=== PATIENT | female | born 1955 | race African-American/Black ===

== ENCOUNTER 2017-07-31 10:02 | Emergency (ER) | payer MEDICARE ==
[2017-07-31 10:10] VITALS: TEMP 97
[2017-07-31] MEDS ORDERED: SODIUM CHLORIDE 0.9% 500 ML IV STA (10:26)
[2017-07-31] MEDS ORDERED: ONDANSETRON 4 MG/2 ML VIAL IVP STA (10:26)
[2017-07-31] MEDS ORDERED: DICYCLOMINE 10 MG/ML 2 ML AMP IM STA (10:26)
[2017-07-31] MEDS ORDERED: FAMOTIDINE 20 MG/2 ML VIAL IV STA (10:26)
[2017-07-31] MEDS ORDERED: SODIUM CHLORIDE 0.9% 1,000 ML IV STA (10:26)
--- NOTE | 2017-07-31 10:29 | ED ---
General Adult HPI - General Chief complaint: Nausea/Vomiting/Diarrhea Stated complaint: Dehydration Time Seen by Provider: 07/31/17 10:14 Source: patient, RN notes reviewed Mode of arrival: ambulatory Limitations: no limitations - History of Present Illness Initial comments: Patient is a pleasant 62-year-old female presenting to the emergency department with concerns regarding dehydration. Patient has had symptoms for the past 2-3 days. Patient has had loose watery stools. Patient has had abdominal cramping that is intermittent. No significant pain. Patient has had occasional mild nausea. Patient has had decreased appetite. No vomiting. Patient has had similar symptoms a couple times in the past however is unclear why. - Related Data Home Medications Medication Instructions Recorded Confirmed Calcitriol 0.25 mcg PO Q7D 03/05/17 03/05/17 Carvedilol [Coreg] 3.125 mg PO BID 03/05/17 03/05/17 Ergocalciferol [Vitamin D2 50,000 unit PO Q7D 03/05/17 03/05/17 (DRISDOL)] Folic Acid 1 mg PO DAILY 03/05/17 03/05/17 Furosemide [Lasix] 20 mg PO DAILY 03/05/17 03/05/17 Hydroxychloroquine Sulfate 200 mg PO BID 03/05/17 03/05/17 [Plaquenil] Insulin Aspart Protam & Aspart See Protocol SQ AC-TID 03/05/17 03/05/17 [NovoLOG MIX 70-30 Flexpen] Lisinopril [Zestril] 2.5 mg PO DAILY 03/05/17 03/05/17 Methotrexate Sodium [Methotrexate] 20 mg PO Q7D 03/05/17 03/05/17 Montelukast [Singulair] 10 mg PO HS 03/05/17 03/05/17 Pregabalin [Lyrica] 150 mg PO BID 03/05/17 03/05/17 Sertraline [Zoloft] 100 mg PO DAILY 03/05/17 03/05/17 Simvastatin [Zocor] 10 mg PO HS 03/05/17 03/05/17 Spironolactone [Aldactone] 25 mg PO DAILY 03/05/17 03/05/17 tiZANidine [Zanaflex] 4 mg PO DAILY 03/05/17 03/05/17 Allergies Allergy/AdvReac Type Severity Reaction Status Date / Time Penicillins Allergy Rash/Hives Verified 07/31/17 10:10 Review of Systems ROS Statement: Those systems with pertinent positive or pertinent negative responses have been documented in the HPI. ROS Other: All systems not noted in ROS Statement are negative. Constitutional: Denies: fever Eyes: Denies: eye pain ENT: Denies: ear pain Respiratory: Denies: cough Cardiovascular: Denies: chest pain Endocrine: Reports: fatigue Gastrointestinal: Reports: abdominal pain (Occasional cramping, none at this time), nausea, diarrhea. Denies: vomiting Genitourinary: Denies: dysuria Musculoskeletal: Denies: back pain Skin: Denies: rash Neurological: Denies: headache Past Medical History Past Medical History: Atrial Fibrillation, Cancer, Diabetes Mellitus, Dialysis, Hypertension, Rheumatoid Arthritis (RA) Additional Past Medical History / Comment(s): Lupus, kidney dialysis; heart murmur History of Any Multi-Drug Resistant Organisms: None Reported Past Surgical History: AICD, Hysterectomy, Orthopedic Surgery Additional Past Surgical History / Comment(s): defibrillator; toe surgery for RA Type of Cardiac Device: AICD Device Placement Date:: 2014 Past Psychological History: Depression Smoking Status: Former smoker Past Alcohol Use History: None Reported Past Drug Use History: None Reported General Exam Limitations: no limitations General appearance: alert, in no apparent distress Head exam: Present: atraumatic Eye exam: Present: normal appearance, PERRL ENT exam: Present: normal oropharynx. Absent: mucous membranes dry Neck exam: Present: normal inspection Respiratory exam: Present: normal lung sounds bilaterally Cardiovascular Exam: Present: regular rate, normal rhythm GI/Abdominal exam: Present: soft, normal bowel sounds. Absent: distended, tenderness, guarding, rebound, rigid, pulsatile mass Extremities exam: Present: normal inspection Neurological exam: Present: alert Psychiatric exam: Present: normal affect, normal mood Skin exam: Present: normal color Course Vital Signs 07/31/17 10:07 Temperature 97 F L Pulse Rate 95 Respiratory 18 Rate Blood Pressure 126/73 O2 Sat by Pulse 96 Oximetry Medical Decision Making - Medical Decision Making Patient reevaluated and does feel much better. Patient is comfortable with discharge home. Patient does not feel she needs prescription or further medication. Patient updated on results. - Lab Data Result diagrams: 07/31/17 11:26 07/31/17 11:26 Lab Results 07/31/17 07/31/17 Range/Units 11:26 11:26 WBC 4.5 (3.8-10.6) k/uL RBC 5.16 (3.80-5.40) m/uL Hgb 13.8 (11.4-16.0) gm/dL Hct 40.8 (34.0-46.0) % MCV 79.1 L (80.0-100.0) fL MCH 26.7 (25.0-35.0) pg MCHC 33.8 (31.0-37.0) g/dL RDW 15.3 (11.5-15.5) % Sodium 144 (137-145) mmol/L Potassium 4.4 (3.5-5.1) mmol/L Chloride 107 (98-107) mmol/L Carbon Dioxide 19 L (22-30) mmol/L Anion Gap 18 mmol/L BUN 19 H (7-17) mg/dL Creatinine 0.94 (0.52-1.04) mg/dL Est GFR (CKD-EPI)AfAm 75 (>60 ml/min/1.73 sqM) Est GFR (CKD-EPI)NonAf 65 (>60 ml/min/1.73 sqM) Glucose 189 H (74-99) mg/dL Calcium 8.4 (8.4-10.2) mg/dL Total Bilirubin 0.8 (0.2-1.3) mg/dL AST 39 H (14-36) U/L ALT 24 (9-52) U/L Alkaline Phosphatase 83 (38-126) U/L Total Protein 7.5 (6.3-8.2) g/dL Albumin 4.2 (3.5-5.0) g/dL Amylase 100 (30-110) U/L Lipase 269 (23-300) U/L Disposition Clinical Impression: Dehydration Disposition: HOME SELF-CARE Condition: Stable Instructions: Acute Diarrhea (ED), Dehydration (ED) Additional Instructions: Please do follow-up with your primary care physician in the next day or 2 for recheck. Return for uncontrolled diarrhea, abdominal pain, fevers, vomiting, worsening symptoms or other concerns. Is patient prescribed a controlled substance at d/c from ED?: No Referrals: Russell Abbasi MD [Primary Care Provider] - 1-2 days Time of Disposition: 12:53
[2017-07-31 11:38] LABS: Basophils % (A) 1 %; Eosinophils # (A) 0.1 k/uL (0-0.7); Eosinophils % (A) 1 %; HCT 40.8 % (34.0-46.0); HGB 13.8 gm/dL (11.4-16.0); Lymphocytes # (A) 1.8 k/uL (1.0-4.8); Lymphocytes % (A) 40 %; MCH 26.7 pg (25.0-35.0); MCHC 33.8 g/dL (31.0-37.0); MCV 79.1 fL (80.0-100.0); Mean Platelet Volume 10.5; Monocytes # (A) 0.3 k/uL (0-1.0); Monocytes % (A) 6 %; Neutrophils # (A) 2.2 k/uL (1.3-7.7); Neutrophils % (A) 49 %; RBC 5.16 m/uL (3.80-5.40); RDW 15.3 % (11.5-15.5); WBC 4.5 k/uL (3.8-10.6)
[2017-07-31 11:53] LABS: Calcium 8.4 mg/dL (8.4-10.2); Total Bilirubin 0.8 mg/dL (0.2-1.3)
[2017-07-31 11:54] LABS: Albumin 4.2 g/dL (3.5-5.0); Potassium 4.4 mmol/L (3.5-5.1); Total Protein 7.5 g/dL (6.3-8.2)
[2017-07-31 12:56] LABS: Platelet Count 128 k/uL (150-450)
[2017-07-31 12:57] LABS: Large Platelets Present
[2017-07-31 13:06] VITALS: BP 152/83; PULSE 90; RESP 16
[2017-07-31 13:13] LABS: Appearance,Urine Clear (Clear); Bilirubin,Urine Negative (Negative); Blood,Urine Negative (Negative); Color,Urine Yellow; Glucose,Urine (UA) Negative (Negative); Ketones,Urine Negative (Negative); Leukocyte Esterase,Urine Negative (Negative); Nitrite,Urine Negative (Negative); Protein,Urine Trace (Negative); Specific Gravity,Urine 1.016 (1.001-1.035); Urobilinogen,Urine <2.0 mg/dL (<2.0)
== END 2017-07-31 13:07 | disposition home or self-care (01) ==
LOC: EC 10:02
DX: E86.0 Dehydration (principal); I48.91 Unspecified atrial fibrillation; E11.9 Type 2 diabetes mellitus without complications; I10 Essential (primary) hypertension; F32.9 Major depressive disorder, single episode, unspecified; Z95.810 Presence of automatic (implantable) cardiac defibrillator; Z99.2 Dependence on renal dialysis; Z87.891 Personal history of nicotine dependence; Z79.02 Long term (current) use of antithrombotics/antiplatelets; Z79.4 Long term (current) use of insulin; Z79.899 Other long term (current) drug therapy; Z88.0 Allergy status to penicillin; Z85.9 Personal history of malignant neoplasm, unspecified
CPT/HCPCS: 36415; 80053; 82150; 83690; 85025; 81003; 99284; 96374; 96375; 96361 ×2; 96372; J0500; J2405

== ENCOUNTER 2017-10-30 13:58 | Emergency (ER) | payer MEDICARE ==
[2017-10-30] MEDS ORDERED: MORPHINE SULFATE 4 MG/ML SYRINGE IV STA (15:59)
[2017-10-30] MEDS ORDERED: SODIUM CHLORIDE 0.9% 1,000 ML IV STA (15:59)
--- NOTE | 2017-10-30 16:03 | ED ---
Abdominal Pain HPI - General Chief Complaint: Abdominal Pain Stated Complaint: Abd Pain Time Seen by Provider: 10/30/17 15:49 Source: patient Mode of arrival: ambulatory Limitations: no limitations - History of Present Illness Initial Comments: Patient is a 62-year-old female presenting for abdominal pain. The patient states that this is been present since Tuesday night and feels like a "surgical" of constant achy pain which is also present at the top portion of her abdomen. The pain does not radiate and there are no modifying factors. It is associated with chills but no fever or urinary symptoms. She has had 10 episodes of vomiting since that time but no diarrhea. She also denies any significant intra-abdominal pathology and has only had a history of hysterectomy from a surgical standpoint. She also states that she does have A. fib but is not anticoagulated because of falls. She denies any significant chest pain or shortness of breath. - Related Data Home Medications Medication Instructions Recorded Confirmed Calcitriol 0.25 mcg PO Q7D 03/05/17 03/05/17 Carvedilol [Coreg] 3.125 mg PO BID 03/05/17 03/05/17 Ergocalciferol [Vitamin D2 50,000 unit PO Q7D 03/05/17 03/05/17 (DRISDOL)] Folic Acid 1 mg PO DAILY 03/05/17 03/05/17 Furosemide [Lasix] 20 mg PO DAILY 03/05/17 03/05/17 Hydroxychloroquine Sulfate 200 mg PO BID 03/05/17 03/05/17 [Plaquenil] Insulin Aspart Protam & Aspart See Protocol SQ AC-TID 03/05/17 03/05/17 [NovoLOG MIX 70-30 Flexpen] Lisinopril [Zestril] 2.5 mg PO DAILY 03/05/17 03/05/17 Methotrexate Sodium [Methotrexate] 20 mg PO Q7D 03/05/17 03/05/17 Montelukast [Singulair] 10 mg PO HS 03/05/17 03/05/17 Pregabalin [Lyrica] 150 mg PO BID 03/05/17 03/05/17 Sertraline [Zoloft] 100 mg PO DAILY 03/05/17 03/05/17 Simvastatin [Zocor] 10 mg PO HS 03/05/17 03/05/17 Spironolactone [Aldactone] 25 mg PO DAILY 03/05/17 03/05/17 tiZANidine [Zanaflex] 4 mg PO DAILY 03/05/17 03/05/17 Previous Rx's Medication Instructions Recorded Dicyclomine [Bentyl] 20 mg PO QID PRN #20 tablet 10/30/17 Metoclopramide [Reglan] 10 mg PO BID PRN #12 tab 10/30/17 Allergies Allergy/AdvReac Type Severity Reaction Status Date / Time Penicillins Allergy Rash/Hives Verified 10/30/17 14:27 Review of Systems ROS Statement: Those systems with pertinent positive or pertinent negative responses have been documented in the HPI. Constitutional: Positive for chills, fatigue and negative for fever. HENT: Negative for congestion. Respiratory: Negative for chest tightness, shortness of breath and wheezing. Negative for cough Cardiovascular: Negative for chest pain and palpitations. Gastrointestinal: Positive for abdominal pain and vomiting/nausea. Negative for abdominal distention, diarrhea, . Genitourinary: Negative for dysuria. Musculoskeletal: Negative for back pain, neck pain and neck stiffness. Skin: Negative for color change. Neurological: Negative for dizziness, speech difficulty, weakness and light- headedness. Psychiatric/Behavioral: Negative for agitation and confusion. Negative for anxiety ROS Other: All systems not noted in ROS Statement are negative. Past Medical History Past Medical History: Atrial Fibrillation, Cancer, Diabetes Mellitus, Dialysis, Hypertension, Rheumatoid Arthritis (RA) Additional Past Medical History / Comment(s): Lupus, kidney dialysis; heart murmur History of Any Multi-Drug Resistant Organisms: None Reported Past Surgical History: AICD, Hysterectomy, Orthopedic Surgery Additional Past Surgical History / Comment(s): defibrillator; toe surgery for RA Type of Cardiac Device: AICD Device Placement Date:: 2014 Past Psychological History: Depression Smoking Status: Former smoker Past Alcohol Use History: None Reported Past Drug Use History: None Reported General Exam - General Exam Comments Initial Comments: Constitutional: Pt is oriented to person, place, and time. Pt appears well- developed and well-nourished. No distress. HENT: Head: Normocephalic and atraumatic. Eyes: EOM are normal. Neck: Normal range of motion. Neck supple. Cardiovascular: Irregularly irregular, S1 normal, S2 normal and normal heart sounds. Exam reveals no gallop and no friction rub. No murmur heard. Pulmonary/Chest: Effort normal and breath sounds normal. No tachypnea and no bradypnea. No respiratory distress. No wheezes or rales noted. Abdominal: Soft. Bowel sounds are normal. Pt exhibits no shifting dullness, no distension, no pulsatile liver, no fluid wave, no abdominal bruit and no ascites. There is no tenderness. There is no rigidity, no rebound, no guarding, no tenderness at McBurney's point and negative Winter's sign. Musculoskeletal: Normal range of motion. Neurological: Pt is alert and oriented to person, place, and time. No cranial nerve deficit. Skin: Skin is warm and dry. No rash noted. Pt is not diaphoretic. No erythema. No pallor. Psychiatric: Pt has a normal mood and affect. Pt behavior is normal. Thought content normal. Limitations: no limitations Course Vital Signs 10/30/17 10/30/17 10/30/17 14:23 19:01 20:11 Temperature 98 F 98.2 F Pulse Rate 69 51 L 81 Respiratory 18 18 17 Rate Blood Pressure 133/66 150/70 164/98 O2 Sat by Pulse 98 95 97 Oximetry Medical Decision Making - Medical Decision Making Laboratory studies showed that there is no leukocytosis and a letter lites are relatively within normal limits with exception of magnesium which were replaced. Because there was no significant tenderness to palpation of the patient had a history of atrial fibrillation, CTA of the abdomen was performed and showed: Cortical thinning posterior left kidney consistent with infarct and atrophy. This is discussed radiology and it was determined that this is likely old and chronic. Additionally, G4 appears to be preserved. Patient was given fluids and antiemetics and stated that symptoms had completely resolved.It was explained that while there does not appear to be an emergent process, the etiology of the symptoms are still unclear but possibly related to viral illness and may need further workup as an outpatient if symptoms continue. Patient was reexamined prior to d/c and found to be resting comfortably in bed in no acute distress.Explained all labs and diagnostic test results and that we will discharge the patient home and patient is to follow up with PCP in 1-2 days and return to the ED if symptoms worsen. Pt is agreeable to plan. - Lab Data Result diagrams: 10/30/17 16:19 10/30/17 16:19 Lab Results 10/30/17 10/30/1718 Range/Units 16:19 16:19 16:19 WBC 6.8 (3.8-10.6) k/uL RBC 4.46 (3.80-5.40) m/uL Hgb 11.9 (11.4-16.0) gm/dL Hct 34.0 (34.0-46.0) % MCV 76.3 L (80.0-100.0) fL MCH 26.8 (25.0-35.0) pg MCHC 35.1 (31.0-37.0) g/dL RDW 17.0 H (11.5-15.5) % Plt Count 135 L (150-450) k/uL Neutrophils % 71 % Lymphocytes % 20 % Monocytes % 6 % Eosinophils % 1 % Basophils % 1 % Neutrophils # 4.8 (1.3-7.7) k/uL Lymphocytes # 1.3 (1.0-4.8) k/uL Monocytes # 0.4 (0-1.0) k/uL Eosinophils # 0.0 (0-0.7) k/uL Basophils # 0.0 (0-0.2) k/uL Anisocytosis Slight Microcytosis Slight PT (9.0-12.0) sec INR (<1.2) APTT (22.0-30.0) sec Sodium 140 (137-145) mmol/L Potassium 4.1 (3.5-5.1) mmol/L Chloride 107 (98-107) mmol/L Carbon Dioxide 21 L (22-30) mmol/L Anion Gap 12 mmol/L BUN 11 (7-17) mg/dL Creatinine 0.80 (0.52-1.04) mg/dL Est GFR (CKD-EPI)AfAm >90 (>60 ml/min/1.73 sqM) Est GFR (CKD-EPI)NonAf 80 (>60 ml/min/1.73 sqM) Glucose 120 H (74-99) mg/dL Plasma Lactic Acid Sunny 1.6 (0.7-2.0) mmol/L Calcium 9.5 (8.4-10.2) mg/dL Magnesium 1.5 L (1.6-2.3) mg/dL Total Bilirubin 1.2 (0.2-1.3) mg/dL AST 40 H (14-36) U/L ALT 26 (9-52) U/L Alkaline Phosphatase 111 (38-126) U/L Troponin I (0.000-0.034) ng/mL Total Protein 7.9 (6.3-8.2) g/dL Albumin 4.1 (3.5-5.0) g/dL Lipase 111 (23-300) U/L Urine Color Urine Appearance (Clear) Urine pH (5.0-8.0) Ur Specific [place] (1.001-1.035) Urine Protein (Negative) Urine Glucose (UA) (Negative) Urine Ketones (Negative) Urine Blood (Negative) Urine Nitrite (Negative) Urine Bilirubin (Negative) Urine Urobilinogen (<2.0) mg/dL Ur Leukocyte Esterase (Negative) Urine RBC (0-5) /hpf Urine WBC (0-5) /hpf Ur Squamous Epith Cells (0-4) /hpf Urine Mucus (None) /hpf 10/30/17 10/30/17 10/30/17 Range/Units 16:19 16:19 18:51 WBC (3.8-10.6) k/uL RBC (3.80-5.40) m/uL Hgb (11.4-16.0) gm/dL Hct (34.0-46.0) % MCV (80.0-100.0) fL MCH (25.0-35.0) pg MCHC (31.0-37.0) g/dL RDW (11.5-15.5) % Plt Count (150-450) k/uL Neutrophils % % Lymphocytes % % Monocytes % % Eosinophils % % Basophils % % Neutrophils # (1.3-7.7) k/uL Lymphocytes # (1.0-4.8) k/uL Monocytes # (0-1.0) k/uL Eosinophils # (0-0.7) k/uL Basophils # (0-0.2) k/uL Anisocytosis Microcytosis PT 12.6 H (9.0-12.0) sec INR 1.3 H (<1.2) APTT 23.3 (22.0-30.0) sec Sodium (137-145) mmol/L Potassium (3.5-5.1) mmol/L Chloride (98-107) mmol/L Carbon Dioxide (22-30) mmol/L Anion Gap mmol/L BUN (7-17) mg/dL Creatinine (0.52-1.04) mg/dL Est GFR (CKD-EPI)AfAm (>60 ml/min/1.73 sqM) Est GFR (CKD-EPI)NonAf (>60 ml/min/1.73 sqM) Glucose (74-99) mg/dL Plasma Lactic Acid Sunny (0.7-2.0) mmol/L Calcium (8.4-10.2) mg/dL Magnesium (1.6-2.3) mg/dL Total Bilirubin (0.2-1.3) mg/dL AST (14-36) U/L ALT (9-52) U/L Alkaline Phosphatase (38-126) U/L Troponin I 0.023 (0.000-0.034) ng/mL Total Protein (6.3-8.2) g/dL Albumin (3.5-5.0) g/dL Lipase (23-300) U/L Urine Color Yellow Urine Appearance Clear (Clear) Urine pH 6.0 (5.0-8.0) Ur Specific [place] 1.042 H (1.001-1.035) Urine Protein 1+ H (Negative) Urine Glucose (UA) Negative (Negative) Urine Ketones 2+ H (Negative) Urine Blood Negative (Negative) Urine Nitrite Negative (Negative) Urine Bilirubin 1+ H (Negative) Urine Urobilinogen 4.0 (<2.0) mg/dL Ur Leukocyte Esterase Negative (Negative) Urine RBC 2 (0-5) /hpf Urine WBC <1 (0-5) /hpf Ur Squamous Epith Cells <1 (0-4) /hpf Urine Mucus Rare H (None) /hpf - EKG Data EKG Comments: EKG shows sinus rhythm with right bundle branch block and nonspecific T-wave inversions in leads V1 through V3 and aVF. Rate of 91, ND interval 198, QRS 130 , QTC 492. Disposition Clinical Impression: Abdominal pain, Nausea and vomiting, Atrophic kidney Disposition: HOME SELF-CARE Condition: Good Instructions: Abdominal Pain (ED) Prescriptions: Dicyclomine [Bentyl] 20 mg PO QID PRN #20 tablet PRN Reason: Pain Metoclopramide [Reglan] 10 mg PO BID PRN #12 tab PRN Reason: Nausea And Vomiting Is patient prescribed a controlled substance at d/c from ED?: No Referrals: Russell Abbasi MD [Primary Care Provider] - 1-2 days Time of Disposition: 19:27
[2017-10-30 16:34] LABS: Anisocytosis Slight; Basophils % (A) 1 %; Eosinophils % (A) 1 %; HGB 11.9 gm/dL (11.4-16.0); Lymphocytes # (A) 1.3 k/uL (1.0-4.8); Lymphocytes % (A) 20 %; MCH 26.8 pg (25.0-35.0); MCHC 35.1 g/dL (31.0-37.0); MCV 76.3 fL (80.0-100.0); Mean Platelet Volume 10.1; Microcytosis Slight; Monocytes # (A) 0.4 k/uL (0-1.0); Monocytes % (A) 6 %; Neutrophils # (A) 4.8 k/uL (1.3-7.7); Neutrophils % (A) 71 %; Platelet Count 135 k/uL (150-450); RBC 4.46 m/uL (3.80-5.40); WBC 6.8 k/uL (3.8-10.6)
[2017-10-30 16:47] LABS: INR 1.3 (<1.2); Partial Thromboplastin Time 23.3 sec (22.0-30.0); Prothrombin Time 12.6 sec (9.0-12.0)
[2017-10-30] MEDS ORDERED: TRIMETHOBENZAMIDE 100 MG/ML 2 ML VIAL IM STA (16:50)
[2017-10-30 16:54] LABS: ALT 26 U/L (9-52); AST 40 U/L (14-36); Albumin 4.1 g/dL (3.5-5.0); Alkaline Phosphatase 111 U/L (38-126); Anion Gap 12 mmol/L; Blood Urea Nitrogen 11 mg/dL (7-17); Calcium 9.5 mg/dL (8.4-10.2); Carbon Dioxide 21 mmol/L (22-30); Chloride 107 mmol/L (98-107); Glucose 120 mg/dL (74-99); Lipase 111 U/L (23-300); Magnesium 1.5 mg/dL (1.6-2.3); Potassium 4.1 mmol/L (3.5-5.1); Sodium 140 mmol/L (137-145); Total Bilirubin 1.2 mg/dL (0.2-1.3); Total Protein 7.9 g/dL (6.3-8.2)
--- NOTE | 2017-10-30 18:06 | CT ---
EXAMINATION TYPE: CT angio abdomen pelvis DATE OF EXAM: 10/30/2017 HISTORY: Generalized pain with nausea and vomiting CT DLP: 929mGycm Automated Exposure Control for Dose Reduction was Utilized. CONTRAST: CT scan of the abdomen and pelvis is performed with IV Contrast, patient injected with 100 mL of Isov ue 370. COMPARISON: None FINDINGS: There are 3-D post processed images. Lung bases are clear of infiltrate. Heart is enlarged. There is no pleural effusion. Abdominal aorta has normal size without evidence of aneurysm or dissection. There is patency of the celiac artery and superior mesenteric artery. There is 50% stenosis origin of the celiac artery. There is patency of t he renal arteries. There is cortical thinning and decreased density in the posterior left kidney. The re is no hydronephrosis. There is bilateral patency of the common internal and external iliac arterie s. There is no retroperitoneal adenopathy. Liver and spleen appear normal. There is a small calcified gallstone. There is no evidence of pancrea tic mass. 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 No abdominal aortic aneu rysm or dissection. Mild stenosis proximal celiac artery. Calcified gallstone.
[2017-10-30 19:19] LABS: Appearance,Urine Clear (Clear); Bilirubin,Urine 1+ (Negative); Blood,Urine Negative (Negative); Color,Urine Yellow; Glucose,Urine (UA) Negative (Negative); Ketones,Urine 2+ (Negative); Leukocyte Esterase,Urine Negative (Negative); Mucus,Urine Rare /hpf; Nitrite,Urine Negative (Negative); Protein,Urine 1+ (Negative); RBC,Urine 2 /hpf (0-5); Specific Gravity,Urine 1.042 (1.001-1.035); Squamous Epithelial Cell,Urine <1 /hpf (0-4); WBC,Urine <1 /hpf (0-5)
[2017-10-30] MEDS ORDERED: MAGNESIUM OXIDE 400 MG TAB PO STA (19:24)
[2017-10-30 20:12] VITALS: BP 164/98; PULSE 81; RESP 17; TEMP 98.2
== END 2017-10-30 20:12 | disposition home or self-care (01) ==
LOC: EC 13:58
DX: I12.9 Hypertensive chronic kidney disease with stage 1 through stage 4 chronic kidney disease, or unspecified chronic kidney disease (principal); E11.22 Type 2 diabetes mellitus with diabetic chronic kidney disease; N18.9 Chronic kidney disease, unspecified; R10.9 Unspecified abdominal pain; I48.91 Unspecified atrial fibrillation; M06.9 Rheumatoid arthritis, unspecified; F32.9 Major depressive disorder, single episode, unspecified; Z90.710 Acquired absence of both cervix and uterus; Z99.2 Dependence on renal dialysis; Z95.810 Presence of automatic (implantable) cardiac defibrillator; Z87.891 Personal history of nicotine dependence; Z79.4 Long term (current) use of insulin; Z79.899 Other long term (current) drug therapy; Z88.0 Allergy status to penicillin
CPT/HCPCS: 36415; 93005; 80053; 83605; 83690; 83735; 84484; 85025; 85610; 85730; 81001; 74174; 99284; 96374; 96361; 96372; J2270; J3250; Q9967

== ENCOUNTER → 2018-01-11 | Outpatient (CLI) | payer MEDICARE ==
--- NOTE | 2018-01-13 09:53 | MM ---
Reason for exam: screening (asymptomatic). Last mammogram was performed 1 year and 1 month ago. History: Patient is postmenopausal and history of other cancer. Took progesterone for 2 months. Physical Findings: A clinical breast exam by your physician is recommended on an annual basis and results should be correlated with mammographic findings. MG 3D Screening Mammo W/Cad Bilateral CC and MLO view(s) were taken. Prior study comparison: December 03, 2016, bilateral MG 3d screening mammo w/cad. August 06, 2015, bilateral MG 3d screening mammo w/cad. Focal asymmetries left CC, one has distortion on tomosynthesis. This finding is changed when compared with previous exams. ASSESSMENT: Incomplete: need additional imaging evaluation, BI-RAD 0 RECOMMENDATION: Special view mammogram of the left breast. If lesion persists on supplemental views, image directed ultrasound is recommended. [facility] will attempt to contact patient to return for supplemental views and ultrasound if indicated.
== END | disposition home or self-care (01) ==
LOC: RADMAMWWP 14:29
PROVIDERS: ATTEND Family Medicine
DX: Z12.31 Encounter for screening mammogram for malignant neoplasm of breast (principal)
CPT/HCPCS: 77063; 77067

== ENCOUNTER → 2018-01-20 | Outpatient (CLI) | payer MEDICARE ==
--- NOTE | 2018-01-23 13:20 | MM ---
Reason for exam: additional evaluation requested from abnormal screening. Last mammogram was performed less than 1 month ago. History: Patient is postmenopausal and history of other cancer. Took progesterone for 2 months. Physical Findings: Nurse did not find any significant physical abnormalities on exam. MG 3D Work Up W/Cad LT Spot compression CC, spot compression MLO, and LM view(s) were taken of the left breast. Prior study comparison: January 11, 2018, bilateral MG 3d screening mammo w/cad. December 03, 2016, bilateral MG 3d screening mammo w/cad. The breast tissue is heterogeneously dense. This may lower the sensitivity of mammography. There is no discrete abnormality on compressio or tomosynthesis. These results were verbally communicated with the patient and result sheet given to the patient on 01/20/18. ASSESSMENT: Benign, BI-RAD 2 RECOMMENDATION: Return to routine screening mammogram schedule for both breasts.
== END | disposition home or self-care (01) ==
LOC: RADMAMWWP 14:35
PROVIDERS: ATTEND Family Medicine
DX: R92.8 Other abnormal and inconclusive findings on diagnostic imaging of breast (principal)
CPT/HCPCS: 77065; G0279; 77061

== ENCOUNTER → 2018-06-27 | Outpatient (CLI) | payer MEDICARE ==
[2018-06-27 16:11] LABS: Albumin 4.4 g/dL (3.80-4.90); Albumin/Globulin Ratio 1.47 (1.60-3.17); Anion Gap 10.9 mmol/L (4.00-12.00); Calcium 9.3 mg/dL (8.7-10.3); Carbon Dioxide 28.1 mmol/L (21.6-31.8); Potassium 4.4 mmol/L (3.5-5.5); Total Bilirubin 0.4 mg/dL (0.2-1.2); Total Protein 7.4 g/dL (6.2-8.2)
== END ==
LOC: LABWHC1 08:49
PROVIDERS: ATTEND Internal Medicine Endocrinology, Diabetes & Metabolism
DX: E11.65 Type 2 diabetes mellitus with hyperglycemia (principal)
CPT/HCPCS: 36415; 80053; 82043; 82570; 83036; 84443

== ENCOUNTER → 2018-07-07 | Outpatient (CLI) | payer MEDICARE ==
[2018-07-07 18:41] LABS: Albumin 4.5 g/dL (3.80-4.90); Albumin/Globulin Ratio 1.61 (1.60-3.17); Anion Gap 8.3 mmol/L (4.00-12.00); Calcium 9.2 mg/dL (8.7-10.3); Carbon Dioxide 28.7 mmol/L (21.6-31.8); Globulin 2.8 g/dL (1.6-3.3); LDL Cholesterol,Calculated 76.4 mg/dL (0.0-131.0); Potassium 4.2 mmol/L (3.5-5.5); Total Bilirubin 0.5 mg/dL (0.2-1.2); Total Protein 7.3 g/dL (6.2-8.2); VLDL Calculation 17.6 mg/dL (5.00-40.00)
[2018-07-07 21:19] LABS: Hemoglobin A1C 7.7 % (4.0-6.0)
== END | disposition home or self-care (01) ==
LOC: LABWHC1 11:18
PROVIDERS: ATTEND Internal Medicine Endocrinology, Diabetes & Metabolism
DX: E11.65 Type 2 diabetes mellitus with hyperglycemia (principal)
CPT/HCPCS: 36415; 80053; 80061; 82043; 82570; 83036; 84443

== ENCOUNTER 2018-09-20 11:15 | Day surgery (SDC) | payer MEDICARE ==
[2018-09-13 13:40] VITALS: BMI 29.4
[~2018-09-20 11:15] MED LIST: CLINDAMYCIN 600 MG in DEXTROSE 5% IN WATER 50 ML IVPB ONE; DEXAMETHASONE SOD PHOSPHATE 10 MG/ML 1 ML VIAL IV ONE; DEXAMETHASONE SOD PHOSPHATE 4 MG/ML 1 ML VIAL IV ONE; FAMOTIDINE 20 MG/2 ML VIAL IV ONE; LACTATED RINGERS 1,000 ML IV SCH; LIDOCAINE 1% 20 ML VIAL (10MG/ML) FOR IV START INTRADERMA PRN; ONDANSETRON 4 MG/2 ML VIAL IVP ONE; SCOPOLAMINE 1.5MG/72HR PATCH TRANSDERM ONE
[2018-09-20 13:16] LABS: Glucose,Whole Blood 162 mg/dL (75-99)
[2018-09-20] MEDS ORDERED: ONDANSETRON 4 MG/2 ML VIAL ONE (13:40)
[2018-09-20] MEDS ORDERED: fentaNYL (PF) 50 MCG/ML 2 ML AMP ONE ×2 (13:40)
[2018-09-20] MEDS ORDERED: DEXAMETHASONE SOD PHOS (MDV) 100 MG/10 ML VIAL ONE (13:40)
[2018-09-20] MEDS ORDERED: KETAMINE 10 MG/ML 20 ML VIAL ONE (13:40)
[2018-09-20] MEDS ORDERED: PROPOFOL 10 MG/ML 20 ML VIAL IV ONE (13:40)
[2018-09-20] MEDS ORDERED: LIDOCAINE 1%-EPI 1:100,000 20 ML VIAL SQ ONE ×2 (14:10)
[2018-09-20] MEDS ORDERED: SODIUM BICARB 8.4% 50 ML VIAL (1 MEQ/ML) MISCELLANE ONE ×2 (14:10)
[2018-09-20] MEDS ORDERED: LACTATED RINGERS 1,000 ML IV ONE ×2 (14:28)
[2018-09-20] MEDS ORDERED: BACITRACIN OINT 1 EACH PACKET TOPICAL ONE (15:23)
--- NOTE | 2018-09-20 15:31 | P.OP ---
Date of Procedure: 09/20/18 Preoperative Diagnosis: Left vocal cord paralysis Postoperative Diagnosis: Same Procedure(s) Performed: Left medialization thyroplasty Anesthesia: ENYMAR Surgeon: Tomy Singh Estimated Blood Loss (ml): 3 Pathology: none sent Condition: stable Disposition: PACU Indications for Procedure: This is a 63-year-old black female who was intubated in March of this year emergently and has had hoarseness ever since. She has documented on flexible laryngoscopy and video stroboscopy of the left paralysis which has not improved and continues to have weakness of the voice and hoarseness Operative Findings: Left vocal cord paralysis in the paramedian position Description of Procedure: The patient was brought in the operative suite and placed in a supine position. The patient underwent induction of IV sedation after appropriate monitors were placed by the skiver counter. The patient was prepped and draped in usual aseptic fashion after being positioned with a head donut and shoulder roll. 1% lidocaine with 1-100,000 epinephrine was infused over the left anterior neck. This was left to work for 7 minutes vasoconstrictive effect. Incision was then made transversely 1.5 cm over the midline through the right and then coursing overlying the inferior aspect of the thyroid cartilage on the left. This was carried sharply through skin and subcutaneous tissue as well as platysma layer. The strap muscles were identified and split in the midline raphae and reflected laterally. The dissection continued down onto the thyroid cartilage where the musculature was divided in the inferior aspect of the thyroid cartilage and refl ected superiorly and inferiorly. The left thyroid cartilage was well visualized and the inferior tubercle was identified. The Pichardo thyroplasty female markers were used to ascertain the mcclellan point and to measure for the cartilaginous window in standard fashion. This cartilage of window was then cut out with a 15 blade and the window was resized and was the appropriate size and location. The underlying perichondrium was then divided anterior to posterior. The Pichardo thyroplasty set was then utilized to obtain the appropriate size which was a female size 9 testing her voice with counting numbers to a stronger appropriate voice but not strained. This implant was then placed and the patient was allowed to count numbers again. Flexible laryngoscopy was also performed to visualize vocal cords and the left vocal cord was then noted to be in the median position. The wound was then copiously irrigated sterile normal saline. A #10 round suction drain was placed separate stab incision and the strap muscles were reapproximated in the midline with 3-0 Vicryl suture. The platysma and subcutaneous layers were closed with inverted interrupted 4-0 Vicryl suture and the skin closed with running locking 5-0 nylon suture. The drain was sutured to the skin with a 2-0 nylon suture. The wound was dressed with bacitracin ointment and a light gauze dressing. The drain was working well less than 1 mL in the tubing. The patient was awake and alert and tolerated the procedure well with no stridor or respiratory difficulty. The patient's voicing was strong at the conclusion of the case. The patient was transferred to postop recovery area in satisfactory condition.
[2018-09-20 15:41] VITALS: TEMP 97
[2018-09-20] MEDS: HYDROmorphone 0.5 MG/0.5 ML SYRINGE IVP PRN ×2 (15:56→16:19)
[2018-09-20 16:25] LABS: Glucose,Whole Blood 190 mg/dL (75-99)
[2018-09-20 17:02] VITALS: RESP 18
[2018-09-20 17:36] VITALS: BP 123/63; PULSE 80
== END 2018-09-20 18:10 | disposition home or self-care (01) ==
LOC: OR 11:15
PROVIDERS: ATTEND Otolaryngology
DX: J38.01 Paralysis of vocal cords and larynx, unilateral (principal); E78.5 Hyperlipidemia, unspecified; J45.909 Unspecified asthma, uncomplicated; M06.9 Rheumatoid arthritis, unspecified; M35.00 Sjogren syndrome, unspecified; D64.9 Anemia, unspecified; I11.0 Hypertensive heart disease with heart failure; I50.9 Heart failure, unspecified; R53.1 Weakness; I48.91 Unspecified atrial fibrillation; E11.9 Type 2 diabetes mellitus without complications; F32.9 Major depressive disorder, single episode, unspecified; Z95.810 Presence of automatic (implantable) cardiac defibrillator; Z79.82 Long term (current) use of aspirin; Z79.4 Long term (current) use of insulin; Z79.51 Long term (current) use of inhaled steroids; Z88.0 Allergy status to penicillin; Z90.710 Acquired absence of both cervix and uterus

== ENCOUNTER → 2018-12-26 | Outpatient (CLI) | payer MEDICARE ==
[2018-12-26 12:43] LABS: Potassium 3.6 mmol/L (3.5-5.1)
[2018-12-26 13:33] LABS: HCT 35.7 % (34.0-46.0); MCH 27.6 pg (25.0-35.0); MCHC 33.6 g/dL (31.0-37.0); MCV 82.1 fL (80.0-100.0); Mean Platelet Volume 9.6; Platelet Count 158 k/uL (150-450); RBC 4.35 m/uL (3.80-5.40); RDW 15.7 % (11.5-15.5); WBC 4.5 k/uL (3.8-10.6)
== END | disposition home or self-care (01) ==
LOC: LABPAT 12:00
PROVIDERS: ATTEND Internal Medicine Clinical Cardiac Electrophysiology
DX: Z01.812 Encounter for preprocedural laboratory examination (principal); I47.1 Supraventricular tachycardia; I42.8 Other cardiomyopathies
CPT/HCPCS: 36415; 80051; 82565; 82947; 84520; 85027

== ENCOUNTER 2019-01-03 06:19 | Day surgery (SDC) | payer MEDICARE ==
[2019-01-02 08:33] VITALS: BMI 33.0
[~2019-01-03 06:19] MED LIST changes: +ALPRAZolam 0.25 MG TAB PO PRN; +ALPRAZolam 0.5 MG TAB PO PRN; +ASPIRIN 325 MG TAB PO STA; +ATORVASTATIN 80 MG TAB PO STA; -CLINDAMYCIN 600 MG in DEXTROSE 5% IN WATER 50 ML IVPB ONE; -DEXAMETHASONE SOD PHOSPHATE 10 MG/ML 1 ML VIAL IV ONE; -DEXAMETHASONE SOD PHOSPHATE 4 MG/ML 1 ML VIAL IV ONE; -FAMOTIDINE 20 MG/2 ML VIAL IV ONE; -LACTATED RINGERS 1,000 ML IV SCH; -LIDOCAINE 1% 20 ML VIAL (10MG/ML) FOR IV START INTRADERMA PRN; +NITROGLYCERIN SL TABS 0.4 MG TAB SUBLINGUAL PRN; -ONDANSETRON 4 MG/2 ML VIAL IVP ONE; -SCOPOLAMINE 1.5MG/72HR PATCH TRANSDERM ONE; +SODIUM CHLORIDE 0.9% 1,000 ML in EMPTY BAG 1 BAG IV ONE
[2019-01-03] MEDS ORDERED: SODIUM CHLORIDE 0.9% 1,000 ML IV ONE (06:59)
[2019-01-03 07:03] VITALS: RESP 16; TEMP 98.1
[2019-01-03 07:04] LABS: Glucose,Whole Blood 149 mg/dL (75-99)
[2019-01-03] MEDS ORDERED: LIDOCAINE 1% INJ 10MG/ML (20 ML MDV) ONE (07:34)
[2019-01-03] MEDS: MIDAZOLAM 2 MG/2 ML VIAL IVP ONE ×2 (07:40→07:45)
[2019-01-03] MEDS ORDERED: LIDOCAINE 1% INJ 10MG/ML (20 ML MDV) SQ ONE (07:47)
[2019-01-03 08:16] LABS: O2 Sat Blood Gas 61.8 %
[2019-01-03 08:18] LABS: O2 Sat Blood Gas 63.5 %
[2019-01-03 08:21] LABS: O2 Sat Blood Gas 61.6 %
[2019-01-03 08:23] LABS: O2 Sat Blood Gas 93.7 %
[2019-01-03 13:25] VITALS: BP 137/70; PULSE 82
--- NOTE | 2019-01-16 15:31 | P.PCN ---
Preoperative Diagnosis: Diagnosis Elevated right-sided pressures on recent 2-D echo Cardiomyopathy Shortness of breath on exertion and atypical chest discomfort No ischemia on stress testing Right heart cath procedure The right groin was prepped and draped as per protocol 8-Danish sheath was placed in the right femoral vein A [place]-Daniel catheter was placed in the right side of the heart and right-sided pressures are measured RA pressures 8/7/6 mmHg O2 sat 63.5% RV pressures 46/-3/6 mmHg O2 sat 61.6% PA pressures 44/26/30 mmHg O2 sat 61.8% Pulmonary capillary wedge pressures 12/16/9 mm of mercury O2 sat 93.7% Patient underwent EP procedure under conscious sedation/moderate sedation, monitoring of the level of consciousness and physiologic parameters including but not limited to vital signs and oxygenation. Patient tolerated the procedure well without any acute complications. Start time: 744 Stop time: 805
== END 2019-01-03 13:12 | disposition home or self-care (01) ==
LOC: CATHEP 06:19
PROVIDERS: ATTEND Internal Medicine Clinical Cardiac Electrophysiology
DX: I42.8 Other cardiomyopathies (principal); I11.0 Hypertensive heart disease with heart failure; I50.9 Heart failure, unspecified; I27.20 Pulmonary hypertension, unspecified; I47.1 Supraventricular tachycardia; R93.1 Abnormal findings on diagnostic imaging of heart and coronary circulation; E11.9 Type 2 diabetes mellitus without complications; J45.909 Unspecified asthma, uncomplicated; M06.9 Rheumatoid arthritis, unspecified; M35.00 Sjogren syndrome, unspecified; M79.7 Fibromyalgia; I34.0 Nonrheumatic mitral (valve) insufficiency; I25.2 Old myocardial infarction; I48.0 Paroxysmal atrial fibrillation; E78.5 Hyperlipidemia, unspecified; F17.210 Nicotine dependence, cigarettes, uncomplicated; Z95.810 Presence of automatic (implantable) cardiac defibrillator; Z79.899 Other long term (current) drug therapy; Z79.4 Long term (current) use of insulin; Z88.0 Allergy status to penicillin
CPT/HCPCS: 93451; 85018; 82810; C1894; C1769 ×2; J2250; J2001

== ENCOUNTER → 2019-04-10 | Outpatient (CLI) | payer MEDICARE ==
[2019-04-11 00:09] LABS: African American GFR (CKD) 50.6 (60.0-200.0); Anion Gap 12.4 mmol/L (4.00-12.00); BUN/Creat Ratio 6.92 Ratio (12.00-20.00); Carbon Dioxide 27.6 mmol/L (21.6-31.8); Magnesium 1.7 mg/dL (1.5-2.4); Non-African American GFR(CKD) 43.6 (60.0-200.0); Potassium 3.4 mmol/L (3.5-5.5)
== END | disposition home or self-care (01) ==
LOC: LABWHC1 15:13
PROVIDERS: ATTEND Nurse Practitioner Adult Health
DX: I10 Essential (primary) hypertension (principal)
CPT/HCPCS: 36415; 80048; 83735

== ENCOUNTER → 2019-04-19 | Outpatient (CLI) | payer MEDICARE | END | disposition home or self-care (01) | LOC: LABWHC1 14:44 | PROVIDERS: ATTEND Internal Medicine Clinical Cardiac Electrophysiology | DX: I48.91 Unspecified atrial fibrillation (principal); I42.9 Cardiomyopathy, unspecified | CPT/HCPCS: 36415; 84443 ==

== ENCOUNTER 2019-07-27 13:58 | Inpatient (IN) | payer MEDICARE ==
[2019-07-27] MEDS ORDERED: SODIUM CHLORIDE 0.9% 1,000 ML IV STA (14:24)
--- NOTE | 2019-07-27 14:30 | ED ---
Weakness HPI <Poli Zhu - Last Filed: 07/27/19 17:49> - General Source: patient, family Mode of arrival: wheelchair Limitations: physical limitation <Diane Chavez - Last Filed: 07/27/19 18:02> - General Chief complaint: Weakness Stated complaint: uti Time Seen by Provider: 07/27/19 14:09 - History of Present Illness Initial comments: Patient is a 64-year-old female, with history of diabetes, hypertension, A. fib, presenting to the emergency Department with complaints of weakness 2 days. Patient states her appetite has been low as well. Patient states she spoke with her doctor who recommended she go into ER to be evaluated for a possible UTI. Patient states she has been urinating more frequently, denies dysuria. She denies any abdominal pain, nausea, vomiting, diarrhea. She denies any chest pain, shortness of breath. She does admit to history of asthma but states she has not needed to use her inhaler. Recent fever or chills. Patient did admit that yesterday when she went to sit down on her chair she missed it and fell onto her bottom. Patient denies hitting her head or LOC. She states she does not have any pain from this fall. Patient states she was unable to get up by herself and remained on the floor for a couple hours until her grandson came home. She has not been drinking a lot of water. She has no other complaints at this time. Upon arrival to the ER, her vital signs are stable. (Diane Chavez) - Related Data Home Medications Medication Instructions Recorded Confirmed Calcitriol 0.25 mcg PO FR 03/05/17 01/02/19 Ergocalciferol [Vitamin D2 50,000 unit PO FR 03/05/17 01/03/19 (DRISDOL)] Folic Acid 1 mg PO DAILY 03/05/17 01/03/19 Furosemide [Lasix] 40 mg PO DAILY 03/05/17 01/03/19 Hydroxychloroquine Sulfate 200 mg PO BID 03/05/17 01/03/19 [Plaquenil] Insulin Aspart Protam & Aspart 12 unit SQ BID-W/MEALS 03/05/17 01/03/19 [NovoLOG MIX 70-30 Flexpen] Lisinopril [Zestril] 2.5 mg PO DAILY 03/05/17 01/03/19 Methotrexate Sodium [Methotrexate] 20 mg PO FR 03/05/17 01/03/19 Montelukast [Singulair] 10 mg PO DAILY 03/05/17 01/03/19 Sertraline [Zoloft] 100 mg PO BID-W/MEALS 03/05/17 01/03/19 Simvastatin [Zocor] 10 mg PO HS 03/05/17 01/03/19 Spironolactone [Aldactone] 25 mg PO DAILY 03/05/17 01/03/19 tiZANidine [Zanaflex] 4 mg PO DAILY 03/05/17 01/03/19 Aspirin [Adult Low Dose Aspirin EC] 81 mg PO DAILY 09/13/18 01/03/19 Beclomethasone Dip 80 Mcg/Puff 1 puff INHALATION DAILY PRN 09/13/18 01/03/19 [Qvar 80 mcg] Pregabalin [Lyrica] 200 mg PO BID 01/02/19 01/03/19 Metoprolol Succinate [Toprol XL] 25 mg PO DAILY 01/03/19 01/03/19 Allergies Allergy/AdvReac Type Severity Reaction Status Date / Time Penicillins Allergy Rash/Hives Verified 07/27/19 14:06 Review of Systems ROS Other: All systems not noted in ROS Statement are negative. <Poli Zhu - Last Filed: 07/27/19 17:49> ROS Other: All systems not noted in ROS Statement are negative. <Diane Chavez - Last Filed: 07/27/19 18:02> ROS Statement: Those systems with pertinent positive or pertinent negative responses have been documented in the HPI. Past Medical History Past Medical History: Atrial Fibrillation, Diabetes Mellitus Additional Past Medical History / Comment(s): Shogrens, Neuropathy feet, Lupus, heart murmur, states passes out with low blood sugar.,Hx of hemodialysis ., Waldenstrom Macroglobulinemia (type of non-hodgkins lymphoma), hx of chemo (2005) and plasma tx., states vocal cord problem- voice raspy., AICD- MEDTONIC History of Any Multi-Drug Resistant Organisms: None Reported Past Surgical History: AICD, Hysterectomy, Orthopedic Surgery Additional Past Surgical History / Comment(s): toe surgery for RA, GANGLION CYSTS RIGHT HAND AND THIGH. Past Anesthesia/Blood Transfusion Reactions: No Reported Reaction, Motion Sickness Type of Cardiac Device: AICD Device Placement Date:: 2014 Past Psychological History: No Psychological Hx Reported Smoking Status: Former smoker Past Alcohol Use History: None Reported Past Drug Use History: None Reported - Past Family History Mother Family Medical History: No Reported History <KathyDiane Carole - Last Filed: 07/27/19 18:02> General Exam Limitations: physical limitation <Diane Chavez - Last Filed: 07/27/19 18:02> - General Exam Comments Initial Comments: GENERAL: Well-appearing, well-nourished and in no acute distress. HEAD: Atraumatic, normocephalic. EYES: Pupils equal round and reactive to light, extraocular movements intact, sclera anicteric, conjunctiva are normal. ENT: TMs normal, nares patent, oropharynx clear without exudates. Moist mucous membranes. NECK: Normal range of motion, supple without lymphadenopathy or JVD. LUNGS: Breath sounds clear to auscultation bilaterally and equal. No wheezes rales or rhonchi. HEART: Regular rate and rhythm without murmurs, rubs or gallops. ABDOMEN: Soft, nontender, normoactive bowel sounds. No guarding, no rebound. No masses appreciated. : Deferred EXTREMITIES: Normal range of motion, no pitting or edema. No clubbing or cyanosis. NEUROLOGICAL: Cranial nerves II through XII grossly intact. Normal speech, normal gait. PSYCH: Normal mood, normal affect. SKIN: Warm, Dry, normal turgor, no rashes. Patient has a very small, 0.5 cm superficial open sore on the medial aspect of her left great toe. She states she has been cleaning this and monitoring this. This is relatively unchanged. (Diane Chavez) Course <Poli Zhu - Last Filed: 07/27/19 17:49> Vital Signs 07/27/19 07/27/19 14:00 16:50 Temperature 99.2 F 98.4 F Pulse Rate 94 99 Respiratory 18 17 Rate Blood Pressure 118/54 108/70 O2 Sat by Pulse 99 99 Oximetry - Reevaluation(s) Reevaluation #1: 07/27/19 17:49 PA supervision: I pursued deli-eq-cufa evaluation the patient she did present with complaints of weakness she was noted to be an atrial flutter with PVCs. She denies any chest pain at this time. Troponin is within normal limits with the higher end of normal. I did discuss case with Dr. Abbasi the patient will be admitted for further evaluation. Also she does demonstrate evidence of some dehydration. (Poli Zhu) EKG Findings - EKG Comments: EKG Findings:: EKG is showing atrial flutter with variable AV block, right BBB, T-wave abnormalities. This is changed from previous EKG of 10/30/2017. Ventricular rate is 105, QRS duration 1:30, QTC 499. <Diane Chavez - Last Filed: 07/27/19 18:02> Medical Decision Making - Lab Data Result diagrams: 07/27/19 14:40 07/27/19 14:40 <Poli Zhu - Last Filed: 07/27/19 17:49> - Lab Data Result diagrams: 07/27/19 14:40 07/27/19 14:40 <Diane Chavez - Last Filed: 07/27/19 18:02> - Medical Decision Making Patient is a 64-year-old female with history of diabetes, hypertension, presenting for weakness [address] Abbasi sent her in for rule out UTI. Patient's only complaint is generalized weakness/fatigue as well as increase in urinary frequency. Exam is unremarkable. Lab work shows elevated creatinine at 1.43, BUN is 21, this is slightly elevated from her baseline. Troponin is 0.027. Lactic acid is normal. Urine shows very minimal urine bacteria. EKG does show atrial flutter. Heart rate has remained 100 during ER stay. Patient was given 1 L of fluids. Patient continues to remain asymptomatic, other than the weakness. Patient will be admitted for atrial flutter and weakness. Patient was accepted by Dr. Abbasi. Case was discussed in detail with Dr. Zhu. (Diane Chavez) - Lab Data Lab Results 07/27/19 07/27/19 07/27/19 Range/Units 14:40 14:40 14:40 WBC 7.4 (3.8-10.6) k/uL RBC 4.23 (3.80-5.40) m/uL Hgb 12.1 (11.4-16.0) gm/dL Hct 33.6 L (34.0-46.0) % MCV 79.6 L (80.0-100.0) fL MCH 28.7 (25.0-35.0) pg MCHC 36.1 (31.0-37.0) g/dL RDW 18.7 H (11.5-15.5) % Plt Count 102 L (150-450) k/uL Neutrophils % (Manual) 56 % Lymphocytes % (Manual) 36 % Monocytes % (Manual) 7 % Eosinophils % (Manual) 1 % Neutrophils # (Manual) 4.14 (1.3-7.7) k/uL Lymphocytes # (Manual) 2.66 (1.0-4.8) k/uL Monocytes # (Manual) 0.52 (0-1.0) k/uL Eosinophils # (Manual) 0.07 (0-0.7) k/uL Nucleated RBCs 0 (0-0) /100 WBC Manual Slide Review Performed Large Platelets Present Anisocytosis Slight Microcytosis Slight Target Cells Present PT 12.3 H (9.0-12.0) sec INR 1.2 H (<1.2) APTT 25.9 (22.0-30.0) sec Sodium 137 (137-145) mmol/L Potassium 4.1 (3.5-5.1) mmol/L Chloride 101 (98-107) mmol/L Carbon Dioxide 26 (22-30) mmol/L Anion Gap 10 mmol/L BUN 21 H (7-17) mg/dL Creatinine 1.43 H (0.52-1.04) mg/dL Est GFR (CKD-EPI)AfAm 45 (>60 ml/min/1.73 sqM) Est GFR (CKD-EPI)NonAf 39 (>60 ml/min/1.73 sqM) Glucose 134 H (74-99) mg/dL Plasma Lactic Acid Sunny (0.7-2.0) mmol/L Calcium 9.1 (8.4-10.2) mg/dL Magnesium (1.6-2.3) mg/dL Total Bilirubin 0.6 (0.2-1.3) mg/dL AST 30 (14-36) U/L ALT 17 (4-34) U/L Alkaline Phosphatase 103 (38-126) U/L Troponin I (0.000-0.034) ng/mL Total Protein 8.2 (6.3-8.2) g/dL Albumin 4.1 (3.5-5.0) g/dL Urine Color Urine Appearance (Clear) Urine pH (5.0-8.0) Ur Specific Girard (1.001-1.035) Urine Protein (Negative) Urine Glucose (UA) (Negative) Urine Ketones (Negative) Urine Blood (Negative) Urine Nitrite (Negative) Urine Bilirubin (Negative) Urine Urobilinogen (<2.0) mg/dL Ur Leukocyte Esterase (Negative) Urine RBC (0-5) /hpf Urine WBC (0-5) /hpf Ur Squamous Epith Cells (0-4) /hpf Urine Bacteria (None) /hpf Hyaline Casts (0-2) /lpf Urine Mucus (None) /hpf 07/27/19 07/27/19 07/27/19 Range/Units 14:40 14:40 14:40 WBC (3.8-10.6) k/uL RBC (3.80-5.40) m/uL Hgb (11.4-16.0) gm/dL Hct (34.0-46.0) % MCV (80.0-100.0) fL MCH (25.0-35.0) pg MCHC (31.0-37.0) g/dL RDW (11.5-15.5) % Plt Count (150-450) k/uL Neutrophils % (Manual) % Lymphocytes % (Manual) % Monocytes % (Manual) % Eosinophils % (Manual) % Neutrophils # (Manual) (1.3-7.7) k/uL Lymphocytes # (Manual) (1.0-4.8) k/uL Monocytes # (Manual) (0-1.0) k/uL Eosinophils # (Manual) (0-0.7) k/uL Nucleated RBCs (0-0) /100 WBC Manual Slide Review Large Platelets Anisocytosis Microcytosis Target Cells PT (9.0-12.0) sec INR (<1.2) APTT (22.0-30.0) sec Sodium (137-145) mmol/L Potassium (3.5-5.1) mmol/L Chloride (98-107) mmol/L Carbon Dioxide (22-30) mmol/L Anion Gap mmol/L BUN (7-17) mg/dL Creatinine (0.52-1.04) mg/dL Est GFR (CKD-EPI)AfAm (>60 ml/min/1.73 sqM) Est GFR (CKD-EPI)NonAf (>60 ml/min/1.73 sqM) Glucose (74-99) mg/dL Plasma Lactic Acid Sunny 1.1 (0.7-2.0) mmol/L Calcium (8.4-10.2) mg/dL Magnesium 1.8 (1.6-2.3) mg/dL Total Bilirubin (0.2-1.3) mg/dL AST (14-36) U/L ALT (4-34) U/L Alkaline Phosphatase (38-126) U/L Troponin I 0.027 (0.000-0.034) ng/mL Total Protein (6.3-8.2) g/dL Albumin (3.5-5.0) g/dL Urine Color Urine Appearance (Clear) Urine pH (5.0-8.0) Ur Specific Girard (1.001-1.035) Urine Protein (Negative) Urine Glucose (UA) (Negative) Urine Ketones (Negative) Urine Blood (Negative) Urine Nitrite (Negative) Urine Bilirubin (Negative) Urine Urobilinogen (<2.0) mg/dL Ur Leukocyte Esterase (Negative) Urine RBC (0-5) /hpf Urine WBC (0-5) /hpf Ur Squamous Epith Cells (0-4) /hpf Urine Bacteria (None) /hpf Hyaline Casts (0-2) /lpf Urine Mucus (None) /hpf 05/15/20 Range/Units 15:35 WBC (3.8-10.6) k/uL RBC (3.80-5.40) m/uL Hgb (11.4-16.0) gm/dL Hct (34.0-46.0) % MCV (80.0-100.0) fL MCH (25.0-35.0) pg MCHC (31.0-37.0) g/dL RDW (11.5-15.5) % Plt Count (150-450) k/uL Neutrophils % (Manual) % Lymphocytes % (Manual) % Monocytes % (Manual) % Eosinophils % (Manual) % Neutrophils # (Manual) (1.3-7.7) k/uL Lymphocytes # (Manual) (1.0-4.8) k/uL Monocytes # (Manual) (0-1.0) k/uL Eosinophils # (Manual) (0-0.7) k/uL Nucleated RBCs (0-0) /100 WBC Manual Slide Review Large Platelets Anisocytosis Microcytosis Target Cells PT (9.0-12.0) sec INR (<1.2) APTT (22.0-30.0) sec Sodium (137-145) mmol/L Potassium (3.5-5.1) mmol/L Chloride (98-107) mmol/L Carbon Dioxide (22-30) mmol/L Anion Gap mmol/L BUN (7-17) mg/dL Creatinine (0.52-1.04) mg/dL Est GFR (CKD-EPI)AfAm (>60 ml/min/1.73 sqM) Est GFR (CKD-EPI)NonAf (>60 ml/min/1.73 sqM) Glucose (74-99) mg/dL Plasma Lactic Acid Sunny (0.7-2.0) mmol/L Calcium (8.4-10.2) mg/dL Magnesium (1.6-2.3) mg/dL Total Bilirubin (0.2-1.3) mg/dL AST (14-36) U/L ALT (4-34) U/L Alkaline Phosphatase (38-126) U/L Troponin I (0.000-0.034) ng/mL Total Protein (6.3-8.2) g/dL Albumin (3.5-5.0) g/dL Urine Color Yellow Urine Appearance Clear (Clear) Urine pH 6.0 (5.0-8.0) Ur Specific Girard 1.018 (1.001-1.035) Urine Protein 1+ H (Negative) Urine Glucose (UA) Negative (Negative) Urine Ketones Negative (Negative) Urine Blood Negative (Negative) Urine Nitrite Negative (Negative) Urine Bilirubin Negative (Negative) Urine Urobilinogen <2.0 (<2.0) mg/dL Ur Leukocyte Esterase Moderate H (Negative) Urine RBC 2 (0-5) /hpf Urine WBC 4 (0-5) /hpf Ur Squamous Epith Cells 5 H (0-4) /hpf Urine Bacteria Occasional H (None) /hpf Hyaline Casts 7 H (0-2) /lpf Urine Mucus Rare H (None) /hpf Disposition <Poli Zhu - Last Filed: 07/27/19 17:49> Is patient prescribed a controlled substance at d/c from ED?: No Decision Date: 07/27/19 Decision Time: 17:41 <Diane Chavez - Last Filed: 07/27/19 18:02> Clinical Impression: Atrial flutter, Weakness Disposition: ADMITTED IP TO THIS HOSP Condition: Good Referrals: Russell Abbasi MD [Primary Care Provider] - 1-2 days
[2019-07-27 15:01] LABS: Anisocytosis Slight; HCT 33.6 % (34.0-46.0); HGB 12.1 gm/dL (11.4-16.0); MCH 28.7 pg (25.0-35.0); MCHC 36.1 g/dL (31.0-37.0); MCV 79.6 fL (80.0-100.0); Mean Platelet Volume 10.2; Microcytosis Slight; Platelet Count 102 k/uL (150-450); RBC 4.23 m/uL (3.80-5.40); RDW 18.7 % (11.5-15.5); WBC 7.4 k/uL (3.8-10.6)
[2019-07-27 15:03] LABS: Albumin 4.1 g/dL (3.5-5.0); Calcium 9.1 mg/dL (8.4-10.2); Potassium 4.1 mmol/L (3.5-5.1); Total Bilirubin 0.6 mg/dL (0.2-1.3); Total Protein 8.2 g/dL (6.3-8.2)
[2019-07-27 15:04] LABS: INR 1.2 (<1.2); Partial Thromboplastin Time 25.9 sec (22.0-30.0); Prothrombin Time 12.3 sec (9.0-12.0)
--- NOTE | 2019-07-27 15:06 | XR ---
EXAMINATION TYPE: XR chest 2V DATE OF EXAM: 07/27/2019 COMPARISON: 03/05/2017 HISTORY: Shortness of breath TECHNIQUE: Frontal and lateral views of the chest are obtained. FINDINGS: Scattered senescent parenchymal changes noted. Hyperinflation compatible with COPD. Pulmonary venous congestion with scattered interstitial edema and cardiomegaly suggest congestive mercedez lure. Correlate clinically. Mediastinal structures are stable and grossly unremarkable. No evidence for hilar prominence. Degenerative changes dorsal spine. IMPRESSION: 1. Pulmonary venous congestion with scattered interstitial edema and cardiomegaly suggest congestive failure. Correlate clinically.
[2019-07-27 15:21] LABS: Eosinophils # (M) 0.07 k/uL (0-0.7); Large Platelets Present; Lymphocytes # (M) 2.66 k/uL (1.0-4.8); Monocytes # (M) 0.52 k/uL (0-1.0); Neutrophils # (M) 4.14 k/uL (1.3-7.7); Neutrophils % (M) 56 %; Nucleated Red Blood Cells 0 /100 WBC (0-0); Total Cells Counted 100
[2019-07-27 15:22] LABS: Target Cells Present
[2019-07-27 15:57] LABS: Appearance,Urine Clear (Clear); Bacteria,Urine Occasional /hpf; Bilirubin,Urine Negative (Negative); Blood,Urine Negative (Negative); Color,Urine Yellow; Glucose,Urine (UA) Negative (Negative); Hyaline Casts,Urine 7 /lpf (0-2); Ketones,Urine Negative (Negative); Leukocyte Esterase,Urine Moderate (Negative); Mucus,Urine Rare /hpf; Nitrite,Urine Negative (Negative); Protein,Urine 1+ (Negative); RBC,Urine 2 /hpf (0-5); Specific Gravity,Urine 1.018 (1.001-1.035); Squamous Epithelial Cell,Urine 5 /hpf (0-4); Urobilinogen,Urine <2.0 mg/dL (<2.0); WBC,Urine 4 /hpf (0-5)
[2019-07-27] MEDS ORDERED: ALBUTEROL NEBULIZED 2.5 MG/3 ML INHALATION PRN (20:33)
[2019-07-27] MEDS ORDERED: METHOTREXATE SODIUM 2.5 MG TAB PO SCH (21:00)
[2019-07-27] MEDS: METOPROLOL SUCCINATE (ER) 25 MG TAB.ER.24H PO SCH (22:00)
[2019-07-27] MEDS: APIXABAN 5 MG TAB PO SCH (22:00)
[2019-07-27] MEDS: PREGABALIN 100 MG CAP PO SCH (22:00)
[2019-07-27] MEDS: SERTRALINE 100 MG TAB PO SCH (22:00)
[2019-07-27] MEDS: HYDROXYCHLOROQUINE SULFATE 200 MG TAB PO SCH (22:09)
[2019-07-27] MEDS: DEXTROSE 5%-0.45% NACL 1,000 ML IV SCH (22:10)
[2019-07-28] MEDS: ACETAMINOPHEN TAB 325 MG TAB PO PRN ×2 (03:05→21:23)
[2019-07-28] MEDS: DEXTROSE 5%-0.45% NACL 1,000 ML IV SCH ×2 (05:21→14:29)
[2019-07-28 05:30] LABS: Cholesterol 121 mg/dL (<200); HDL Cholesterol 47 mg/dL (40-60); LDL Cholesterol,Calculated 57 mg/dL (0-99); Triglycerides 84 mg/dL (<150)
[2019-07-28 07:15] LABS: Glucose,Whole Blood 198 mg/dL (75-99)
[2019-07-28] MEDS: INSULN ASP PRT/INSULIN ASPART 100 UNIT/ML 10 ML VIAL SQ SCH ×3 (08:05→17:59)
[2019-07-28] MEDS: HYDROXYCHLOROQUINE SULFATE 200 MG TAB PO SCH ×2 (08:06→21:26)
[2019-07-28] MEDS: ALLOPURINOL 100 MG TAB PO SCH (08:06)
[2019-07-28] MEDS: FOLIC ACID 1 MG TAB PO SCH (08:06)
[2019-07-28] MEDS: MONTELUKAST 10 MG TAB PO SCH (08:06)
[2019-07-28] MEDS: APIXABAN 5 MG TAB PO SCH ×2 (08:06→21:23)
[2019-07-28] MEDS: ASPIRIN 81 MG PO SCH (08:06)
[2019-07-28] MEDS: PREGABALIN 100 MG CAP PO SCH ×2 (08:07→21:23)
[2019-07-28] MEDS: SERTRALINE 100 MG TAB PO SCH ×2 (08:07→21:22)
[2019-07-28 08:42] LABS: Glucose,Whole Blood 222 mg/dL (75-99)
[2019-07-28 11:52] LABS: Glucose,Whole Blood 248 mg/dL (75-99)
[2019-07-28 17:22] LABS: Glucose,Whole Blood 286 mg/dL (75-99)
[2019-07-28] MEDS: METOPROLOL SUCCINATE (ER) 25 MG TAB.ER.24H PO SCH (21:23)
--- NOTE | 2019-07-28 22:04 | HP ---
HISTORY AND PHYSICAL CHIEF COMPLAINT: Weakness, dehydration. HISTORY OF PRESENT ILLNESS: This is another admission for this 64-year-old female. She has Waldenstrom macroglobulinemia. We did a tele health with her and when she came on the screen, it was apparent that she was weak and lethargic. She was complaining of inability to move her legs well or ambulate and that she was not "making enough urine." She was sent to the emergency room. There she was found to be dehydrated and had some electrolyte abnormalities. It was felt she should be admitted. She had no fever, vomiting, diarrhea, melena, abdominal, flank pain, etc. She is admitted for correction of electrolytes and rehydration. REVIEW OF SYSTEMS: She denies any focal neurologic deficits other than weakness in the legs. She had no lateralizing signs or symptoms. She had no headache, change in vision hearing, chest pain, cough, hemoptysis, shortness of breath, orthopnea, PND, jaundice, dysuria, frequency came urgency, hematuria, etc. She is diabetic. Past medical history, family history, personal and social histories reveal that she has a past history of hypertension, hyperlipidemia, osteoarthritis, type 2 diabetes, cardiomyopathy, as well as some depression issues. She is currently on allopurinol 100 mg once a day, Zanaflex 4 mg once a day p.r.n., Lasix 40 mg once a day, lisinopril 2.5 mg once a day, montelukast 10 mg once a day, Vicodin 5 q.6 p.r.n., metoprolol succinate 25 mg once a day, Lyrica 200 mg twice a day, simvastatin 10 mg once a day, spironolactone 25 once a day, Ventolin HFA p.r.n., sertraline 100 mg 2 tablets a day, aspirin 81 mg a day, vitamin D, NovoLog 70/30 mix 12 units in the morning twice a day, methotrexate 2.5 8 tablets once a week, folic acid 1 mg once a day, Plaquenil 200 mg twice a day. ALLERGIES: She is allergic to PENICILLIN. Remainder of her history is unremarkable. She does not smoke. She does not drink. PHYSICAL EXAMINATION: Blood pressure is 113/64 with a pulse of 70, respirations of 36, and she is afebrile. In general, she appeared to be dehydrated. She was slightly lethargic. She is oriented. Head, ears, eyes, nose, mouth, and throat were normal except for dry mucous membranes and tongue dehydration. Neck veins are not distended. Chest is clear. There are no rales or rhonchi. Cardiac exam demonstrates sinus rhythm and no murmurs or extra sounds. Abdomen is soft and there are no masses or visceromegaly. Extremities: Normal. Neurologically, other than being slightly lethargic and weak, she is intact. IMPRESSION: She is admitted to the hospital with diagnoses. 1. Dehydration. 2. Electrolyte imbalance. 3. Renal failure. 4. History of hypertension. 5. Insulin-dependent diabetes mellitus. 6. Waldenstrom macroglobulinemia. PLAN: 1. Bed rest. 2. IV fluids. 3. Correct electrolyte imbalance. MMODL / IJN: [id number] /
--- NOTE | 2019-07-28 22:04 | PN ---
PROGRESS NOTE DATE OF SERVICE: 07/28/2019. CHIEF COMPLAINT: Dehydration and electrolyte imbalance. HISTORY OF PRESENT ILLNESS: This lady is doing better. She is more alert and feels stronger. Studies are underway. Her hydration is improved. PHYSICAL EXAMINATION: Chest is clear. The cardiac exam is unremarkable. Abdomen is soft and nontender. IMPRESSION: 1. Dehydration. 2. Electrolyte imbalance. 3. Insulin-dependent diabetes mellitus. 4. Waldenstrom macroglobulinemia. PLAN: Continue with IV fluids and repeat laboratory studies. MMODL / IJN: [id number] /
[2019-07-29] MEDS: DEXTROSE 5%-0.45% NACL 1,000 ML IV SCH ×3 (05:32→16:37)
[2019-07-29 07:10] LABS: Glucose,Whole Blood 179 mg/dL (75-99)
[2019-07-29] MEDS: ASPIRIN 81 MG PO SCH (07:59)
[2019-07-29] MEDS: FOLIC ACID 1 MG TAB PO SCH (07:59)
[2019-07-29] MEDS: HYDROXYCHLOROQUINE SULFATE 200 MG TAB PO SCH ×2 (07:59→20:51)
[2019-07-29] MEDS: SERTRALINE 100 MG TAB PO SCH ×2 (07:59→20:50)
[2019-07-29] MEDS: PREGABALIN 100 MG CAP PO SCH ×2 (07:59→20:51)
[2019-07-29] MEDS: MONTELUKAST 10 MG TAB PO SCH (07:59)
[2019-07-29] MEDS: APIXABAN 5 MG TAB PO SCH ×2 (07:59→20:51)
[2019-07-29] MEDS: ALLOPURINOL 100 MG TAB PO SCH (07:59)
[2019-07-29] MEDS: INSULN ASP PRT/INSULIN ASPART 100 UNIT/ML 10 ML VIAL SQ SCH ×2 (08:13→17:27)
[2019-07-29 11:37] LABS: Glucose,Whole Blood 171 mg/dL (75-99)
[2019-07-29 17:13] LABS: Glucose,Whole Blood 156 mg/dL (75-99)
[2019-07-29 20:08] LABS: Glucose,Whole Blood 149 mg/dL (75-99)
[2019-07-29] MEDS: ACETAMINOPHEN TAB 325 MG TAB PO PRN (20:50)
[2019-07-29] MEDS: METOPROLOL SUCCINATE (ER) 25 MG TAB.ER.24H PO SCH (20:50)
--- NOTE | 2019-07-29 20:56 | XR ---
EXAMINATION TYPE: XR chest 2V DATE OF EXAM: 07/29/2019 COMPARISON: 07/27/2019 HISTORY: Weakness TECHNIQUE: 2 views FINDINGS: Heart is enlarged. There is no obvious heart failure. There is left axillary pacemaker. Yunior ny thorax is intact. There are chest leads. There is some coarse interstitial density at the right stevenson ng base. IMPRESSION: There is probably cardiomegaly. No heart failure seen. No pleural fluid. Increased inter stitial right lower lobe density compared to old exam.
[2019-07-29 21:42] LABS: Glucose,Whole Blood 141 mg/dL (75-99)
--- NOTE | 2019-07-30 01:33 | PN ---
PROGRESS NOTE DATE OF SERVICE: 07/29/2019 CHIEF COMPLAINT: General weakness, dehydration and prerenal azotemia. HISTORY OF PRESENT ILLNESS: This lady is doing well and feeling much better and much stronger. Laboratory sanabria, her blood sugars are good and hemoglobin is 12.1. BUN is 21 with a creatinine 1.3 and GFR 45. Her BNP is significantly elevated, however, at 4530. PHYSICAL EXAMINATION: Chest is clear. Cardiac exam is normal. Abdomen is soft and nontender. IMPRESSION: 1. Dehydration. 2. Renal failure. 3. Prerenal azotemia. 4. Generalized weakness. 5. Congestive heart failure. 6. Insulin-dependent diabetes mellitus. PLAN: 1. Continue with IV fluids and increase activity and diet. 2. Echocardiogram. MMODL / IJN: [id number] /
[2019-07-30] MEDS: DEXTROSE 5%-0.45% NACL 1,000 ML IV SCH ×4 (05:21→21:32)
[2019-07-30 07:34] LABS: Albumin 3.5 g/dL (3.5-5.0); Anisocytosis Slight; Basophils % (A) 1 %; Calcium 8.4 mg/dL (8.4-10.2); Eosinophils # (A) 0.3 k/uL (0-0.7); Eosinophils % (A) 5 %; HCT 31.8 % (34.0-46.0); HGB 10.6 gm/dL (11.4-16.0); Lymphocytes # (A) 1.7 k/uL (1.0-4.8); Lymphocytes % (A) 34 %; MCH 27.1 pg (25.0-35.0); MCHC 33.3 g/dL (31.0-37.0); MCV 81.2 fL (80.0-100.0); Mean Platelet Volume 10.3; Microcytosis Slight; Monocytes # (A) 0.2 k/uL (0-1.0); Monocytes % (A) 3 %; Neutrophils # (A) 2.6 k/uL (1.3-7.7); Neutrophils % (A) 54 %; Platelet Count 105 k/uL (150-450); Potassium 4.3 mmol/L (3.5-5.1); RBC 3.91 m/uL (3.80-5.40); RDW 18.8 % (11.5-15.5); Total Bilirubin 1.3 mg/dL (0.2-1.3); Total Protein 7.3 g/dL (6.3-8.2); WBC 4.9 k/uL (3.8-10.6)
[2019-07-30 08:23] LABS: Glucose,Whole Blood 139 mg/dL (75-99)
[2019-07-30] MEDS: PREGABALIN 100 MG CAP PO SCH ×2 (08:27→21:29)
[2019-07-30] MEDS: INSULN ASP PRT/INSULIN ASPART 100 UNIT/ML 10 ML VIAL SQ SCH ×2 (08:27→18:17)
[2019-07-30] MEDS: HYDROXYCHLOROQUINE SULFATE 200 MG TAB PO SCH ×2 (08:28→21:29)
[2019-07-30] MEDS: ASPIRIN 81 MG PO SCH (08:28)
[2019-07-30] MEDS: SERTRALINE 100 MG TAB PO SCH ×2 (08:28→21:29)
[2019-07-30] MEDS: MONTELUKAST 10 MG TAB PO SCH (08:28)
[2019-07-30] MEDS: APIXABAN 5 MG TAB PO SCH ×2 (08:28→21:29)
[2019-07-30] MEDS: FOLIC ACID 1 MG TAB PO SCH (08:28)
[2019-07-30] MEDS: ALLOPURINOL 100 MG TAB PO SCH (08:28)
[2019-07-30 11:28] LABS: Glucose,Whole Blood 134 mg/dL (75-99)
--- NOTE | 2019-07-30 12:00 | ECHOF ---
Referral Reason:CHF MEASUREMENTS -------- HEIGHT: 185.4 cm WEIGHT: 111.1 kg BP: 112/64 RVIDd: 3.5 cm (< 3.3) IVSd: 1.5 cm (0.6 - 1.1) LVIDd: 4.8 cm (3.9 - 5.3) LVPWd: 1.5 cm (0.6 - 1.1) IVSs: 2.2 cm LVIDs: 4.4 cm LVPWs: 2.2 cm LA Diam: 4.1 cm (2.7 - 3.8) LAESV Index (A-L): 41.24 ml/m Ao Diam: 3.2 cm (2.0 - 3.7) MV EXCURSION: 20.829 mm (> 18.000) MV EF SLOPE: 141 mm/s (70 - 150) EPSS: 1.6 cm RAP: 5.00 mmHg RVSP: 70.47 mmHg FINDINGS -------- Paced rhythm. Pacerwire seen in RV and RA. This was a technically difficult study with suboptimal views. The left ventricular size is normal. There is moderate concentric left ventricular hypertrophy. O verall left ventricular systolic function is severely impaired with, an EF between 25 - 30 %. The right ventricle is mildly enlarged. LA is severely dilated >40 ml/m2 The right atrium is normal in size. 5.0mg of Lumason was utilized for enhancement of images Aneurysmal Interatrial septum. The aortic valve was not well visualized. The mitral valve leaflets are mildly thickened. Mild mitral annular calcification present. Mild-t o-moderate mitral regurgitation is present. Gtkw-at-nfwdsvqa tricuspid regurgitation present. There is severe pulmonary hypertension. The rig ht ventricular systolic pressure, as measured by Doppler, is 70.47mmHg. Trace/mild (physiologic) pulmonic regurgitation. The aortic root size is normal. IVC Not well visulized. There is a trivial pericardial effusion present. CONCLUSIONS -------- 1. Paced rhythm. 2. This was a technically difficult study with suboptimal views. 3. The left ventricular size is normal. 4. There is moderate concentric left ventricular hypertrophy. 5. Overall left ventricular systolic function is severely impaired with, an EF between 25 - 30 %. 6. The right ventricle is mildly enlarged. 7. LA is severely dilated >40 ml/m2 8. The right atrium is normal in size. 9. 5.0mg of Lumason was utilized for enhancement of images 10. Aneurysmal Interatrial septum. 11. The aortic valve was not well visualized. 12. The mitral valve leaflets are mildly thickened. 13. Mild mitral annular calcification present. 14. Xbhx-yy-smxnsfwt mitral regurgitation is present. 15. Crrs-gd-mgrjunny tricuspid regurgitation present. 16. There is severe pulmonary hypertension. 17. The right ventricular systolic pressure, as measured by Doppler, is 70.47mmHg. 18. Trace/mild (physiologic) pulmonic regurgitation. 19. The aortic root size is normal. 20. IVC Not well visulized. 21. There is a trivial pericardial effusion present. ENTRY SPECIALIST: JANETT Guevara
[2019-07-30 13:38] LABS: Hemoglobin A1C 8.1 % (4.0-6.0)
--- NOTE | 2019-07-30 15:37 | CDI ---
Documentation Clarification Form Date: 07/30/2019 02:59:44 PM From: Angélica Beaz RN, CCDS Admit Date: 07/29/2019 08:38:00 AM Patient Name: Lillie Ro Visit Number: [id number] Discharge Date: ATTENTION: The Clinical Documentation Specialists (CDI) and [facility] Coding Staff appreciate your assistance in clarifying documentation. Please respond to the clarification below the line at the bottom and electronically sign. The CDI & [facility] Coding staff will review the response and follow-up if needed. Please note: Queries are made part of the Legal Health Record. If you have any questions, please contact the author of this message via ITS. Dr. Russell Abbasi Renal failure was documented in the H&P and subsequent progress notes and further clarification is requested for acuity and type of renal failure History/Risk Factors: Diabetes Mellitus, Hypertension, Atrial Fibrillation, Waldenstrom macroglobulinemia, Former smoker Patients baseline 05/03/19 BUN 15.0 CR 1.5 GFR: 42,5 Clinical Indicators: 64 year old black female present on 07/28 with weakness x2 days. Patient states her appetite has been low as well. She has been urinating more frequently, denies dysuria. She has not been drinking a lot of water. 07/27/19 Current BUN 21, Cr 1.43 GFR: 45 Treatment: .9 Saline IV 1/L bolus D%/sodium IV @ 125 mls hr Monitor BUN, CR, Electrolyte In order to capture the severity of condition, please clarify if the condition signifies: Acute renal failure, (Please specify etiology if known) Cortical Necrosis Medullary Necrosis Tubular Necrosis Acute on chronic renal failure (specify stage) CKD Stage 1 GFR >90 CKD Stage 2 GFR 60-89 CKD Stage 3 GFR 30-59 Chronic renal failure/Chronic Kidney disease (CKD) please stage (if known): CKD Stage 1 GFR >90 CKD Stage 2 GFR 60-89 CKD Stage 3 GFR 30-59 CKD Stage 4 GFR 15-29 Other, please specify Unable to determine (Last Revision: June 2017) MTDD
--- NOTE | 2019-07-30 17:17 | PN ---
PROGRESS NOTE DATE OF SERVICE: 07/30/2019 CHIEF COMPLAINT: Dehydration, electrolyte imbalance and arrhythmia. HISTORY OF PRESENT ILLNESS: This lady is currently having an echocardiogram done. She is not complaining of any significant chest pain, shortness of breath, crampiness, abdominal pain, etc. PHYSICAL EXAMINATION: Deferred at this time. IMPRESSION: 1. Dehydration. 2. Electrolyte imbalance. 3. Renal failure. 4. Diabetes. 5. Congestive heart failure. 6. Atrial flutter. PLAN: Await the results of her echocardiogram. She is doing better and she might be able to be discharged tomorrow. MMODL / IJN: [id number] /
[2019-07-30 17:26] LABS: Glucose,Whole Blood 167 mg/dL (75-99)
[2019-07-30] MEDS ORDERED: WARFARIN 5 MG TAB PO SCH (18:00)
[2019-07-30 19:58] LABS: Glucose,Whole Blood 135 mg/dL (75-99)
[2019-07-30] MEDS: METOPROLOL SUCCINATE (ER) 25 MG TAB.ER.24H PO SCH (21:29)
[2019-07-31] MEDS: DEXTROSE 5%-0.45% NACL 1,000 ML IV SCH ×2 (04:03→13:34)
[2019-07-31 06:58] LABS: Glucose,Whole Blood 120 mg/dL (75-99)
[2019-07-31] MEDS: ALLOPURINOL 100 MG TAB PO SCH (07:56)
[2019-07-31] MEDS: HYDROXYCHLOROQUINE SULFATE 200 MG TAB PO SCH (07:56)
[2019-07-31] MEDS: ASPIRIN 81 MG PO SCH (07:57)
[2019-07-31] MEDS: PREGABALIN 100 MG CAP PO SCH (07:57)
[2019-07-31] MEDS: INSULN ASP PRT/INSULIN ASPART 100 UNIT/ML 10 ML VIAL SQ SCH (07:57)
[2019-07-31] MEDS: FOLIC ACID 1 MG TAB PO SCH (07:57)
[2019-07-31] MEDS: APIXABAN 5 MG TAB PO SCH (07:57)
[2019-07-31] MEDS: MONTELUKAST 10 MG TAB PO SCH (07:57)
[2019-07-31] MEDS: SERTRALINE 100 MG TAB PO SCH (07:59)
--- NOTE | 2019-07-31 08:24 | CDI ---
Documentation Clarification Form Date: 07/31/2019 07:50:48 AM From: Angélica Baez RN, CCDS Admit Date: 07/29/2019 08:38:00 AM Patient Name: Lillie Ro Visit Number: [id number] Discharge Date: ATTENTION: The Clinical Documentation Specialists (CDI) and [facility] Coding Staff appreciate your assistance in clarifying documentation. Please respond to the clarification below the line at the bottom and electronically sign. The CDI & [facility] Coding staff will review the response and follow-up if needed. Please note: Queries are made part of the Legal Health Record. If you have any questions, please contact the author of this message via ITS. Dr. Russell Abbasi Atrial Flutter is documented in the ED assessment on 07/26 and in your progress notes on 07/29 and further clarification is requested. History/Risk factors: Waldenstrom macroglobulinemia, Diabetic Mellitus type 2, Hypertension, Lupus, Clinical Indicators: 64-year-old female with complaints of weakness x2 days. She had decrease appetite, decrease oral intake. She denies any chest pain in ED 07/26 vital signs: 118/54 94 18 99.2 99 % RA 07/26 EKG/telemetry: Atrial flutter with variable AV block, ventricular rate is 105 07/29 ECHO: Paced rhythm. Left ventricular systolic function is severely impaired with, an EF between 25-30% There is severe pulmonary hypertension. Treatment: Asa 81 mg po daily (home dose) 07/26 Eliquis 3 mg po bid In your professional opinion, in order to capture the severity of condition; can you please clarify the type of Atrial Flutter if known? Typical/Type I Atypical/Type II Other, please specify Unable to determine (Last Revision: June 2017) MTDD
--- NOTE | 2019-07-31 09:10 | CDI ---
Documentation Clarification Form Date: 07/31/2019 08:28:44 AM From: Angélica Baez RN, CCDS Admit Date: 07/29/2019 08:38:00 AM Patient Name: Lillie Ro Visit Number: [id number] Discharge Date: ATTENTION: The Clinical Documentation Specialists (CDI) and [facility] Coding Staff appreciate your assistance in clarifying documentation. Please respond to the clarification below the line at the bottom and electronically sign. The CDI & [facility] Coding staff will review the response and follow-up if needed. Please note: Queries are made part of the Legal Health Record. If you have any questions, please contact the author of this message via ITS. Dr. Russell Abbasi CHF is documented in the your progress note on 07/28 and 07/29 and further clarification is requested for specificity History/Risk Factors: Diabetes mellitus, Atrial fibrillation, Waldenstrom macroglobulinemia, Lupus, Hypertension Clinical Indicators: 64-year-old female who presents on 07/26 with complaints of weakness x2 days. She had decrease appetite, decrease oral intake. She denies any chest pain, shortness of breath. Patient home medication list included Lasix 40 mg po daily, Aldactone 25 mg po daily, not continued on admission. 07/28 at 07:00 VS/Pulse OX: 108/71 72 15 98.2 92 % RA 07/26 BNP: 4530 07/29 Echocardiogram Results: Paced rhythm. Left ventricular systolic function is severely impaired with, an EF between 20-30 % 07/26 Chest X Ray: Pulmonary venous congestion with scattered interstitial edema and cardiomegaly suggest congestive failure 07/28 Chest x-ray: There is probably cardiomegaly. No heart failure seen. No pleural fluid. Increased interstitial right lower lobe density compared to old exam. Treatment: ECHO Toprol XL In your professional opinion, can you please clarify the acuity and type of CHF if known? Congestive Heart Failure ruled out Acute Systolic Heart Failure: Acute on Chronic Systolic Heart Failure Unable to Determine Other, please specify (Last Revision: June 2017) MTDD
[2019-07-31 11:31] LABS: Glucose,Whole Blood 105 mg/dL (75-99)
[2019-07-31 12:05] VITALS: BP 119/80; PULSE 102; RESP 17; TEMP 98.1
--- NOTE | 2019-07-31 19:00 | DS ---
DISCHARGE SUMMARY CHIEF COMPLAINT: Weakness, dehydration. HISTORY OF PRESENT ILLNESS AND PHYSICAL EXAMINATION: Details of this lady's history and physical can be found in the initial workup. LABORATORY STUDIES: While she was in the hospital she had laboratory studies, details of which can be found in the laboratory section of her chart. COURSE IN THE HOSPITAL: After admission she was placed on bedrest and started on intravenous fluids, and she was rehydrated. She became much more awake and alert. Blood sugars were stabilized. Activity was increased as well as her diet. She was doing well, and it was felt that she could go home on July 30. She will go home on her usual activity, diet and her usual medications, and she will be seen in the office in several days. FINAL DIAGNOSES: 1. Dehydration. 2. Waldenstrom macroglobulinemia. 3. Insulin-dependent diabetes mellitus. 4. Renal failure. OPERATIONS: None. CONSULTATIONS: None. She is improved. MMJULIEN / EVIE: [id number] /
--- NOTE | 2019-08-10 01:12 | MISC ---
MISCELLANOUS REPORT QUERIES: It is chronic renal failure, stage 3b. Type of A flutter, unable to determine. Acute on chronic heart failure. MMODL / IJN: [id number] /
--- NOTE | 2019-08-13 08:39 | CDI ---
Documentation Clarification Form Date: 07/31/2019 08:28:00 AM From: Angélica Baez RN, CCDS Admit Date: 07/29/2019 08:38:00 AM Patient Name: Lillie Ro Visit Number: [id number] Discharge Date: 07/31/2019 03:09:00 PM ATTENTION: The Clinical Documentation Specialists (CDI) and [facility] Coding Staff appreciate your assistance in clarifying documentation. Please respond to the clarification below the line at the bottom and electronically sign. The CDI & [facility] Coding staff will review the response and follow-up if needed. Please note: Queries are made part of the Legal Health Record. If you have any questions, please contact the author of this message via ITS. Dr. Russell Abbasi CHF is documented in the your progress note on 07/28 and 07/29 and further clarification is requested for specificity History/Risk Factors: Diabetes mellitus, Atrial fibrillation, Waldenstrom macroglobulinemia, Lupus, Clinical Indicators: 64-year-old female who presents on 07/26 with complaints of weakness x2 days. She had decrease appetite, decrease oral intake. She denies any chest pain, shortness of breath. Patient home medication list included Lasix 40 mg po daily, Aldactone 25 mg po daily, not continued on admission. 07/28 at 07:00 VS/Pulse OX: 108/71 72 15 98.2 92 % RA 07/26 BNP: 4530 07/29 Echocardiogram Results: Paced rhythm. Left ventricular systolic function is severely impaired with, an EF between 20-30 % 07/26 Chest X Ray: Pulmonary venous congestion with scattered interstitial edema and cardiomegaly suggest congestive failure 07/28 Chest x-ray: There is probably cardiomegaly. No heart failure seen. No pleural fluid. Increased interstitial right lower lobe density compared to old exam. Treatment: ECHO Toprol XL In your professional opinion, can you please clarify the acuity and type of CHF if known? Congestive Heart Failure ruled out Chronic Systolic Heart Failure Unable to Determine Other, please specify (Last Revision: June 2017) MTDD
--- NOTE | 2019-08-14 11:50 | MISC ---
MISCELLANOUS REPORT QUERY: Chronic congestive heart failure. MMODL / IJN: [id number] /
--- NOTE | 2019-08-15 09:52 | CDI ---
Documentation Clarification Form Date: 07/31/2019 08:28:00 AM From: Angélica Baez Phone: Admit Date: 07/29/2019 08:38:00 AM Patient Name: Lillie Ro Visit Number: [id number] Discharge Date: 07/31/2019 03:09:00 PM ATTENTION: The Clinical Documentation Specialists (CDI) and [facility] Coding Staff appreciate your assistance in clarifying documentation. Please respond to the clarification below the line at the bottom and electronically sign. The CDI & [facility] Coding staff will review the response and follow-up if needed. Please note: Queries are made part of the Legal Health Record. If you have any questions, please contact the author of this message via ITS. Dr. Russell Abbasi CHF is documented in the your progress note on 07/28 and 07/29 and further clarification is requested for specificity History/Risk Factors: Diabetes mellitus, Atrial fibrillation, Waldenstrom macroglobulinemia, Lupus, Clinical Indicators: 64-year-old female who presents on 07/26 with complaints of weakness x2 days. She had decrease appetite, decrease oral intake. She denies any chest pain, shortness of breath. Patient home medication list included Lasix 40 mg po daily, Aldactone 25 mg po daily, not continued on admission. 07/28 at 07:00 VS/Pulse OX: 108/71 72 15 98.2 92 % RA 07/26 BNP: 4530 07/29 Echocardiogram Results: Paced rhythm. Left ventricular systolic function is severely impaired with, an EF between 20-30 % 07/26 Chest X Ray: Pulmonary venous congestion with scattered interstitial edema and cardiomegaly suggest congestive failure 07/28 Chest x-ray: There is probably cardiomegaly. No heart failure seen. No pleural fluid. Increased interstitial right lower lobe density compared to old exam. Treatment: ECHO Toprol XL In your professional opinion, can you please clarify the acuity and type of CHF if known? Chronic Congestive Heart Failure, Systolic Unable to Determine Other, please specify (Last Revision: June 2017) KAMEROND
--- NOTE | 2019-08-16 11:52 | MISC ---
MISCELLANOUS REPORT QUERY: Chronic congestive heart failure, systolic. MMODL / IJN: [id number] /
== END 2019-07-31 15:09 | disposition home or self-care (01) | DRG 309 ==
LOC: EC 13:58 → 4SSUR 17:48 → OBSVTOIN 07-29 08:38 → 5NMEDONC 07-29 16:13
PROVIDERS: ADMIT Family Medicine; ATTEND Family Medicine
DX: I48.92 Unspecified atrial flutter (principal); I50.22 Chronic systolic (congestive) heart failure; I48.91 Unspecified atrial fibrillation; C88.0 Waldenstrom macroglobulinemia; E87.8 Other disorders of electrolyte and fluid balance, not elsewhere classified; I11.0 Hypertensive heart disease with heart failure; E11.42 Type 2 diabetes mellitus with diabetic polyneuropathy; N18.3 Chronic kidney disease, stage 3 (moderate); E86.0 Dehydration; J45.909 Unspecified asthma, uncomplicated; M35.00 Sjogren syndrome, unspecified; R01.1 Cardiac murmur, unspecified; I45.10 Unspecified right bundle-branch block; I44.30 Unspecified atrioventricular block; Z11.59 Encounter for screening for other viral diseases; R79.89 Other specified abnormal findings of blood chemistry; Z79.899 Other long term (current) drug therapy; Z79.4 Long term (current) use of insulin; Z79.82 Long term (current) use of aspirin; Z85.72 Personal history of non-Hodgkin lymphomas; Z87.891 Personal history of nicotine dependence; Z90.710 Acquired absence of both cervix and uterus; Z92.21 Personal history of antineoplastic chemotherapy; Z88.0 Allergy status to penicillin; Z95.810 Presence of automatic (implantable) cardiac defibrillator
CPT/HCPCS: 36415; 71046; 80053; 80061; 81001; 83036; 83605; 83735; 83880; 84484; 85025; 85610; 85730; 87635; 93005; 93306; 94640; 96360; 96361; 99285

== ENCOUNTER → 2019-12-05 | Outpatient (CLI) | payer MEDICARE ==
--- NOTE | 2019-12-06 11:56 | MM ---
Reason for exam: screening (asymptomatic). Last mammogram was performed 1 year and 10 months ago. History: Patient is postmenopausal and history of other cancer. Took progesterone for 2 months. Physical Findings: A clinical breast exam by your physician is recommended on an annual basis and results should be correlated with mammographic findings. MG 3D Screening Mammo W/Cad Bilateral CC and MLO view(s) were taken. Prior study comparison: January 20, 2018, left breast MG 3d work up w/cad LT. January 11, 2018, bilateral MG 3d screening mammo w/cad. The breast tissue is heterogeneously dense. This may lower the sensitivity of mammography. Asymmetric breast tissue left anterior breast, stable. There is no discrete abnormality. Left axillary pacemaker redemonstrated. ASSESSMENT: Benign, BI-RAD 2 RECOMMENDATION: Routine screening mammogram of both breasts in 1 year.
== END | disposition home or self-care (01) ==
LOC: RADMAMWWP 11:00
PROVIDERS: ATTEND Family Medicine
DX: Z12.31 Encounter for screening mammogram for malignant neoplasm of breast (principal)
CPT/HCPCS: 77063; 77067

== ENCOUNTER → 2020-01-07 | Outpatient (CLI) | payer MEDICARE ==
[2020-01-08 01:31] LABS: Hemoglobin A1C 7.3 % (4.0-6.0)
[2020-01-08 02:54] LABS: African American GFR (CKD) 55.3 (60.0-200.0); Albumin 4.2 g/dL (3.80-4.90); Albumin/Globulin Ratio 1.2 (1.60-3.17); Anion Gap 10.2 mmol/L (4.00-12.00); BUN/Creat Ratio 6.67 Ratio (12.00-20.00); Calcium 8.7 mg/dL (8.7-10.3); Carbon Dioxide 27.8 mmol/L (21.6-31.8); Chol/HDL Ratio 2.1; Globulin 3.5 g/dL (1.6-3.3); Non-African American GFR(CKD) 47.7 (60.0-200.0); Potassium 3.2 mmol/L (3.5-5.5); Total Bilirubin 0.9 mg/dL (0.3-1.2); Total Protein 7.7 g/dL (6.2-8.2)
== END | disposition home or self-care (01) ==
LOC: LABWHC1 13:15
PROVIDERS: ATTEND Internal Medicine Endocrinology, Diabetes & Metabolism
DX: E11.65 Type 2 diabetes mellitus with hyperglycemia (principal)
CPT/HCPCS: 36415; 80053; 80061; 83036; 84443

== ENCOUNTER → 2020-01-17 | Outpatient (CLI) | payer MEDICARE ==
[2020-01-17 14:34] LABS: Anisocytosis Slight; HCT 36.9 % (34.0-46.0); HGB 12.3 gm/dL (11.4-16.0); MCH 27.1 pg (25.0-35.0); MCHC 33.3 g/dL (31.0-37.0); MCV 81.4 fL (80.0-100.0); Mean Platelet Volume 12.5; RBC 4.53 m/uL (3.80-5.40); RDW 16.6 % (11.5-15.5); WBC 3.9 k/uL (3.8-10.6)
[2020-01-17 15:08] LABS: Platelet Count 103 k/uL (150-450)
[2020-01-17 21:07] LABS: African American GFR (CKD) 61.4 (60.0-200.0); Albumin 4.1 g/dL (3.80-4.90); Albumin/Globulin Ratio 1.21 (1.60-3.17); Anion Gap 10.5 mmol/L (4.00-12.00); BUN/Creat Ratio 7.27 Ratio (12.00-20.00); Carbon Dioxide 26.5 mmol/L (21.6-31.8); Chol/HDL Ratio 2.26; Globulin 3.4 g/dL (1.6-3.3); LDL Cholesterol,Calculated 37.6 mg/dL (0.0-131.0); Potassium 3.2 mmol/L (3.5-5.5); Total Protein 7.5 g/dL (6.2-8.2); VLDL Calculation 15.4 mg/dL (5.00-40.00)
== END | disposition home or self-care (01) ==
LOC: LABWHC1 11:37
PROVIDERS: ATTEND Physician Assistant
DX: I48.91 Unspecified atrial fibrillation (principal); I42.9 Cardiomyopathy, unspecified
CPT/HCPCS: 36415; 80053; 80061; 84443; 85027

== ENCOUNTER 2020-01-22 11:54 | Day surgery (SDC) | payer MEDICARE ==
[~2020-01-22 11:54] MED LIST changes: -ALPRAZolam 0.25 MG TAB PO PRN; -ALPRAZolam 0.5 MG TAB PO PRN; -ASPIRIN 325 MG TAB PO STA; -ATORVASTATIN 80 MG TAB PO STA; +CLINDAMYCIN 900 MG in DEXTROSE 5% IN WATER 50 ML IVPB ONE; +DEXAMETHASONE SOD PHOSPHATE 4 MG/ML 1 ML VIAL IV ONE; +HYDROmorphone 0.5 MG/0.5 ML SYRINGE IVP PRN; +LIDOCAINE 1% (10MG/ML) FOR IV START INTRADERMA PRN; +MIDAZOLAM 2 MG/2 ML VIAL IV PRN; -NITROGLYCERIN SL TABS 0.4 MG TAB SUBLINGUAL PRN; -SODIUM CHLORIDE 0.9% 1,000 ML in EMPTY BAG 1 BAG IV ONE
[2020-01-22 12:21] LABS: Glucose,Whole Blood 126 mg/dL (75-99)
[2020-01-22] MEDS: SODIUM CHLORIDE 0.9% 1,000 ML IV SCH (12:31)
[2020-01-22] MEDS ORDERED: PROTAMINE SULFATE 10 MG/ML 5 ML VIAL IV ONE (13:46)
[2020-01-22] MEDS ORDERED: ROCURONIUM 10 MG/ML (10 ML VIAL) IV ONE ×2 (13:46)
[2020-01-22] MEDS ORDERED: HYDROmorphone (PF) 1 MG/ML ONE (13:46)
[2020-01-22] MEDS ORDERED: PROPOFOL 10 MG/ML 20 ML VIAL IV ONE (13:46)
[2020-01-22] MEDS ORDERED: LIDOCAINE 1% INJ 10MG/ML (20 ML MDV) ONE ×2 (13:46→13:59)
[2020-01-22] MEDS ORDERED: ETOMIDATE 2 MG/ML 10 ML VIAL ONE (13:46)
[2020-01-22] MEDS ORDERED: SUCCINYLCHOLINE CHLORIDE 100 MG/5 ML SYR IV ONE (13:46)
[2020-01-22] MEDS ORDERED: HEPARIN SODIUM,PORCINE 10,000 UNIT/ML 1 ML VIAL ONE (13:46)
[2020-01-22] MEDS ORDERED: CLINDAMYCIN 150 MG/ML 6 ML VIAL ONE (13:46)
[2020-01-22] MEDS ORDERED: FUROSEMIDE 10 MG/ML 2 ML VIAL ONE (13:46)
[2020-01-22] MEDS ORDERED: fentaNYL (PF) 50 MCG/ML 2 ML AMP ONE ×2 (13:46)
[2020-01-22] MEDS ORDERED: MIDAZOLAM 2 MG/2 ML VIAL ONE ×2 (13:46)
[2020-01-22] MEDS ORDERED: SUCCINYLCHOLINE CHLORIDE VIAL 200 MG/10 ML VIAL IV ONE (13:46)
[2020-01-22] MEDS ORDERED: GLYCOPYRROLATE 0.2 MG/ML 2 ML VIAL ONE (13:46)
[2020-01-22] MEDS ORDERED: NEOSTIGMINE 1 MG/ML 10 ML VIAL ONE (13:46)
[2020-01-22] MEDS ORDERED: HEPARIN SOD,PORK IN 0.45% NACL 25,000 UNIT in 0.45% NACL 1 250ML.BAG IV ONE (14:30)
[2020-01-22] MEDS ORDERED: LIDOCAINE 1% INJ 10MG/ML (20 ML MDV) SQ ONE (14:41)
[2020-01-22] MEDS ORDERED: IOPAMIDOL-370 100ML BTL INJ ONE (16:54)
[2020-01-22] MEDS ORDERED: HEPARIN SODIUM (1,000 UNIT/ML) 1,000 UNIT in SODIUM CHLORIDE 0.9% 1,000 ML IRRIGATION ONE (16:54)
[2020-01-22] MEDS ORDERED: LACTATED RINGERS 1,000 ML IV ONE (17:25)
[2020-01-22] MEDS ORDERED: HYDROcodone/APAP 5-325MG 1 EACH TAB PO PRN (17:42)
[2020-01-22] MEDS ORDERED: ACETAMINOPHEN TAB 325 MG TAB PO PRN (17:42)
[2020-01-22] MEDS ORDERED: ACETAMINOPHEN IV (For NPO) 1,000 MG in EMPTY BAG 1 BAG IVPB ONE (18:00)
[2020-01-22] MEDS: LACTATED RINGERS 1,000 ML IV SCH (18:01)
[2020-01-22] MEDS: ONDANSETRON 4 MG/2 ML VIAL IVP ONE ×2 (18:01→18:59)
[2020-01-22 18:39] LABS: Glucose,Whole Blood 134 mg/dL (75-99)
--- NOTE | 2020-01-22 18:43 | P.PCN ---
Preoperative Diagnosis: Diagnosis Atrial fibrillation, symptomatic, refractory to therapy, persistent Result No left atrial appendage mass seen on intracardiac echo Successful A. fib ablation/pulmonary vein isolation of all veins using cryo- ablation Complete entrance block in all 4 veins confirmed No evidence for phrenic nerve injury Esophageal deflection YES Electrical cardioversion with a synchronized shock across the chest YES Procedure details Patient was brought to the EP lab in a fasting state. Written informed consent was obtained prior to the procedure. Procedure performed under general anesthesia After initial muscle relaxant use, muscle relaxants were not given thereafter in order to assess phrenic nerve during procedure. Patient prepped and draped as per protocol Full cryo-set up with standard preparation of the cryoablation tools done. Femoral Venous access obtained on the right and left groins Venous and arterial Sheaths placed. Diagnostic catheters for the high right atrium, phrenic nerve stimulation and pacing, His bundle, RV and coronary sinus placed Intracardiac echo catheter placed. Long sheath placed in the right atrium Left and right transseptal catheterization performed under intracardiac echo guidance. Intravenous heparin with aCT above 300 Later, catheter positioning and balloon positioning in the left atrium, under intracardiac echo guidance Diagnostic EP study with Coronary sinus pacing and recording Baseline measurements right bundle branch block pattern controlled ventricular rate Transseptal catheterization performed RA pressure 26/12/19 LA pressure 35/10/20 Transseptal catheterization performed with standard sheath. The cryoablation sheath was then placed with an over the wire exchange without any acute complications. All 4 pulmonary veins were isolated in the following sequence: Left superior followed by left inferior followed by right superior followed by right inferior The cryo-ablation balloon was placed at the os of each vein 1.5 mL of IV dye was injected to confirm an occluded vein Goal during cryoablation was to achieve complete occlusion of the pulmonary vein, achieve -30 degrees C at 30 seconds and achieve -40 degrees C at 60 seconds and a time to effect of less than 60-90 seconds, . If not the balloon was repositioned to obtain this result After completion of Cryoblation with durations from 180-240 seconds, entrance block was confirmed with the Attain circular catheter in a roving fashion around the antrum of the pulmonary veins Phrenic nerve pacing was performed from the SVC, right innominate vein area and diaphragm voltage was monitored. Diaphragmatic contractions were also monitored manually for strength of contraction. Parameter goals for each cryo freeze Complete occlusion of the appropriate vein -30 degrees C by 30 seconds -40 degrees C by 60 seconds Minimum between minus 40-55 degrees C Thaw time greater than 10 seconds Balloon visualized by intracardiac echo The esophagus was intubated. Esophageal Temperature monitoring with a CIRCA catheter formed. Esophageal deflection for hypothermia of the esophagus below 30 degrees C Left superior pulmonary vein Complete isolation, entrance block Left inferior pulmonary vein Complete isolation, entrance block Right superior pulmonary vein, during phrenic nerve pacing Complete isolation, entrance block Right inferior pulmonary vein, during phrenic nerve pacing Complete isolation, entrance block At the end of the procedure the Achieve catheter was once again used to check for entrance block Phrenic nerve stimulation was performed to confirm diaphragmatic stimulation the end of the procedure Cine fluoroscopy was performed at the very end of the procedure to confirm movement of both diaphragms with inspiration and expiration At the end of the procedure the patient was extubated Heparin was reversed Venous sheaths were removed and hemostasis assured Procedures performed (PVI - CRYO Ablation + linear ablation) Diagnostic EP study CS pacing and recording Left and right transseptal catheterization 3D mapping Intracardiac echocardiography Pulmonary vein isolation with transseptal and comprehensive EPS, [id number] Left atrial roof line, +[id number] Linear ablation posterior septum, left atrium, +[id number] Electrical cardioversion with a synchronized shock across the chest [id number]
[2020-01-22] MEDS ORDERED: ATORVASTATIN 10 MG TAB PO SCH (21:00)
[2020-01-22] MEDS: SERTRALINE 100 MG TAB PO SCH (21:45)
[2020-01-22] MEDS: APIXABAN 5 MG TAB PO SCH (21:45)
[2020-01-22] MEDS: HYDROXYCHLOROQUINE SULFATE 200 MG TAB PO SCH (21:45)
[2020-01-22] MEDS: PREGABALIN 100 MG CAP PO SCH (21:45)
[2020-01-22 21:47] LABS: Glucose,Whole Blood 149 mg/dL (75-99)
[2020-01-23] MEDS: LACTATED RINGERS 1,000 ML IV SCH (05:55)
[2020-01-23] MEDS: SODIUM CHLORIDE 0.9% 1,000 ML IV SCH (05:55)
[2020-01-23 06:37] LABS: Glucose,Whole Blood 190 mg/dL (75-99)
[2020-01-23 07:53] VITALS: BP 101/69; PULSE 80; RESP 16; TEMP 97.5
[2020-01-23 08:11] LABS: Calcium 8.2 mg/dL (8.4-10.2); Potassium 3.5 mmol/L (3.5-5.1)
[2020-01-23] MEDS ORDERED: SPIRONOLACTONE 25 MG TAB PO SCH (09:00)
[2020-01-23] MEDS ORDERED: METOPROLOL SUCCINATE (ER) 25 MG TAB.ER.24H PO SCH (09:00)
[2020-01-23] MEDS ORDERED: FUROSEMIDE 40 MG TAB PO SCH (09:00)
[2020-01-23] MEDS ORDERED: ASPIRIN 81 MG PO SCH (09:00)
[2020-01-23] MEDS ORDERED: MONTELUKAST 10 MG TAB PO SCH (09:00)
[2020-01-23] MEDS: APIXABAN 5 MG TAB PO SCH (09:11)
[2020-01-23] MEDS: HYDROXYCHLOROQUINE SULFATE 200 MG TAB PO SCH (09:11)
[2020-01-23] MEDS: SERTRALINE 100 MG TAB PO SCH (09:17)
[2020-01-23] MEDS: PREGABALIN 100 MG CAP PO SCH (09:17)
[2020-01-23 11:13] LABS: Glucose,Whole Blood 226 mg/dL (75-99)
[2020-01-23] MEDS: INSULN ASP PRT/INSULIN ASPART 100 UNIT/ML 10 ML VIAL SQ SCH ×2 (11:13→11:19)
--- NOTE | 2020-01-23 12:41 | P.EPPROC ---
- EP Procedure Note Electrophysiology Procedure Note: Addendum to procedure This was a long procedure because of cardiac rotation and technically challenging transseptal puncture Although the patient had large fossa ovalis is clearly more caudal in location and it took over an hour to get a transseptal sheath across successfully This was successfully performed without any acute complications Thereafter cryoablation the pulmonary veins was performed Following that 3-D electro-anatomic mapping of the left atrium was performed Linear ablation along the posterior septum was performed along areas of fractionation Linear ablation in the roof was performed and a complete line of block was made Following that electrical cardioversion was performed
[2020-01-23] MEDS ORDERED: INSULN ASP PRT/INSULIN ASPART 100 UNIT/ML 10 ML VIAL SQ SCH (17:30)
[2020-01-25] MEDS ORDERED: metHOTREXate sodium 2.5 MG TAB PO SCH (09:00)
--- NOTE | 2020-01-25 18:43 | PN ---
PROGRESS NOTE DATE OF SERVICE: 01/23/2020 CHIEF COMPLAINT: Status post ablation for atrial fibrillation. HISTORY OF PRESENT ILLNESS: This lady is doing well. She has had no shortness of breath, palpitations, chest pain, difficulty with circulation of extremities, etc. She will probably go home today. PHYSICAL EXAMINATION: Chest is clear. Cardiac exam sounds like sinus rhythm with no murmurs or extra sounds. Abdomen is soft and no masses. Extremities: Normal. IMPRESSION: 1. Status post ablation for atrial fibrillation. 2. Insulin-dependent diabetes mellitus. 3. Waldenstrom is macroglobulinemia. PLAN: Probably home today and follow up in the office. MMODL / IJN: [id number] /
--- NOTE | 2020-01-25 19:13 | CONS ---
CONSULTATION DATE OF SERVICE: 01/22/2020 CHIEF COMPLAINT: Atrial fibrillation. HISTORY OF PRESENT ILLNESS: This lady has long and long-standing history of atrial fibrillation. She is brought in for an elective ablation. REVIEW OF SYSTEMS: She has had no syncope, TIAs, CVAs, change in vision hearing, amaurosis fugax, shortness of breath, cough, hemoptysis, angina, infarctions, orthopnea, PND, abdominal pain, nausea, vomiting, melena, hematochezia, jaundice, hepatitis, cirrhosis, hematuria, frequency, urgency, arthralgias, etc. She does have diabetes. Past medical history, family history, and personal and social histories are all otherwise unremarkable or noncontributory except as found in her initial workup. She does have Waldenstrom macroglobulinemia, which is being followed by Dr. Fontenot and Dr. Cordon. PHYSICAL EXAMINATION: Blood pressure is 143/90 with a pulse of 84, respirations of 33, and she is afebrile. In general, she appeared to be in no acute distress. Skin color is normal. Skin is warm, dry. Lymph nodes not enlarged. Head, ears, eyes, nose, mouth, and throat were normal. Neck veins are not distended. Thyroid was not enlarged. Chest was clear to auscultation and percussion. Cardiac exam demonstrates atrial fibrillation. Abdomen is soft and nontender without masses or visceromegaly. Extremities: Unremarkable. Neurological she is intact. IMPRESSION: She is admitted to the hospital with diagnoses: 1. Atrial fibrillation. 2. Insulin-dependent diabetes mellitus. 3. Waldenstrom macroglobulinemia. RECOMMENDATIONS: None. She is stable at the present time. Thank you for this consultation. MMODL / IJN: [id number] /
--- NOTE | 2020-01-29 13:01 | P.DS ---
Providers Attending physician: Juan Samayoa Primary care physician: Russell Armstrong [facility] Course: This is a pleasant 64 year old female who came in for elective transseptal cryoablation. The procedure was successful and uneventful. She is maintaining sinus mechanism on telemetry. Blood pressure 101/69 heart rate 80 afebrile and maintaining oxygen saturation on room air. Laboratory data reviewed, sodium 136, potassium 3.5, creatinine 1.34. She has no chest pain, shortness of breath, dizziness or palpitations. GENERAL: Well-appearing, well-nourished and in no acute distress. NECK: Supple without JVD or thyromegaly. LUNGS: Breath sounds clear to auscultation bilaterally. Respiration equal and unlabored. No wheezes, rales or rhonchi. HEART: Regular rate and rhythm with systolic ejection murmur at the left sternal border, no rubs or gallops. S1 and S2 heard. EXTREMITIES: Normal range of motion, no edema. No clubbing or cyanosis. Peripheral pulses intact. ASSESSMENT Persistent atrial fibrillation, symptomatic. Refractory to medical therapy. PLAN Successful a.fib ablation/pulmonary vein isolation and electrical cardioversion Continue eliquis. Follow up with Dr. Samayoa in the office in 1-week. Nurse Practitioner note has been reviewed, I agree with a documented findings and plan of care. Patient was seen and examined. Plan - Discharge Summary Discharge Rx Participant: No New Discharge Prescriptions: Continue Spironolactone [Aldactone] 25 mg PO QAM Insulin Aspart Protam & Aspart [NovoLOG MIX 70-30 Flexpen] 10 unit SQ AC- BRKFST Furosemide [Lasix] 40 mg PO QAM Simvastatin [Zocor] 10 mg PO HS Sertraline [Zoloft] 100 mg PO BID lisinopriL [Zestril] 2.5 mg PO HS Folic Acid 1 mg PO QAM Montelukast [Singulair] 10 mg PO QAM Hydroxychloroquine Sulfate [Plaquenil] 200 mg PO BID metHOTREXate sodium [Methotrexate] 20 mg PO FR Ergocalciferol [Vitamin D2 (DRISDOL)] 50,000 unit PO FR Aspirin [Adult Low Dose Aspirin EC] 81 mg PO DAILY Pregabalin [Lyrica] 200 mg PO BID Albuterol Sulfate [Ventolin HFA] 2 puff INHALATION RT-QID PRN PRN Reason: Shortness Of Breath allopurinoL [Zyloprim] 100 mg PO QAM Apixaban [Eliquis] 5 mg PO BID Metoprolol Succinate [Toprol XL] 25 mg PO QAM Insulin Aspart Protam & Aspart [NovoLOG MIX 70-30 Flexpen] 10 unit SQ AC- SUPPER Calcitriol [Rocaltrol] 0.5 mcg PO DAILY Discharge Medication List Ergocalciferol [Vitamin D2 (DRISDOL)] 50,000 unit PO FR 03/05/17 [History] Folic Acid 1 mg PO QAM 03/05/17 [History] Furosemide [Lasix] 40 mg PO QAM 03/05/17 [History] Hydroxychloroquine Sulfate [Plaquenil] 200 mg PO BID 03/05/17 [History] Insulin Aspart Protam & Aspart [NovoLOG MIX 70-30 Flexpen] 10 unit SQ AC-BRKFST 03/05/17 [History] Montelukast [Singulair] 10 mg PO QAM 03/05/17 [History] Sertraline [Zoloft] 100 mg PO BID 03/05/17 [History] Simvastatin [Zocor] 10 mg PO HS 03/05/17 [History] Spironolactone [Aldactone] 25 mg PO QAM 03/05/17 [History] lisinopriL [Zestril] 2.5 mg PO HS 03/05/17 [History] metHOTREXate sodium [Methotrexate] 20 mg PO FR 03/05/17 [History] Aspirin [Adult Low Dose Aspirin EC] 81 mg PO DAILY 09/13/18 [History] Pregabalin [Lyrica] 200 mg PO BID 01/02/19 [History] Albuterol Sulfate [Ventolin HFA] 2 puff INHALATION RT-QID PRN 07/27/19 [History] Apixaban [Eliquis] 5 mg PO BID 07/27/19 [History] allopurinoL [Zyloprim] 100 mg PO QAM 07/27/19 [History] Calcitriol [Rocaltrol] 0.5 mcg PO DAILY 01/21/20 [History] Insulin Aspart Protam & Aspart [NovoLOG MIX 70-30 Flexpen] 10 unit SQ AC-SUPPER 01/21/20 [History] Metoprolol Succinate [Toprol XL] 25 mg PO QAM 01/21/20 [History] Follow up Appointment(s)/Referral(s): Juan Samayoa MD [STAFF PHYSICIAN] - 1 Week (office will call to set up per anders) Discharge Disposition: HOME SELF-CARE
== END 2020-01-23 14:40 | disposition home or self-care (01) ==
LOC: CATHEP 11:54 → 3NCARDOBS 17:11 → CATHEP 01-23 14:40
PROVIDERS: ATTEND Internal Medicine Clinical Cardiac Electrophysiology
DX: I48.19 Other persistent atrial fibrillation (principal); I45.10 Unspecified right bundle-branch block; I42.8 Other cardiomyopathies; I47.1 Supraventricular tachycardia; Z86.79 Personal history of other diseases of the circulatory system; C88.0 Waldenstrom macroglobulinemia; Z95.810 Presence of automatic (implantable) cardiac defibrillator; E78.5 Hyperlipidemia, unspecified; E11.40 Type 2 diabetes mellitus with diabetic neuropathy, unspecified; M10.9 Gout, unspecified; M35.00 Sjogren syndrome, unspecified; Z97.2 Presence of dental prosthetic device (complete) (partial); Z72.0 Tobacco use; Z79.01 Long term (current) use of anticoagulants; Z79.82 Long term (current) use of aspirin; Z79.4 Long term (current) use of insulin; Z79.899 Other long term (current) drug therapy; Z88.0 Allergy status to penicillin
CPT/HCPCS: 85347; 92960; 93662; 93613; 93656; 93657; 80048; 84132; C1769 ×4; C1894 ×2; C1730 ×2; C1893; C1759; C1733; C1766; C1732; J2250; J0330 ×2; J2720; J1644 ×3; J1940; J2710; J2405; J2001; J3010; J1170; J0131; J2704; Q9967

== ENCOUNTER → 2020-04-17 | Outpatient (CLI) | payer MEDICARE ==
[2020-04-18 01:18] LABS: Hemoglobin A1C 7.6 % (4.0-6.0)
[2020-04-18 07:37] LABS: African American GFR (CKD) 45.9 (60.0-200.0); Albumin 4.4 g/dL (3.80-4.90); Albumin/Globulin Ratio 1.38 (1.60-3.17); Anion Gap 16.3 mmol/L (4.00-12.00); BUN/Creat Ratio 8.57 Ratio (12.00-20.00); Calcium 8.9 mg/dL (8.7-10.3); Carbon Dioxide 20.7 mmol/L (21.6-31.8); Chol/HDL Ratio 2.25; Globulin 3.2 g/dL (1.6-3.3); LDL Cholesterol,Calculated 30.8 mg/dL (0.0-131.0); Non-African American GFR(CKD) 39.6 (60.0-200.0); Potassium 3.4 mmol/L (3.5-5.5); Total Bilirubin 0.9 mg/dL (0.3-1.2); Total Protein 7.6 g/dL (6.2-8.2); VLDL Calculation 24.2 mg/dL (5.00-40.00)
== END | disposition home or self-care (01) ==
LOC: LABWHC1 14:44
PROVIDERS: ATTEND Internal Medicine Endocrinology, Diabetes & Metabolism
DX: E11.65 Type 2 diabetes mellitus with hyperglycemia (principal)
CPT/HCPCS: 36415; 80053; 80061; 83036; 84443

== ENCOUNTER 2020-04-29 22:48 | Emergency (ER) | payer MEDICARE ==
[2020-04-29 22:56] VITALS: TEMP 98
[2020-04-29] MEDS ORDERED: SODIUM CHLORIDE 0.9% 1,000 ML IV SCH (23:15)
[2020-04-29 23:57] LABS: Anisocytosis Slight; Basophils # (A) 0.1 k/uL (0-0.2); Basophils % (A) 2 %; Eosinophils # (A) 0.1 k/uL (0-0.7); Eosinophils % (A) 2 %; HCT 35.2 % (34.0-46.0); HGB 11.8 gm/dL (11.4-16.0); Lymphocytes % (A) 41 %; MCH 26.4 pg (25.0-35.0); MCHC 33.4 g/dL (31.0-37.0); MCV 79.1 fL (80.0-100.0); Mean Platelet Volume 11.6; Microcytosis Slight; Monocytes # (A) 0.3 k/uL (0-1.0); Monocytes % (A) 6 %; Neutrophils # (A) 2.3 k/uL (1.3-7.7); Neutrophils % (A) 47 %; Platelet Count 112 k/uL (150-450); Poikilocytosis Slight; RBC 4.45 m/uL (3.80-5.40); RDW 19.2 % (11.5-15.5)
[2020-04-29 23:58] LABS: Albumin 3.9 g/dL (3.5-5.0); Calcium 8.1 mg/dL (8.4-10.2); Potassium 3.2 mmol/L (3.5-5.1); Total Bilirubin 2.1 mg/dL (0.2-1.3); Total Protein 7.4 g/dL (6.3-8.2)
--- NOTE | 2020-04-30 00:08 | XR ---
EXAMINATION TYPE: XR KUB DATE OF EXAM: 04/29/2020 COMPARISON: NONE HISTORY: Diarrhea TECHNIQUE: 3 views supine FINDINGS: The bowel gas pattern is normal. There is no sign of intestinal obstruction or pneumoperito neum. Fecal pattern is normal. Lung bases appear clear. There is no evidence of a mass. There are no pathologic calcifications over the kidneys. IMPRESSION: Nonacute abdomen.
[2020-04-30] MEDS ORDERED: cefTRIAXone IN SWFI 1,000 MG/10 ML SYRINGE IVP STA (00:25)
[2020-04-30] MEDS ORDERED: POTASSIUM CHLORIDE ER 20 MEQ TAB.ER PO ONE (00:25)
[2020-04-30 00:26] VITALS: BP 117/72; PULSE 85; RESP 16
--- NOTE | 2020-04-30 00:27 | ED ---
Weakness HPI - General Chief complaint: Weakness Stated complaint: Leg Pain Time Seen by Provider: 04/29/20 22:57 Source: patient Mode of arrival: wheelchair - History of Present Illness Initial comments: 64yo female presenting today for cc of fatigue, leg pain/redness, diarrhea. Patient states that she sees wound clinic for chronic small wounds on her legs and thighs. patient states she picks at her legs. patient states that she had a cellultis infection approximately 3 weeks ago, and has been off of the antibiotics for over 10 days. patient states she believes it is back she has left lower leg pain, redness and itching, she states she cant stop scrtachig the area. patient states she is also out of her pain medications for chronic pain. patient mentioned that she has had "mushy" stools x 3 days, she stats she normally has formed stools. Patient denies loose watery stool, but states her lips have been dry and she has been fatigued and is concerned she is dehyhydrated. pt denies chest pain, leg swelling, dyspnea, nausea, vomiting. Patient denies abdominal pain or fevers. Patient appears nontoxic on arrival. Patient is accompanied by her who is bedside. - Related Data Home Medications Medication Instructions Recorded Confirmed Ergocalciferol [Vitamin D2 50,000 unit PO FR 03/05/17 01/22/20 (DRISDOL)] Folic Acid 1 mg PO QAM 03/05/17 01/22/20 Furosemide [Lasix] 40 mg PO QAM 03/05/17 01/22/20 Hydroxychloroquine Sulfate 200 mg PO BID 03/05/17 01/22/20 [Plaquenil] Insulin Aspart Protam & Aspart 10 unit SQ AC-BRKFST 03/05/17 01/22/20 [NovoLOG MIX 70-30 Flexpen] Montelukast [Singulair] 10 mg PO QAM 03/05/17 01/22/20 Sertraline [Zoloft] 100 mg PO BID 03/05/17 01/22/20 Simvastatin [Zocor] 10 mg PO HS 03/05/17 01/22/20 Spironolactone [Aldactone] 25 mg PO QAM 03/05/17 01/22/20 lisinopriL [Zestril] 2.5 mg PO HS 03/05/17 01/22/20 metHOTREXate sodium [Methotrexate] 20 mg PO FR 03/05/17 01/22/20 Aspirin [Adult Low Dose Aspirin EC] 81 mg PO DAILY 09/13/18 01/22/20 Pregabalin [Lyrica] 200 mg PO BID 01/02/19 01/22/20 Albuterol Sulfate [Ventolin HFA] 2 puff INHALATION RT-QID PRN 07/27/19 01/22/20 Apixaban [Eliquis] 5 mg PO BID 07/27/19 01/22/20 allopurinoL [Zyloprim] 100 mg PO QAM 07/27/19 01/22/20 Calcitriol [Rocaltrol] 0.5 mcg PO DAILY 01/21/20 01/22/20 Insulin Aspart Protam & Aspart 10 unit SQ AC-SUPPER 01/21/20 01/22/20 [NovoLOG MIX 70-30 Flexpen] Metoprolol Succinate [Toprol XL] 25 mg PO QAM 01/21/20 01/22/20 Previous Rx's Medication Instructions Recorded Cephalexin [Keflex] 500 mg PO Q6HR 7 Days #28 cap 04/30/20 Allergies Allergy/AdvReac Type Severity Reaction Status Date / Time Penicillins Allergy Rash/Hives Verified 04/29/20 22:56 Review of Systems ROS Statement: Those systems with pertinent positive or pertinent negative responses have been documented in the HPI. ROS Other: All systems not noted in ROS Statement are negative. Past Medical History Past Medical History: Atrial Fibrillation, Diabetes Mellitus Additional Past Medical History / Comment(s): Shogrens, Neuropathy feet, Lupus, heart murmur, states passes out with low blood sugar.,Hx of hemodialysis ., Waldenstrom Macroglobulinemia (type of non-hodgkins lymphoma), hx of chemo (2005) and plasma tx., states vocal cord problem- voice raspy., AICD- MEDTONIC History of Any Multi-Drug Resistant Organisms: None Reported Past Surgical History: AICD, Hysterectomy, Orthopedic Surgery Additional Past Surgical History / Comment(s): toe surgery for RA, GANGLION CYSTS RIGHT HAND AND THIGH. Past Anesthesia/Blood Transfusion Reactions: No Reported Reaction, Motion Sickness Type of Cardiac Device: AICD Device Placement Date:: 2014 Past Psychological History: No Psychological Hx Reported Smoking Status: Former smoker Past Alcohol Use History: None Reported Past Drug Use History: None Reported - Past Family History Mother Family Medical History: No Reported History General Exam - General Exam Comments Initial Comments: General: The patient is awake and alert, in no distress Eye: +3 mm pupils are equal, round and reactive to light, extra-ocular movements are intact. No nystagmus. There is normal conjunctiva bilaterally. No signs of icterus. Ears, nose, mouth and throat: There are moist mucous membranes and no oral lesions. Neck: The neck is supple, there is no tenderness or JVD. Cardiovascular: There is a regular rate and rhythm. No murmur, rub or gallop is appreciated. Respiratory: Lungs are clear to auscultation, respirations are non-labored, breath sounds are equal. No wheezes, stridor, rales, or rhonchi. Gastrointestinal: Soft, non-distended, non-tender abdomen without masses or organomegaly noted. There is no rebound or guarding present. No CVA tenderness. Musculoskeletal: Normal ROM, no tenderness. Strength 5/5. Sensation intact. Radial and DP pulses equal bilaterally 2+. Neurological: A&O x 3. CN II-XII intact grossly, There are no obvious motor or sensory deficits. Coordination appears grossly intact. Speech is normal. Skin: Skin is warm and dry. There is some redness and warmth with areas of excoriation of the left anterior lower extremity, no involvement of foot, no circumferential involvement. Psychiatric: Cooperative, appropriate mood & affect, normal judgment. Course Vital Signs 04/29/20 04/30/20 22:54 00:10 Temperature 98 F Pulse Rate 110 H 85 Respiratory 19 16 Rate Blood Pressure 125/80 117/72 O2 Sat by Pulse 100 100 Oximetry Medical Decision Making - Medical Decision Making Mild hypokalemia/lactic acidosis-felt to be due to diarrhea, benign abdominal exam. pt hydrated. patient KUB no acute findings. Patient leg exam, she is neurovascularly intact. There is evidence of a developing cellulitis the left lower leg. Patient does have an issue with scratching of the skin there is an area of excoriation but no deep ulceration. Leukocytosis. Patient is afebrile and nontoxic in appearance. She states she has chronic bilateral leg pain is out of her pain medications on top of the new warmth and redness of the left lower leg. At this time patient be initiated oral antibiotics for cellulitis, and discharged with primary care follow-up in 1-2 days. Patient is agreeable to this care plan as well as discharge at this time. Dr. Leavitt agreeable to care plan. - Lab Data Result diagrams: 04/29/20 23:38 04/29/20 23:38 Lab Results 04/29/20 04/29/20 04/29/20 Range/Units 23:38 23:38 23:38 WBC 5.0 (3.8-10.6) k/uL RBC 4.45 (3.80-5.40) m/uL Hgb 11.8 (11.4-16.0) gm/dL Hct 35.2 (34.0-46.0) % MCV 79.1 L (80.0-100.0) fL MCH 26.4 (25.0-35.0) pg MCHC 33.4 (31.0-37.0) g/dL RDW 19.2 H (11.5-15.5) % Plt Count 112 L (150-450) k/uL MPV 11.6 Neutrophils % 47 % Lymphocytes % 41 % Monocytes % 6 % Eosinophils % 2 % Basophils % 2 % Neutrophils # 2.3 (1.3-7.7) k/uL Lymphocytes # 2.0 (1.0-4.8) k/uL Monocytes # 0.3 (0-1.0) k/uL Eosinophils # 0.1 (0-0.7) k/uL Basophils # 0.1 (0-0.2) k/uL Poikilocytosis Slight Anisocytosis Slight Microcytosis Slight Sodium 136 L (137-145) mmol/L Potassium 3.2 L (3.5-5.1) mmol/L Chloride 100 (98-107) mmol/L Carbon Dioxide 26 (22-30) mmol/L Anion Gap 10 mmol/L BUN 11 (7-17) mg/dL Creatinine 1.23 H (0.52-1.04) mg/dL Est GFR (CKD-EPI)AfAm 54 (>60 ml/min/1.73 sqM) Est GFR (CKD-EPI)NonAf 47 (>60 ml/min/1.73 sqM) Glucose 170 H (74-99) mg/dL Plasma Lactic Acid Sunny 2.2 H* (0.7-2.0) mmol/L Calcium 8.1 L (8.4-10.2) mg/dL Total Bilirubin 2.1 H (0.2-1.3) mg/dL AST 41 H (14-36) U/L ALT 23 (4-34) U/L Alkaline Phosphatase 98 (38-126) U/L Total Protein 7.4 (6.3-8.2) g/dL Albumin 3.9 (3.5-5.0) g/dL Disposition Clinical Impression: Left leg cellulitis, Diarrhea, Dehydration Disposition: HOME SELF-CARE Condition: Good Instructions (If sedation given, give patient instructions): Cellulitis (ED) Additional Instructions: Please use medication as discussed. Please follow-up with family doctor in the next 2 days. Please return to emergency room if the symptoms increase or worsen or for any other concerns. Prescriptions: Cephalexin [Keflex] 500 mg PO Q6HR 7 Days #28 cap Is patient prescribed a controlled substance at d/c from ED?: No Referrals: Russell Abbasi MD [Primary Care Provider] - 1-2 days Time of Disposition: 00:27
[2020-04-30] MEDS ORDERED: MORPHINE SULFATE 2 MG/ML SYRINGE IVP STA (00:33)
[2020-04-30] MEDS ORDERED: ACET/COD 300 MG/30 MG STARTER PACK 6 TAB BTL PO STA (00:33)
== END 2020-04-30 01:10 | disposition home or self-care (01) ==
LOC: EC 22:48
DX: L03.116 Cellulitis of left lower limb (principal); R19.7 Diarrhea, unspecified; E86.0 Dehydration; D72.829 Elevated white blood cell count, unspecified; C88.0 Waldenstrom macroglobulinemia; G89.29 Other chronic pain; M79.605 Pain in left leg; M79.604 Pain in right leg; E11.40 Type 2 diabetes mellitus with diabetic neuropathy, unspecified; I48.91 Unspecified atrial fibrillation; Z79.82 Long term (current) use of aspirin; Z79.01 Long term (current) use of anticoagulants; Z79.899 Other long term (current) drug therapy; Z79.4 Long term (current) use of insulin; Z88.0 Allergy status to penicillin; Z87.891 Personal history of nicotine dependence
CPT/HCPCS: 36415 ×2; 80053; 83605; 85025; 87040; 74018; 99285; 96374; 96375; 96361 ×2; J0696; J2270

== ENCOUNTER 2020-05-05 17:40 | Inpatient (IN) | payer MEDICARE ==
[2020-05-05] MEDS ORDERED: SODIUM CHLORIDE 0.9% 1,000 ML IV STA (18:00)
[2020-05-05] MEDS ORDERED: FAMOTIDINE 20 MG/2 ML VIAL IV STA (18:00)
[2020-05-05] MEDS ORDERED: ONDANSETRON 4 MG/2 ML VIAL IVP STA (18:00)
[2020-05-05] MEDS ORDERED: HYDROmorphone 0.5 MG/0.5 ML SYRINGE IVP STA (18:00)
--- NOTE | 2020-05-05 18:02 | ED ---
General Adult HPI - General Chief complaint: Abdominal Pain Stated complaint: Abd Pain Time Seen by Provider: 05/05/20 17:49 Source: patient, EMS, RN notes reviewed Mode of arrival: EMS Limitations: no limitations - History of Present Illness Initial comments: Patient is a pleasant 64-year-old female presenting to the emergency Department with complaints of abdominal discomfort. Onset of symptoms was less than a week ago. Symptoms have somewhat progressed. Patient is having bowel movements however less than normal. Patient does have nausea, no vomiting. No fever. Discomfort is more the upper abdomen. No chest pain. No history of chronic si milar symptoms. - Related Data Home Medications Medication Instructions Recorded Confirmed Ergocalciferol [Vitamin D2 50,000 unit PO FR 03/05/17 01/22/20 (DRISDOL)] Folic Acid 1 mg PO QAM 03/05/17 01/22/20 Furosemide [Lasix] 40 mg PO QAM 03/05/17 01/22/20 Hydroxychloroquine Sulfate 200 mg PO BID 03/05/17 01/22/20 [Plaquenil] Insulin Aspart Protam & Aspart 10 unit SQ AC-BRKFST 03/05/17 01/22/20 [NovoLOG MIX 70-30 Flexpen] Montelukast [Singulair] 10 mg PO QAM 03/05/17 01/22/20 Sertraline [Zoloft] 100 mg PO BID 03/05/17 01/22/20 Simvastatin [Zocor] 10 mg PO HS 03/05/17 01/22/20 Spironolactone [Aldactone] 25 mg PO QAM 03/05/17 01/22/20 lisinopriL [Zestril] 2.5 mg PO HS 03/05/17 01/22/20 metHOTREXate sodium [Methotrexate] 20 mg PO FR 03/05/17 01/22/20 Aspirin [Adult Low Dose Aspirin EC] 81 mg PO DAILY 09/13/18 01/22/20 Pregabalin [Lyrica] 200 mg PO BID 01/02/19 01/22/20 Albuterol Sulfate [Ventolin HFA] 2 puff INHALATION RT-QID PRN 07/27/19 01/22/20 Apixaban [Eliquis] 5 mg PO BID 07/27/19 01/22/20 allopurinoL [Zyloprim] 100 mg PO QAM 07/27/19 01/22/20 Calcitriol [Rocaltrol] 0.5 mcg PO DAILY 01/21/20 01/22/20 Insulin Aspart Protam & Aspart 10 unit SQ AC-SUPPER 01/21/20 01/22/20 [NovoLOG MIX 70-30 Flexpen] Metoprolol Succinate [Toprol XL] 25 mg PO QAM 01/21/20 01/22/20 Previous Rx's Medication Instructions Recorded Cephalexin [Keflex] 500 mg PO Q6HR 7 Days #28 cap 04/30/20 Allergies Allergy/AdvReac Type Severity Reaction Status Date / Time Penicillins Allergy Rash/Hives Verified 04/29/20 22:56 Review of Systems ROS Statement: Those systems with pertinent positive or pertinent negative responses have been documented in the HPI. ROS Other: All systems not noted in ROS Statement are negative. Constitutional: Denies: fever Eyes: Denies: eye pain ENT: Denies: ear pain Respiratory: Denies: cough Cardiovascular: Denies: chest pain Endocrine: Denies: fatigue Gastrointestinal: Reports: as per HPI, abdominal pain, nausea. Denies: vomiting Genitourinary: Denies: dysuria Musculoskeletal: Denies: back pain Skin: Denies: rash Neurological: Denies: weakness Past Medical History Past Medical History: Atrial Fibrillation, Diabetes Mellitus Additional Past Medical History / Comment(s): Shogrens, Neuropathy feet, Lupus, heart murmur, states passes out with low blood sugar.,Hx of hemodialysis ., Waldenstrom Macroglobulinemia (type of non-hodgkins lymphoma), hx of chemo (2005) and plasma tx., states vocal cord problem- voice raspy., AICD- MEDTONIC History of Any Multi-Drug Resistant Organisms: None Reported Past Surgical History: AICD, Hysterectomy, Orthopedic Surgery Additional Past Surgical History / Comment(s): toe surgery for RA, GANGLION CYSTS RIGHT HAND AND THIGH. Past Anesthesia/Blood Transfusion Reactions: No Reported Reaction, Motion Sickness Type of Cardiac Device: AICD Device Placement Date:: 2014 Past Psychological History: No Psychological Hx Reported Smoking Status: Former smoker Past Alcohol Use History: None Reported Past Drug Use History: None Reported - Past Family History Mother Family Medical History: No Reported History General Exam Limitations: no limitations General appearance: alert, in no apparent distress Head exam: Present: atraumatic Eye exam: Present: normal appearance Neck exam: Present: normal inspection Respiratory exam: Present: normal lung sounds bilaterally Cardiovascular Exam: Present: irregular rhythm Expanded Peripheral pulses: 2+: Dorsalis Pedis (R), Dorsalis Pedis (L) GI/Abdominal exam: Present: soft, tenderness (Mild to moderate epigastric tenderness), diminished bowel sounds. Absent: distended, guarding, rebound, rigid, pulsatile mass Extremities exam: Present: normal inspection Neurological exam: Present: alert Psychiatric exam: Present: normal affect, normal mood Skin exam: Present: normal color Course Vital Signs 05/05/20 05/05/20 05/05/20 17:42 17:49 18:34 Temperature 97.8 F Pulse Rate 118 H 120 H 113 H Respiratory 18 18 18 Rate Blood Pressure 113/81 121/72 119/87 O2 Sat by Pulse 99 99 100 Oximetry EKG Findings - EKG Comments: EKG Findings:: A. fib with RVR, rate 112. Stress 150. QT 416. QTC 567. Right axis. Right bundle branch block. Lateral T wave inversion. Medical Decision Making - Medical Decision Making Patient reevaluated and updated. Case discussed with Dr. Abbasi, who will admit his patient. Surgery will be placed on consult. Ultrasound be obtained. - Lab Data Result diagrams: 05/05/20 18:12 05/05/20 18:12 Lab Results 05/05/20 05/05/20 05/05/20 Range/Units 18:12 18:12 18:12 WBC 4.1 (3.8-10.6) k/uL RBC 4.55 (3.80-5.40) m/uL Hgb 11.9 (11.4-16.0) gm/dL Hct 35.6 (34.0-46.0) % MCV 78.2 L (80.0-100.0) fL MCH 26.1 (25.0-35.0) pg MCHC 33.4 (31.0-37.0) g/dL RDW 19.1 H (11.5-15.5) % Plt Count 88 L (150-450) k/uL MPV 12.2 Neutrophils % 46 % Lymphocytes % 41 % Monocytes % 8 % Eosinophils % 2 % Basophils % 1 % Neutrophils # 1.9 (1.3-7.7) k/uL Lymphocytes # 1.7 (1.0-4.8) k/uL Monocytes # 0.3 (0-1.0) k/uL Eosinophils # 0.1 (0-0.7) k/uL Basophils # 0.1 (0-0.2) k/uL Manual Slide Review Performed Large Platelets Present Poikilocytosis Slight Anisocytosis Slight Microcytosis Slight Target Cells Present PT 15.1 H (9.0-12.0) sec INR 1.5 H (<1.2) APTT 26.2 (22.0-30.0) sec Sodium 136 L (137-145) mmol/L Potassium 3.9 (3.5-5.1) mmol/L Chloride 102 (98-107) mmol/L Carbon Dioxide 25 (22-30) mmol/L Anion Gap 9 mmol/L BUN 9 (7-17) mg/dL Creatinine 1.11 H (0.52-1.04) mg/dL Est GFR (CKD-EPI)AfAm 61 (>60 ml/min/1.73 sqM) Est GFR (CKD-EPI)NonAf 53 (>60 ml/min/1.73 sqM) Glucose 152 H (74-99) mg/dL Calcium 9.0 (8.4-10.2) mg/dL Total Bilirubin 2.4 H (0.2-1.3) mg/dL AST 45 H (14-36) U/L ALT 20 (4-34) U/L Alkaline Phosphatase 138 H (38-126) U/L Troponin I (0.000-0.034) ng/mL Total Protein 8.1 (6.3-8.2) g/dL Albumin 3.9 (3.5-5.0) g/dL Amylase 54 (30-110) U/L Lipase 71 (23-300) U/L 05/05/20 Range/Units 18:12 WBC (3.8-10.6) k/uL RBC (3.80-5.40) m/uL Hgb (11.4-16.0) gm/dL Hct (34.0-46.0) % MCV (80.0-100.0) fL MCH (25.0-35.0) pg MCHC (31.0-37.0) g/dL RDW (11.5-15.5) % Plt Count (150-450) k/uL MPV Neutrophils % % Lymphocytes % % Monocytes % % Eosinophils % % Basophils % % Neutrophils # (1.3-7.7) k/uL Lymphocytes # (1.0-4.8) k/uL Monocytes # (0-1.0) k/uL Eosinophils # (0-0.7) k/uL Basophils # (0-0.2) k/uL Manual Slide Review Large Platelets Poikilocytosis Anisocytosis Microcytosis Target Cells PT (9.0-12.0) sec INR (<1.2) APTT (22.0-30.0) sec Sodium (137-145) mmol/L Potassium (3.5-5.1) mmol/L Chloride (98-107) mmol/L Carbon Dioxide (22-30) mmol/L Anion Gap mmol/L BUN (7-17) mg/dL Creatinine (0.52-1.04) mg/dL Est GFR (CKD-EPI)AfAm (>60 ml/min/1.73 sqM) Est GFR (CKD-EPI)NonAf (>60 ml/min/1.73 sqM) Glucose (74-99) mg/dL Calcium (8.4-10.2) mg/dL Total Bilirubin (0.2-1.3) mg/dL AST (14-36) U/L ALT (4-34) U/L Alkaline Phosphatase (38-126) U/L Troponin I <0.012 (0.000-0.034) ng/mL Total Protein (6.3-8.2) g/dL Albumin (3.5-5.0) g/dL Amylase (30-110) U/L Lipase (23-300) U/L - Radiology Data Radiology results: report reviewed (Computed tomography scan of the abdomen pelvis does show nonspecific mesenteric araceli appearance that may represent edema and may be chronic. Bladder thickening. Cholelithiasis with mild wall thickening without currently closely specific fluid, findings may be reactive to mesenteric deep edema.) Disposition Clinical Impression: Abdominal pain Disposition: ADMITTED IP TO THIS [facility] Is patient prescribed a controlled substance at d/c from ED?: No Referrals: Russell Abbasi MD [Primary Care Provider] - 1-2 days Decision Time: 20:34
[2020-05-05 18:28] LABS: Albumin 3.9 g/dL (3.5-5.0); Potassium 3.9 mmol/L (3.5-5.1); Total Bilirubin 2.4 mg/dL (0.2-1.3); Total Protein 8.1 g/dL (6.3-8.2)
[2020-05-05 18:37] LABS: Anisocytosis Slight; Basophils # (A) 0.1 k/uL (0-0.2); Basophils % (A) 1 %; Eosinophils # (A) 0.1 k/uL (0-0.7); Eosinophils % (A) 2 %; HCT 35.6 % (34.0-46.0); HGB 11.9 gm/dL (11.4-16.0); Lymphocytes # (A) 1.7 k/uL (1.0-4.8); Lymphocytes % (A) 41 %; MCH 26.1 pg (25.0-35.0); MCHC 33.4 g/dL (31.0-37.0); MCV 78.2 fL (80.0-100.0); Mean Platelet Volume 12.2; Microcytosis Slight; Monocytes # (A) 0.3 k/uL (0-1.0); Monocytes % (A) 8 %; Neutrophils # (A) 1.9 k/uL (1.3-7.7); Neutrophils % (A) 46 %; Platelet Count 88 k/uL (150-450); Poikilocytosis Slight; RBC 4.55 m/uL (3.80-5.40); RDW 19.1 % (11.5-15.5); WBC 4.1 k/uL (3.8-10.6)
[2020-05-05 18:47] LABS: Large Platelets Present; Target Cells Present
[2020-05-05 19:13] LABS: INR 1.5 (<1.2); Partial Thromboplastin Time 26.2 sec (22.0-30.0); Prothrombin Time 15.1 sec (9.0-12.0)
--- NOTE | 2020-05-05 19:55 | CT ---
EXAMINATION TYPE: CT abdomen pelvis w con DATE OF EXAM: 05/05/2020 COMPARISON: 10/30/2017. HISTORY: Abdominal pain CT DLP: 1406.7 mGycm Automated exposure control for dose reduction was used. TECHNIQUE: Helical acquisition of images was performed from the lung bases through the pelvis. CONTRAST: Performed without Oral Contrast and with IV Contrast, patient injected with 100 mL of Isovue 300. FINDINGS: LUNG BASES: Small left basilar streaky opacity, probably atelectasis. Cardiomegaly. LIVER/GB: Cholelithiasis with decompressed gallbladder. No significant pericholecystic fluid. Diffuse hepatic steatosis. PANCREAS: No significant abnormality is seen. SPLEEN: No significant abnormality is seen. ADRENALS: No significant abnormality is seen. KIDNEYS: No significant abnormality is seen. FREE AIR: No free air is visualized. RETROPERITONEAL ADENOPATHY: None visualized REPRODUCTIVE ORGANS: No significant abnormality is seen URINARY BLADDER: Decompressed urinary bladder with moderate wall thickening and indistinctness. PELVIC ADENOPATHY: None visualized. OSSEOUS STRUCTURES: No significant abnormality is seen. BOWEL: No bowel obstruction or free air. No significant free fluid. No acute appendicitis. OTHER: Diffuse mesenteric araceli appearance. Mild presacral soft tissue edema seen. IMPRESSION: NONSPECIFIC MESENTERIC ARACELI APPEARANCE, MAY REPRESENT EDEMA AND CAN BE SEEN ON A CHRONIC BASIS. URINARY BLADDER WALL THICKENING AND INDISTINCTNESS, CORRELATE FOR POSSIBLE CYSTITIS. CHOLELITHIASIS WITH MILD GALLBLADDER WALL THICKENING AND WITHOUT PERICHOLECYSTIC FLUID, FINDINGS MAY BE REACTIVE SETTING OF MESENTERIC EDEMA. Ultrasound correlation may be obtained as clinically indicat ed.
[2020-05-05] MEDS ORDERED: LEVOFLOXACIN 500MG-D5W PMX 500 MG in DEXTROSE/WATER 1 100ML.BAG IVPB STA (20:36)
[2020-05-05] MEDS ORDERED: NALOXONE 0.4 MG/ML 1 ML VIAL IV PRN (20:36)
[2020-05-05] MEDS ORDERED: ONDANSETRON 4 MG/2 ML VIAL IVP PRN (20:36)
[2020-05-05] MEDS ORDERED: HYDROmorphone 0.5 MG/0.5 ML SYRINGE IVP PRN (20:36)
[2020-05-05] MEDS: SODIUM CHLORIDE 0.9% 1,000 ML IV SCH (21:48)
--- NOTE | 2020-05-05 21:57 | US ---
EXAMINATION TYPE: US gallbladder DATE OF EXAM: 05/05/2020 COMPARISON: Same-day CT. CLINICAL HISTORY: pain. Pain x 1 week. EXAM MEASUREMENTS: Liver Length: 17.4 cm Gallbladder Wall: 0.35 cm CBD: 0.33 cm Right Kidney: 10.1 x 6.0 x 4.5 cm Limited due to gas. Pancreas: Limited visibility of tail. Duct measures 0.24 cm. Liver: Increased echogenicity. Appears coarse. Measures upper limits of normal. Gallbladder: Internal echoes seen within. Hyperechoic area seen within measuring 0.8 x 0.8 x 0.4 cm. Wall measures 0.35 cm. Evidence for sonographic Winter's sign: No CBD: Portion seen appears wnl Right Kidney: No hydronephrosis or masses seen IMPRESSION: Cholelithiasis without sonographic evidence of suggest acute cholecystitis. Hepatic steatosis.
[2020-05-05] MEDS ORDERED: hydrOXYzine HCL 25 MG TAB PO PRN (22:58)
[2020-05-06 01:07] LABS: Appearance,Urine Clear (Clear); Bacteria,Urine Rare /hpf; Bilirubin,Urine Negative (Negative); Blood,Urine Negative (Negative); Color,Urine Yellow; Glucose,Urine (UA) Negative (Negative); Ketones,Urine Negative (Negative); Leukocyte Esterase,Urine Trace (Negative); Nitrite,Urine Negative (Negative); PH, Urine 6.5 (5.0-8.0); Protein,Urine 2+ (Negative); RBC,Urine 1 /hpf (0-5); Squamous Epithelial Cell,Urine 6 /hpf (0-4); WBC,Urine 3 /hpf (0-5)
[2020-05-06 01:33] LABS: Specific Gravity,Urine >1.050 (1.001-1.035)
[2020-05-06 07:20] LABS: Glucose,Whole Blood 132 mg/dL (75-99)
[2020-05-06] MEDS: SODIUM CHLORIDE 0.9% 1,000 ML IV SCH ×2 (08:50→17:22)
[2020-05-06] MEDS: PANTOPRAZOLE 40 MG/10 ML VIAL IV SCH (08:53)
[2020-05-06] MEDS: MONTELUKAST 10 MG TAB PO SCH (08:53)
[2020-05-06] MEDS: PREGABALIN 100 MG CAP PO SCH ×2 (08:53→20:54)
[2020-05-06] MEDS: allopurinoL 100 MG TAB PO SCH (08:53)
[2020-05-06] MEDS: ASPIRIN 81 MG PO SCH (08:54)
[2020-05-06] MEDS: HYDROXYCHLOROQUINE SULFATE 200 MG TAB PO SCH ×2 (08:54→20:54)
[2020-05-06] MEDS: SERTRALINE 100 MG TAB PO SCH ×2 (08:54→20:55)
[2020-05-06] MEDS: FUROSEMIDE 40 MG TAB PO SCH (08:54)
[2020-05-06] MEDS: INSULN ASP PRT/INSULIN ASPART 100 UNIT/ML 10 ML VIAL SQ SCH ×2 (08:54→17:21)
[2020-05-06] MEDS: SPIRONOLACTONE 25 MG TAB PO SCH (08:54)
[2020-05-06] MEDS: METOPROLOL SUCCINATE (ER) 25 MG TAB.ER.24H PO SCH (08:54)
[2020-05-06] MEDS ORDERED: APIXABAN 5 MG TAB PO SCH (09:00)
[2020-05-06 09:34] LABS: African American GFR (CKD) 55.3 (60.0-200.0); Albumin 3.3 g/dL (3.80-4.90); Albumin/Globulin Ratio 0.94 (1.60-3.17); Anion Gap 11.2 mmol/L (4.00-12.00); BUN/Creat Ratio 8.33 Ratio (12.00-20.00); Calcium 8.4 mg/dL (8.7-10.3); Carbon Dioxide 21.8 mmol/L (21.6-31.8); Globulin 3.5 g/dL (1.6-3.3); Non-African American GFR(CKD) 47.7 (60.0-200.0); Potassium 3.8 mmol/L (3.5-5.5); Total Protein 6.8 g/dL (6.2-8.2)
[2020-05-06] MEDS: ONDANSETRON 4 MG/2 ML VIAL IVP PRN (10:38)
[2020-05-06 10:56] LABS: Glucose,Whole Blood 112 mg/dL (75-99)
[2020-05-06 12:07] LABS: Basophils # (A) 0.06 X 10*3/uL (0.00-0.10); Basophils % (A) 1.4 %; Eosinophils # (A) 0.07 X 10*3/uL (0.04-0.35); Eosinophils % (A) 1.6 %; HGB 11.7 g/dL (12.0-15.0); Lymphocytes # (A) 1.82 X 10*3/uL (0.90-5.00); Lymphocytes % (A) 41.5 %; MCH 25.8 pg (27.0-32.0); MCHC 34.4 g/dL (32.0-37.0); MCV 74.9 fL (80.0-97.0); Monocytes # (A) 0.63 X 10*3/uL (0.20-1.00); Monocytes % (A) 14.4 %; Neutrophils % (A) 40.9 %; Platelet Count 86 X 10*3/uL (140-440); RBC 4.54 X 10*6/uL (4.10-5.20); RDW 18.9 % (11.5-14.5); WBC 4.39 X 10*3/uL (4.50-10.00)
[2020-05-06 12:08] LABS: Anisocytosis (M) 2+; Microcytosis (M) 2+; Target Cells 2+
[2020-05-06] MEDS ORDERED: DEXAMETHASONE SOD PHOSPHATE 4 MG/ML 1 ML VIAL IV ONE (14:29)
[2020-05-06] MEDS ORDERED: TRIAMCINOLONE ACET 0.5% CREAM 15 GM TUBE TOPICAL PRN (14:37)
--- NOTE | 2020-05-06 15:06 | P.GSCN ---
History of Present Illness Consult date: 05/06/20 History of present illness: CHIEF COMPLAINT: Abdominal pain HISTORY OF PRESENT ILLNESS: This is a 64-year-old female with a known history of atrial fibrillation anticoagulant with the Eliquis, diabetes mellitus, AICD, Waldenstrom macroglobulinemia a type of non-Hodgkin's lymphoma. Patient presents to the emergency room with complaints of abdominal pain for the last week. She's been nauseated. She's also been having issues with constipation. She reports that her pain is in the right upper quadrant and right above the umbilicus. Patient has been requiring Zofran here in the hospital. She had an ultrasound completed that did show cholelithiasis without sonographic evidence of acute cholecystitis. Hepatic steatosis. Patient denies any fever chills or sweats. Patient seen and examined with Dr. Tran. PAST MEDICAL HISTORY: See list. PAST SURGICAL HISTORY: See list. MEDICATIONS: See list. ALLERGIES: See list. SOCIAL HISTORY: No illicit drug use. REVIEW OF SYSTEMS: CONSTITUTIONAL: Denies fever or chills. HEENT: Denies blurred vision, vision changes, or eye pain. Denies hemoptysis CARDIOVASCULAR: Denies chest pain or pressure. RESPIRATORY: No shortness of breath. GASTROINTESTINAL: See HPI for pertinent findings HEMATOLOGIC: Denies bleeding disorders. GENITOURINARY: Denies any blood in urine or increased urinary frequency. SKIN: Denies pruitis. Denies rash. PHYSICAL EXAM: VITAL SIGNS: Reviewed GENERAL: Well-developed in no acute distress. HEENT: No sclera icterus. Extraocular movements grossly intact. Moist buccal mucosa. Head is atraumatic, normocephalic. No nasal drainage. ABDOMEN: Soft. Nondistended. Right upper quadrant tenderness and umbilicus tenderness NEUROLOGIC: Alert and oriented. Cranial nerves II through XII grossly intact. LABORATORY DATA: WBC 4.39 Hgb 11.7 platelets 86 INR 1.5 creatinine 1.2 Lipase normal total bili 2.4 AST 45 alk phos 138 LFTs have trended down total bili is 2.0 IMAGING: ultrasound completed that did show cholelithiasis without sonographic evidence of acute cholecystitis. Hepatic steatosis. Computed tomography scan of the abdomen and pelvis nonspecific mesenteric araceli appearance, may represent edema and can be seen on chronic basis. Urinary bladder wall thickening correlate for possible cystitis cholelithiasis with mild gallbladder wall thickening and without pericholecystic fluid, findings may be reactive setting of mesenteric edema. ASSESSMENT: 1. Right upper quadrant Abdominal pain with nausea 2. Acute cholecystitis 3. Constipation PLAN: -Patient scheduled for laparoscopic cholecystectomy tomorrow with Dr. Tran, 05/07/20 -Patient can have low-fat diet today and then nothing by mouth after midnight -Continue antibiotics -Continue IV fluids -Hold [place] Thank you for this consultation Physician [employer] Intern note has been reviewed by physician. Signing provider agrees with the documented findings, assessment, and plan of care. Past Medical History Past Medical History: Atrial Fibrillation, Diabetes Mellitus Additional Past Medical History / Comment(s): Shogrens, Neuropathy feet, Lupus, heart murmur, states passes out with low blood sugar.,Hx of hemodialysis ., Waldenstrom Macroglobulinemia (type of non-hodgkins lymphoma), hx of chemo (2005) and plasma tx., states vocal cord problem- voice raspy., AICD- MEDTONIC History of Any Multi-Drug Resistant Organisms: None Reported Past Surgical History: AICD, Hysterectomy, Orthopedic Surgery Additional Past Surgical History / Comment(s): toe surgery for RA, GANGLION CYSTS RIGHT HAND AND THIGH. Past Anesthesia/Blood Transfusion Reactions: No Reported Reaction, Motion Sickness Type of Cardiac Device: AICD Device Placement Date:: 2014 Past Psychological History: No Psychological Hx Reported Smoking Status: Former smoker Past Alcohol Use History: None Reported Additional Past Alcohol Use History / Comment(s): QUIT SMOKING IN HER 30'S, SMOKED 2 CIGARETTES/DAY, SMOKED 3 YEARS. Past Drug Use History: None Reported - Past Family History Mother Family Medical History: No Reported History Medications and Allergies Home Medications Medication Instructions Recorded Confirmed Type Ergocalciferol [Vitamin D2 50,000 unit PO TH 03/05/17 05/05/20 History (ORCIO)] Folic Acid 1 mg PO QAM 03/05/17 05/05/20 History Furosemide [Lasix] 40 mg PO QAM 03/05/17 05/05/20 History Hydroxychloroquine Sulfate 200 mg PO BID 03/05/17 05/05/20 History [Plaquenil] Insulin Aspart Protam & Aspart 10 unit SQ AC-BRKFST 03/05/17 05/05/20 History [NovoLOG MIX 70-30 Flexpen] Montelukast [Singulair] 10 mg PO DAILY 03/05/17 05/05/20 History Sertraline [Zoloft] 100 mg PO BID 03/05/17 05/05/20 History Simvastatin [Zocor] 10 mg PO HS 03/05/17 05/05/20 History Spironolactone [Aldactone] 25 mg PO QAM 03/05/17 05/05/20 History lisinopriL [Zestril] 2.5 mg PO HS 03/05/17 05/05/20 History metHOTREXate sodium [Methotrexate] 20 mg PO FR 03/05/17 05/05/20 History Aspirin [Adult Low Dose Aspirin EC] 81 mg PO DAILY 09/13/18 05/05/20 History Albuterol Sulfate [Ventolin HFA] 2 puff INHALATION RT-QID PRN 07/27/19 05/05/20 History Apixaban [Eliquis] 5 mg PO BID 07/27/19 05/05/20 History allopurinoL [Zyloprim] 100 mg PO QAM 07/27/19 05/05/20 History Calcitriol [Rocaltrol] 0.25 mcg PO TU 01/21/20 05/05/20 History Insulin Aspart Protam & Aspart 12 unit SQ AC-SUPPER 01/21/20 05/05/20 History [NovoLOG MIX 70-30 Flexpen] Metoprolol Succinate [Toprol XL] 25 mg PO QAM 01/21/20 05/05/20 History Cephalexin [Keflex] 500 mg PO Q6HR 7 Days #28 cap 04/30/20 05/05/20 Rx Hydrocortisone Cream 1 applic TOPICAL BID PRN 05/05/20 05/05/20 History [Hydrocortisone 2.5% Cream] Pregabalin [Lyrica] 300 mg PO BID 05/05/20 05/05/20 History Triamcinolone 0.5% Cream [Kenalog 1 applic TOPICAL BID PRN 05/05/20 05/05/20 History 0.5% Cream] hydrOXYzine HCL 25 mg PO TID PRN 05/05/20 05/05/20 History Allergies Allergy/AdvReac Type Severity Reaction Status Date / Time Penicillins Allergy Rash/Hives Verified 05/05/20 21:48 Surgical - Exam Vital Signs Temp Pulse Resp BP Pulse Ox 97.8 F 118 H 18 113/81 99 05/05/20 17:42 05/05/20 17:42 05/05/20 17:42 05/05/20 17:42 05/05/20 17:42 Results - Labs 05/06/20 05:38 05/06/20 05:38 Abnormal Lab Results - Last 24 Hours (Table) 05/05/20 05/05/20 05/05/20 Range/Units 18:12 18:12 18:12 WBC (4.50-10.00) X 10*3/uL Hgb (12.0-15.0) g/dL Hct (37.2-46.3) % MCV 78.2 L (80.0-100.0) fL MCH (27.0-32.0) pg RDW 19.1 H (11.5-15.5) % Plt Count 88 L (150-450) k/uL Plt Count Comment Immature Plt Fraction (1.1-6.1) % PT 15.1 H (9.0-12.0) sec INR 1.5 H (<1.2) Sodium 136 L (137-145) mmol/L Creatinine 1.11 H (0.52-1.04) mg/dL Est GFR (CKD-EPI)AfAm (60.0-200.0) Est GFR (CKD-EPI)NonAf (60.0-200.0) BUN/Creatinine Ratio (12.00-20.00) Ratio Glucose 152 H (74-99) mg/dL POC Glucose (mg/dL) (75-99) mg/dL Calcium (8.7-10.3) mg/dL Total Bilirubin 2.4 H (0.2-1.3) mg/dL AST 45 H (14-36) U/L Alkaline Phosphatase 138 H (38-126) U/L Albumin (3.80-4.90) g/dL Globulin (1.6-3.3) g/dL Albumin/Globulin Ratio (1.60-3.17) g/dL Ur Specific [place] (1.001-1.035) Urine Protein (Negative) Ur Leukocyte Esterase (Negative) Ur Squamous Epith Cells (0-4) /hpf Urine Bacteria (None) /hpf 05/06/20 05/06/20 05/06/20 Range/Units 00:39 05:38 05:38 WBC 4.39 L (4.50-10.00) X 10*3/uL Hgb 11.7 L (12.0-15.0) g/dL Hct 34.0 L (37.2-46.3) % MCV 74.9 L (80.0-100.0) fL MCH 25.8 L (27.0-32.0) pg RDW 18.9 H (11.5-15.5) % Plt Count 86 L (150-450) k/uL Plt Count Comment DECREASED A Immature Plt Fraction 16.5 H (1.1-6.1) % PT (9.0-12.0) sec INR (<1.2) Sodium (137-145) mmol/L Creatinine (0.52-1.04) mg/dL Est GFR (CKD-EPI)AfAm 55.3 L (60.0-200.0) Est GFR (CKD-EPI)NonAf 47.7 L (60.0-200.0) BUN/Creatinine Ratio 8.33 L (12.00-20.00) Ratio Glucose 113 H (74-99) mg/dL POC Glucose (mg/dL) (75-99) mg/dL Calcium 8.4 L (8.7-10.3) mg/dL Total Bilirubin 2.0 H (0.2-1.3) mg/dL AST (14-36) U/L Alkaline Phosphatase (38-126) U/L Albumin 3.30 L (3.80-4.90) g/dL Globulin 3.5 H (1.6-3.3) g/dL Albumin/Globulin Ratio 0.94 L (1.60-3.17) g/dL Ur Specific [place] >1.050 H (1.001-1.035) Urine Protein 2+ H (Negative) Ur Leukocyte Esterase Trace H (Negative) Ur Squamous Epith Cells 6 H (0-4) /hpf Urine Bacteria Rare H (None) /hpf 05/06/20 05/06/20 Range/Units 07:19 10:54 WBC (4.50-10.00) X 10*3/uL Hgb (12.0-15.0) g/dL Hct (37.2-46.3) % MCV (80.0-100.0) fL MCH (27.0-32.0) pg RDW (11.5-15.5) % Plt Count (150-450) k/uL Plt Count Comment Immature Plt Fraction (1.1-6.1) % PT (9.0-12.0) sec INR (<1.2) Sodium (137-145) mmol/L Creatinine (0.52-1.04) mg/dL Est GFR (CKD-EPI)AfAm (60.0-200.0) Est GFR (CKD-EPI)NonAf (60.0-200.0) BUN/Creatinine Ratio (12.00-20.00) Ratio Glucose (74-99) mg/dL POC Glucose (mg/dL) 132 H 112 H (75-99) mg/dL Calcium (8.7-10.3) mg/dL Total Bilirubin (0.2-1.3) mg/dL AST (14-36) U/L Alkaline Phosphatase (38-126) U/L Albumin (3.80-4.90) g/dL Globulin (1.6-3.3) g/dL Albumin/Globulin Ratio (1.60-3.17) g/dL Ur Specific [place] (1.001-1.035) Urine Protein (Negative) Ur Leukocyte Esterase (Negative) Ur Squamous Epith Cells (0-4) /hpf Urine Bacteria (None) /hpf Diabetes panel 05/05/20 05/06/20 Range/Units 18:12 05:38 Sodium 136 L 138 (137-145) mmol/L Potassium 3.9 3.8 (3.5-5.1) mmol/L Chloride 102 105 (98-107) mmol/L Carbon Dioxide 25 21.8 (22-30) mmol/L BUN 9 10.0 (7-17) mg/dL Creatinine 1.11 H 1.2 (0.52-1.04) mg/dL Glucose 152 H 113 H (74-99) mg/dL Calcium 9.0 8.4 L (8.4-10.2) mg/dL AST 45 H 28 (14-36) U/L ALT 20 17 (4-34) U/L Alkaline Phosphatase 138 H 118 (38-126) U/L Total Protein 8.1 6.8 (6.3-8.2) g/dL Albumin 3.9 3.30 L (3.5-5.0) g/dL Calcium panel 05/05/20 05/06/20 Range/Units 18:12 05:38 Calcium 9.0 8.4 L (8.4-10.2) mg/dL Albumin 3.9 3.30 L (3.5-5.0) g/dL Pituitary panel 05/05/20 05/06/20 Range/Units 18:12 05:38 Sodium 136 L 138 (137-145) mmol/L Potassium 3.9 3.8 (3.5-5.1) mmol/L Chloride 102 105 (98-107) mmol/L Carbon Dioxide 25 21.8 (22-30) mmol/L BUN 9 10.0 (7-17) mg/dL Creatinine 1.11 H 1.2 (0.52-1.04) mg/dL Glucose 152 H 113 H (74-99) mg/dL Calcium 9.0 8.4 L (8.4-10.2) mg/dL Adrenal panel 05/05/20 05/06/20 Range/Units 18:12 05:38 Sodium 136 L 138 (137-145) mmol/L Potassium 3.9 3.8 (3.5-5.1) mmol/L Chloride 102 105 (98-107) mmol/L Carbon Dioxide 25 21.8 (22-30) mmol/L BUN 9 10.0 (7-17) mg/dL Creatinine 1.11 H 1.2 (0.52-1.04) mg/dL Glucose 152 H 113 H (74-99) mg/dL Calcium 9.0 8.4 L (8.4-10.2) mg/dL Total Bilirubin 2.4 H 2.0 H (0.2-1.3) mg/dL AST 45 H 28 (14-36) U/L ALT 20 17 (4-34) U/L Alkaline Phosphatase 138 H 118 (38-126) U/L Total Protein 8.1 6.8 (6.3-8.2) g/dL Albumin 3.9 3.30 L (3.5-5.0) g/dL
[2020-05-06 16:52] LABS: Glucose,Whole Blood 138 mg/dL (75-99)
[2020-05-06] MEDS ORDERED: ACETAMINOPHEN TAB 325 MG TAB PO PRN (17:12)
--- NOTE | 2020-05-06 18:38 | HP ---
HISTORY AND PHYSICAL CHIEF COMPLAINT: Epigastric pain. HISTORY OF PRESENT ILLNESS: This is another admission for this 64-year-old -[place] female who has Waldenstrom's macroglobulinemia. She also has insulin-dependent diabetes mellitus. She has a history of hypertension as well and she has significant problems with dermatitis and cellulitis in the lower extremities related to her Waldenstrom's. She came to the hospital with epigastric pain without fever, chills, hematemesis, melena, hematochezia, etc. This had been present for 2-3 days. REVIEW OF SYSTEMS: She has had no other complaints. She has had no headaches, neurologic problems, chest pain, shortness of breath, cough, etc. She has had no jaundice, dysuria, frequency, urgency, incontinence, etc. Past medical history, family history, and personal and social histories reveal that she is ALLERGIC to PENICILLIN. She has had numerous other issues, including atrial fibrillation, bipolar disorder, hyperlipidemia and depression. CURRENT MEDICATIONS: Current medications include: 1. Hydroxyzine 25 t.i.d. p.r.n. 2. Vicodin 5 q.i.d. p.r.n. 3. Lyrica 300 mg once a day. 4. Allopurinol 100 mg once a day. 5. Ventolin HFA. 6. Montelukast 10 mg once a day. 7. NovoLog Mix 70/30 ten units twice a day. 8. Metoprolol 25 once a day. 9. Sertraline 100 mg twice a day. 10.Lisinopril 2.5 once a day. 11.Lasix 40 mg once a day. 12.Eliquis 5 mg twice a day. 13.Simvastatin 10 at bedtime. 14.Aldactone 25 once a day. 15.Methotrexate 2.5 mg 8 tablets once a week. 16.Vitamin D. 17.Plaquenil 200 mg twice a day. She has smoked in the past but does not any longer, and she does not abuse alcohol. PHYSICAL EXAMINATION: Blood pressure 132/86 with a pulse of 83, respirations of 29, and she is afebrile. In general she appeared to be weak and dehydrated. She is slightly pale. Head, ears, eyes, nose, mouth and throat were normal. Neck veins were not distended. Chest was clear. Cardiac exam demonstrated sinus rhythm and no murmurs or extra sounds. The abdomen was slightly protuberant, soft, and she was slightly tender over the epigastrium, but not a great deal. There were no masses or visceromegaly. Bowel sounds were present. Extremities were normal except for her dermatitis changes on the shins bilaterally. Neurologically she was intact. She is admitted to the hospital with the diagnoses: 1. Epigastric pain, etiology unknown. 2. Waldenstrom's macroglobulinemia. 3. Atrial fibrillation. 4. Hyperbilirubinemia. 5. Insulin-dependent diabetes mellitus. PLAN: 1. Bedrest. 2. IV fluids. 3. GI consult as well as surgical evaluation. MMODL / IJN: [id number] /
--- NOTE | 2020-05-06 18:51 | PN ---
PROGRESS NOTE CHIEF COMPLAINT: Epigastric pain. HISTORY OF PRESENT ILLNESS: This lady's pain is doing a little bit better. She has had no fever, chills, hematemesis, melena, hematochezia, etc. PHYSICAL EXAMINATION: Her vital signs are normal. She is afebrile. Chest is clear. Cardiac exam is normal. She is a little bit tender over the epigastrium, but not significantly so. There are no masses or visceromegaly. IMPRESSION: Epigastric pain, etiology unknown. PLAN: Continue workup. She will be seen by Gastroenterology and she will be kept n.p.o. MMODL / IJN: [id number] /
[2020-05-06] MEDS: LEVOFLOXACIN 500MG-D5W PMX 500 MG in DEXTROSE/WATER 1 100ML.BAG IVPB SCH (20:54)
[2020-05-07 02:58] LABS: Glucose,Whole Blood 96 mg/dL (75-99)
[2020-05-07] MEDS: SODIUM CHLORIDE 0.9% 1,000 ML IV SCH ×2 (03:03→11:14)
[2020-05-07 06:04] LABS: ALT 23 U/L (4-34); AST 52 U/L (14-36); African American GFR (CKD) 55 (>60 ml/min/1.73 sqM); Albumin/Globulin Ratio 0.9; Alkaline Phosphatase 102 U/L (38-126); Anion Gap 10 mmol/L; Blood Urea Nitrogen 11 mg/dL (7-17); Calcium 8.3 mg/dL (8.4-10.2); Carbon Dioxide 22 mmol/L (22-30); Chloride 106 mmol/L (98-107); Globulin 3.5 g/dL; Glucose 83 mg/dL (74-99); Non-African American GFR(CKD) 48 (>60 ml/min/1.73 sqM); Potassium 3.4 mmol/L (3.5-5.1); Sodium 138 mmol/L (137-145); Total Bilirubin 1.8 mg/dL (0.2-1.3); Total Protein 6.5 g/dL (6.3-8.2)
[2020-05-07 06:05] LABS: INR 1.9 (<1.2); Prothrombin Time 18.6 sec (9.0-12.0)
[2020-05-07 06:19] LABS: Anisocytosis Slight; HCT 33.5 % (34.0-46.0); MCH 26.4 pg (25.0-35.0); MCV 80.2 fL (80.0-100.0); Mean Platelet Volume 11.6; Microcytosis Slight; Poikilocytosis Slight; RBC 4.17 m/uL (3.80-5.40); RDW 18.8 % (11.5-15.5)
[2020-05-07 06:20] LABS: Platelet Count 72 k/uL (150-450)
[2020-05-07 06:33] LABS: Band Neutrophils % 2 %; Eosinophils # (M) 0.08 k/uL (0-0.7); Lymphocytes # (M) 1.28 k/uL (1.0-4.8); Monocytes # (M) 0.76 k/uL (0-1.0); Neutrophils % (M) 45 %; Nucleated Red Blood Cells 0 /100 WBC (0-0); Total Cells Counted 100
[2020-05-07 06:34] LABS: Anisocytosis (M) Present; Target Cells Present
[2020-05-07 06:55] LABS: Glucose,Whole Blood 81 mg/dL (75-99)
[2020-05-07] MEDS ORDERED: HYDROmorphone 0.5 MG/0.5 ML SYRINGE IVP PRN (07:00)
[2020-05-07] MEDS: POTASSIUM CHLORIDE 10 MEQ in WATER FOR INJECTION 1 100ML.BAG IVPB SCH ×2 (08:36→09:43)
[2020-05-07] MEDS: METOPROLOL SUCCINATE (ER) 25 MG TAB.ER.24H PO SCH (08:38)
[2020-05-07] MEDS: allopurinoL 100 MG TAB PO SCH (08:39)
[2020-05-07] MEDS: HYDROXYCHLOROQUINE SULFATE 200 MG TAB PO SCH ×2 (08:39→20:25)
[2020-05-07] MEDS: MONTELUKAST 10 MG TAB PO SCH (08:39)
[2020-05-07] MEDS: PREGABALIN 100 MG CAP PO SCH ×2 (08:39→20:25)
[2020-05-07] MEDS: SPIRONOLACTONE 25 MG TAB PO SCH (08:39)
[2020-05-07] MEDS: PANTOPRAZOLE 40 MG/10 ML VIAL IV SCH (08:39)
[2020-05-07] MEDS: FUROSEMIDE 40 MG TAB PO SCH (08:39)
[2020-05-07] MEDS: SERTRALINE 100 MG TAB PO SCH ×2 (08:39→20:25)
[2020-05-07] MEDS: ASPIRIN 81 MG PO SCH (09:42)
[2020-05-07] MEDS: INSULN ASP PRT/INSULIN ASPART 100 UNIT/ML 10 ML VIAL SQ SCH (09:44)
[2020-05-07 11:33] LABS: Glucose,Whole Blood 99 mg/dL (75-99)
--- NOTE | 2020-05-07 12:08 | PN ---
PROGRESS NOTE CHIEF COMPLAINT: Epigastric pain. HISTORY OF PRESENT ILLNESS: This lady is still having some discomfort, but is stable and doing well. She is going operating room for a cholecystectomy. PHYSICAL EXAMINATION: She is slightly tender over the epigastrium. Chest is clear. Cardiac exam is normal. IMPRESSION: 1. Cholecystitis and cholelithiasis. 2. Waldenstrom's macroglobulinemia. 3. Insulin-dependent diabetes mellitus. 4. Hypertension. PLAN: Surgery today. MMODL / IJN: [id number] /
[2020-05-07] MEDS ORDERED: SODIUM CHLORIDE 0.9% 1,000 ML IV ONE (14:29)
[2020-05-07] MEDS ORDERED: DEXAMETHASONE SOD PHOSPHATE 4 MG/ML 1 ML VIAL IVP ONE (14:52)
[2020-05-07 14:53] LABS: Glucose,Whole Blood 81 mg/dL (75-99)
[2020-05-07] MEDS ORDERED: ONDANSETRON 4 MG/2 ML VIAL IVP ONE (14:53)
[2020-05-07] MEDS: LACTATED RINGERS 1,000 ML IV SCH ×2 (15:59→17:32)
[2020-05-07] MEDS ORDERED: ceFAZolin 1,000 MG VIAL ONE (16:07)
[2020-05-07] MEDS ORDERED: NEOSTIGMINE 1 MG/ML 10 ML VIAL ONE (16:08)
[2020-05-07] MEDS ORDERED: LIDOCAINE 1% INJ 10MG/ML (20 ML MDV) ONE (16:08)
[2020-05-07] MEDS ORDERED: PROPOFOL 10 MG/ML 20 ML VIAL IV ONE (16:08)
[2020-05-07] MEDS ORDERED: ROCURONIUM 10 MG/ML (5 ML VIAL) IV ONE (16:08)
[2020-05-07] MEDS ORDERED: GLYCOPYRROLATE 0.2 MG/ML 2 ML VIAL ONE (16:08)
[2020-05-07] MEDS ORDERED: SUCCINYLCHOLINE CHLORIDE 100 MG/5 ML SYR IV ONE (16:08)
[2020-05-07] MEDS ORDERED: fentaNYL (PF) 50 MCG/ML 2 ML AMP ONE (16:08)
[2020-05-07] MEDS ORDERED: SODIUM CHLORIDE 0.9% 50 ML with ceFAZolin 2,000 MG IV ONE ×2 (16:21)
[2020-05-07] MEDS ORDERED: BUPIVACAINE-EPI 0.5%-1:200,000 10 ML VIAL SQ ONE (16:27)
--- NOTE | 2020-05-07 17:00 | P.OP ---
Date of Procedure: 05/07/20 Preoperative Diagnosis: Cholecystitis Postoperative Diagnosis: Cholecystitis Procedure(s) Performed: Laparoscopic cholecystectomy Anesthesia: NEYMAR Surgeon: Mejia Tran Estimated Blood Loss (ml): 5 Pathology: other (Gallbladder) Condition: stable Disposition: PACU Description of Procedure: The patient was placed on the operating table. The patient received a general endotracheal tube anesthesia. The patients abdomen was prepped and draped in the usual sterile fashion. Through an infraumbilical stab incision, the fascia of the anterior abdominal wall was grasped with a pair of Kochers and then the Veress needle was placed in the peritoneal cavity. Position of the Veress needle was confirmed with positive drop test. The abdomen was then insufflated. After adequate insufflation, the 10 mm trocar was placed in the peritoneal cavity. Following this the laparoscope was placed in the peritoneal cavity. The patient was placed in the head-up, right side up position and then a 5 mm trocar was placed in the right lateral and right subcostal position under direct visualization. A 8 mm trocar was placed in the epigastric position. The gallbladder was grasped in the fundus and infundibulum. Traction on the gallbladder was placed in the lateral and the cephalad positions. The triangle of Calot was visualized.. The cystic duct was bluntly dissected until the union of the cystic duct and common bile duct was seen. A critical view of safety was achieved. The cystic duct was then divided and sealed with the Harmonic scissors. A PDS Endoloop was then placed throughout the cystic duct stump. The cystic artery divided and sealed with the Harmonic scissors. The gallbladder was then removed from the liver bed using Harmonic scissors. The gallbladder was then extracted through the epigastric port site. Operative field was checked for any bleeding spots and Harmonic scissors was used to coagulate the liver bed. The abdomen was irrigated. The trocars were removed. The skin was closed using interrupted 3-0 Vicryl suture. Dermabond dressing were applied. The patient tolerated the procedure well.
[2020-05-07 17:22] LABS: Glucose,Whole Blood 80 mg/dL (75-99)
[2020-05-07 19:23] LABS: Glucose,Whole Blood 134 mg/dL (75-99)
[2020-05-07] MEDS: ONDANSETRON 4 MG/2 ML VIAL IVP PRN (20:24)
[2020-05-07] MEDS: LEVOFLOXACIN 500MG-D5W PMX 500 MG in DEXTROSE/WATER 1 100ML.BAG IVPB SCH (20:39)
[2020-05-08] MEDS: INSULN ASP PRT/INSULIN ASPART 100 UNIT/ML 10 ML VIAL SQ SCH ×3 (00:12→17:28)
[2020-05-08] MEDS: SODIUM CHLORIDE 0.9% 1,000 ML IV SCH ×3 (00:12→20:55)
[2020-05-08 07:10] LABS: Glucose,Whole Blood 162 mg/dL (75-99)
[2020-05-08] MEDS: HYDROXYCHLOROQUINE SULFATE 200 MG TAB PO SCH ×2 (08:16→20:54)
[2020-05-08] MEDS: ASPIRIN 81 MG PO SCH (08:16)
[2020-05-08] MEDS: METOPROLOL SUCCINATE (ER) 25 MG TAB.ER.24H PO SCH (08:16)
[2020-05-08] MEDS: FUROSEMIDE 40 MG TAB PO SCH (08:16)
[2020-05-08] MEDS: MONTELUKAST 10 MG TAB PO SCH (08:16)
[2020-05-08] MEDS: PREGABALIN 100 MG CAP PO SCH ×2 (08:16→20:54)
[2020-05-08] MEDS: SERTRALINE 100 MG TAB PO SCH ×2 (08:16→20:54)
[2020-05-08] MEDS: allopurinoL 100 MG TAB PO SCH (08:16)
[2020-05-08] MEDS: SPIRONOLACTONE 25 MG TAB PO SCH (08:16)
[2020-05-08] MEDS: PANTOPRAZOLE 40 MG/10 ML VIAL IV SCH (08:17)
[2020-05-08 09:57] LABS: African American GFR (CKD) 55.3 (60.0-200.0); Albumin 3.2 g/dL (3.80-4.90); Albumin/Globulin Ratio 1.19 (1.60-3.17); Anion Gap 9.5 mmol/L (4.00-12.00); Carbon Dioxide 22.5 mmol/L (21.6-31.8); Globulin 2.7 g/dL (1.6-3.3); Non-African American GFR(CKD) 47.7 (60.0-200.0); Potassium 3.7 mmol/L (3.5-5.5); Total Bilirubin 1.2 mg/dL (0.2-1.2); Total Protein 5.9 g/dL (6.2-8.2)
--- NOTE | 2020-05-08 11:12 | P.PN ---
Subjective Progress Note Date: 05/08/20 Principal diagnosis: Abdominal pain, cholelithiasis Patient is seen and examined lying in bed. She is status postop day #1 for cholecystectomy. She states she is doing well. Has minor surgical pain, but overall pain has improved. Denies any nausea or vomiting. Liver enzymes improving total bilirubin 1.2, alkaline phosphatase 111, AST 48, ALT 25. Objective - Vital Signs Vital signs: Vital Signs Temp 96.4 F L 05/08/20 06:58 Pulse 96 05/08/20 06:58 Resp 18 05/08/20 06:58 BP 92/59 05/08/20 06:58 Pulse Ox 100 05/08/20 06:58 Intake & Output 05/07/20 05/08/20 05/08/20 18:59 06:59 18:59 Intake Total 900 241 Output Total 5 Balance 895 241 Intake: IV 900 Oral 241 Output: Estimated Blood Loss 5 Other: Voiding Method Bedside Commode # Voids 2 3 # Bowel Movements 1 - Exam General appearance: The patient is alert, oriented, appears in no acute distress. Obese. HET: Head is normocephalic and atraumatic. Conjunctiva pink. Sclera anicteric. Neck: Supple without lymphadenopathy. Abdomen: Soft, nontender, surgical incision sites clean dry and intact, nondistended with bowel sounds. No guarding or rigidity. Extremities: Normal skin color and turgor. No pedal edema Skin: No rashes, no jaundice Neurological: No focal deficits. Alert and oriented 3. - Labs CBC & Chem 7: 05/07/20 05:12 05/08/20 05:13 Labs: Abnormal Lab Results - Last 24 Hours (Table) 05/07/20 05/08/20 05/08/20 Range/Units 19:21 05:13 07:03 Est GFR (CKD-EPI)AfAm 55.3 L (60.0-200.0) Est GFR (CKD-EPI)NonAf 47.7 L (60.0-200.0) BUN/Creatinine Ratio 10.00 L (12.00-20.00) Ratio Glucose 199 H (70-110) mg/dL POC Glucose (mg/dL) 134 H 162 H (75-99) mg/dL Calcium 8.0 L (8.7-10.3) mg/dL AST 48 H (13-35) U/L Total Protein 5.9 L (6.2-8.2) g/dL Albumin 3.20 L (3.80-4.90) g/dL Albumin/Globulin Ratio 1.19 L (1.60-3.17) g/dL Microbiology - Last 24 Hours (Table) 05/05/20 21:42 Blood Culture - Preliminary Blood No Growth after 48 hours Assessment and Plan (1) Abdominal pain Narrative/Plan: This is a 64-year-old -[place] female who came in with complaints of abdominal pain. Workup included a CT of the abdomen that showed nonspecific araceli appearance, may represent edema, seen on chronic basis. Urinary bladder wall thickness, cholelithiasis, mild gallbladder wall thickening without. Cholecystectomy fluid. A gallbladder ultrasound was also obtained which showed cholelithiasis without evidence of acute cholecystitis. Hepatic steatosis. CBD 0.33 cm. Initial bilirubin was 2.4, alkaline phosphatase 138, AST 45, ALT 20. Liver enzymes continued to trend down. Repeat labs today total bilirubin 1.2, alkaline phosphatase 111, AST 48, ALT 25. She is status post cholecystectomy. Current Visit: Yes Status: Acute Code(s): R10.9 - UNSPECIFIED ABDOMINAL PAIN SNOMED Code(s): 75225676 (2) Cholecystitis Current Visit: Yes Status: Acute Code(s): K81.9 - CHOLECYSTITIS, UNSPECIFIED SNOMED Code(s): 07774371 Plan: Supportive care Diet per recommendations from surgical services Repeat CMP reviewed, liver enzymes continue to improve No evidence of choledocholithiasis, no plans for ERCP Thank you for this consultation, gastroenterology will sign off at this time Dr. Johnson I agree with the dictator's note, documented as a scribe by Elinor Azar.
[2020-05-08 11:54] LABS: Glucose,Whole Blood 151 mg/dL (75-99)
--- NOTE | 2020-05-08 13:19 | P.CONS ---
History of Present Illness - Reason for Consult Consult date: 05/07/20 Elevated liver enzymes Requesting physician: Russell Abbasi - Chief Complaint Abdominal pain - History of Present Illness 64-year-old female with a medical history significant for atrial fibrillation on anticoagulation therapy with Eliquis, diabetes mellitus, and non-Hodgkin's lymphoma presented to the hospital with complaints of abdominal pain. The patient had been reporting pain in the epigastric and right upper quadrant of her abdomen. Pain is present for one week. She reported associated nausea and vomiting. Patient also has a history of constipation. She reports issues with her gallbladder over 30 years ago. Currently the patient is seen lying in bed reporting abdominal pain is improved with no nausea or vomiting. She had computed tomography scan of the abdomen in evaluation showing nonspecific ST appearance which may represent edema as well as chronic urinary bladder wall thickening, cholelithiasis and gallbladder wall thickening. A letter ultrasound showed cholelithiasis with evidence of acute cholecystitis and hepatic steatosis. Last colonoscopy 2 years ago and normal. Liver enzymes mildly elevated on presentation currently improved with total bilirubin 1.8, alkaline phosphatase 102, AST 52 and ALT 23 with amylase 54 and lipase 71. Review of Systems REVIEW OF SYSTEMS: CONSTITUTIONAL: Denies any fevers, chills, weight change or fatigue. CARDIOVASCULAR: Denies any chest pain, palpitations high or low blood pressures RESPIRATORY: Denies any shortness of breath, hemoptysis or cough. GENITOURINARY: No dysuria or hematuria. MUSCULOSKELETAL: No weakness reported. SKIN: Denies any new rashes or lesions, jaundice or pallor. PSYCHIATRIC: Denies any depression or anxiety. NEUROLOGY: Denies headache, denies any new focal deficits. EARS/NOSE/THROAT: No recent hearing change, congestion, nasal discharge or sore throat. EYES: No pain in eyes, discharge or change in vision. GASTROINTESTINAL: As per HPI. Past Medical History Past Medical History: Atrial Fibrillation, Diabetes Mellitus Additional Past Medical History / Comment(s): Shogrens, Neuropathy feet, Lupus, heart murmur, states passes out with low blood sugar.,Hx of hemodialysis ., Waldenstrom Macroglobulinemia (type of non-hodgkins lymphoma), hx of chemo (2005) and plasma tx., states vocal cord problem- voice raspy., AICD- MEDTONIC History of Any Multi-Drug Resistant Organisms: None Reported Past Surgical History: AICD, Hysterectomy, Orthopedic Surgery Additional Past Surgical History / Comment(s): toe surgery for RA, GANGLION CYSTS RIGHT HAND AND THIGH. Past Anesthesia/Blood Transfusion Reactions: No Reported Reaction, Motion Sickness Type of Cardiac Device: AICD Device Placement Date:: 2014 Past Psychological History: No Psychological Hx Reported Smoking Status: Former smoker Past Alcohol Use History: None Reported Additional Past Alcohol Use History / Comment(s): QUIT SMOKING IN HER 30'S, SMOKED 2 CIGARETTES/DAY, SMOKED 3 YEARS. Past Drug Use History: None Reported - Past Family History Mother Family Medical History: No Reported History Medications and Allergies Home Medications Medication Instructions Recorded Confirmed Type Ergocalciferol [Vitamin D2 50,000 unit PO TH 03/05/17 05/05/20 History (DRISDOL)] Folic Acid 1 mg PO QAM 03/05/17 05/05/20 History Furosemide [Lasix] 40 mg PO QAM 03/05/17 05/05/20 History Hydroxychloroquine Sulfate 200 mg PO BID 03/05/17 05/05/20 History [Plaquenil] Insulin Aspart Protam & Aspart 10 unit SQ AC-BRKFST 03/05/17 05/05/20 History [NovoLOG MIX 70-30 Flexpen] Montelukast [Singulair] 10 mg PO DAILY 03/05/17 05/05/20 History Sertraline [Zoloft] 100 mg PO BID 03/05/17 05/05/20 History Simvastatin [Zocor] 10 mg PO HS 03/05/17 05/05/20 History Spironolactone [Aldactone] 25 mg PO QAM 03/05/17 05/05/20 History lisinopriL [Zestril] 2.5 mg PO HS 03/05/17 05/05/20 History metHOTREXate sodium [Methotrexate] 20 mg PO FR 03/05/17 05/05/20 History Aspirin [Adult Low Dose Aspirin EC] 81 mg PO DAILY 09/13/18 05/05/20 History Albuterol Sulfate [Ventolin HFA] 2 puff INHALATION RT-QID PRN 07/27/19 05/05/20 History Apixaban [Eliquis] 5 mg PO BID 07/27/19 05/05/20 History allopurinoL [Zyloprim] 100 mg PO QAM 07/27/19 05/05/20 History Calcitriol [Rocaltrol] 0.25 mcg PO TU 01/21/20 05/05/20 History Insulin Aspart Protam & Aspart 12 unit SQ AC-SUPPER 01/21/20 05/05/20 History [NovoLOG MIX 70-30 Flexpen] Metoprolol Succinate [Toprol XL] 25 mg PO QAM 01/21/20 05/05/20 History Cephalexin [Keflex] 500 mg PO Q6HR 7 Days #28 cap 04/30/20 05/05/20 Rx Hydrocortisone Cream 1 applic TOPICAL BID PRN 05/05/20 05/05/20 History [Hydrocortisone 2.5% Cream] Pregabalin [Lyrica] 300 mg PO BID 05/05/20 05/05/20 History Triamcinolone 0.5% Cream [Kenalog 1 applic TOPICAL BID PRN 05/05/20 05/05/20 History 0.5% Cream] hydrOXYzine HCL 25 mg PO TID PRN 05/05/20 05/05/20 History Allergies Allergy/AdvReac Type Severity Reaction Status Date / Time Penicillins Allergy Rash/Hives Verified 05/07/20 14:57 Physical Exam Vitals: Vital Signs Temp Pulse Resp BP BP Pulse Ox 05/07/20 07:00 97.6 F 93 14 103/72 99 05/07/20 02:58 111/69 05/07/20 02:50 97.4 F L 113 H 18 87/58 93 L 05/06/20 19:10 95.0 F L 99 16 142/73 99 05/06/20 14:39 97.1 F L 104 H 14 112/72 97 Intake and Output 05/06/20 05/07/20 05/07/20 22:59 06:59 14:59 Intake Total 500 Balance 500 Intake: Oral 500 Other: # Voids 3 On physical examination, patient appears comfortable in no apparent distress. HEAD: Normocephalic, atraumatic. EYES: No scleral icterus. No conjunctival injection. MOUTH: No lesions, tongue midline. NECK: Trachea midline, no gross abnormalities. CHEST: Clear to auscultation with no wheezing or rhonchi appreciated. HEART: Regular rate and rhythm. ABDOMEN: Soft, nontender to palpation. Bowel sounds are positive. No organomegaly. No guarding or rigidity. EXTREMITIES: No pedal edema. SKIN: No rashes, no jaundice. NEUROLOGIC: Alert and oriented x3. No focal deficits. Results CBC & Chem 7: 05/07/20 05:12 05/08/20 05:13 Labs: Abnormal Lab Results - Last 24 Hours (Table) 05/06/20 05/06/20 05/07/20 Range/Units 05:38 16:50 05:12 WBC 4.39 L (4.50-10.00) X 10*3/uL Hgb 11.7 L 11.0 L (12.0-15.0) g/dL Hct 34.0 L 33.5 L (37.2-46.3) % MCV 74.9 L (80.0-97.0) fL MCH 25.8 L (27.0-32.0) pg RDW 18.9 H 18.8 H (11.5-14.5) % Plt Count 86 L 72 L (140-440) X 10*3/uL Plt Count Comment DECREASED A Immature Plt Fraction 16.5 H (1.1-6.1) % PT (9.0-12.0) sec INR (<1.2) Potassium (3.5-5.1) mmol/L Creatinine (0.52-1.04) mg/dL POC Glucose (mg/dL) 138 H (75-99) mg/dL Calcium (8.4-10.2) mg/dL Total Bilirubin (0.2-1.3) mg/dL AST (14-36) U/L Albumin (3.5-5.0) g/dL 05/07/20 05/07/20 Range/Units 05:12 05:12 WBC (4.50-10.00) X 10*3/uL Hgb (12.0-15.0) g/dL Hct (37.2-46.3) % MCV (80.0-97.0) fL MCH (27.0-32.0) pg RDW (11.5-14.5) % Plt Count (140-440) X 10*3/uL Plt Count Comment Immature Plt Fraction (1.1-6.1) % PT 18.6 H (9.0-12.0) sec INR 1.9 H (<1.2) Potassium 3.4 L (3.5-5.1) mmol/L Creatinine 1.20 H (0.52-1.04) mg/dL POC Glucose (mg/dL) (75-99) mg/dL Calcium 8.3 L (8.4-10.2) mg/dL Total Bilirubin 1.8 H (0.2-1.3) mg/dL AST 52 H (14-36) U/L Albumin 3.0 L (3.5-5.0) g/dL Microbiology - Last 24 Hours (Table) 05/05/20 21:42 Blood Culture - Preliminary Blood No Growth after 24 hours US - abdomen: report reviewed (Ultrasound of the abdomen with findings of cholelithiasis and gallbladder wall thickening suggestive of acute cholecystitis) Assessment and Plan (1) Cholecystitis Narrative/Plan: 64-year-old female with multiple medical comorbidities presenting with complaints of abdominal pain, nausea and vomiting. Liver enzymes are mildly elevated on presentation and trending down. Ultrasound of the abdomen showed cholelithiasis and evidence of cholecystitis. Currently on broad-spectrum antibiotic therapy patient is scheduled for laparoscopic cholecystectomy. Current Visit: Yes Status: Acute Code(s): K81.9 - CHOLECYSTITIS, UNSPECIFIED SNOMED Code(s): 49841728 (2) Elevated liver enzymes Current Visit: Yes Status: Acute Code(s): R74.8 - ABNORMAL LEVELS OF OTHER SERUM ENZYMES SNOMED Code(s): 588247929 (3) Abdominal pain Current Visit: Yes Status: Acute Code(s): R10.9 - UNSPECIFIED ABDOMINAL PAIN SNOMED Code(s): 22068110 Plan: Supportive care Nothing by mouth Plan is for laparoscopic cholecystectomy today Continue monitor CBC, BMP, LFTs Continue broad-spectrum antibiotic therapy No plans for endoscopic evaluation at this time For allowing us to participate in the care of this patient we will continue to follow
--- NOTE | 2020-05-08 13:46 | P.PN ---
Subjective Progress Note Date: 05/08/20 CHIEF COMPLAINT: Abdominal pain HISTORY OF PRESENT ILLNESS: Patient is postop day #1 status post laparoscopic cholecystectomy. She did have some nausea earlier this morning. It has resolved. She was able to eat breakfast. She is passing gas. She is urinating without difficulty. She reports that her pain is controlled. She did have some bleeding from the incision site at the umbilicus. She did have some tachycardia yesterday evening and that has resolved. Blood pressure on the lower side 92/59 this morning. She is afebrile. Total bili normal at 1.2 AST 48 trending down. ALT 25 PHYSICAL EXAM: VITAL SIGNS: Reviewed. GENERAL: Well-developed in no acute distress. HEENT: No sclera icterus. Extraocular movements grossly intact. Moist buccal mucosa. Head is atraumatic, normocephalic. ABDOMEN: Soft. Nondistended. Incision site at umbilicus small amount of blood draining. No discharge. Other incision sites clean dry and intact. NEUROLOGIC: Alert and oriented. Cranial nerves II through XII grossly intact. ASSESSMENT: 1. Acute cholecystitis status post laparoscopic cholecystectomy PLAN: -Continue regular diet -Okay to restart Eliquis from surgical standpoint -Continue Tylenol as needed for pain -Encouraged patient to ambulate -Ordered incentive spirometer -Dressing at umbilicus changed today Physician Scrap Charger note has been reviewed by physician. Signing provider agrees with the documented findings, assessment, and plan of care. Objective - Vital Signs Vital signs: Vital Signs Temp 96.4 F L 05/08/20 06:58 Pulse 96 05/08/20 06:58 Resp 18 05/08/20 06:58 BP 92/59 05/08/20 06:58 Pulse Ox 100 05/08/20 06:58 Intake & Output 05/07/20 05/08/20 05/08/20 18:59 06:59 18:59 Intake Total 900 241 120 Output Total 5 Balance 895 241 120 Intake: IV 900 Oral 241 120 Output: Estimated Blood Loss 5 Other: Voiding Method Bedside Commode # Voids 2 3 1 # Bowel Movements 1 0 - Labs CBC & Chem 7: 05/07/20 05:12 05/08/20 05:13 Labs: Abnormal Lab Results - Last 24 Hours (Table) 05/07/20 05/08/20 05/08/20 Range/Units 19:21 05:13 07:03 Est GFR (CKD-EPI)AfAm 55.3 L (60.0-200.0) Est GFR (CKD-EPI)NonAf 47.7 L (60.0-200.0) BUN/Creatinine Ratio 10.00 L (12.00-20.00) Ratio Glucose 199 H (70-110) mg/dL POC Glucose (mg/dL) 134 H 162 H (75-99) mg/dL Calcium 8.0 L (8.7-10.3) mg/dL AST 48 H (13-35) U/L Total Protein 5.9 L (6.2-8.2) g/dL Albumin 3.20 L (3.80-4.90) g/dL Albumin/Globulin Ratio 1.19 L (1.60-3.17) g/dL 05/08/20 Range/Units 11:47 Est GFR (CKD-EPI)AfAm (60.0-200.0) Est GFR (CKD-EPI)NonAf (60.0-200.0) BUN/Creatinine Ratio (12.00-20.00) Ratio Glucose (70-110) mg/dL POC Glucose (mg/dL) 151 H (75-99) mg/dL Calcium (8.7-10.3) mg/dL AST (13-35) U/L Total Protein (6.2-8.2) g/dL Albumin (3.80-4.90) g/dL Albumin/Globulin Ratio (1.60-3.17) g/dL Microbiology - Last 24 Hours (Table) 05/05/20 21:42 Blood Culture - Preliminary Blood No Growth after 48 hours
[2020-05-08 17:08] LABS: Glucose,Whole Blood 210 mg/dL (75-99)
--- NOTE | 2020-05-08 18:10 | PN ---
PROGRESS NOTE DATE OF SERVICE: 05/08/2020 CHIEF COMPLAINT: Abdominal pain, status post cholecystectomy. HISTORY OF PRESENT ILLNESS: This lady is doing well. She has had no fever, chills, nausea, vomiting, etc. PHYSICAL EXAMINATION: Her chest is clear. Cardiac exam is normal. The dressing is dry. IMPRESSION: 1. Status post cholecystectomy. 2. Waldenstrom's macroglobulinemia. PLAN: Increase activity and continue to monitor her blood sugars. She will probably be able to go home tomorrow. MMODL / IJN: [id number] /
[2020-05-08] MEDS: LEVOFLOXACIN 500MG-D5W PMX 500 MG in DEXTROSE/WATER 1 100ML.BAG IVPB SCH (20:53)
[2020-05-08] MEDS: APIXABAN 5 MG TAB PO SCH (20:54)
[2020-05-08 21:24] LABS: Glucose,Whole Blood 88 mg/dL (75-99)
[2020-05-09] MEDS: LACTATED RINGERS 1,000 ML IV SCH ×2 (00:13→12:21)
[2020-05-09] MEDS: SODIUM CHLORIDE 0.9% 1,000 ML IV SCH (06:06)
[2020-05-09 06:57] VITALS: RESP 18
[2020-05-09 07:08] LABS: Glucose,Whole Blood 79 mg/dL (75-99)
[2020-05-09] MEDS ORDERED: PANTOPRAZOLE 40 MG TABLET PO SCH (07:30)
[2020-05-09] MEDS: INSULN ASP PRT/INSULIN ASPART 100 UNIT/ML 10 ML VIAL SQ SCH (08:37)
[2020-05-09] MEDS ORDERED: metHOTREXate sodium 2.5 MG TAB PO SCH (09:00)
[2020-05-09] MEDS: allopurinoL 100 MG TAB PO SCH (09:07)
[2020-05-09] MEDS: HYDROXYCHLOROQUINE SULFATE 200 MG TAB PO SCH (09:07)
[2020-05-09] MEDS: APIXABAN 5 MG TAB PO SCH (09:07)
[2020-05-09] MEDS: ASPIRIN 81 MG PO SCH (09:07)
[2020-05-09] MEDS: METOPROLOL SUCCINATE (ER) 25 MG TAB.ER.24H PO SCH (09:44)
[2020-05-09] MEDS: SPIRONOLACTONE 25 MG TAB PO SCH (09:44)
[2020-05-09] MEDS: PREGABALIN 100 MG CAP PO SCH (09:44)
[2020-05-09] MEDS: MONTELUKAST 10 MG TAB PO SCH (09:45)
[2020-05-09] MEDS: SERTRALINE 100 MG TAB PO SCH (09:45)
[2020-05-09] MEDS: FUROSEMIDE 40 MG TAB PO SCH (11:09)
[2020-05-09 11:55] LABS: Glucose,Whole Blood 110 mg/dL (75-99)
--- NOTE | 2020-05-09 12:51 | P.PN ---
Subjective Progress Note Date: 05/09/20 CHIEF COMPLAINT: Abdominal pain HISTORY OF PRESENT ILLNESS: Patient seen and examined with Dr. Tran. Patient is postop day #2 status post laparoscopic cholecystectomy. Patient denies any pain. Denies any nausea vomiting. She is tolerating regular diet. She has been up and ambulating to the bathroom. She has a difficulty urinating. She has minimal bleeding noted at the umbilicus incision site. Patient feels ready to go home. Afebrile PHYSICAL EXAM: VITAL SIGNS: Reviewed. GENERAL: Well-developed in no acute distress. HEENT: No sclera icterus. Extraocular movements grossly intact. Moist buccal mucosa. Head is atraumatic, normocephalic. ABDOMEN: Soft. Nondistended. Incision site at umbilicus small amount of blood draining. No discharge. Other incision sites clean dry and intact. NEUROLOGIC: Alert and oriented. Cranial nerves II through XII grossly intact. ASSESSMENT: 1. Acute cholecystitis status post laparoscopic cholecystectomy PLAN: -Patient stable from surgical standpoint for discharge -Patient can continue to apply gauze to the mild bleeding noted at the umbilicus incision site. -Continue regular diet -Continue Tylenol as needed for pain -Encouraged patient to ambulate -Ordered incentive spirometer Physician Financial Intern note has been reviewed by physician. Signing provider agrees with the documented findings, assessment, and plan of care. Objective - Vital Signs Vital signs: Vital Signs Temp 95.7 F L 05/09/20 06:55 Pulse 99 05/09/20 07:50 Resp 18 05/09/20 07:50 BP 99/66 05/09/20 06:55 Pulse Ox 100 05/09/20 06:55 Intake & Output 05/08/20 05/09/20 05/09/20 18:59 06:59 18:59 Intake Total 120 120 Balance 120 120 Intake: Oral 120 120 Other: Voiding Method Toilet Toilet # Voids 1 1 # Bowel Movements 0 - Labs CBC & Chem 7: 05/07/20 05:12 05/08/20 05:13 Labs: Abnormal Lab Results - Last 24 Hours (Table) 05/08/20 05/09/20 Range/Units 17:06 11:53 POC Glucose (mg/dL) 210 H 110 H (75-99) mg/dL Microbiology - Last 24 Hours (Table) 05/05/20 21:42 Blood Culture - Preliminary Blood No Growth after 72 hours
[2020-05-09 14:16] VITALS: BP 98/58; TEMP 97.8
[2020-05-09 15:19] VITALS: PULSE 95
--- NOTE | 2020-05-09 22:36 | DS ---
DISCHARGE SUMMARY CHIEF COMPLAINT: Epigastric pain. HISTORY OF PRESENT ILLNESS AND PHYSICAL EXAMINATION: Details of this lady's history and physical can be found in the initial workup. LABORATORY STUDIES: While she was in the hospital she had laboratory studies, details of which can be found in the laboratory section of her chart. COURSE IN THE HOSPITAL: After admission she was placed on bedrest, started on intravenous fluids and seen by Surgery. Studies suggested that she had gallbladder disease and she was subsequently taken for an uneventful cholecystectomy. She was doing well and it was felt that she could go home on 05/09. She will go home on her usual activity, diet and medications and she will be followed up through our office as well as by Surgery. FINAL DIAGNOSES: 1. Acute cholecystitis and cholelithiasis. 2. Insulin-dependent diabetes mellitus. 3. Waldenstrom's macroglobulinemia. OPERATION: Cholecystectomy. CONSULTATION: General Surgery. She is improved. MMODL / IJN: [id number] /
--- NOTE | 2020-05-12 15:21 | CDI ---
Documentation Clarification Form Date: 05/12/2020 03:18:00 PM From: Emily Benites CCS Admit Date: 05/08/2020 08:06:00 AM Patient Name: Lillie Ro Visit Number: [id number] Discharge Date: 05/09/2020 04:30:00 PM ATTENTION: The Clinical Documentation Specialists (CDI) and [facility] Coding Staff appreciate your assistance in clarifying documentation. Please respond to the clarification below the line at the bottom and electronically sign. The CDI & [facility] Coding staff will review the response and follow-up if needed. Please note: Queries are made part of the Legal Health Record. If you have any questions, please contact the author of this message via ITS. Dr. Russell Abbasi Atrial Fibrillation is documented in the ED, H&P, Consults. History/Risk Factors: Waldenstrom macroglobulinemia, DM, HTN Clinical Indicators: History AFIB, on Eliquis 5 mg PO BID EKG/telemetry: Atrial Fibrillation with rapid ventricular response with premature ventricular or aberrantly conducted complexes Treatment: Eliquis 5 mg PO BID In your professional opinion, can you please clarify the type of Atrial Fibrillation, if known? Chronic/Permanent Paroxysmal Persistent Other, please specify Unable to determine MTDD
--- NOTE | 2020-05-17 12:37 | MISC ---
MISCELLANOUS REPORT QUERY: Atrial fibrillation, chronic and permanent. MMODL / IJN: [id number] /
== END 2020-05-09 16:30 | disposition home or self-care (01) | DRG 418 ==
LOC: EC 17:40 → 6NMEDSUR 20:36 → OBSVTOIN 05-08 08:06
PROVIDERS: ADMIT Family Medicine; ATTEND Family Medicine
PROC: 0FT44ZZ Resection of Gallbladder, Percutaneous Endoscopic Approach (ICD-10-PCS; principal; 2020-05-07 14:30)
DX: K80.00 Calculus of gallbladder with acute cholecystitis without obstruction (principal); I48.21 Permanent atrial fibrillation; C88.0 Waldenstrom macroglobulinemia; E11.42 Type 2 diabetes mellitus with diabetic polyneuropathy; M32.9 Systemic lupus erythematosus, unspecified; K76.0 Fatty (change of) liver, not elsewhere classified; Z79.4 Long term (current) use of insulin; Z20.822 Contact with and (suspected) exposure to COVID-19; I10 Essential (primary) hypertension; K59.00 Constipation, unspecified; R00.0 Tachycardia, unspecified; F31.9 Bipolar disorder, unspecified; E78.5 Hyperlipidemia, unspecified; Z79.899 Other long term (current) drug therapy; Z79.82 Long term (current) use of aspirin; Z79.01 Long term (current) use of anticoagulants; Z85.72 Personal history of non-Hodgkin lymphomas; Z92.21 Personal history of antineoplastic chemotherapy; Z95.810 Presence of automatic (implantable) cardiac defibrillator; Z90.710 Acquired absence of both cervix and uterus; Z98.890 Other specified postprocedural states; Z87.891 Personal history of nicotine dependence; Z88.0 Allergy status to penicillin
CPT/HCPCS: 36415; 74177; 76705; 80053; 81001; 82150; 83605; 83690; 84484; 85025; 85610; 85730; 87040; 87635; 88304; 93005; 96361; 96374; 96375; 99285

== ENCOUNTER 2020-05-14 11:29 | Inpatient (IN) | payer MEDICARE ==
--- NOTE | 2020-05-14 11:45 | ED ---
Abdominal Pain HPI - General Chief Complaint: Abdominal Pain Stated Complaint: abd pain Time Seen by Provider: 05/14/20 11:31 Source: patient, EMS, RN notes reviewed, old records reviewed Mode of arrival: EMS Limitations: no limitations - History of Present Illness Initial Comments: This is a 65-year-old female who is status post laparoscopic cholecystectomy 2 days ago who presented today with complaints of abdominal pain at the incisional sites. There was a small amount of drainage from the supraumbilical site. She is also found to be in A. fib with RVR per paramedics. No reports of fevers chills sweats she did have slight nausea no chest pain no other complaints or modifying factors at this time MD Complaint: abdominal pain, other - Related Data Home Medications Medication Instructions Recorded Confirmed Ergocalciferol [Vitamin D2 50,000 unit PO TH 03/05/17 05/05/20 (DRISDOL)] Folic Acid 1 mg PO QAM 03/05/17 05/05/20 Furosemide [Lasix] 40 mg PO QAM 03/05/17 05/05/20 Hydroxychloroquine Sulfate 200 mg PO BID 03/05/17 05/05/20 [Plaquenil] Insulin Aspart Protam & Aspart 10 unit SQ AC-BRKFST 03/05/17 05/05/20 [NovoLOG MIX 70-30 Flexpen] Montelukast [Singulair] 10 mg PO DAILY 03/05/17 05/05/20 Sertraline [Zoloft] 100 mg PO BID 03/05/17 05/05/20 Simvastatin [Zocor] 10 mg PO HS 03/05/17 05/05/20 Spironolactone [Aldactone] 25 mg PO QAM 03/05/17 05/05/20 lisinopriL [Zestril] 2.5 mg PO HS 03/05/17 05/05/20 metHOTREXate sodium [Methotrexate] 20 mg PO FR 03/05/17 05/05/20 Aspirin [Adult Low Dose Aspirin EC] 81 mg PO DAILY 09/13/18 05/05/20 Albuterol Sulfate [Ventolin HFA] 2 puff INHALATION RT-QID PRN 07/27/19 05/05/20 Apixaban [Eliquis] 5 mg PO BID 07/27/19 05/05/20 allopurinoL [Zyloprim] 100 mg PO QAM 07/27/19 05/05/20 Calcitriol [Rocaltrol] 0.25 mcg PO TU 01/21/20 05/05/20 Insulin Aspart Protam & Aspart 12 unit SQ AC-SUPPER 01/21/20 05/05/20 [NovoLOG MIX 70-30 Flexpen] Metoprolol Succinate [Toprol XL] 25 mg PO QAM 01/21/20 05/05/20 Hydrocortisone Cream 1 applic TOPICAL BID PRN 05/05/20 05/05/20 [Hydrocortisone 2.5% Cream] Pregabalin [Lyrica] 300 mg PO BID 05/05/20 05/05/20 Triamcinolone 0.5% Cream [Kenalog 1 applic TOPICAL BID PRN 05/05/20 05/05/20 0.5% Cream] hydrOXYzine HCL 25 mg PO TID PRN 05/05/20 05/05/20 Previous Rx's Medication Instructions Recorded Cephalexin [Keflex] 500 mg PO Q6HR 7 Days #28 cap 04/30/20 Acetaminophen Tab [Tylenol Tab] 650 mg PO Q6H PRN #30 tablet 05/09/20 Allergies Allergy/AdvReac Type Severity Reaction Status Date / Time Penicillins Allergy Rash/Hives Verified 05/14/20 11:37 Review of Systems ROS Statement: Those systems with pertinent positive or pertinent negative responses have been documented in the HPI. ROS Other: All systems not noted in ROS Statement are negative. Past Medical History Past Medical History: Atrial Fibrillation, Diabetes Mellitus Additional Past Medical History / Comment(s): Shogrens, Neuropathy feet, Lupus, heart murmur, states passes out with low blood sugar.,Hx of hemodialysis ., Waldenstrom Macroglobulinemia (type of non-hodgkins lymphoma), hx of chemo (2005) and plasma tx., states vocal cord problem- voice raspy., AICD- MEDTONIC History of Any Multi-Drug Resistant Organisms: None Reported Past Surgical History: AICD, Cholecystectomy, Hysterectomy, Orthopedic Surgery Additional Past Surgical History / Comment(s): toe surgery for RA, GANGLION CYSTS RIGHT HAND AND THIGH. Past Anesthesia/Blood Transfusion Reactions: No Reported Reaction, Motion Sickness Type of Cardiac Device: AICD Device Placement Date:: 2014 Past Psychological History: No Psychological Hx Reported Smoking Status: Former smoker Past Alcohol Use History: None Reported Past Drug Use History: None Reported - Past Family History Mother Family Medical History: No Reported History General Exam - General Exam Comments Initial Comments: This is a well-developed well-nourished awake alert oriented 3 female Limitations: no limitations General appearance: alert, anxious Head exam: Present: atraumatic, normocephalic, normal inspection Eye exam: Present: normal appearance, PERRL, EOMI. Absent: scleral icterus, conjunctival injection, periorbital swelling ENT exam: Present: mucous membranes dry Neck exam: Present: normal inspection, full ROM, other. Absent: tenderness, meningismus, lymphadenopathy Respiratory exam: Present: normal lung sounds bilaterally. Absent: respiratory distress, wheezes, rales, rhonchi, stridor Cardiovascular Exam: Present: tachycardia, irregular rhythm. Absent: systolic murmur, diastolic murmur, rubs, gallop, clicks GI/Abdominal exam: Present: soft, tenderness, normal bowel sounds, other (Mild discomfort around the surgical site is minimal evidence of erythema to the superior midline incision but no increased localized temperature. The umbilical site demonstrates a slight amount of clear drainage and dehiscence ). Absent: distended, guarding, rebound, rigid Extremities exam: Present: normal inspection, full ROM, normal capillary refill. Absent: tenderness, pedal edema, joint swelling, calf tenderness Back exam: Present: normal inspection Neurological exam: Present: alert, oriented X3, CN II-XII intact Psychiatric exam: Present: normal affect, normal mood Skin exam: Present: warm, dry, intact, normal color. Absent: rash Course Vital Signs 05/14/20 11:30 Temperature 97.7 F Pulse Rate 134 H Respiratory 18 Rate Blood Pressure 128/85 O2 Sat by Pulse 98 Oximetry Medical Decision Making - Medical Decision Making I did discuss findings with Dr. Tran as well as with Dr. Abbasi the patient be admitted CAT scan is pending patient rate is improving. - Lab Data Result diagrams: 05/14/20 11:49 05/14/20 11:49 Lab Results 05/14/20 05/14/20 05/14/20 Range/Units 11:49 11:49 11:49 WBC 4.3 (3.8-10.6) k/uL RBC 4.46 (3.80-5.40) m/uL Hgb 11.7 (11.4-16.0) gm/dL Hct 34.3 (34.0-46.0) % MCV 76.8 L (80.0-100.0) fL MCH 26.3 (25.0-35.0) pg MCHC 34.2 (31.0-37.0) g/dL RDW 18.7 H (11.5-15.5) % Plt Count 56 L (150-450) k/uL MPV 12.5 Neutrophils % 54 % Lymphocytes % 38 % Monocytes % 2 % Eosinophils % 3 % Basophils % 1 % Neutrophils # 2.3 (1.3-7.7) k/uL Lymphocytes # 1.6 (1.0-4.8) k/uL Monocytes # 0.1 (0-1.0) k/uL Eosinophils # 0.1 (0-0.7) k/uL Basophils # 0.1 (0-0.2) k/uL Manual Slide Review Performed Large Platelets Present Poikilocytosis Moderate Anisocytosis Slight Microcytosis Slight Target Cells Present PT (9.0-12.0) sec INR (<1.2) APTT (22.0-30.0) sec Sodium 138 (137-145) mmol/L Potassium 3.8 (3.5-5.1) mmol/L Chloride 104 (98-107) mmol/L Carbon Dioxide 20 L (22-30) mmol/L Anion Gap 14 mmol/L BUN 12 (7-17) mg/dL Creatinine 0.94 (0.52-1.04) mg/dL Est GFR (CKD-EPI)AfAm 74 (>60 ml/min/1.73 sqM) Est GFR (CKD-EPI)NonAf 64 (>60 ml/min/1.73 sqM) Glucose 145 H (74-99) mg/dL Plasma Lactic Acid Sunny 2.4 H* (0.7-2.0) mmol/L Calcium 8.6 (8.4-10.2) mg/dL Magnesium 1.3 L (1.6-2.3) mg/dL Total Bilirubin 3.3 H (0.2-1.3) mg/dL AST 30 (14-36) U/L ALT 16 (4-34) U/L Alkaline Phosphatase 125 (38-126) U/L Creatine Kinase 150 H (30-135) U/L Troponin I (0.000-0.034) ng/mL Total Protein 7.2 (6.3-8.2) g/dL Albumin 3.3 L (3.5-5.0) g/dL Amylase 47 (30-110) U/L Lipase 79 (23-300) U/L Urine Color Urine Appearance (Clear) Urine pH (5.0-8.0) Ur Specific [place] (1.001-1.035) Urine Protein (Negative) Urine Glucose (UA) (Negative) Urine Ketones (Negative) Urine Blood (Negative) Urine Nitrite (Negative) Urine Bilirubin (Negative) Urine Urobilinogen (<2.0) mg/dL Ur Leukocyte Esterase (Negative) Urine RBC (0-5) /hpf Urine WBC (0-5) /hpf Ur Squamous Epith Cells (0-4) /hpf Urine Bacteria (None) /hpf Hyaline Casts (0-2) /lpf Urine Mucus (None) /hpf 05/14/20 05/14/20 05/14/20 Range/Units 11:49 11:55 13:18 WBC (3.8-10.6) k/uL RBC (3.80-5.40) m/uL Hgb (11.4-16.0) gm/dL Hct (34.0-46.0) % MCV (80.0-100.0) fL MCH (25.0-35.0) pg MCHC (31.0-37.0) g/dL RDW (11.5-15.5) % Plt Count (150-450) k/uL MPV Neutrophils % % Lymphocytes % % Monocytes % % Eosinophils % % Basophils % % Neutrophils # (1.3-7.7) k/uL Lymphocytes # (1.0-4.8) k/uL Monocytes # (0-1.0) k/uL Eosinophils # (0-0.7) k/uL Basophils # (0-0.2) k/uL Manual Slide Review Large Platelets Poikilocytosis Anisocytosis Microcytosis Target Cells PT 16.1 H (9.0-12.0) sec INR 1.6 H (<1.2) APTT 26.6 (22.0-30.0) sec Sodium (137-145) mmol/L Potassium (3.5-5.1) mmol/L Chloride (98-107) mmol/L Carbon Dioxide (22-30) mmol/L Anion Gap mmol/L BUN (7-17) mg/dL Creatinine (0.52-1.04) mg/dL Est GFR (CKD-EPI)AfAm (>60 ml/min/1.73 sqM) Est GFR (CKD-EPI)NonAf (>60 ml/min/1.73 sqM) Glucose (74-99) mg/dL Plasma Lactic Acid Sunny (0.7-2.0) mmol/L Calcium (8.4-10.2) mg/dL Magnesium (1.6-2.3) mg/dL Total Bilirubin (0.2-1.3) mg/dL AST (14-36) U/L ALT (4-34) U/L Alkaline Phosphatase (38-126) U/L Creatine Kinase (30-135) U/L Troponin I <0.012 (0.000-0.034) ng/mL Total Protein (6.3-8.2) g/dL Albumin (3.5-5.0) g/dL Amylase (30-110) U/L Lipase (23-300) U/L Urine Color Dark Yellow Urine Appearance Clear (Clear) Urine pH 6.5 (5.0-8.0) Ur Specific [place] 1.021 (1.001-1.035) Urine Protein 1+ H (Negative) Urine Glucose (UA) Negative (Negative) Urine Ketones Negative (Negative) Urine Blood Trace H (Negative) Urine Nitrite Negative (Negative) Urine Bilirubin 1+ H (Negative) Urine Urobilinogen 8.0 (<2.0) mg/dL Ur Leukocyte Esterase Moderate H (Negative) Urine RBC 2 (0-5) /hpf Urine WBC 2 (0-5) /hpf Ur Squamous Epith Cells 2 (0-4) /hpf Urine Bacteria Rare H (None) /hpf Hyaline Casts 10 H (0-2) /lpf Urine Mucus Rare H (None) /hpf - EKG Data -: EKG Interpreted by Me EKG Comments: Atrial fibrillation with tachycardia rate 151 ND interval 154 QRS 836 since QTC to 78/437 low-voltage this is compared with EKG dated 05/03/20 20 right bundle- branch block at that time old anterolateral changes Disposition Clinical Impression: Atrial fibrillation with RVR, History of laparoscopic cholecystectomy, Dehydration Disposition: ADMITTED IP TO THIS HOSP Condition: Fair Referrals: Russell Abbasi MD [Primary Care Provider] - 1-2 days
[2020-05-14] MEDS ORDERED: SODIUM CHLORIDE 0.9% 1,000 ML IV STA ×2 (11:46→12:35)
[2020-05-14] MEDS ORDERED: DILTIAZEM DRIP BOLUS FROM BAG 1 MG SOLN IV ONE (11:51)
[2020-05-14] MEDS ORDERED: DILTIAZEM 125 MG in SODIUM CHLORIDE 0.9% 100 ML IV SCH (12:00)
[2020-05-14 12:03] LABS: Anisocytosis Slight; Basophils # (A) 0.1 k/uL (0-0.2); Basophils % (A) 1 %; Eosinophils # (A) 0.1 k/uL (0-0.7); Eosinophils % (A) 3 %; HCT 34.3 % (34.0-46.0); HGB 11.7 gm/dL (11.4-16.0); Lymphocytes # (A) 1.6 k/uL (1.0-4.8); Lymphocytes % (A) 38 %; MCH 26.3 pg (25.0-35.0); MCHC 34.2 g/dL (31.0-37.0); MCV 76.8 fL (80.0-100.0); Mean Platelet Volume 12.5; Microcytosis Slight; Monocytes # (A) 0.1 k/uL (0-1.0); Monocytes % (A) 2 %; Neutrophils # (A) 2.3 k/uL (1.3-7.7); Neutrophils % (A) 54 %; Poikilocytosis Moderate; RBC 4.46 m/uL (3.80-5.40); RDW 18.7 % (11.5-15.5); WBC 4.3 k/uL (3.8-10.6)
[2020-05-14 12:23] LABS: Platelet Count 56 k/uL (150-450)
[2020-05-14 12:25] LABS: Albumin 3.3 g/dL (3.5-5.0); Calcium 8.6 mg/dL (8.4-10.2); Magnesium 1.3 mg/dL (1.6-2.3); Potassium 3.8 mmol/L (3.5-5.1); Total Bilirubin 3.3 mg/dL (0.2-1.3); Total Protein 7.2 g/dL (6.3-8.2)
[2020-05-14 12:26] LABS: Large Platelets Present; Target Cells Present
[2020-05-14 12:29] LABS: INR 1.6 (<1.2); Partial Thromboplastin Time 26.6 sec (22.0-30.0); Prothrombin Time 16.1 sec (9.0-12.0)
--- NOTE | 2020-05-14 12:40 | XR ---
EXAMINATION TYPE: CT abdomen pelvis wo con DATE OF EXAM: 05/14/2020 COMPARISON: 04/29/2020 HISTORY: Abdominal pain TECHNIQUE: Abdomen examination the upright view FINDINGS: Note is made of cardiomegaly. No free air is under the diaphragm. Nonspecific bowel gas is present. Psoas margins are normal. Organomegaly is not evident. No abnormal calcification is identifi ed. Stable Phleboliths appear to be within the pelvis. IMPRESSION: 1. Nonspecific abdomen
[2020-05-14] MEDS ORDERED: ONDANSETRON 4 MG/2 ML VIAL IVP STA (13:31)
[2020-05-14] MEDS: MAGNESIUM SULFATE-D5W PMX 1 GM in DEXTROSE/WATER 1 100ML.BAG IVPB SCH ×2 (13:32→15:51)
[2020-05-14 13:47] LABS: Appearance,Urine Clear (Clear); Bacteria,Urine Rare /hpf; Bilirubin,Urine 1+ (Negative); Blood,Urine Trace (Negative); Color,Urine Dark Yellow; Glucose,Urine (UA) Negative (Negative); Hyaline Casts,Urine 10 /lpf (0-2); Ketones,Urine Negative (Negative); Leukocyte Esterase,Urine Moderate (Negative); Mucus,Urine Rare /hpf; Nitrite,Urine Negative (Negative); PH, Urine 6.5 (5.0-8.0); Protein,Urine 1+ (Negative); RBC,Urine 2 /hpf (0-5); Specific Gravity,Urine 1.021 (1.001-1.035); Squamous Epithelial Cell,Urine 2 /hpf (0-4); WBC,Urine 2 /hpf (0-5)
[2020-05-14] MEDS ORDERED: NALOXONE 0.4 MG/ML 1 ML VIAL IV PRN (13:57)
[2020-05-14] MEDS ORDERED: HYDROCORTISONE 1% CREAM 30 GM TUBE TOPICAL PRN (14:00)
[2020-05-14] MEDS ORDERED: hydrOXYzine HCL 25 MG TAB PO PRN (14:00)
[2020-05-14] MEDS ORDERED: TRIAMCINOLONE ACET 0.5% CREAM 15 GM TUBE TOPICAL PRN (14:00)
[2020-05-14] MEDS ORDERED: ALBUTEROL NEBULIZED 2.5 MG/3 ML INHALATION PRN (14:00)
[2020-05-14] MEDS ORDERED: ACETAMINOPHEN TAB 325 MG TAB PO PRN (14:00)
--- NOTE | 2020-05-14 14:48 | CT ---
EXAMINATION TYPE: CT abdomen pelvis w con DATE OF EXAM: 05/14/2020 COMPARISON: 05/05/2020 INDICATION: Generalized abdominal pain with nausea and vomiting. Aminah 2 days ago. DLP: 1776.1 mGycm, Automated exposure control for dose reduction was used. CONTRAST: 100 mL of Isovue 300. Study performed without Oral Contrast TECHNIQUE: Axial images were obtained from above the diaphragm to the pubic rami in the axial plane a t 5 mm thick sections. Reconstructed images are reviewed on the computer in the coronal plane. FINDINGS: Limited CT sections are obtained the lung bases. The lung bases are clear. There is cardiomegaly. S mall pericardial effusion is present. CT ABDOMEN: Liver: Moderate fatty infiltration liver. Spleen: Normal Pancreas: Normal Adrenal glands: The adrenal glands are normal. Gallbladder: Surgically absent Kidneys: No masses are evident. No hydronephrosis is present. No cysts are present. Delayed images were obtained through the kidneys, which remain unremarkable. Aorta: Vascular calcification is within the aorta. Inferior vena cava: Normal. CT PELVIS: Some mild wall thickening of the proximal ascending colon is not excluded. Mild colitis could be cons idered extending towards the transverse colon. Remaining colon and small bowel loops have a more norm al appearance. Some mild inflammatory change and minimal fluid within the right paracolic gutter is p resent adjacent to descending colon. The study is without oral contrast limiting bowel evaluation. Appendix: Not identified. No suspicious dilated tubular structure or inflammatory change in the right lower quadrant is evident. Urinary bladder: Decompressed with limited evaluation Genitourinary structures: Uterus and ovaries are not identified. Osseous structures: No suspicious lytic or sclerotic lesions. IMPRESSIONS: 1. Mild colitis of the ascending colon should be considered. 2. Moderate fatty infiltration of the liver. 3. No suspicious fluid collections in the gallbladder fossa.
[2020-05-14 18:05] LABS: Glucose,Whole Blood 171 mg/dL (75-99)
[2020-05-14] MEDS ORDERED: HYDROCORTISONE 1% CREAM 454 GM JAR TOPICAL PRN (18:10)
[2020-05-14] MEDS: CEPHALEXIN 500 MG CAP PO SCH ×2 (18:11→23:16)
[2020-05-14] MEDS: INSULIN ASPART (NovoLOG) 100 UNIT/ML VIAL SQ SCH (18:11)
[2020-05-14 19:43] LABS: Glucose,Whole Blood 119 mg/dL (75-99)
[2020-05-14] MEDS: SERTRALINE 100 MG TAB PO SCH (19:49)
[2020-05-14] MEDS: APIXABAN 5 MG TAB PO SCH (19:49)
[2020-05-14] MEDS: ATORVASTATIN 10 MG TAB PO SCH (19:49)
[2020-05-14] MEDS: PREGABALIN 100 MG CAP PO SCH (19:49)
[2020-05-14] MEDS: HYDROXYCHLOROQUINE SULFATE 200 MG TAB PO SCH (19:50)
[2020-05-15 06:05] LABS: Glucose,Whole Blood 88 mg/dL (75-99)
[2020-05-15] MEDS: INSULIN ASPART (NovoLOG) 100 UNIT/ML VIAL SQ SCH ×2 (06:13→17:16)
[2020-05-15] MEDS: CEPHALEXIN 500 MG CAP PO SCH ×4 (06:15→22:59)
[2020-05-15] MEDS: allopurinoL 100 MG TAB PO SCH (08:09)
[2020-05-15] MEDS: SERTRALINE 100 MG TAB PO SCH ×2 (08:09→20:32)
[2020-05-15] MEDS: SPIRONOLACTONE 25 MG TAB PO SCH (08:09)
[2020-05-15] MEDS: APIXABAN 5 MG TAB PO SCH ×2 (08:09→20:32)
[2020-05-15] MEDS: METOPROLOL SUCCINATE (ER) 25 MG TAB.ER.24H PO SCH (08:09)
[2020-05-15] MEDS: PREGABALIN 100 MG CAP PO SCH ×2 (08:09→20:32)
[2020-05-15] MEDS: FOLIC ACID 1 MG TAB PO SCH (08:09)
[2020-05-15] MEDS: MONTELUKAST 10 MG TAB PO SCH (08:09)
[2020-05-15] MEDS: ASPIRIN 81 MG PO SCH (08:09)
[2020-05-15] MEDS: HYDROXYCHLOROQUINE SULFATE 200 MG TAB PO SCH ×2 (08:10→20:32)
[2020-05-15] MEDS ORDERED: FUROSEMIDE 40 MG TAB PO SCH (09:00)
[2020-05-15] MEDS ORDERED: ERGOCALCIFEROL 1,250 MCG (50,000 IU) CAPSULE PO SCH (09:00)
--- NOTE | 2020-05-15 11:24 | P.CRDCN ---
History of Present Illness History of present illness: HISTORY OF PRESENTING ILLNESS This is a pleasant 65-year-old -[place] female past medical history significant for nonischemic cardiomyopathy status post AICD ([employer]), history of ventricular tachycardia, chronic systolic heart failure, persistent atrial fibrillation status post pulmonary vein isolation but no further ablation secondary to low EF, diabetes mellitus, hypertension, dyslipidemia, pulmonary hypertension and rheumatoid arthritis. She follows in the office with Dr. Samayoa. We have been asked to see in consultation for atrial fibrillation with RVR. She is s/p cholecystectomy 05/[address] Gaitan. She presented to the hospital with symptoms of lower abdominal pain and cramping. EKG on arrival was afib with RVR. She was started on IV cardizem infusion. Currently her rates are 80-90s. Blood pressure 92/68. She denies chest pain, shortness of breath, dizzin ess or palpitations. She states she has been taking her eliquis since the day after surgery. Current daily home medications include Eliquis 5 mg twice a day, aspirin 81 mg daily, Lasix 40 mg in the morning, Toprol 25 mg daily, simvastatin 10 mg daily, Aldactone 25 mg daily and lisinopril 2.5 mg at bedtime. Most recent echocardiogram obtained July 2019 revealed severely impaired LV systolic function with ejection fraction 25-30%, severely dilated left atrium, mild to moderate MR, mild to moderate TR and severe pulmonary hypertension with an RVSP of 70 mmHg. Laboratory data reviewed, WBC 4.3, hemoglobin 11.7, platelets 56, sodium 138, potassium 3.8, creatinine 0.94, magnesium 1.3, cardiac enzymes negative 1 and lactic acid on admission 2.4. REVIEW OF SYSTEMS At the time of my exam: CONSTITUTIONAL: Denies fever or chills. CARDIOVASCULAR: Denies chest pain, shortness of breath, orthopnea, PND or palpitations. RESPIRATORY: Denies cough. GASTROINTESTINAL: Complains of abdominal cramping. Denies diarrhea, constipation, nausea or vomiting. MUSCULOSKELETAL: Denies myalgias. NEUROLOGIC: Denies numbness, tingling, headacbe or weakness. ENDOCRINE: Denies fatigue, weight change, polydipsia or polyurina. GENITOURINARY: Denies burning, hematuria or urgency with micturation. HEMATOLOGIC: Denies history of anemia or bleeding. PHYSICAL EXAMINATION Blood pressure 92/68 heart rate 90 afebrile and maintaining oxygen saturation on room air. CONSTITUTIONAL: No apparent distress. HEENT: Head is normocephalic. Pupils are equal, round. Sclerae anicteric. Mucous membranes of the mouth are moist. No JVD. No carotid bruit. CHEST EXAMINATION: Lungs are clear to auscultation. No chest wall tenderness is noted on palpation or with deep breathing. HEART EXAMINATION: Irregular rate and rhythm. S1, S2 heard. Systolic ejection murmur at the left sternal border, no gallops or rub. ABDOMEN: Soft, nontender. Positive bowel sounds. EXTREMITIES: 2+ peripheral pulses, no lower extremity edema and no calf tenderness. NEUROLOGIC EXAMINATION: Patient is awake, alert and oriented x3. ASSESSMENT Chronic persistent atrial fibrillation with rapid ventricular rate on Eliquis status post pulmonary vein isolation Abdominal pain as colitis noted on CT Hypomagnesemia Thrombocytopenia Lactic acidosis Nonischemic cardiomyopathy status post AICD Chronic systolic heart failure, clinically euvolemic History of nonsustained ventricular tachycardia Hypertension Diabetes mellitus Dyslipidemia Rheumatoid arthritis PLAN Discontinue cardizem infusion. Continue toprol as previously ordered. Heart rates could be elevated related to pain Continue eliquis for thromboembolic protection. Magnesium has been replaced, check repeat level. Thank you kindly for this consultation. Nurse Practitioner note has been reviewed, I agree with a documented findings and plan of care. Patient was seen and examined. Past Medical History Past Medical History: Atrial Fibrillation, Heart Failure, Diabetes Mellitus, Eye Disorder, Fibromyalgia, Hyperlipidemia, Hypertension, Rheumatoid Arthritis (RA), Syncope Additional Past Medical History / Comment(s): Pt recently admitted to [facility] on 05/08/20 with abdominal pain/cholecystectomy. Other hx: Nonischemic cardiomyopathy/Vtach/AICD, murmur, IDDM type II, neuropathy bilateral feet, hypoglycemic episodes with syncope in past, 2006 waldenstrom macroglobulinemia (type of nonhodgkins lymphoma) with chemo and plasma treatment and had to be on hemodialysis for a brief time, sjogrens, lupus, gout, anemia, bilateral cataracts. History of Any Multi-Drug Resistant Organisms: None Reported Past Surgical History: AICD, Cardiac Ablation, Cholecystectomy, Hysterectomy, Orthopedic Surgery Additional Past Surgical History / Comment(s): Recent cholecystectomy, 2007 AICD with gen change in 2013, cardiac ablations, L toe surgery d/t RA, R wrist and R thigh cystectomy, spacer placed on vocal cord. Past Anesthesia/Blood Transfusion Reactions: No Reported Reaction, Motion Sickness Additional Past Anesthesia/Blood Transfusion Reaction / Comment(s): Pt has recieved blood in past without reaction. Type of Cardiac Device: AICD Device Placement Date:: 2007 device with gen change 2013. Smoking Status: Former smoker - Past Family History Mother Family Medical History: Cancer Additional Family Medical History / Comment(s): Mother from multiple myeloma Father Family Medical History: Renal Disease Additional Family Medical History / Comment(s): Father of renal failure. Medications and Allergies Home Medications Medication Instructions Recorded Confirmed Type Ergocalciferol [Vitamin D2 50,000 unit PO TH 03/05/17 05/14/20 History (DRISDOL)] Folic Acid 1 mg PO QAM 03/05/17 05/14/20 History Furosemide [Lasix] 40 mg PO QAM 03/05/17 05/14/20 History Hydroxychloroquine Sulfate 200 mg PO BID 03/05/17 05/14/20 History [Plaquenil] Insulin Aspart Protam & Aspart 10 unit SQ AC-BRKFST 03/05/17 05/14/20 History [NovoLOG MIX 70-30 Flexpen] Montelukast [Singulair] 10 mg PO DAILY 03/05/17 05/14/20 History Sertraline [Zoloft] 100 mg PO BID 03/05/17 05/14/20 History Simvastatin [Zocor] 10 mg PO HS 03/05/17 05/14/20 History Spironolactone [Aldactone] 25 mg PO QAM 03/05/17 05/14/20 History lisinopriL [Zestril] 2.5 mg PO HS 03/05/17 05/14/20 History metHOTREXate sodium [Methotrexate] 20 mg PO FR 03/05/17 05/14/20 History Aspirin [Adult Low Dose Aspirin EC] 81 mg PO DAILY 09/13/18 05/14/20 History Albuterol Sulfate [Ventolin HFA] 2 puff INHALATION RT-QID PRN 07/27/19 05/14/20 History Apixaban [Eliquis] 5 mg PO BID 07/27/19 05/14/20 History allopurinoL [Zyloprim] 100 mg PO QAM 07/27/19 05/14/20 History Calcitriol [Rocaltrol] 0.25 mcg PO TU 01/21/20 05/14/20 History Insulin Aspart Protam & Aspart 12 unit SQ AC-SUPPER 01/21/20 05/14/20 History [NovoLOG MIX 70-30 Flexpen] Metoprolol Succinate [Toprol XL] 25 mg PO QAM 01/21/20 05/14/20 History Hydrocortisone Cream 1 applic TOPICAL BID PRN 05/05/20 05/14/20 History [Hydrocortisone 2.5% Cream] Pregabalin [Lyrica] 300 mg PO BID 05/05/20 05/14/20 History Triamcinolone 0.5% Cream [Kenalog 1 applic TOPICAL BID PRN 05/05/20 05/14/20 History 0.5% Cream] hydrOXYzine HCL 25 mg PO TID PRN 05/05/20 05/14/20 History Acetaminophen Tab [Tylenol Tab] 650 mg PO Q6H PRN #30 tablet 05/09/20 05/14/20 Rx Allergies Allergy/AdvReac Type Severity Reaction Status Date / Time Penicillins Allergy Rash/Hives Verified 05/14/20 14:41 Physical Exam Vitals: Vital Signs Temp Pulse Pulse Resp BP BP Pulse Ox 05/15/20 11:00 98.2 F 90 18 92/68 100 05/15/20 08:00 98 F 87 20 110/70 99 05/15/20 04:00 98.5 F 95 20 112/78 95 05/15/20 01:17 100 18 05/15/20 00:00 100 18 105/70 96 05/14/20 20:00 98.2 F 110 H 20 132/75 98 05/14/20 18:02 97.6 F 105 H 16 103/70 100 05/14/20 15:54 106 H 18 116/90 100 05/14/20 13:37 114 H 18 113/89 100 05/14/20 11:30 97.7 F 134 H 18 128/85 98 Intake and Output 05/14/20 05/15/20 05/15/20 22:59 06:59 14:59 Intake Total 200 760 360 Output Total 0 Balance 200 760 360 Intake: IV 120 Diltiazem 125 mg In 40 Sodium Chloride 0.9% 100 ml @ 5 MG/HR 5 mls/hr IV .Q24H MIRZA Rx#:[id number] Sodium Chloride 0.9% 1, 80 000 ml @ 130 mls/hr IV . Q7H42M STA Rx#:[id number] Intake, IV Titration 520 Amount Diltiazem 125 mg In 30 Sodium Chloride 0.9% 100 ml @ 5 MG/HR 5 mls/hr IV .Q24H MIR[facility] Rx#:[id number] Sodium Chloride 0.9% 1, 490 000 ml @ 130 mls/hr IV . Q7H42M STA Rx#:[id number] Oral 200 240 240 Output: Stool 0 Other: Voiding Method Toilet Toilet Toilet # Voids 1 3 1 Weight 102.058 kg 107.6 kg 107.6 kg Results 05/14/20 11:49 05/14/20 11:49 Cardiac Enzymes 05/14/20 05/14/20 Range/Units 11:49 11:49 AST 30 (14-36) U/L Troponin I <0.012 (0.000-0.034) ng/mL Coagulation 05/14/20 Range/Units 11:55 PT 16.1 H (9.0-12.0) sec APTT 26.6 (22.0-30.0) sec CBC 05/14/20 Range/Units 11:49 WBC 4.3 (3.8-10.6) k/uL RBC 4.46 (3.80-5.40) m/uL Hgb 11.7 (11.4-16.0) gm/dL Hct 34.3 (34.0-46.0) % Plt Count 56 L (150-450) k/uL Comprehensive Metabolic Panel 05/14/20 Range/Units 11:49 Sodium 138 (137-145) mmol/L Potassium 3.8 (3.5-5.1) mmol/L Chloride 104 (98-107) mmol/L Carbon Dioxide 20 L (22-30) mmol/L BUN 12 (7-17) mg/dL Creatinine 0.94 (0.52-1.04) mg/dL Glucose 145 H (74-99) mg/dL Calcium 8.6 (8.4-10.2) mg/dL AST 30 (14-36) U/L ALT 16 (4-34) U/L Alkaline Phosphatase 125 (38-126) U/L Total Protein 7.2 (6.3-8.2) g/dL Albumin 3.3 L (3.5-5.0) g/dL Current Medications Generic Name Dose Route Start Last Admin Trade Name Freq PRN Reason Stop Dose Admin Acetaminophen 650 mg 05/14/20 14:00 05/14/20 18:10 Acetaminophen Tab 325 Mg Tab PO 650 mg Q6H PRN Administration Pain Albuterol Sulfate 2.5 mg 05/14/20 14:00 Albuterol Nebulized 2.5 Mg/3 Ml INHALATION RT-QID PRN Shortness Of Breath Allopurinol 100 mg 05/15/20 09:00 05/15/20 08:09 Allopurinol 100 Mg Tab PO 100 mg QAM MIRZA Administration Apixaban 5 mg 05/14/20 21:00 05/15/20 08:09 Apixaban 5 Mg Tab PO 5 mg BID MIRZA Administration Aspirin 81 mg 05/15/20 09:00 05/15/20 08:09 Aspirin 81 Mg PO 81 mg DAILY MIRZA Administration Atorvastatin Calcium 10 mg 05/14/20 21:00 05/14/20 19:49 Atorvastatin 10 Mg Tab PO 10 mg HS MIRZA Administration Calcitriol 0.25 mcg 05/20/20 09:00 Calcitriol 0.25 Mcg Cap PO TU MIRZA Cephalexin 500 mg 05/14/20 18:00 05/15/20 10:55 Cephalexin 500 Mg Cap PO 500 mg Q6HR MIRZA Administration Ergocalciferol 1,250 mcg 05/15/20 09:00 05/15/20 08:09 Ergocalciferol 1,250 Mcg (50,000 Iu) Capsule PO 1,250 mcg TH MIRZA Administration Folic Acid 1 mg 05/15/20 09:00 05/15/20 08:09 Folic Acid 1 Mg Tab PO 1 mg QAM MIRZA Administration Furosemide 40 mg 05/15/20 09:00 05/15/20 08:09 Furosemide 40 Mg Tab PO 40 mg QAM MIRZA Administration Hydrocortisone 1 applic 05/14/20 18:10 Hydrocortisone 1% Cream 454 Gm Jar TOPICAL BID PRN Skin Irritation Hydroxychloroquine Sulfate 200 mg 05/14/20 21:00 05/15/20 08:10 Hydroxychloroquine Sulfate 200 Mg Tab PO 200 mg BID MIRZA Administration Hydroxyzine HCl 25 mg 05/14/20 14:00 Hydroxyzine Hcl 25 Mg Tab PO TID PRN Itching Insulin Aspart 12 unit 05/14/20 17:30 05/14/20 18:11 Insulin Aspart (Novolog) 100 Unit/Ml Vial SQ 12 unit AC-SUPPER MIRZA Administration Insulin Aspart 10 unit 05/15/20 07:30 05/15/20 06:13 Insulin Aspart (Novolog) 100 Unit/Ml Vial SQ Not Given AC-BRKFST MIRZA Lisinopril 2.5 mg 05/14/20 21:00 05/14/20 19:49 Lisinopril 2.5 Mg Tab PO 2.5 mg HS MIR[facility] Administration Methotrexate 20 mg 05/16/20 09:00 Methotrexate Sodium 2.5 Mg Tab PO FR MIRZA Metoprolol Succinate 25 mg 05/15/20 09:00 05/15/20 08:09 Metoprolol Succinate (Er) 25 Mg Tab.Er.24h PO 25 mg QAM MIRZA Administration Montelukast Sodium 10 mg 05/15/20 09:00 05/15/20 08:09 Montelukast 10 Mg Tab PO 10 mg DAILY [facility] Administration Naloxone HCl 0.2 mg 05/14/20 13:57 Naloxone 0.4 Mg/Ml 1 Ml Vial IV Q2M PRN Opioid Reversal Pregabalin 300 mg 05/14/20 21:00 05/15/20 08:09 Pregabalin 100 Mg Cap PO 300 mg BID MIRZA Administration Sertraline HCl 100 mg 05/14/20 21:00 05/15/20 08:09 Sertraline 100 Mg Tab PO 100 mg BID MIR[facility] Administration Spironolactone 25 mg 05/15/20 09:00 05/15/20 08:09 Spironolactone 25 Mg Tab PO 25 mg QAM [facility] Administration Triamcinolone Acetonide 1 applic 05/14/20 14:00 Triamcinolone Acet 0.5% Cream 15 Gm Tube TOPICAL BID PRN Skin Irritation Intake and Output 05/14/20 05/15/20 05/15/20 22:59 06:59 14:59 Intake Total 200 760 360 Output Total 0 Balance 200 760 360 Intake: IV 120 Diltiazem 125 mg In 40 Sodium Chloride 0.9% 100 ml @ 5 MG/HR 5 mls/hr IV .Q24H [facility] Rx#:[id number] Sodium Chloride 0.9% 1, 80 000 ml @ 130 mls/hr IV . Q7H42M STA Rx#:[id number] Intake, IV Titration 520 Amount Diltiazem 125 mg In 30 Sodium Chloride 0.9% 100 ml @ 5 MG/HR 5 mls/hr IV .Q24H [facility] Rx#:[id number] Sodium Chloride 0.9% 1, 490 000 ml @ 130 mls/hr IV . Q7H42M STA Rx#:[id number] Oral 200 240 240 Output: Stool 0 Other: Voiding Method Toilet Toilet Toilet # Voids 1 3 1 Weight 102.058 kg 107.6 kg 107.6 kg Patient Weight 05/16/20 06:59 Weight 107.6 kg 05/14/20 11:49 05/14/20 11:49
[2020-05-15 12:03] LABS: Glucose,Whole Blood 101 mg/dL (75-99)
[2020-05-15 12:14] LABS: Anisocytosis Slight; HCT 31.8 % (34.0-46.0); HGB 10.9 gm/dL (11.4-16.0); MCH 26.6 pg (25.0-35.0); MCHC 34.2 g/dL (31.0-37.0); MCV 77.8 fL (80.0-100.0); Mean Platelet Volume 13.8; Microcytosis Slight; Poikilocytosis Moderate; RBC 4.08 m/uL (3.80-5.40); RDW 18.3 % (11.5-15.5)
[2020-05-15 12:21] LABS: Platelet Count 34 k/uL (150-450)
[2020-05-15 12:24] LABS: African American GFR (CKD) >90 (>60 ml/min/1.73 sqM); Anion Gap 6 mmol/L; Blood Urea Nitrogen 8 mg/dL (7-17); Calcium 8.1 mg/dL (8.4-10.2); Carbon Dioxide 22 mmol/L (22-30); Chloride 109 mmol/L (98-107); Glucose 100 mg/dL (74-99); Magnesium 1.5 mg/dL (1.6-2.3); Non-African American GFR(CKD) 84 (>60 ml/min/1.73 sqM); Potassium 3.4 mmol/L (3.5-5.1); Sodium 137 mmol/L (137-145)
[2020-05-15] MEDS ORDERED: MAGNESIUM SULFATE-D5W PMX 1 GM in DEXTROSE/WATER 1 100ML.BAG IVPB ONE (14:20)
[2020-05-15] MEDS ORDERED: POTASSIUM CHLORIDE ER 20 MEQ TAB.ER PO STA (14:20)
--- NOTE | 2020-05-15 14:27 | P.GSCN ---
History of Present Illness Consult date: 05/15/20 History of present illness: CHIEF COMPLAINT: Abdominal pain HISTORY OF PRESENT ILLNESS: This is a 65-year-old female with a known history of atrial fibrillation anticoagulated with Eliquis, diabetes mellitus, AICD, Waldenstrom macrogloulinemia. Patient had laparoscopic cholecystectomy on 05/07/[address] Tran. At time of discharge patient had no abdominal pa in and had been doing well. Over the last day patient has had abdominal pain. She's had complaints of diarrhea 4 episodes with nausea and vomiting. Patient has had no further vomiting or diarrhea. She also complained of a pinkish drainage firm her incision site at the umbilicus. And she was also found have evidence of A. fib with RVR. Patient is being evaluated by cardiology. She did have a computed tomography scan of the abdomen and pelvis mild colitis of the ascending colon should be considered. Moderate fatty infiltration of the liver. No suspicious fluid collection in the gallbladder fossa. Patient denies any fever chills or sweats. Patient seen and examined with Dr. Tran PAST MEDICAL HISTORY: See list. PAST SURGICAL HISTORY: See list. MEDICATIONS: See list. ALLERGIES: See list. SOCIAL HISTORY: No illicit drug use. REVIEW OF SYSTEMS: CONSTITUTIONAL: Denies fever or chills. HEENT: Denies blurred vision, vision changes, or eye pain. Denies hemoptysis CARDIOVASCULAR: Denies chest pain or pressure. RESPIRATORY: No shortness of breath. GASTROINTESTINAL: See HPI for pertinent findings HEMATOLOGIC: Denies bleeding disorders. GENITOURINARY: Denies any blood in urine or increased urinary frequency. SKIN: Denies pruitis. Denies rash. PHYSICAL EXAM: VITAL SIGNS: Reviewed GENERAL: Well-developed in no acute distress. HEENT: No sclera icterus. Extraocular movements grossly intact. Moist buccal mucosa. Head is atraumatic, normocephalic. No nasal drainage. ABDOMEN: Soft. Nondistended. Mild diffuse tenderness. Incision at umbilicus is draining clearish drainage. No evidence of erythema. The tape and glue from surgery are no longer present. Other incision sites clean dry and intact NEUROLOGIC: Alert and oriented. Cranial nerves II through XII grossly intact. LABORATORY DATA: WBC 3.0 Hgb 10.9 platelets 34 Potassium 3.4 magnesium 1.5 IMAGING: computed tomography scan of the abdomen and pelvis mild colitis of the ascending colon should be considered. Moderate fatty infiltration of the liver. No suspicious fluid collection in the gallbladder fossa. ASSESSMENT: 1. Abdominal pain 2. Clear drainage from umbilicus incision site. No evidence of infection 3. Recent laparoscopic cholecystectomy on 05/07/2020 4. A. fib with RVR patient being evaluated by cardiology 6. Hypokalemia and hypomagnesemia PLAN: -Apply gauze dressing to umbilical incision -Replace potassium and magnesium -Continue supportive care -No surgical intervention planned Acute for this consultation Physician Plant Science Professor note has been reviewed by physician. Signing provider agrees with the documented findings, assessment, and plan of care. Past Medical History Past Medical History: Atrial Fibrillation, Heart Failure, Diabetes Mellitus, Eye Disorder, Fibromyalgia, Hyperlipidemia, Hypertension, Rheumatoid Arthritis (RA), Syncope Additional Past Medical History / Comment(s): Pt recently admitted to [facility] on 05/08/20 with abdominal pain/cholecystectomy. Other hx: Nonischemic card iomyopathy/Vtach/AICD, murmur, IDDM type II, neuropathy bilateral feet, hypoglycemic episodes with syncope in past, 2006 waldenstrom macroglobulinemia (type of nonhodgkins lymphoma) with chemo and plasma treatment and had to be on hemodialysis for a brief time, sjogrens, lupus, gout, anemia, bilateral cataracts. History of Any Multi-Drug Resistant Organisms: None Reported Past Surgical History: AICD, Cardiac Ablation, Cholecystectomy, Hysterectomy, Orthopedic Surgery Additional Past Surgical History / Comment(s): Recent cholecystectomy, 2007 AICD with gen change in 2013, cardiac ablations, L toe surgery d/t RA, R wrist and R thigh cystectomy, spacer placed on vocal cord. Past Anesthesia/Blood Transfusion Reactions: No Reported Reaction, Motion Sickness Additional Past Anesthesia/Blood Transfusion Reaction / Comm: Pt has recieved blood in past without reaction. Type of Cardiac Device: AICD Device Placement Date:: 2007 device with gen change 2013. Smoking Status: Former smoker - Past Family History Mother Family Medical History: Cancer Additional Family Medical History / Comment(s): Mother from multiple myeloma Father Family Medical History: Renal Disease Additional Family Medical History / Comment(s): Father of renal failure. Medications and Allergies Home Medications Medication Instructions Recorded Confirmed Type Ergocalciferol [Vitamin D2 50,000 unit PO TH 03/05/17 05/14/20 History (DRISDOL)] Folic Acid 1 mg PO QAM 03/05/17 05/14/20 History Furosemide [Lasix] 40 mg PO QAM 03/05/17 05/14/20 History Hydroxychloroquine Sulfate 200 mg PO BID 03/05/17 05/14/20 History [Plaquenil] Insulin Aspart Protam & Aspart 10 unit SQ AC-BRKFST 03/05/17 05/14/20 History [NovoLOG MIX 70-30 Flexpen] Montelukast [Singulair] 10 mg PO DAILY 03/05/17 05/14/20 History Sertraline [Zoloft] 100 mg PO BID 03/05/17 05/14/20 History Simvastatin [Zocor] 10 mg PO HS 03/05/17 05/14/20 History Spironolactone [Aldactone] 25 mg PO QAM 03/05/17 05/14/20 History lisinopriL [Zestril] 2.5 mg PO HS 03/05/17 05/14/20 History metHOTREXate sodium [Methotrexate] 20 mg PO FR 03/05/17 05/14/20 History Aspirin [Adult Low Dose Aspirin EC] 81 mg PO DAILY 09/13/18 05/14/20 History Albuterol Sulfate [Ventolin HFA] 2 puff INHALATION RT-QID PRN 07/27/19 05/14/20 History Apixaban [Eliquis] 5 mg PO BID 07/27/19 05/14/20 History allopurinoL [Zyloprim] 100 mg PO QAM 07/27/19 05/14/20 History Calcitriol [Rocaltrol] 0.25 mcg PO TU 01/21/20 05/14/20 History Insulin Aspart Protam & Aspart 12 unit SQ AC-SUPPER 01/21/20 05/14/20 History [NovoLOG MIX 70-30 Flexpen] Metoprolol Succinate [Toprol XL] 25 mg PO QAM 01/21/20 05/14/20 History Hydrocortisone Cream 1 applic TOPICAL BID PRN 05/05/20 05/14/20 History [Hydrocortisone 2.5% Cream] Pregabalin [Lyrica] 300 mg PO BID 05/05/20 05/14/20 History Triamcinolone 0.5% Cream [Kenalog 1 applic TOPICAL BID PRN 05/05/20 05/14/20 History 0.5% Cream] hydrOXYzine HCL 25 mg PO TID PRN 05/05/20 05/14/20 History Acetaminophen Tab [Tylenol Tab] 650 mg PO Q6H PRN #30 tablet 05/09/20 05/14/20 Rx Allergies Allergy/AdvReac Type Severity Reaction Status Date / Time Penicillins Allergy Rash/Hives Verified 05/14/20 14:41 Surgical - Exam Vital Signs Temp Pulse Resp BP Pulse Ox 97.7 F 134 H 18 128/85 98 05/14/20 11:30 05/14/20 11:30 05/14/20 11:30 05/14/20 11:30 05/14/20 11:30 Results - Labs 05/15/20 11:37 05/15/20 11:37 Abnormal Lab Results - Last 24 Hours (Table) 05/14/20 05/14/20 05/14/20 Range/Units 15:14 18:04 18:30 WBC (3.8-10.6) k/uL Hgb (11.4-16.0) gm/dL Hct (34.0-46.0) % MCV (80.0-100.0) fL RDW (11.5-15.5) % Plt Count (150-450) k/uL Potassium (3.5-5.1) mmol/L Chloride (98-107) mmol/L Glucose (74-99) mg/dL POC Glucose (mg/dL) 171 H (75-99) mg/dL Plasma Lactic Acid Sunny 2.1 H* 2.3 H* (0.7-2.0) mmol/L Calcium (8.4-10.2) mg/dL Magnesium (1.6-2.3) mg/dL 05/14/20 05/15/20 05/15/20 Range/Units 19:41 11:37 11:37 WBC 3.0 L (3.8-10.6) k/uL Hgb 10.9 L (11.4-16.0) gm/dL Hct 31.8 L (34.0-46.0) % MCV 77.8 L (80.0-100.0) fL RDW 18.3 H (11.5-15.5) % Plt Count 34 L (150-450) k/uL Potassium 3.4 L (3.5-5.1) mmol/L Chloride 109 H (98-107) mmol/L Glucose 100 H (74-99) mg/dL POC Glucose (mg/dL) 119 H (75-99) mg/dL Plasma Lactic Acid Sunny (0.7-2.0) mmol/L Calcium 8.1 L (8.4-10.2) mg/dL Magnesium 1.5 L (1.6-2.3) mg/dL 05/15/20 Range/Units 12:01 WBC (3.8-10.6) k/uL Hgb (11.4-16.0) gm/dL Hct (34.0-46.0) % MCV (80.0-100.0) fL RDW (11.5-15.5) % Plt Count (150-450) k/uL Potassium (3.5-5.1) mmol/L Chloride (98-107) mmol/L Glucose (74-99) mg/dL POC Glucose (mg/dL) 101 H (75-99) mg/dL Plasma Lactic Acid Sunny (0.7-2.0) mmol/L Calcium (8.4-10.2) mg/dL Magnesium (1.6-2.3) mg/dL Diabetes panel 05/15/20 Range/Units 11:37 Sodium 137 (137-145) mmol/L Potassium 3.4 L (3.5-5.1) mmol/L Chloride 109 H (98-107) mmol/L Carbon Dioxide 22 (22-30) mmol/L BUN 8 (7-17) mg/dL Creatinine 0.75 (0.52-1.04) mg/dL Glucose 100 H (74-99) mg/dL Calcium 8.1 L (8.4-10.2) mg/dL Calcium panel 05/15/20 Range/Units 11:37 Calcium 8.1 L (8.4-10.2) mg/dL Pituitary panel 05/15/20 Range/Units 11:37 Sodium 137 (137-145) mmol/L Potassium 3.4 L (3.5-5.1) mmol/L Chloride 109 H (98-107) mmol/L Carbon Dioxide 22 (22-30) mmol/L BUN 8 (7-17) mg/dL Creatinine 0.75 (0.52-1.04) mg/dL Glucose 100 H (74-99) mg/dL Calcium 8.1 L (8.4-10.2) mg/dL Adrenal panel 05/15/20 Range/Units 11:37 Sodium 137 (137-145) mmol/L Potassium 3.4 L (3.5-5.1) mmol/L Chloride 109 H (98-107) mmol/L Carbon Dioxide 22 (22-30) mmol/L BUN 8 (7-17) mg/dL Creatinine 0.75 (0.52-1.04) mg/dL Glucose 100 H (74-99) mg/dL Calcium 8.1 L (8.4-10.2) mg/dL
[2020-05-15] MEDS: FUROSEMIDE 40 MG TAB PO SCH (15:09)
[2020-05-15 16:53] LABS: Glucose,Whole Blood 147 mg/dL (75-99)
--- NOTE | 2020-05-15 19:27 | PN ---
PROGRESS NOTE DATE OF SERVICE: 05/15/2020 CHIEF COMPLAINT: Abdominal pain, chest pain, shortness of breath, and atrial fibrillation. HISTORY OF PRESENT ILLNESS: This lady is feeling better. Heart rate has slowed. She is not having any chest discomfort or shortness of breath now. She has been afebrile. PHYSICAL EXAMINATION: Chest is clear. Cardiac exam demonstrates heart rate to be around 90. The abdomen is soft and nontender. Extremities are normal. IMPRESSION: 1. Atrial fibrillation with rapid ventricular response. 2. Lethargy and delirium. 3. Epigastric pain. 4. Waldenstrom's macroglobulinemia. 5. Diabetes. PLAN: Continue evaluation for her atrial fibrillation and rapid ventricular response while increasing her activity and resuming her usual medications, including her insulin. MMODL / IJN: [id number] /
--- NOTE | 2020-05-15 19:31 | HP ---
HISTORY AND PHYSICAL CHIEF COMPLAINT: Abdominal pain, shortness of breath and malaise. HISTORY OF PRESENT ILLNESS: This is another recent admission for this 65-year-old female. She was contacted by [facility] and was stating that she was feeling weak and had epigastric pain. She seemed quite lethargic and was slurring speech. She was told to come to the emergency room. When she was evaluated there, she was found to be in atrial fibrillation with rapid ventricular response. She had no fever, chills, and there was no significant complaint of abdominal pain at that time. She has had a past history of hypertension, Waldenstrom's macroglobulinemia and diabetes. REVIEW OF SYSTEMS: She has had no neurologic problems, headache, diplopia, chest pain, cough, hemoptysis, hematemesis, melena, hematochezia, jaundice, dysuria, frequency, urgency, incontinence, fever, chills, etc. Past medical history, family history, personal and social histories reveal that she is: ALLERGIC: TO PENICILLIN. MEDICATIONS INCLUDE: Atarax 25 mg t.i.d., Vicodin 5 Q 6 p.r.n., Lyrica 300 mg twice a day, allopurinol 100 mg once a day, Ventolin HFA, montelukast 10 mg a day, metoprolol 25 once a day, Sertraline 100 mg once a day, lisinopril 2.5 once a day, Lasix 40 mg once a day, Eliquis 5 mg twice a day, Simvastatin 10 mg once a day, spironolactone 25 once a day, aspirin 81 once a day, methotrexate 2.5 mg 8 tablets every week, folic acid 1 mg a day and vitamin D. The remainder of her history is unremarkable. She used to smoke but does not any longer. PHYSICAL EXAMINATION: Pulse is 130 and irregularly irregular. Blood pressure was 115/62. She is afebrile. In GENERAL, she appeared to be slightly pale and she was somewhat lethargic. HEAD, ears, eyes, nose, mouth and throat seem to be normal. NECK veins not distended. CHEST demonstrated scattered rales. CARDIAC exam demonstrated tachycardia. ABDOMEN is flat, soft and nontender. EXTREMITIES are normal except for scarring in the lower extremities from her previous dermatologic and vascular problems related to autoimmune disease. NEUROLOGICALLY, she is intact. IMPRESSION: She was admitted to the hospital with diagnoses of: 1. Atrial fibrillation with rapid ventricular response. 2. Abdominal pain. 3. Type 2 diabetes mellitus. PLAN: 1. Bedrest. 2. IV fluids. 3. Cardiology consult. 4. Continue with anticoagulation. 5. Follow for development of any abdominal pain or any other signs or symptoms. JAY / EVIE: [id number] /
[2020-05-15 20:29] LABS: Glucose,Whole Blood 74 mg/dL (75-99)
[2020-05-15] MEDS: ATORVASTATIN 10 MG TAB PO SCH (20:33)
[2020-05-16 06:11] LABS: Glucose,Whole Blood 62 mg/dL (75-99)
[2020-05-16 06:27] LABS: Glucose,Whole Blood 68 mg/dL (75-99)
[2020-05-16 06:44] LABS: Glucose,Whole Blood 87 mg/dL (75-99)
[2020-05-16] MEDS: INSULIN ASPART (NovoLOG) 100 UNIT/ML VIAL SQ SCH ×2 (07:51→17:58)
[2020-05-16] MEDS: SERTRALINE 100 MG TAB PO SCH ×2 (08:20→21:56)
[2020-05-16] MEDS: ASPIRIN 81 MG PO SCH (08:20)
[2020-05-16] MEDS: SPIRONOLACTONE 25 MG TAB PO SCH (08:20)
[2020-05-16] MEDS: allopurinoL 100 MG TAB PO SCH (08:20)
[2020-05-16] MEDS: CEPHALEXIN 500 MG CAP PO SCH ×3 (08:20→17:23)
[2020-05-16] MEDS: METOPROLOL SUCCINATE (ER) 25 MG TAB.ER.24H PO SCH (08:20)
[2020-05-16] MEDS: FUROSEMIDE 40 MG TAB PO SCH ×2 (08:20→15:53)
[2020-05-16] MEDS: MONTELUKAST 10 MG TAB PO SCH (08:20)
[2020-05-16] MEDS: APIXABAN 5 MG TAB PO SCH ×2 (08:20→21:56)
[2020-05-16] MEDS: FOLIC ACID 1 MG TAB PO SCH (08:21)
[2020-05-16] MEDS: HYDROXYCHLOROQUINE SULFATE 200 MG TAB PO SCH ×2 (08:21→21:56)
[2020-05-16] MEDS: PREGABALIN 100 MG CAP PO SCH ×2 (08:21→21:56)
[2020-05-16 08:45] LABS: Calcium 8.2 mg/dL (8.4-10.2); Magnesium 1.4 mg/dL (1.6-2.3); Potassium 3.2 mmol/L (3.5-5.1)
[2020-05-16] MEDS ORDERED: metHOTREXate sodium 2.5 MG TAB PO SCH (09:00)
[2020-05-16] MEDS ORDERED: SPIRONOLACTONE 25 MG TAB PO STA (10:24)
--- NOTE | 2020-05-16 10:58 | P.PN ---
Subjective HISTORY OF PRESENTING ILLNESS This is a pleasant 65-year-old -[place] female past medical history significant for nonischemic cardiomyopathy status post AICD (Medtronic), history of ventricular tachycardia, chronic systolic heart failure, persistent atrial fibrillation status post pulmonary vein isolation but no further ablation secondary to low EF, diabetes mellitus, hypertension, dyslipidemia, pulmonary hypertension and rheumatoid arthritis. She follows in the office with Dr. Samayoa. We have been asked to see in consultation for atrial fibrillation with RVR. She is s/p cholecystectomy 05/[address] Gaitan. She presented to the hospital with symptoms of lower abdominal pain and cramping. EKG on arrival was afib with RVR. She was started on IV cardizem infusion. Currently her rates are 80-90s. Blood pressure 92/68. She denies chest pain, shortness of breath, dizziness or palpitations. She states she has been taking her eliquis since the day after surgery. Current daily home medications include Eliquis 5 mg twice a day, aspirin 81 mg daily, Lasix 40 mg in the morning, Toprol 25 mg daily, simvastatin 10 mg daily, Aldactone 25 mg daily and lisinopril 2.5 mg at bedtime. Most recent echocardiogram obtained July 2019 revealed severely impaired LV systolic function with ejection fraction 25-30%, severely dilated left atrium, mild to moderate MR, mild to moderate TR and severe pulmonary hypertension with an RVSP of 70 mmHg. Laboratory data reviewed, WBC 4.3, hemoglobin 11.7, platelets 56, sodium 138, potassium 3.8, creatinine 0.94, magnesium 1.3, cardiac enzymes negative 1 and lactic acid on admission 2.4. 05/16/2020 Pt is seen and examined sitting up in bed eating breakfast. She states her abdominal pain is improving. Surgery is providing supportive care with no plans for any further intervention. She denies chest pain, shortness of breath, dizziness or palpitations. Blood pressure 91/55 heart rate 97 afebrile and maintaining oxygen saturation on room air. Laboratory data reviewed, sodium 136, potassium 3.2 and magnesium 1.4. PHYSICAL EXAMINATION CONSTITUTIONAL: No apparent distress. HEENT: Head is normocephalic. Pupils are equal, round. Sclerae anicteric. Mucous membranes of the mouth are moist. No JVD. No carotid bruit. CHEST EXAMINATION: Lungs are clear to auscultation. No chest wall tenderness is noted on palpation or with deep breathing. HEART EXAMINATION: Irregular rate and rhythm. S1, S2 heard. Systolic ejection murmur at the left sternal border, no gallops or rub. EXTREMITIES: 2+ peripheral pulses, 1+ bilateral lower extremity pitting edema and no calf tenderness. ASSESSMENT Chronic persistent atrial fibrillation with rapid ventricular rate on Eliquis status post pulmonary vein isolation Abdominal pain as colitis noted on CT Acute on chronic systolic heart failure Hypomagnesemia Thrombocytopenia Lactic acidosis Nonischemic cardiomyopathy status post AICD History of nonsustained ventricular tachycardia Hypertension Diabetes mellitus Dyslipidemia Rheumatoid arthritis PLAN Continue to replace magnesium and potassium per protocol. Increase aldactone to 50 mg daily and continue BID lasix for today. Possibly home tomorrow if she continues to improve. Further recommendations to follow based on clinical course. Nurse Practitioner note has been reviewed, I agree with a documented findings and plan of care. Patient was seen and examined. Objective - Vital Signs Vital signs: Vital Signs Temp 97.4 F L 05/16/20 08:14 Pulse 97 05/16/20 08:14 Resp 18 05/16/20 08:14 BP 91/55 05/16/20 08:14 Pulse Ox 100 05/16/20 08:14 Intake & Output 05/15/20 05/16/20 05/16/20 18:59 06:59 18:59 Intake Total 840 222 236 Output Total 0 0 Balance 840 222 236 Weight 107.6 kg 110 kg Intake: IV 120 Diltiazem 125 mg In 40 Sodium Chloride 0.9% 100 ml @ 5 MG/HR 5 mls/hr IV .Q24H [facility] Rx#:[id number] Sodium Chloride 0.9% 1, 80 000 ml @ 130 mls/hr IV . Q7H42M [facility] Rx#:[id number] Oral 720 222 236 Output: Stool 0 0 Other: Voiding Method Toilet Toilet Toilet # Voids 1 1 # Bowel Movements 1 - Labs CBC & Chem 7: 05/15/20 11:37 05/16/20 07:32 Labs: Abnormal Lab Results - Last 24 Hours (Table) 05/15/20 05/15/20 05/15/20 Range/Units 11:37 11:37 12:01 WBC 3.0 L (3.8-10.6) k/uL Hgb 10.9 L (11.4-16.0) gm/dL Hct 31.8 L (34.0-46.0) % MCV 77.8 L (80.0-100.0) fL RDW 18.3 H (11.5-15.5) % Plt Count 34 L (150-450) k/uL Sodium (137-145) mmol/L Potassium 3.4 L (3.5-5.1) mmol/L Chloride 109 H (98-107) mmol/L BUN (7-17) mg/dL Glucose 100 H (74-99) mg/dL POC Glucose (mg/dL) 101 H (75-99) mg/dL Calcium 8.1 L (8.4-10.2) mg/dL Magnesium 1.5 L (1.6-2.3) mg/dL 05/15/20 05/15/20 05/16/20 Range/Units 16:51 20:28 06:10 WBC (3.8-10.6) k/uL Hgb (11.4-16.0) gm/dL Hct (34.0-46.0) % MCV (80.0-100.0) fL RDW (11.5-15.5) % Plt Count (150-450) k/uL Sodium (137-145) mmol/L Potassium (3.5-5.1) mmol/L Chloride (98-107) mmol/L BUN (7-17) mg/dL Glucose (74-99) mg/dL POC Glucose (mg/dL) 147 H 74 L 62 L (75-99) mg/dL Calcium (8.4-10.2) mg/dL Magnesium (1.6-2.3) mg/dL 05/16/20 05/16/20 Range/Units 06:25 07:32 WBC (3.8-10.6) k/uL Hgb (11.4-16.0) gm/dL Hct (34.0-46.0) % MCV (80.0-100.0) fL RDW (11.5-15.5) % Plt Count (150-450) k/uL Sodium 136 L (137-145) mmol/L Potassium 3.2 L (3.5-5.1) mmol/L Chloride (98-107) mmol/L BUN 6 L (7-17) mg/dL Glucose (74-99) mg/dL POC Glucose (mg/dL) 68 L (75-99) mg/dL Calcium 8.2 L (8.4-10.2) mg/dL Magnesium 1.4 L (1.6-2.3) mg/dL Microbiology - Last 24 Hours (Table) 05/14/20 13:14 Blood Culture - Preliminary Blood No Growth after 24 hours 05/14/20 13:14 Blood Culture - Preliminary Blood No Growth after 24 hours
[2020-05-16] MEDS ORDERED: Potassium Replacement Protocol 1 EACH MISC MISCELLANE PRN (11:18)
[2020-05-16 11:30] LABS: Glucose,Whole Blood 110 mg/dL (75-99)
--- NOTE | 2020-05-16 11:44 | P.PN ---
Subjective Progress Note Date: 05/16/20 CHIEF COMPLAINT: Abdominal pain HISTORY OF PRESENT ILLNESS: Patient is being followed by surgical service due to drainage from her umbilicus incision. She continues to have some clearish drainage. It does appear that she is fluid overload and has generalized swelling. Cardiology has adjusted diuretics. Patient denies any abdominal pain. Denies any nausea or vomiting. She is tolerating regular diet. She's afebrile. Potassium low at 3.2 and magnesium low at 1.4 PHYSICAL EXAM: VITAL SIGNS: Reviewed. GENERAL: Well-developed in no acute distress. HEENT: No sclera icterus. Extraocular movements grossly intact. Moist buccal mucosa. Head is atraumatic, normocephalic. ABDOMEN: Soft. Nondistended. Nontender. Clear drainage noted from incision site of the umbilicus NEUROLOGIC: Alert and oriented. Cranial nerves II through XII grossly intact. ASSESSMENT: 1. Abdominal pain 2. Clear drainage from umbilicus incision site. No evidence of infection 3. Recent laparoscopic cholecystectomy on 05/07/2020 4. Hypokalemia and hypomagnesemia PLAN: -Cardiology replacing potassium -Magnesium 1.4 we'll give 2 g of magnesium sulfate -Agree with diuretics -Continue to apply gauze to the umbilicus incision -Continue supportive care -No surgical intervention planned -patient can be discharge from surgical standpoint Physician [place] note has been reviewed by physician. Signing provider agrees with the documented findings, assessment, and plan of care. Objective - Vital Signs Vital signs: Vital Signs Temp 97.5 F L 05/16/20 11:33 Pulse 90 05/16/20 11:33 Resp 18 05/16/20 11:33 BP 92/56 05/16/20 11:33 Pulse Ox 97 05/16/20 11:33 Intake & Output 05/15/20 05/16/20 05/16/20 18:59 06:59 18:59 Intake Total 840 222 236 Output Total 0 0 Balance 840 222 236 Weight 107.6 kg 110 kg Intake: IV 120 Diltiazem 125 mg In 40 Sodium Chloride 0.9% 100 ml @ 5 MG/HR 5 mls/hr IV .Q24H [facility] Rx#:[id number] Sodium Chloride 0.9% 1, 80 000 ml @ 130 mls/hr IV . Q7H42M [facility] Rx#:[id number] Oral 720 222 236 Output: Stool 0 0 Other: Voiding Method Toilet Toilet Toilet # Voids 1 1 # Bowel Movements 1 - Labs CBC & Chem 7: 05/15/20 11:37 05/16/20 07:32 Labs: Abnormal Lab Results - Last 24 Hours (Table) 05/15/20 05/15/20 05/15/20 Range/Units 11:37 11:37 12:01 WBC 3.0 L (3.8-10.6) k/uL Hgb 10.9 L (11.4-16.0) gm/dL Hct 31.8 L (34.0-46.0) % MCV 77.8 L (80.0-100.0) fL RDW 18.3 H (11.5-15.5) % Plt Count 34 L (150-450) k/uL Sodium (137-145) mmol/L Potassium 3.4 L (3.5-5.1) mmol/L Chloride 109 H (98-107) mmol/L BUN (7-17) mg/dL Glucose 100 H (74-99) mg/dL POC Glucose (mg/dL) 101 H (75-99) mg/dL Calcium 8.1 L (8.4-10.2) mg/dL Magnesium 1.5 L (1.6-2.3) mg/dL 05/15/20 05/15/20 05/16/20 Range/Units 16:51 20:28 06:10 WBC (3.8-10.6) k/uL Hgb (11.4-16.0) gm/dL Hct (34.0-46.0) % MCV (80.0-100.0) fL RDW (11.5-15.5) % Plt Count (150-450) k/uL Sodium (137-145) mmol/L Potassium (3.5-5.1) mmol/L Chloride (98-107) mmol/L BUN (7-17) mg/dL Glucose (74-99) mg/dL POC Glucose (mg/dL) 147 H 74 L 62 L (75-99) mg/dL Calcium (8.4-10.2) mg/dL Magnesium (1.6-2.3) mg/dL 05/16/20 05/16/20 05/16/20 Range/Units 06:25 07:32 11:29 WBC (3.8-10.6) k/uL Hgb (11.4-16.0) gm/dL Hct (34.0-46.0) % MCV (80.0-100.0) fL RDW (11.5-15.5) % Plt Count (150-450) k/uL Sodium 136 L (137-145) mmol/L Potassium 3.2 L (3.5-5.1) mmol/L Chloride (98-107) mmol/L BUN 6 L (7-17) mg/dL Glucose (74-99) mg/dL POC Glucose (mg/dL) 68 L 110 H (75-99) mg/dL Calcium 8.2 L (8.4-10.2) mg/dL Magnesium 1.4 L (1.6-2.3) mg/dL Microbiology - Last 24 Hours (Table) 05/14/20 13:14 Blood Culture - Preliminary Blood No Growth after 24 hours 05/14/20 13:14 Blood Culture - Preliminary Blood No Growth after 24 hours
[2020-05-16] MEDS ORDERED: POTASSIUM CHLORIDE ER 20 MEQ TAB.ER PO SCH (12:00)
[2020-05-16] MEDS: MAGNESIUM SULFATE-D5W PMX 1 GM in DEXTROSE/WATER 1 100ML.BAG IVPB SCH ×2 (12:14→13:03)
[2020-05-16 16:45] LABS: Glucose,Whole Blood 96 mg/dL (75-99)
[2020-05-16 19:13] LABS: Magnesium 1.8 mg/dL (1.6-2.3); Potassium 4.1 mmol/L (3.5-5.1)
--- NOTE | 2020-05-16 19:34 | PN ---
PROGRESS NOTE DATE OF SERVICE: 05/16/2020 CHIEF COMPLAINT: Atrial fibrillation, abdominal pain, and general debility. HISTORY OF PRESENT ILLNESS: This lady is still feeling very weak. She is not having any epigastric pain now. Heart rate is controlled. She is still in atrial fibrillation. She is talking about wanting to go to rehab. PHYSICAL EXAMINATION: Chest is clear. Cardiac exam is unchanged with her atrial fibrillation. Abdomen is soft and nontender. Incisions from the recent cholecystectomy look good. IMPRESSION: 1. Abdominal pain. 2. Atrial fibrillation with rapid ventricular response. 3. Diabetes. 4. General debility. PLAN: Continue to increase activity and probably look into rehab rather than going home to live alone. MMODL / IJN: [id number] /
[2020-05-16 21:04] LABS: Glucose,Whole Blood 72 mg/dL (75-99)
[2020-05-16] MEDS: ATORVASTATIN 10 MG TAB PO SCH (21:56)
[2020-05-17] MEDS: CEPHALEXIN 500 MG CAP PO SCH ×5 (00:10→23:43)
[2020-05-17 02:18] LABS: Glucose,Whole Blood 68 mg/dL (75-99)
[2020-05-17 02:34] LABS: Glucose,Whole Blood 85 mg/dL (75-99)
[2020-05-17 07:45] LABS: Glucose,Whole Blood 163 mg/dL (75-99)
[2020-05-17] MEDS: FUROSEMIDE 40 MG TAB PO SCH ×2 (08:44→16:28)
[2020-05-17] MEDS: ASPIRIN 81 MG PO SCH (08:44)
[2020-05-17] MEDS: SPIRONOLACTONE 25 MG TAB PO SCH (08:44)
[2020-05-17] MEDS: PREGABALIN 100 MG CAP PO SCH ×2 (08:44→20:40)
[2020-05-17] MEDS: METOPROLOL SUCCINATE (ER) 25 MG TAB.ER.24H PO SCH (08:44)
[2020-05-17] MEDS: FOLIC ACID 1 MG TAB PO SCH (08:44)
[2020-05-17] MEDS: allopurinoL 100 MG TAB PO SCH (08:44)
[2020-05-17] MEDS: HYDROXYCHLOROQUINE SULFATE 200 MG TAB PO SCH ×2 (08:44→20:40)
[2020-05-17] MEDS: MONTELUKAST 10 MG TAB PO SCH (08:44)
[2020-05-17] MEDS: SERTRALINE 100 MG TAB PO SCH ×2 (08:45→20:40)
[2020-05-17] MEDS: APIXABAN 5 MG TAB PO SCH ×2 (08:45→20:40)
[2020-05-17] MEDS: INSULIN ASPART (NovoLOG) 100 UNIT/ML VIAL SQ SCH ×2 (08:45→17:44)
--- NOTE | 2020-05-17 11:19 | P.PN ---
Progress Note - Text Progress Note Date: 05/17/20 Patient is resting comfortably in her bed. She denies a significant abdominal pain. On exam vital signs are stable. Abdomen soft. There is no significant drainage at her umbilicus. S post laparoscopic colostomy. Patient's ascites drainage has appeared to stop. She'll continue receive supportive care.
[2020-05-17 12:32] LABS: Glucose,Whole Blood 69 mg/dL (75-99)
[2020-05-17 12:50] LABS: Glucose,Whole Blood 61 mg/dL (75-99)
[2020-05-17 13:09] LABS: Glucose,Whole Blood 85 mg/dL (75-99)
--- NOTE | 2020-05-17 15:24 | PN ---
PROGRESS NOTE DATE OF SERVICE: 05/17/2020. CHIEF COMPLAINT: Atrial fibrillation, general malaise and weakness. HISTORY OF PRESENT ILLNESS: This lady is fairly stable, but her blood pressure remains low. She is not having any shortness of breath. She denies chest pain. PHYSICAL EXAMINATION: She is slightly lethargic. Chest demonstrates occasional rales at the bases. Cardiac exam reveals she has a relatively slow rate of around 80. Abdomen is soft, nontender. Extremities are unchanged. IMPRESSION: 1. Atrial fibrillation with rapid ventricular response. 2. Generalized weakness and debility. 3. Congestive heart failure. 4. Hypotension. 5. Waldenstrom's macroglobulinemia. PLAN: 1. Increase activity. 2. Physical therapy. 3. Discharge planning. MMODL / IJN: [id number] /
[2020-05-17 17:23] LABS: Glucose,Whole Blood 104 mg/dL (75-99)
--- NOTE | 2020-05-17 19:47 | P.PN ---
Subjective HISTORY OF PRESENTING ILLNESS This is a pleasant 65-year-old -[place] female past medical history significant for nonischemic cardiomyopathy status post AICD ([employer]tr[employer]), history of ventricular tachycardia, chronic systolic heart failure, persistent atrial fibrillation status post pulmonary vein isolation but no further ablation secondary to low EF, diabetes mellitus, hypertension, dyslipidemia, pulmonary hypertension and rheumatoid arthritis. She follows in the office with Dr. Samayoa. We have been asked to see in consultation for atrial fibrillation with RVR. She is s/p cholecystectomy 05/[address] Gaitan. She presented to the hospital with symptoms of lower abdominal pain and cramping. EKG on arrival was afib with RVR. She was started on IV cardizem infusion. Currently her rates are 80-90s. Blood pressure 92/68. She denies chest pain, shortness of breath, dizziness or palpitations. She states she has been taking her eliquis since the day after surgery. Current daily home medications include Eliquis 5 mg twice a day, aspirin 81 mg daily, Lasix 40 mg in the morning, Toprol 25 mg daily, simvastatin 10 mg daily, Aldactone 25 mg daily and lisinopril 2.5 mg at bedtime. Most recent echocardiogram obtained July 2019 revealed severely impaired LV systolic function with ejection fraction 25-30%, severely dilated left atrium, mild to moderate MR, mild to moderate TR and severe pulmonary hypertension with an RVSP of 70 mmHg. Laboratory data reviewed, WBC 4.3, hemoglobin 11.7, platelets 56, sodium 138, potassium 3.8, creatinine 0.94, magnesium 1.3, cardiac enzymes negative 1 and lactic acid on admission 2.4. 05/16/2020 Pt is seen and examined sitting up in bed eating breakfast. She states her abdominal pain is improving. Surgery is providing supportive care with no plans for any further intervention. She denies chest pain, shortness of breath, dizziness or palpitations. Blood pressure 91/55 heart rate 97 afebrile and maintaining oxygen saturation on room air. Laboratory data reviewed, sodium 136, potassium 3.2 and magnesium 1.4. 05/17/20 Patient seen and examined. No chest pain or pressure. Believes LE edema is somewhat improved. PHYSICAL EXAMINATION CONSTITUTIONAL: No apparent distress. HEENT: Head is normocephalic. Pupils are equal, round. Sclerae anicteric. Mucous membranes of the mouth are moist. No JVD. No carotid bruit. CHEST EXAMINATION: Lungs are clear to auscultation. No chest wall tenderness is noted on palpation or with deep breathing. HEART EXAMINATION: Irregular rate and rhythm. S1, S2 heard. Systolic ejection murmur at the left sternal border, no gallops or rub. EXTREMITIES: 2+ peripheral pulses, 1+ bilateral lower extremity pitting edema and no calf tenderness. ASSESSMENT Chronic persistent atrial fibrillation with rapid ventricular rate on Eliquis status post pulmonary vein isolation Abdominal pain as colitis noted on CT Acute on chronic systolic heart failure Hypomagnesemia Thrombocytopenia Lactic acidosis Nonischemic cardiomyopathy status post AICD History of nonsustained ventricular tachycardia Hypertension Diabetes mellitus Dyslipidemia Rheumatoid arthritis PLAN Continue to replace magnesium and potassium per protocol. Aldactone increased to 50 mg daily and continue BID lasix for today. Likely transition to once a day Lasix tomorrow and hopeful DC home in next 24-48 hrs. Check electrolytes. Objective - Vital Signs Vital signs: Vital Signs Temp 98.1 F 05/17/20 16:25 Pulse 93 05/17/20 16:25 Resp 18 05/17/20 16:25 BP 94/56 05/17/20 16:25 Pulse Ox 100 05/17/20 16:25 Intake & Output 05/17/20 05/17/20 05/18/20 06:59 18:59 06:59 Intake Total 1680 Output Total 0 Balance 0 1680 Weight 110.5 kg Intake: Oral 1680 Output: Stool 0 Other: Voiding Method Bedside Commode Bedside Commode # Voids 1 2 - Labs CBC & Chem 7: 05/15/20 11:37 05/16/20 18:44 Labs: Abnormal Lab Results - Last 24 Hours (Table) 05/16/20 05/17/20 05/17/20 Range/Units 20:42 02:09 07:40 POC Glucose (mg/dL) 72 L 68 L 163 H (75-99) mg/dL 05/17/20 05/17/20 05/17/20 Range/Units 12:30 12:49 17:21 POC Glucose (mg/dL) 69 L 61 L 104 H (75-99) mg/dL Microbiology - Last 24 Hours (Table) 05/14/20 13:14 Blood Culture - Preliminary Blood No Growth after 72 hours 05/14/20 13:14 Blood Culture - Preliminary Blood No Growth after 72 hours
[2020-05-17] MEDS: ATORVASTATIN 10 MG TAB PO SCH (20:40)
[2020-05-17 20:48] LABS: Glucose,Whole Blood 135 mg/dL (75-99)
[2020-05-18] MEDS: CEPHALEXIN 500 MG CAP PO SCH ×4 (04:55→22:49)
[2020-05-18 07:23] LABS: Glucose,Whole Blood 124 mg/dL (75-99)
[2020-05-18 08:51] LABS: Calcium 8.1 mg/dL (8.4-10.2); Magnesium 1.4 mg/dL (1.6-2.3); Phosphorus 3.3 mg/dL (2.5-4.5); Potassium 4.1 mmol/L (3.5-5.1)
[2020-05-18 08:55] LABS: Anisocytosis Slight; HCT 34.9 % (34.0-46.0); HGB 11.8 gm/dL (11.4-16.0); MCH 26.3 pg (25.0-35.0); MCHC 33.8 g/dL (31.0-37.0); MCV 77.9 fL (80.0-100.0); Mean Platelet Volume 15.5; Microcytosis Slight; Poikilocytosis Moderate; RBC 4.47 m/uL (3.80-5.40); RDW 19.8 % (11.5-15.5)
[2020-05-18 09:15] LABS: Platelet Count 36 k/uL (150-450)
[2020-05-18] MEDS: ASPIRIN 81 MG PO SCH (10:05)
[2020-05-18] MEDS: PREGABALIN 100 MG CAP PO SCH ×2 (10:05→20:36)
[2020-05-18] MEDS: MONTELUKAST 10 MG TAB PO SCH (10:06)
[2020-05-18] MEDS: METOPROLOL SUCCINATE (ER) 25 MG TAB.ER.24H PO SCH (10:06)
[2020-05-18] MEDS: FUROSEMIDE 40 MG TAB PO SCH ×2 (10:06→17:07)
[2020-05-18] MEDS: HYDROXYCHLOROQUINE SULFATE 200 MG TAB PO SCH ×2 (10:06→20:36)
[2020-05-18] MEDS: FOLIC ACID 1 MG TAB PO SCH (10:06)
[2020-05-18] MEDS: SPIRONOLACTONE 25 MG TAB PO SCH (10:06)
[2020-05-18] MEDS: allopurinoL 100 MG TAB PO SCH (10:06)
[2020-05-18] MEDS: APIXABAN 5 MG TAB PO SCH (10:07)
[2020-05-18] MEDS: SERTRALINE 100 MG TAB PO SCH ×2 (10:07→20:36)
[2020-05-18 10:43] LABS: Basophils # (M) 0.04 k/uL (0-0.2); Monocytes # (M) 0.11 k/uL (0-1.0); Neutrophils % (M) 60 %; Nucleated Red Blood Cells 6 /100 WBC (0-0); Total Cells Counted 200
[2020-05-18 10:44] LABS: Eosinophils # (M) 0.14 k/uL (0-0.7); Large Platelets Present; Lymphocytes # (M) 1.19 k/uL (1.0-4.8); Target Cells Present; WBC 3.5 k/uL (3.8-10.6)
[2020-05-18] MEDS: INSULIN ASPART (NovoLOG) 100 UNIT/ML VIAL SQ SCH ×2 (11:16→18:48)
[2020-05-18 12:22] LABS: Glucose,Whole Blood 150 mg/dL (75-99)
[2020-05-18] MEDS: MAGNESIUM SULFATE-D5W PMX 1 GM in DEXTROSE/WATER 1 100ML.BAG IVPB SCH ×3 (13:28→19:00)
--- NOTE | 2020-05-18 16:05 | P.PN ---
Subjective Progress Note Date: 05/18/20 HISTORY OF PRESENT ILLNESS: This is a pleasant 65-year-old -[place] female past medical history significant for nonischemic cardiomyopathy status post AICD ([employer]tronic), history of ventricular tachycardia, chronic systolic heart failure, persistent atrial fibrillation status post pulmonary vein isolation but no further ablation secondary to low EF, diabetes mellitus, hypertension, dyslipidemia, pulmonary hypertension and rheumatoid arthritis. She follows in the office with Dr. Samayoa. We have been asked to see in consultation for atrial fibrillation with RVR. She is s/p cholecystectomy 05/[address] Gaitan. She presented to the hospital with symptoms of lower abdominal pain and cramping. EKG on arrival was afib with RVR. She was started on IV cardizem infusion. Currently her rates are 80-90s. Blood pressure 92/68. She denies chest pain, shortness of breath, d izziness or palpitations. She states she has been taking her eliquis since the day after surgery. Current daily home medications include Eliquis 5 mg twice a day, aspirin 81 mg daily, Lasix 40 mg in the morning, Toprol 25 mg daily, simvastatin 10 mg daily, Aldactone 25 mg daily and lisinopril 2.5 mg at bedtime. Most recent echocardiogram obtained July 2019 revealed severely impaired LV systolic function with ejection fraction 25-30%, severely dilated left atrium, mild to moderate MR, mild to moderate TR and severe pulmonary hypertension with an RVSP of 70 mmHg. Laboratory data reviewed, WBC 4.3, hemoglobin 11.7, platelets 56, sodium 138, potassium 3.8, creatinine 0.94, magnesium 1.3, cardiac enzymes negative 1 and lactic acid on admission 2.4. 05/16/2020 Pt is seen and examined sitting up in bed eating breakfast. She states her abdominal pain is improving. Surgery is providing supportive care with no plans for any further intervention. She denies chest pain, shortness of breath, dizz iness or palpitations. Blood pressure 91/55 heart rate 97 afebrile and maintaining oxygen saturation on room air. Laboratory data reviewed, sodium 136, potassium 3.2 and magnesium 1.4. 05/17/20 Patient seen and examined. No chest pain or pressure. Believes LE edema is somewhat improved. 05/18/2020 Patient examined this morning at the bedside. She denies chest pain or pressure. She states her shortness of breath is improving. She also reports improvement in lower extremity edema. Platelet count 36. Magnesium 1.4. Blood pressure 111/70. Heart rate in the 80s. PHYSICAL EXAM: VITAL SIGNS: Reviewed. GENERAL: Well-developed in no acute distress. NECK: Supple. No JVD or thyromegaly LUNGS: Respirations even and unlabored. Lungs diminished bilaterally. HEART: Irregular rate and rhythm. S1 and S2 heard. Systolic murmur noted EXTREMITIES: Normal range of motion. No clubbing or cyanosis. Peripheral pulses intact. 1+ bilateral lower extremity edema ASSESSMENT: Chronic persistent atrial fibrillation with rapid ventricular rate on Eliquis status post pulmonary vein isolation Abdominal pain as colitis noted on CT Acute on chronic systolic heart failure Hypomagnesemia Thrombocytopenia Lactic acidosis Nonischemic cardiomyopathy status post AICD History of nonsustained ventricular tachycardia Hypertension Diabetes mellitus Dyslipidemia Rheumatoid arthritis PLAN: Magnesium 1.4 today. Replace with 3 g IV piggyback Patient with worsening thrombocytopenia. We will discontinue Eliquis. Continue to monitor platelet count. Patient may benefit from hematology consultation and evaluation Continue current dose of hydralazine and Aldactone Further recommendations pending patient's course Nurse practitioner note has been reviewed by physician. Signing provider agrees with the documented findings, assessment, and plan of care. Objective - Vital Signs Vital signs: Vital Signs Temp 97.9 F 05/18/20 12:00 Pulse 94 05/18/20 12:00 Resp 18 05/18/20 14:00 BP 89/59 05/18/20 12:00 Pulse Ox 99 05/18/20 12:00 Intake & Output 05/17/20 05/18/20 05/18/20 18:59 06:59 18:59 Intake Total 1680 10 1200 Output Total 350 0 Balance 1680 -340 1200 Weight 111 kg Intake: IV 10 Invasive Line 2 10 Oral 1680 1200 Output: Urine 350 Stool 0 0 Other: Voiding Method Bedside Commode Bedside Commode Bedside Commode # Voids 2 1 2 - Labs CBC & Chem 7: 05/18/20 08:05 05/18/20 08:05 Labs: Abnormal Lab Results - Last 24 Hours (Table) 05/17/20 05/17/20 05/18/20 Range/Units 17:21 20:33 07:22 WBC (3.8-10.6) k/uL MCV (80.0-100.0) fL RDW (11.5-15.5) % Plt Count (150-450) k/uL Nucleated RBCs (0-0) /100 WBC Sodium (137-145) mmol/L Creatinine (0.52-1.04) mg/dL Glucose (74-99) mg/dL POC Glucose (mg/dL) 104 H 135 H 124 H (75-99) mg/dL Calcium (8.4-10.2) mg/dL Magnesium (1.6-2.3) mg/dL Albumin (3.5-5.0) g/dL 05/18/20 05/18/20 05/18/20 Range/Units 08:05 08:05 12:21 WBC 3.5 L (3.8-10.6) k/uL MCV 77.9 L (80.0-100.0) fL RDW 19.8 H (11.5-15.5) % Plt Count 36 L (150-450) k/uL Nucleated RBCs 6 H (0-0) /100 WBC Sodium 132 L (137-145) mmol/L Creatinine 1.06 H (0.52-1.04) mg/dL Glucose 114 H (74-99) mg/dL POC Glucose (mg/dL) 150 H (75-99) mg/dL Calcium 8.1 L (8.4-10.2) mg/dL Magnesium 1.4 L (1.6-2.3) mg/dL Albumin 3.0 L (3.5-5.0) g/dL Microbiology - Last 24 Hours (Table) 05/14/20 13:14 Blood Culture - Preliminary Blood No Growth after 72 hours 05/14/20 13:14 Blood Culture - Preliminary Blood No Growth after 72 hours
--- NOTE | 2020-05-18 17:06 | P.PN ---
Progress Note - Text Progress Note Date: 05/18/20 Patient feels well. She denies any abdominal pain. She's had no significant drainage from her umbilicus. On exam vitals are stable. Abdomen soft. Patient's ascites drainage has currently stopped. Her congestive heart failure is being managed by the medical service. No surgical intervention is planned.
[2020-05-18 17:10] LABS: Glucose,Whole Blood 160 mg/dL (75-99)
[2020-05-18 19:49] LABS: Glucose,Whole Blood 232 mg/dL (75-99)
[2020-05-18] MEDS: ATORVASTATIN 10 MG TAB PO SCH (20:36)
[2020-05-19] MEDS: CEPHALEXIN 500 MG CAP PO SCH ×3 (05:12→17:49)
[2020-05-19 07:22] LABS: Glucose,Whole Blood 142 mg/dL (75-99)
[2020-05-19] MEDS: INSULIN ASPART (NovoLOG) 100 UNIT/ML VIAL SQ SCH ×2 (08:21→17:49)
[2020-05-19] MEDS: HYDROXYCHLOROQUINE SULFATE 200 MG TAB PO SCH ×2 (08:22→21:36)
[2020-05-19] MEDS: PREGABALIN 100 MG CAP PO SCH ×2 (08:22→20:43)
[2020-05-19] MEDS: MONTELUKAST 10 MG TAB PO SCH (08:22)
[2020-05-19] MEDS: SPIRONOLACTONE 25 MG TAB PO SCH (08:22)
[2020-05-19] MEDS: METOPROLOL SUCCINATE (ER) 25 MG TAB.ER.24H PO SCH (08:22)
[2020-05-19] MEDS: FOLIC ACID 1 MG TAB PO SCH (08:22)
[2020-05-19] MEDS: allopurinoL 100 MG TAB PO SCH (08:22)
[2020-05-19] MEDS: SERTRALINE 100 MG TAB PO SCH ×2 (08:24→20:43)
[2020-05-19] MEDS: FUROSEMIDE 40 MG TAB PO SCH ×2 (08:24→15:55)
[2020-05-19 08:37] LABS: Anisocytosis Moderate; HCT 33.4 % (34.0-46.0); HGB 11.4 gm/dL (11.4-16.0); MCH 26.4 pg (25.0-35.0); MCHC 34.2 g/dL (31.0-37.0); MCV 77.3 fL (80.0-100.0); Mean Platelet Volume 13.9; Microcytosis Slight; Poikilocytosis Slight; RBC 4.32 m/uL (3.80-5.40)
[2020-05-19 08:38] LABS: Platelet Count 42 k/uL (150-450)
[2020-05-19 09:05] LABS: Calcium 8.1 mg/dL (8.4-10.2); Magnesium 1.6 mg/dL (1.6-2.3); Potassium 3.9 mmol/L (3.5-5.1)
[2020-05-19 09:34] LABS: Eosinophils # (M) 0.08 k/uL (0-0.7); Neutrophils % (M) 64 %; Nucleated Red Blood Cells 3 /100 WBC (0-0); Total Cells Counted 100
[2020-05-19 09:35] LABS: Monocytes # (M) 0.19 k/uL (0-1.0); Neutrophils # (M) 2.43 k/uL (1.3-7.7); WBC 3.8 k/uL (3.8-10.6)
[2020-05-19 09:36] LABS: Target Cells Present
[2020-05-19] MEDS ORDERED: DIGOXIN 250 MCG/ML 2 ML AMP IVP ONE ×2 (11:45→18:00)
[2020-05-19 12:10] LABS: Glucose,Whole Blood 135 mg/dL (75-99)
--- NOTE | 2020-05-19 12:45 | P.PN ---
Subjective Progress Note Date: 05/19/20 CHIEF COMPLAINT: Abdominal pain HISTORY OF PRESENT ILLNESS: Patient seen and examined with Dr. martinez. Patient is being followed by surgical service due to drainage from her umbilicus incision. Patient is no longer having drainage from her incision site. She is followed by cardiology is currently on diuretics for fluid overload. Patient reports that she is feeling better. She denies any abdominal pain. Afebrile. WBC 3.8 hemoglobin 11.4 PHYSICAL EXAM: VITAL SIGNS: Reviewed. GENERAL: Well-developed in no acute distress. HEENT: No sclera icterus. Extraocular movements grossly intact. Moist buccal mucosa. Head is atraumatic, normocephalic. ABDOMEN: Soft. Nondistended. Nontender. NEUROLOGIC: Alert and oriented. Cranial nerves II through XII grossly intact. ASSESSMENT: 1. Abdominal pain improved 2. Clear drainage from umbilicus incision site. No evidence of infection 3. Recent laparoscopic cholecystectomy on 05/07/2020 PLAN: -Continue supportive care -No surgical intervention planned -patient can be discharge from surgical standpoint when cleared by medicine service Physician Fill Technician note has been reviewed by physician. Signing provider agrees with the documented findings, assessment, and plan of care. Objective - Vital Signs Vital signs: Vital Signs Temp 97.6 F 05/19/20 11:24 Pulse 94 05/19/20 11:24 Resp 16 05/19/20 11:24 BP 97/64 05/19/20 11:24 Pulse Ox 98 05/19/20 11:24 Intake & Output 05/18/20 05/19/20 05/19/20 18:59 06:59 18:59 Intake Total 1200 480 125 Output Total 0 600 500 Balance 1200 -120 -375 Weight 110.5 kg Intake: Oral 1200 480 125 Output: Urine 600 500 Stool 0 Other: Voiding Method Bedside Commode Bedside Commode External Catheter # Voids 2 1 # Bowel Movements 1 - Labs CBC & Chem 7: 05/19/20 07:55 05/19/20 07:55 Labs: Abnormal Lab Results - Last 24 Hours (Table) 05/18/20 05/18/20 05/19/20 Range/Units 17:09 19:47 07:17 Hct (34.0-46.0) % MCV (80.0-100.0) fL RDW (11.5-15.5) % Plt Count (150-450) k/uL Nucleated RBCs (0-0) /100 WBC Sodium (137-145) mmol/L Glucose (74-99) mg/dL POC Glucose (mg/dL) 160 H 232 H 142 H (75-99) mg/dL Calcium (8.4-10.2) mg/dL 05/19/20 05/19/20 05/19/20 Range/Units 07:55 07:55 11:56 Hct 33.4 L (34.0-46.0) % MCV 77.3 L (80.0-100.0) fL RDW 20.0 H (11.5-15.5) % Plt Count 42 L (150-450) k/uL Nucleated RBCs 3 H (0-0) /100 WBC Sodium 132 L (137-145) mmol/L Glucose 124 H (74-99) mg/dL POC Glucose (mg/dL) 135 H (75-99) mg/dL Calcium 8.1 L (8.4-10.2) mg/dL Microbiology - Last 24 Hours (Table) 05/14/20 13:14 Blood Culture - Preliminary Blood No Growth after 96 hours 05/14/20 13:14 Blood Culture - Preliminary Blood No Growth after 96 hours
--- NOTE | 2020-05-19 15:56 | P.PN ---
Subjective Progress Note Date: 05/19/20 HISTORY OF PRESENT ILLNESS: This is a pleasant 65-year-old -Chinese female past medical history significant for nonischemic cardiomyopathy status post AICD ([employer]tr[employer]), history of ventricular tachycardia, chronic systolic heart failure, persistent atrial fibrillation status post pulmonary vein isolation but no further ablation secondary to low EF, diabetes mellitus, hypertension, dyslipidemia, pulmonary hypertension and rheumatoid arthritis. She follows in the office with Dr. Samayoa. We have been asked to see in consultation for atrial fibrillation with RVR. She is s/p cholecystectomy 05/[address] Gaitan. She presented to the hospital with symptoms of lower abdominal pain and cramping. EKG on arrival was afib with RVR. She was started on IV cardizem infusion. Currently her rates are 80-90s. Blood pressure 92/68. She denies chest pain, shortness of breath, d izziness or palpitations. She states she has been taking her eliquis since the day after surgery. Current daily home medications include Eliquis 5 mg twice a day, aspirin 81 mg daily, Lasix 40 mg in the morning, Toprol 25 mg daily, simvastatin 10 mg daily, Aldactone 25 mg daily and lisinopril 2.5 mg at bedtime. Most recent echocardiogram obtained July 2019 revealed severely impaired LV systolic function with ejection fraction 25-30%, severely dilated left atrium, mild to moderate MR, mild to moderate TR and severe pulmonary hypertension with an RVSP of 70 mmHg. Laboratory data reviewed, WBC 4.3, hemoglobin 11.7, platelets 56, sodium 138, potassium 3.8, creatinine 0.94, magnesium 1.3, cardiac enzymes negative 1 and lactic acid on admission 2.4. 05/16/2020 Pt is seen and examined sitting up in bed eating breakfast. She states her abdominal pain is improving. Surgery is providing supportive care with no plans for any further intervention. She denies chest pain, shortness of breath, dizz iness or palpitations. Blood pressure 91/55 heart rate 97 afebrile and maintaining oxygen saturation on room air. Laboratory data reviewed, sodium 136, potassium 3.2 and magnesium 1.4. 05/17/20 Patient seen and examined. No chest pain or pressure. Believes LE edema is somewhat improved. 05/18/2020 Patient examined this morning at the bedside. She denies chest pain or pressure. She states her shortness of breath is improving. She also reports improvement in lower extremity edema. Platelet count 36. Magnesium 1.4. Blood pressure 111/70. Heart rate in the 80s. 05/19/2020 Patient examined this morning. She is sitting up in the chair. She reports her shortness of breath is improving. She denies chest pain or pressure. PHYSICAL EXAM: VITAL SIGNS: Reviewed. GENERAL: Well-developed in no acute distress. NECK: Supple. No JVD or thyromegaly LUNGS: Respirations even and unlabored. Lungs diminished bilaterally. HEART: Irregular rate and rhythm. S1 and S2 heard. Systolic murmur noted EXTREMITIES: Normal range of motion. No clubbing or cyanosis. Peripheral pulses intact. 1+ bilateral lower extremity edema ASSESSMENT: Chronic persistent atrial fibrillation with rapid ventricular rate on Eliquis status post pulmonary vein isolation Abdominal pain as colitis noted on CT Acute on chronic systolic heart failure Hypomagnesemia Thrombocytopenia Lactic acidosis Nonischemic cardiomyopathy status post AICD History of nonsustained ventricular tachycardia Hypertension Diabetes mellitus Dyslipidemia Rheumatoid arthritis PLAN: Patient with worsening thrombocytopenia. Eliquis and aspirin discontinued Continue to monitor platelet count. Patient may benefit from hematology consultation and evaluation Continue current dose of hydralazine and Aldactone Digoxin 250mcg IV 1 dose then 125mcg and 6 hours Begin digoxin 125mcg PO tomorrow Further recommendations pending patient's course Nurse practitioner note has been reviewed by physician. Signing provider agrees with the documented findings, assessment, and plan of care. Objective - Vital Signs Vital signs: Vital Signs Temp 97.6 F 05/19/20 11:24 Pulse 109 H 05/19/20 13:11 Resp 16 05/19/20 13:11 BP 95/58 05/19/20 13:06 Pulse Ox 98 05/19/20 11:24 Intake & Output 05/18/20 05/19/20 05/19/20 18:59 06:59 18:59 Intake Total 1200 480 347 Output Total 0 600 500 Balance 1200 -120 -153 Weight 110.5 kg Intake: Oral 1200 480 347 Output: Urine 600 500 Stool 0 Other: Voiding Method Bedside Commode Bedside Commode External Catheter # Voids 2 1 # Bowel Movements 1 - Labs CBC & Chem 7: 05/19/20 07:55 05/19/20 07:55 Labs: Abnormal Lab Results - Last 24 Hours (Table) 05/18/20 05/18/20 05/19/20 Range/Units 17:09 19:47 07:17 Hct (34.0-46.0) % MCV (80.0-100.0) fL RDW (11.5-15.5) % Plt Count (150-450) k/uL Nucleated RBCs (0-0) /100 WBC Sodium (137-145) mmol/L Glucose (74-99) mg/dL POC Glucose (mg/dL) 160 H 232 H 142 H (75-99) mg/dL Calcium (8.4-10.2) mg/dL 05/19/20 05/19/20 05/19/20 Range/Units 07:55 07:55 11:56 Hct 33.4 L (34.0-46.0) % MCV 77.3 L (80.0-100.0) fL RDW 20.0 H (11.5-15.5) % Plt Count 42 L (150-450) k/uL Nucleated RBCs 3 H (0-0) /100 WBC Sodium 132 L (137-145) mmol/L Glucose 124 H (74-99) mg/dL POC Glucose (mg/dL) 135 H (75-99) mg/dL Calcium 8.1 L (8.4-10.2) mg/dL Microbiology - Last 24 Hours (Table) 05/14/20 13:14 Blood Culture - Preliminary Blood No Growth after 96 hours 05/14/20 13:14 Blood Culture - Preliminary Blood No Growth after 96 hours
[2020-05-19 17:00] LABS: Glucose,Whole Blood 151 mg/dL (75-99)
--- NOTE | 2020-05-19 18:56 | PN ---
PROGRESS NOTE DATE OF SERVICE: 05/19/2020. CHIEF COMPLAINT: Atrial fibrillation and general debility. HISTORY OF PRESENT ILLNESS: This lady is still planning to go to go to rehab. Arrangements are being sought. PHYSICAL EXAMINATION: Chest is clear. Cardiac exam is normal. Abdomen is soft and nontender. Heart rate is in the 80s. IMPRESSION: 1. Atrial fibrillation with rapid ventricular response. 2. Poorly controlled diabetes mellitus. 3. Waldenstrom's macroglobulinemia. PLAN: Await discharge to an extended-care facility for rehab. MMODL / IJN: [id number] /
[2020-05-19 20:19] LABS: Glucose,Whole Blood 182 mg/dL (75-99)
[2020-05-19] MEDS: ATORVASTATIN 10 MG TAB PO SCH (20:43)
[2020-05-20] MEDS: CEPHALEXIN 500 MG CAP PO SCH ×4 (06:24→17:41)
[2020-05-20 07:21] LABS: Glucose,Whole Blood 110 mg/dL (75-99)
[2020-05-20] MEDS: INSULIN ASPART (NovoLOG) 100 UNIT/ML VIAL SQ SCH ×2 (07:41→17:41)
[2020-05-20 08:00] LABS: Calcium 8.2 mg/dL (8.4-10.2); Magnesium 1.2 mg/dL (1.6-2.3); Potassium 3.8 mmol/L (3.5-5.1)
[2020-05-20] MEDS: SPIRONOLACTONE 25 MG TAB PO SCH (08:06)
[2020-05-20] MEDS: HYDROXYCHLOROQUINE SULFATE 200 MG TAB PO SCH ×2 (08:07→20:37)
[2020-05-20] MEDS: DIGOXIN 125 MCG TAB PO SCH (08:07)
[2020-05-20] MEDS: METOPROLOL SUCCINATE (ER) 25 MG TAB.ER.24H PO SCH (08:07)
[2020-05-20] MEDS: PREGABALIN 100 MG CAP PO SCH ×2 (08:07→20:06)
[2020-05-20] MEDS: FUROSEMIDE 40 MG TAB PO SCH ×2 (08:07→15:09)
[2020-05-20] MEDS: allopurinoL 100 MG TAB PO SCH (08:07)
[2020-05-20] MEDS: FOLIC ACID 1 MG TAB PO SCH (08:07)
[2020-05-20] MEDS: SERTRALINE 100 MG TAB PO SCH ×2 (08:07→20:06)
[2020-05-20] MEDS: MONTELUKAST 10 MG TAB PO SCH (08:07)
[2020-05-20 08:51] LABS: Anisocytosis Slight; Basophils % (A) 1 %; Eosinophils # (A) 0.2 k/uL (0-0.7); Eosinophils % (A) 4 %; HCT 32.5 % (34.0-46.0); Lymphocytes # (A) 1.3 k/uL (1.0-4.8); Lymphocytes % (A) 29 %; MCH 26.5 pg (25.0-35.0); MCHC 33.9 g/dL (31.0-37.0); MCV 78.3 fL (80.0-100.0); Mean Platelet Volume 13.4; Microcytosis Slight; Monocytes # (A) 0.1 k/uL (0-1.0); Monocytes % (A) 1 %; Neutrophils # (A) 2.9 k/uL (1.3-7.7); Neutrophils % (A) 64 %; Platelet Count 78 k/uL (150-450); Poikilocytosis Slight; RBC 4.16 m/uL (3.80-5.40); RDW 19.8 % (11.5-15.5); WBC 4.5 k/uL (3.8-10.6)
[2020-05-20] MEDS ORDERED: Magnesium Replacement Protocol 1 EACH MISC MISCELLANE PRN (09:28)
[2020-05-20] MEDS: MAGNESIUM SULFATE-D5W PMX 1 GM in DEXTROSE/WATER 1 100ML.BAG IVPB SCH ×3 (09:57→12:03)
[2020-05-20 10:20] LABS: Target Cells Present
--- NOTE | 2020-05-20 12:45 | P.PN ---
<Keturah Fontenot - Last Filed: 05/20/20 12:40> Progress Note - Text Progress Note Date: 05/20/20 Formal consult in AM. Pt on observation for multiple myeloma, last seen 04/03, due to be seen in 08/01. Anticoagulation ok if plt > 50,000. <Felix Cordon - Last Filed: 05/21/20 09:21> Progress Note - Text Clarification: Pt has waldenstrom's, not MM. In remission for several years currently
--- NOTE | 2020-05-20 13:28 | P.PN ---
Subjective Progress Note Date: 05/20/20 CHIEF COMPLAINT: Abdominal pain HISTORY OF PRESENT ILLNESS: Patient seen and examined with Dr. Tran. Patient is being followed by surgical service due to drainage from her umbilicus incision. Patient is no longer having drainage from her incision site. She is followed by cardiology is currently on diuretics for fluid overload. Patient reports that she is feeling better. She denies any abdominal pain. Afebrile. WBC 4.5 hemoglobin 11 platelets 78. Patient is being evaluated by hematology re garding her thrombocytopenia PHYSICAL EXAM: VITAL SIGNS: Reviewed. GENERAL: Well-developed in no acute distress. HEENT: No sclera icterus. Extraocular movements grossly intact. Moist buccal mucosa. Head is atraumatic, normocephalic. ABDOMEN: Soft. Nondistended. Nontender. NEUROLOGIC: Alert and oriented. Cranial nerves II through XII grossly intact. ASSESSMENT: 1. Abdominal pain improved 2. Clear drainage from umbilicus incision site likely due to fluid overload. Now resolved. No evidence of infection 3. Recent laparoscopic cholecystectomy on 05/07/2020 PLAN: -Continue supportive care -No surgical intervention planned -patient can be discharge from surgical standpoint when cleared by medicine service Physician Brake Drum Molder note has been reviewed by physician. Signing provider agrees with the documented findings, assessment, and plan of care. Objective - Vital Signs Vital signs: Vital Signs Temp 97.6 F 05/20/20 12:01 Pulse 86 05/20/20 12:01 Resp 16 05/20/20 12:01 BP 104/55 05/20/20 12:01 Pulse Ox 96 05/20/20 12:01 Intake & Output 05/19/20 05/20/20 05/20/20 18:59 06:59 18:59 Intake Total 472 240 Output Total 1600 380 Balance -1128 -380 240 Weight 113.5 kg Intake: Oral 472 240 Output: Urine 1600 380 Other: Voiding Method Bedside Commode Bedside Commode Bedside Commode External Catheter Diaper Diaper External Catheter External Catheter - Labs CBC & Chem 7: 05/20/20 06:52 05/20/20 06:52 Labs: Abnormal Lab Results - Last 24 Hours (Table) 05/19/20 05/19/20 05/20/20 Range/Units 16:52 20:18 06:52 Hgb 11.0 L (11.4-16.0) gm/dL Hct 32.5 L (34.0-46.0) % MCV 78.3 L (80.0-100.0) fL RDW 19.8 H (11.5-15.5) % Plt Count 78 L D (150-450) k/uL Sodium (137-145) mmol/L POC Glucose (mg/dL) 151 H 182 H (75-99) mg/dL Calcium (8.4-10.2) mg/dL Magnesium (1.6-2.3) mg/dL 05/20/20 05/20/20 Range/Units 06:52 07:17 Hgb (11.4-16.0) gm/dL Hct (34.0-46.0) % MCV (80.0-100.0) fL RDW (11.5-15.5) % Plt Count (150-450) k/uL Sodium 133 L (137-145) mmol/L POC Glucose (mg/dL) 110 H (75-99) mg/dL Calcium 8.2 L (8.4-10.2) mg/dL Magnesium 1.2 L (1.6-2.3) mg/dL Microbiology - Last 24 Hours (Table) 05/14/20 13:14 Blood Culture - Preliminary Blood No Growth after 120 hours 05/14/20 13:14 Blood Culture - Preliminary Blood No Growth after 120 hours
--- NOTE | 2020-05-20 14:01 | P.PN ---
Subjective Progress Note Date: 05/20/20 HISTORY OF PRESENT ILLNESS: This is a pleasant 65-year-old -[place] female past medical history significant for nonischemic cardiomyopathy status post AICD ([employer]), history of ventricular tachycardia, chronic systolic heart failure, persistent atrial fibrillation status post pulmonary vein isolation but no further ablation secondary to low EF, diabetes mellitus, hypertension, dyslipidemia, pulmonary hypertension and rheumatoid arthritis. She follows in the office with Dr. Samayoa. We have been asked to see in consultation for atrial fibrillation with RVR. She is s/p cholecystectomy 05/[address] Gaitan. She presented to the hospital with symptoms of lower abdominal pain and cramping. EKG on arrival was afib with RVR. She was started on IV cardizem infusion. Currently her rates are 80-90s. Blood pressure 92/68. She denies chest pain, shortness of breath, d izziness or palpitations. She states she has been taking her eliquis since the day after surgery. Current daily home medications include Eliquis 5 mg twice a day, aspirin 81 mg daily, Lasix 40 mg in the morning, Toprol 25 mg daily, simvastatin 10 mg daily, Aldactone 25 mg daily and lisinopril 2.5 mg at bedtime. Most recent echocardiogram obtained July 2019 revealed severely impaired LV systolic function with ejection fraction 25-30%, severely dilated left atrium, mild to moderate MR, mild to moderate TR and severe pulmonary hypertension with an RVSP of 70 mmHg. Laboratory data reviewed, WBC 4.3, hemoglobin 11.7, platelets 56, sodium 138, potassium 3.8, creatinine 0.94, magnesium 1.3, cardiac enzymes negative 1 and lactic acid on admission 2.4. 05/16/2020 Pt is seen and examined sitting up in bed eating breakfast. She states her abdominal pain is improving. Surgery is providing supportive care with no plans for any further intervention. She denies chest pain, shortness of breath, dizz iness or palpitations. Blood pressure 91/55 heart rate 97 afebrile and maintaining oxygen saturation on room air. Laboratory data reviewed, sodium 136, potassium 3.2 and magnesium 1.4. 05/17/20 Patient seen and examined. No chest pain or pressure. Believes LE edema is somewhat improved. 05/18/2020 Patient examined this morning at the bedside. She denies chest pain or pressure. She states her shortness of breath is improving. She also reports improvement in lower extremity edema. Platelet count 36. Magnesium 1.4. Blood pressure 111/70. Heart rate in the 80s. 05/19/2020 Patient examined this morning. She is sitting up in the chair. She reports her shortness of breath is improving. She denies chest pain or pressure. 05/20/2020 Patient examined this morning at the bedside. She denies chest pain or pressure. Reports minimal shortness of breath. She remains on oral Lasix and Aldactone. Patient's aspirin and Eliquis was discontinued secondary to patient's platelets been in the 30s. Her platelets are currently 78 this morning. Magnesium 1.2. PHYSICAL EXAM: VITAL SIGNS: Reviewed. GENERAL: Well-developed in no acute distress. NECK: Supple. No JVD or thyromegaly LUNGS: Respirations even and unlabored. Lungs diminished bilaterally. HEART: Irregular rate and rhythm. S1 and S2 heard. Systolic murmur noted EXTREMITIES: Normal range of motion. No clubbing or cyanosis. Peripheral pulses intact. 1+ bilateral lower extremity edema ASSESSMENT: Chronic persistent atrial fibrillation with rapid ventricular rate on Eliquis status post pulmonary vein isolation Abdominal pain as colitis noted on CT Acute on chronic systolic heart failure Hypomagnesemia Thrombocytopenia Lactic acidosis Nonischemic cardiomyopathy status post AICD History of nonsustained ventricular tachycardia Hypertension Diabetes mellitus Dyslipidemia Rheumatoid arthritis PLAN: Eliquis and aspirin discontinued due to patients platelets in the 30s. Platelet count 78 today. Consult hematology for evaluation to see if patient is safe to be resumed on aspirin and Eliquis. Continue to monitor platelet count Continue current cardiac medications Replace magnesium Further recommendations pending patient's course Nurse practitioner note has been reviewed by physician. Signing provider agrees with the documented findings, assessment, and plan of care. Objective - Vital Signs Vital signs: Vital Signs Temp 97.6 F 05/20/20 12:01 Pulse 86 05/20/20 13:34 Resp 16 05/20/20 13:34 BP 104/55 05/20/20 12:01 Pulse Ox 96 05/20/20 12:01 Intake & Output 05/19/20 05/20/20 05/20/20 18:59 06:59 18:59 Intake Total 472 240 Output Total 1600 380 Balance -1128 -380 240 Weight 113.5 kg Intake: Oral 472 240 Output: Urine 1600 380 Other: Voiding Method Bedside Commode Bedside Commode Bedside Commode External Catheter Diaper Diaper External Catheter External Catheter - Labs CBC & Chem 7: 05/20/20 06:52 05/20/20 06:52 Labs: Abnormal Lab Results - Last 24 Hours (Table) 05/19/20 05/19/20 05/20/20 Range/Units 16:52 20:18 06:52 Hgb 11.0 L (11.4-16.0) gm/dL Hct 32.5 L (34.0-46.0) % MCV 78.3 L (80.0-100.0) fL RDW 19.8 H (11.5-15.5) % Plt Count 78 L D (150-450) k/uL Sodium (137-145) mmol/L POC Glucose (mg/dL) 151 H 182 H (75-99) mg/dL Calcium (8.4-10.2) mg/dL Magnesium (1.6-2.3) mg/dL 05/20/20 05/20/20 Range/Units 06:52 07:17 Hgb (11.4-16.0) gm/dL Hct (34.0-46.0) % MCV (80.0-100.0) fL RDW (11.5-15.5) % Plt Count (150-450) k/uL Sodium 133 L (137-145) mmol/L POC Glucose (mg/dL) 110 H (75-99) mg/dL Calcium 8.2 L (8.4-10.2) mg/dL Magnesium 1.2 L (1.6-2.3) mg/dL Microbiology - Last 24 Hours (Table) 05/14/20 13:14 Blood Culture - Preliminary Blood No Growth after 120 hours 05/14/20 13:14 Blood Culture - Preliminary Blood No Growth after 120 hours
--- NOTE | 2020-05-20 16:35 | PN ---
PROGRESS NOTE DATE OF SERVICE: 05/18/2020 CHIEF COMPLAINT: Atrial fibrillation, diabetes, weakness, failure to thrive. HISTORY OF PRESENT ILLNESS: This lady remains quite weak and awaits [facility] placement. Vital signs are normal and she is not having any chest or abdominal pain. PHYSICAL EXAMINATION: Chest is clear. Cardiac exam demonstrates her heart rate to be around 85. Abdomen is soft. Extremities are unchanged. IMPRESSION: 1. Atrial fibrillation with rapid ventricular response. 2. Congestive heart failure. 3. Insulin-dependent diabetes mellitus. 4. General debility and weakness. PLAN: Await discharge to [facility]. MMODL / IJN: [id number] /
[2020-05-20 17:22] LABS: Glucose,Whole Blood 156 mg/dL (75-99)
--- NOTE | 2020-05-20 17:43 | PN ---
PROGRESS NOTE DATE OF SERVICE: 05/14/2020 CHIEF COMPLAINT: General debility and weakness with atrial fibrillation. HISTORY OF PRESENT ILLNESS: We are waiting for this lady's arrangements to be made to go through rehab. PHYSICAL EXAMINATION: Chest demonstrates occasional rales. Cardiac exam demonstrates well-controlled atrial fibrillation. The abdomen is soft. Extremities are normal. IMPRESSION: 1. Atrial fibrillation. 2. Cardiomyopathy. 3. Insulin-dependent diabetes mellitus. 4. Waldenstrom's macroglobulinemia. PLAN: Wait for rehab plans to be formed. MMODL / IJN: [id number] /
[2020-05-20 20:01] LABS: Glucose,Whole Blood 151 mg/dL (75-99)
[2020-05-20] MEDS: ATORVASTATIN 10 MG TAB PO SCH (20:06)
[2020-05-21] MEDS: CEPHALEXIN 500 MG CAP PO SCH ×4 (00:07→17:38)
[2020-05-21 06:52] LABS: Glucose,Whole Blood 99 mg/dL (75-99)
[2020-05-21] MEDS: INSULIN ASPART (NovoLOG) 100 UNIT/ML VIAL SQ SCH ×2 (06:53→17:38)
[2020-05-21] MEDS: METOPROLOL SUCCINATE (ER) 25 MG TAB.ER.24H PO SCH (09:00)
[2020-05-21] MEDS: allopurinoL 100 MG TAB PO SCH (09:00)
[2020-05-21] MEDS: DIGOXIN 125 MCG TAB PO SCH (09:00)
[2020-05-21] MEDS: FUROSEMIDE 40 MG TAB PO SCH (09:00)
[2020-05-21] MEDS: PREGABALIN 100 MG CAP PO SCH ×2 (09:00→20:37)
[2020-05-21] MEDS: HYDROXYCHLOROQUINE SULFATE 200 MG TAB PO SCH ×2 (09:00→20:37)
[2020-05-21] MEDS: MONTELUKAST 10 MG TAB PO SCH (09:00)
[2020-05-21] MEDS: FOLIC ACID 1 MG TAB PO SCH (09:00)
[2020-05-21] MEDS: SPIRONOLACTONE 25 MG TAB PO SCH (09:01)
[2020-05-21] MEDS: SERTRALINE 100 MG TAB PO SCH ×2 (09:01→20:37)
[2020-05-21 09:55] LABS: Anisocytosis Slight; Basophils % (A) 1 %; Eosinophils # (A) 0.2 k/uL (0-0.7); Eosinophils % (A) 5 %; HCT 33.7 % (34.0-46.0); HGB 11.5 gm/dL (11.4-16.0); Lymphocytes # (A) 1.4 k/uL (1.0-4.8); Lymphocytes % (A) 32 %; MCH 26.8 pg (25.0-35.0); MCHC 34.1 g/dL (31.0-37.0); MCV 78.6 fL (80.0-100.0); Mean Platelet Volume 11.9; Microcytosis Slight; Monocytes # (A) 0.1 k/uL (0-1.0); Monocytes % (A) 1 %; Neutrophils # (A) 2.7 k/uL (1.3-7.7); Neutrophils % (A) 61 %; Poikilocytosis Slight; RBC 4.29 m/uL (3.80-5.40); RDW 19.6 % (11.5-15.5); WBC 4.4 k/uL (3.8-10.6)
[2020-05-21 09:56] LABS: Platelet Count 71 k/uL (150-450)
[2020-05-21] MEDS: MAGNESIUM SULFATE-D5W PMX 1 GM in DEXTROSE/WATER 1 100ML.BAG IVPB SCH ×3 (10:24→12:48)
[2020-05-21 11:28] LABS: Glucose,Whole Blood 298 mg/dL (75-99)
--- NOTE | 2020-05-21 13:01 | P.CONS ---
History of Present Illness - Reason for Consult Consult date: 05/21/20 thrombocytopenia, anticoagulation Requesting physician: Audrey Clinton - Chief Complaint abd pain post op - History of Present Illness Ms. Ro is a pleasant AAF presenting in early 2006 with Waldenstrom's macroglobulinemia, with catastrophic presentation of ARF from paraprotein deposition at a comparatively low level of monoclonal protein. She was treated aggressively with plasmapheresis, hemodialysis, chemo and Rituxan. She had an excellent response and was able to come off dialysis. She was on maintenance Rituxan till 09/19 and has been on observation since. She was hospitalized in 08/24 with a lung infection, transient atrial fibrillation and CHF, and then aga in in 10/24 for a syncope due to low blood sugar. She had been on insulin and coumadin since 08/24. She had her AICD changed in 03/27. She had been off insulin for low blood sugars, and was placed back on it. She had an hypoglycemic episode in 08/27, resulting in a head injury and scalp hematoma. Coumadin was stopped at that time. She is back on insulin and is following with Dr Otero. She had 2 syncopal episodes related to low blood sugars, most recently in 02/27. She had an ER visit in early 07/29 for a viral type illness with dehydration. She had an admission in 08/29 for low blood sugars, and syncope. 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 She had vocal cord surgery in 09/29 with improvement in her voice. She had an URTI requiring antibiotics in early 04/02. She continues on Methotrexate and Plaquenil. She has Sjogren's. She has chronic stiffness in her fingers and occasional neuropathy flare in her feet. 05/03/19 patient seen for repeat CBC, needing follow-up on low platelet count found on routine follow-up at last visit. Cytopenia workup was negative with no evidence of progression. She had choleycystectomy 05/12, readmitted 05/14 for abd pain and drainage from surgical sites, she was in a-fib RVR. Her plt counts were lower then her baseline, she is on chronic anticoagulation for a-fib and this was held. Pt is doing well as of today, her plt counts are >50,000 today and near baseline in the 70-90,000 range. She needs to be back on her anticoagulation. Review of Systems 10 Point ROS is negative except as stated in HPI Past Medical History Past Medical History: Atrial Fibrillation, Heart Failure, Diabetes Mellitus, Eye Disorder, Fibromyalgia, Hyperlipidemia, Hypertension, Rheumatoid Arthritis (RA), Syncope Additional Past Medical History / Comment(s): Pt recently admitted to [facility] on 05/08/20 with abdominal pain/cholecystectomy. Other hx: Nonischemic cardiomyopathy/Vtach/AICD, murmur, IDDM type II, neuropathy bilateral feet, hypoglycemic episodes with syncope in past, 2006 waldenstrom macroglobulinemia (type of nonhodgkins lymphoma) with chemo and plasma treatment and had to be on hemodialysis for a brief time, sjogrens, lupus, gout, anemia, bilateral cataracts. History of Any Multi-Drug Resistant Organisms: None Reported Past Surgical History: AICD, Cardiac Ablation, Cholecystectomy, Hysterectomy, Orthopedic Surgery Additional Past Surgical History / Comment(s): Recent cholecystectomy, 2007 AICD with gen change in 2013, cardiac ablations, L toe surgery d/t RA, R wrist and R thigh cystectomy, spacer placed on vocal cord. Past Anesthesia/Blood Transfusion Reactions: No Reported Reaction, Motion Sickness Additional Past Anesthesia/Blood Transfusion Reaction / Comm: Pt has recieved blood in past without reaction. Type of Cardiac Device: AICD Device Placement Date:: 2007 device with gen change 2013. Smoking Status: Former smoker - Past Family History Mother Family Medical History: Cancer Additional Family Medical History / Comment(s): Mother from multiple myeloma Father Family Medical History: Renal Disease Additional Family Medical History / Comment(s): Father of renal failure. Medications and Allergies Home Medications Medication Instructions Recorded Confirmed Type Ergocalciferol [Vitamin D2 50,000 unit PO TH 03/05/17 05/14/20 History (DRISDOL)] Folic Acid 1 mg PO QAM 03/05/17 05/14/20 History Furosemide [Lasix] 40 mg PO QAM 03/05/17 05/14/20 History Hydroxychloroquine Sulfate 200 mg PO BID 03/05/17 05/14/20 History [Plaquenil] Insulin Aspart Protam & Aspart 10 unit SQ AC-BRKFST 03/05/17 05/14/20 History [NovoLOG MIX 70-30 Flexpen] Montelukast [Singulair] 10 mg PO DAILY 03/05/17 05/14/20 History Sertraline [Zoloft] 100 mg PO BID 03/05/17 05/14/20 History Simvastatin [Zocor] 10 mg PO HS 03/05/17 05/14/20 History Spironolactone [Aldactone] 25 mg PO QAM 03/05/17 05/14/20 History lisinopriL [Zestril] 2.5 mg PO HS 03/05/17 05/14/20 History metHOTREXate sodium [Methotrexate] 20 mg PO FR 03/05/17 05/14/20 History Aspirin [Adult Low Dose Aspirin EC] 81 mg PO DAILY 09/13/18 05/14/20 History Albuterol Sulfate [Ventolin HFA] 2 puff INHALATION RT-QID PRN 07/27/19 05/14/20 History Apixaban [Eliquis] 5 mg PO BID 07/27/19 05/14/20 History allopurinoL [Zyloprim] 100 mg PO QAM 07/27/19 05/14/20 History Calcitriol [Rocaltrol] 0.25 mcg PO TU 01/21/20 05/14/20 History Insulin Aspart Protam & Aspart 12 unit SQ AC-SUPPER 01/21/20 05/14/20 History [NovoLOG MIX 70-30 Flexpen] Metoprolol Succinate [Toprol XL] 25 mg PO QAM 01/21/20 05/14/20 History Hydrocortisone Cream 1 applic TOPICAL BID PRN 05/05/20 05/14/20 History [Hydrocortisone 2.5% Cream] Pregabalin [Lyrica] 300 mg PO BID 05/05/20 05/14/20 History Triamcinolone 0.5% Cream [Kenalog 1 applic TOPICAL BID PRN 05/05/20 05/14/20 History 0.5% Cream] hydrOXYzine HCL 25 mg PO TID PRN 05/05/20 05/14/20 History Acetaminophen Tab [Tylenol Tab] 650 mg PO Q6H PRN #30 tablet 05/09/20 05/14/20 Rx Allergies Allergy/AdvReac Type Severity Reaction Status Date / Time Penicillins Allergy Rash/Hives Verified 05/14/20 14:41 Physical Exam Vitals: Vital Signs Temp Pulse Resp BP BP Pulse Ox 05/21/20 04:00 97.8 F 98 18 106/64 95 05/21/20 00:00 97.7 F 78 16 104/65 98 05/20/20 19:36 97.3 F L 97 19 116/63 100 05/20/20 15:08 97.5 F L 76 16 115/63 96 05/20/20 13:34 86 16 05/20/20 12:01 97.6 F 86 16 104/55 96 Intake and Output 05/20/20 05/21/20 05/21/20 22:59 06:59 14:59 Output Total 900 Balance -900 Output: Urine 900 Other: Voiding Method Bedside Commode Bedside Commode Diaper Diaper External Catheter External Catheter Weight 113.1 kg - Constitutional General appearance: average body habitus, cooperative, no acute distress - EENT Eyes: anicteric sclerae, EOMI ENT: hearing grossly normal, normal oropharynx - Neck Neck: no lymphadenopathy - Respiratory Respiratory: bilateral: CTA - Cardiovascular Rhythm: regular Heart sounds: normal: S1, S2 Abnormal Heart Sounds: no systolic murmur, no diastolic murmur, no rub, no S3 Gallop, no S4 Gallop, no click, no other - Gastrointestinal General gastrointestinal: no absent bowel sounds, no decreased bowel sounds, no distended, no hepatomegaly, no hyperactive bowel sounds, normal bowel sounds, no organomegaly, no rigid, no scaphoid, soft, no splenomegaly, no tenderness, no umbilical hernia, no ventral hernia - Integumentary Integumentary: normal - Neurologic Neurologic: CNII-XII intact - Musculoskeletal Musculoskeletal: generalized weakness, strength equal bilaterally - Psychiatric Psychiatric: A&O x's 3, appropriate affect, intact judgment & insight Results CBC & Chem 7: 05/21/20 07:56 05/20/20 06:52 Labs: Abnormal Lab Results - Last 24 Hours (Table) 05/20/20 05/20/20 05/20/20 Range/Units 06:52 17:21 20:00 Hgb 11.0 L (11.4-16.0) gm/dL Hct 32.5 L (34.0-46.0) % MCV 78.3 L (80.0-100.0) fL RDW 19.8 H (11.5-15.5) % Plt Count 78 L D (150-450) k/uL POC Glucose (mg/dL) 156 H 151 H (75-99) mg/dL Microbiology - Last 24 Hours (Table) 05/14/20 13:14 Blood Culture - Final Blood No Growth after 144 hours 05/14/20 13:14 Blood Culture - Final Blood No Growth after 144 hours Assessment and Plan (1) Waldenstrom's macroglobulinemia with kappa light chains Narrative/Plan: Pt follows with Dr. Cordon as scheduled. Cont on f/u as sched Current Visit: No Status: Chronic Priority: Medium Code(s): C88.0 - WALDENSTROM MACROGLOBULINEMIA SNOMED Code(s): 648449071 (2) Atrial fibrillation with RVR Narrative/Plan: Acute on chronic 2/2 surgery, infection. On eliqius. Dr. Cordon discussed with Cardiology. Ok for anticoagulation if plt>50,000. Pt baseline is >50,000. Cont to have platelet monitored Current Visit: Yes Status: Acute Priority: High Code(s): I48.91 - UNSPECIFIED ATRIAL FIBRILLATION SNOMED Code(s): 409270831849610 (3) Chronic ITP (idiopathic thrombocytopenia) Narrative/Plan: Baseline labs from office show plt baseline has been >50,000. Exacerbation would be expected post op, acute illness and pt is on marrow suppressing agents 2/2 autoimmune disease. Her Plt are> 50K, ok for anticoagulation. Pt is to hold this weeks methotrexate dose-she takes on Tuesday- and to resume next Fiday. This was told to her and documented in pt instructions. Current Visit: Yes Status: Chronic Priority: Medium Code(s): D69.3 - IMMUNE THROMBOCYTOPENIC PURPURA SNOMED Code(s): 02633905 (4) History of laparoscopic cholecystectomy Narrative/Plan: Per Surgery Current Visit: Yes Status: Acute Priority: High Code(s): Z90.49 - ACQUIRED ABSENCE OF OTHER SPECIFIED PARTS OF DIGESTIVE TRACT SNOMED Code(s): 919840515 Plan: Attests: I have seen pt, performed H&P and developed impression and plan of care. Discussed with dictator. Agree with documentation, documented as a scribe.
--- NOTE | 2020-05-21 14:14 | P.PN ---
Subjective Progress Note Date: 05/21/20 HISTORY OF PRESENT ILLNESS: This is a pleasant 65-year-old -[place] female past medical history significant for nonischemic cardiomyopathy status post AICD ([employer]), history of ventricular tachycardia, chronic systolic heart failure, persistent atrial fibrillation status post pulmonary vein isolation but no further ablation secondary to low EF, diabetes mellitus, hypertension, dyslipidemia, pulmonary hypertension and rheumatoid arthritis. She follows in the office with Dr. Samayoa. We have been asked to see in consultation for atrial fibrillation with RVR. She is s/p cholecystectomy 05/[address] Gaitan. She presented to the hospital with symptoms of lower abdominal pain and cramping. EKG on arrival was afib with RVR. She was started on IV cardizem infusion. Currently her rates are 80-90s. Blood pressure 92/68. She denies chest pain, shortness of breath, d izziness or palpitations. She states she has been taking her eliquis since the day after surgery. Current daily home medications include Eliquis 5 mg twice a day, aspirin 81 mg daily, Lasix 40 mg in the morning, Toprol 25 mg daily, simvastatin 10 mg daily, Aldactone 25 mg daily and lisinopril 2.5 mg at bedtime. Most recent echocardiogram obtained July 2019 revealed severely impaired LV systolic function with ejection fraction 25-30%, severely dilated left atrium, mild to moderate MR, mild to moderate TR and severe pulmonary hypertension with an RVSP of 70 mmHg. Laboratory data reviewed, WBC 4.3, hemoglobin 11.7, platelets 56, sodium 138, potassium 3.8, creatinine 0.94, magnesium 1.3, cardiac enzymes negative 1 and lactic acid on admission 2.4. 05/16/2020 Pt is seen and examined sitting up in bed eating breakfast. She states her abdominal pain is improving. Surgery is providing supportive care with no plans for any further intervention. She denies chest pain, shortness of breath, dizz iness or palpitations. Blood pressure 91/55 heart rate 97 afebrile and maintaining oxygen saturation on room air. Laboratory data reviewed, sodium 136, potassium 3.2 and magnesium 1.4. 05/17/20 Patient seen and examined. No chest pain or pressure. Believes LE edema is somewhat improved. 05/18/2020 Patient examined this morning at the bedside. She denies chest pain or pressure. She states her shortness of breath is improving. She also reports improvement in lower extremity edema. Platelet count 36. Magnesium 1.4. Blood pressure 111/70. Heart rate in the 80s. 05/19/2020 Patient examined this morning. She is sitting up in the chair. She reports her shortness of breath is improving. She denies chest pain or pressure. 05/20/2020 Patient examined this morning at the bedside. She denies chest pain or pressure. Reports minimal shortness of breath. She remains on oral Lasix and Aldactone. Patient's aspirin and Eliquis was discontinued secondary to patient's platelets been in the 30s. Her platelets are currently 78 this morning. Magnesium 1.2. Platelet count 71. Patient has been evaluated by hematology and has been cleared to resume anticoagulation. 05/21/2020 Patient examined this morning at the bedside. She denies chest pain or pressure. She states her shortness of breath has improved. She remains on oral Lasix and Aldactone. Magnesium 1.5. PHYSICAL EXAM: VITAL SIGNS: Reviewed. GENERAL: Well-developed in no acute distress. NECK: Supple. No JVD or thyromegaly LUNGS: Respirations even and unlabored. Lungs diminished bilaterally. HEART: Irregular rate and rhythm. S1 and S2 heard. Systolic murmur noted EXTREMITIES: Normal range of motion. No clubbing or cyanosis. Peripheral pulses intact. 1+ bilateral lower extremity edema ASSESSMENT: Chronic persistent atrial fibrillation with rapid ventricular rate on Eliquis status post pulmonary vein isolation Abdominal pain as colitis noted on CT Acute on chronic systolic heart failure Hypomagnesemia Thrombocytopenia Lactic acidosis Nonischemic cardiomyopathy status post AICD History of nonsustained ventricular tachycardia Hypertension Diabetes mellitus Dyslipidemia Rheumatoid arthritis PLAN: Patient has been evaluated by hematology and has been cleared to resume anticoagulation Resume aspirin 81 mg daily and Eliquis 5 mg twice a day Decrease Lasix to daily dosing Continue to monitor platelet count Continue current cardiac medications Replace magnesium Further recommendations pending patient's course Nurse practitioner note has been reviewed by physician. Signing provider agrees with the documented findings, assessment, and plan of care. Objective - Vital Signs Vital signs: Vital Signs Temp 97.7 F 05/21/20 12:00 Pulse 88 05/21/20 12:00 Resp 16 05/21/20 12:00 BP 104/64 05/21/20 12:00 Pulse Ox 97 05/21/20 12:00 Intake & Output 05/20/20 05/21/20 05/21/20 18:59 06:59 18:59 Intake Total 480 1220 Output Total 1000 700 Balance -520 -700 1220 Weight 113.1 kg Intake: Intake, IV Titration 300 Amount Magnesium Sulfate-D5w Pmx 300 1 gm In Dextrose/Water 1 100ml.bag @ 100 mls/hr IVPB Q1H [facility] Rx#: [id number] Oral 480 920 Output: Urine 1000 700 Other: Voiding Method Bedside Commode Bedside Commode Diaper Diaper External Catheter External Catheter - Labs CBC & Chem 7: 05/21/20 07:56 05/20/20 06:52 Labs: Abnormal Lab Results - Last 24 Hours (Table) 05/20/20 05/20/20 05/21/20 Range/Units 17:21 20:00 07:56 Hct (34.0-46.0) % MCV (80.0-100.0) fL RDW (11.5-15.5) % Plt Count (150-450) k/uL POC Glucose (mg/dL) 156 H 151 H (75-99) mg/dL Magnesium 1.5 L (1.6-2.3) mg/dL 05/21/20 05/21/20 Range/Units 07:56 11:26 Hct 33.7 L (34.0-46.0) % MCV 78.6 L (80.0-100.0) fL RDW 19.6 H (11.5-15.5) % Plt Count 71 L (150-450) k/uL POC Glucose (mg/dL) 298 H (75-99) mg/dL Magnesium (1.6-2.3) mg/dL Microbiology - Last 24 Hours (Table) 05/14/20 13:14 Blood Culture - Final Blood No Growth after 144 hours 05/14/20 13:14 Blood Culture - Final Blood No Growth after 144 hours
--- NOTE | 2020-05-21 14:33 | P.PN ---
Subjective Progress Note Date: 05/21/20 CHIEF COMPLAINT: Abdominal pain HISTORY OF PRESENT ILLNESS: Patient seen and examined with Dr. Tran. Patient is being followed by surgical service due to drainage from her umbilicus incision. Patient is no longer having drainage from her incision site. She is followed by cardiology is currently on diuretics for fluid overload. Patient reports that she is feeling better. She denies any abdominal pain. Afebrile. WBC 4.4 hemoglobin 11.5 platelets 71. Patient seen by hematology regarding her thrombocytopenia PHYSICAL EXAM: VITAL SIGNS: Reviewed. GENERAL: Well-developed in no acute distress. HEENT: No sclera icterus. Extraocular movements grossly intact. Moist buccal mucosa. Head is atraumatic, normocephalic. ABDOMEN: Soft. Nondistended. Nontender. NEUROLOGIC: Alert and oriented. Cranial nerves II through XII grossly intact. ASSESSMENT: 1. Abdominal pain improved 2. Clear drainage from umbilicus incision site likely due to fluid overload. Now resolved. No evidence of infection 3. Recent laparoscopic cholecystectomy on 05/07/2020 PLAN: -Continue supportive care -No surgical intervention planned -patient can be discharge from surgical standpoint when cleared by medicine service Physician Geriatrics Physician note has been reviewed by physician. Signing provider agrees with the documented findings, assessment, and plan of care. Objective - Vital Signs Vital signs: Vital Signs Temp 97.7 F 05/21/20 12:00 Pulse 88 05/21/20 12:00 Resp 16 05/21/20 12:00 BP 104/64 05/21/20 12:00 Pulse Ox 97 05/21/20 12:00 Intake & Output 05/20/20 05/21/20 05/21/20 18:59 06:59 18:59 Intake Total 480 1780 Output Total 1000 700 Balance -520 -700 1780 Weight 113.1 kg Intake: Intake, IV Titration 300 Amount Magnesium Sulfate-D5w Pmx 300 1 gm In Dextrose/Water 1 100ml.bag @ 100 mls/hr IVPB Q1H [facility] Rx#: [id number] Oral 480 1480 Output: Urine 1000 700 Other: Voiding Method Bedside Commode Bedside Commode Diaper Diaper External Catheter External Catheter - Labs CBC & Chem 7: 05/21/20 07:56 05/20/20 06:52 Labs: Abnormal Lab Results - Last 24 Hours (Table) 03/12/0205/20/20 05/21/20 Range/Units 17:21 20:00 07:56 Hct (34.0-46.0) % MCV (80.0-100.0) fL RDW (11.5-15.5) % Plt Count (150-450) k/uL POC Glucose (mg/dL) 156 H 151 H (75-99) mg/dL Magnesium 1.5 L (1.6-2.3) mg/dL 05/21/20 05/21/20 Range/Units 07:56 11:26 Hct 33.7 L (34.0-46.0) % MCV 78.6 L (80.0-100.0) fL RDW 19.6 H (11.5-15.5) % Plt Count 71 L (150-450) k/uL POC Glucose (mg/dL) 298 H (75-99) mg/dL Magnesium (1.6-2.3) mg/dL Microbiology - Last 24 Hours (Table) 05/14/20 13:14 Blood Culture - Final Blood No Growth after 144 hours 05/14/20 13:14 Blood Culture - Final Blood No Growth after 144 hours
[2020-05-21 15:07] VITALS: BMI 32.8
[2020-05-21] MEDS: ASPIRIN 81 MG PO SCH (15:15)
[2020-05-21] MEDS: APIXABAN 5 MG TAB PO SCH ×2 (15:15→20:37)
[2020-05-21 16:53] LABS: Glucose,Whole Blood 171 mg/dL (75-99)
--- NOTE | 2020-05-21 17:52 | PN ---
PROGRESS NOTE DATE OF SERVICE: 05/21/2020 CHIEF COMPLAINT: General debility and failure to thrive. HISTORY OF PRESENT ILLNESS: This lady is currently waiting for potential discharge to rehab. She is now having some difficulty swallowing. PHYSICAL EXAMINATION: She remains pale. Chest is clear. Cardiac exam is normal. The abdomen is soft, nontender. IMPRESSION: 1. Dysphagia. 2. General debility, weakness and failure to thrive. 3. Diabetes. 4. Waldenstrom's macroglobulinemia. PLAN: 1. Swallow study. 2. Continue waiting on discharge plan. MMODL / IJN: [id number] /
[2020-05-21 20:35] VITALS: RESP 18
[2020-05-21 20:35] LABS: Glucose,Whole Blood 222 mg/dL (75-99)
[2020-05-21] MEDS: ATORVASTATIN 10 MG TAB PO SCH (20:37)
[2020-05-22 06:14] LABS: Glucose,Whole Blood 101 mg/dL (75-99)
[2020-05-22] MEDS: INSULIN ASPART (NovoLOG) 100 UNIT/ML VIAL SQ SCH ×2 (07:39→09:27)
[2020-05-22] MEDS ORDERED: FUROSEMIDE 40 MG TAB PO SCH (09:00)
[2020-05-22] MEDS: PREGABALIN 100 MG CAP PO SCH (09:27)
[2020-05-22] MEDS: SPIRONOLACTONE 25 MG TAB PO SCH (09:28)
[2020-05-22] MEDS: DIGOXIN 125 MCG TAB PO SCH (09:28)
[2020-05-22] MEDS: allopurinoL 100 MG TAB PO SCH (09:28)
[2020-05-22] MEDS: MONTELUKAST 10 MG TAB PO SCH (09:28)
[2020-05-22] MEDS: APIXABAN 5 MG TAB PO SCH (09:28)
[2020-05-22] MEDS: SERTRALINE 100 MG TAB PO SCH (09:28)
[2020-05-22] MEDS: ASPIRIN 81 MG PO SCH (09:28)
[2020-05-22] MEDS: FOLIC ACID 1 MG TAB PO SCH (09:31)
[2020-05-22] MEDS: METOPROLOL SUCCINATE (ER) 25 MG TAB.ER.24H PO SCH (09:32)
[2020-05-22 09:57] LABS: Anisocytosis Slight; Basophils % (A) 1 %; Eosinophils # (A) 0.2 k/uL (0-0.7); Eosinophils % (A) 5 %; HCT 33.4 % (34.0-46.0); HGB 11.5 gm/dL (11.4-16.0); Lymphocytes # (A) 1.3 k/uL (1.0-4.8); Lymphocytes % (A) 37 %; MCH 26.7 pg (25.0-35.0); MCHC 34.4 g/dL (31.0-37.0); MCV 77.7 fL (80.0-100.0); Mean Platelet Volume 11.6; Microcytosis Slight; Monocytes # (A) 0.1 k/uL (0-1.0); Monocytes % (A) 2 %; Neutrophils % (A) 55 %; Poikilocytosis Slight; RDW 19.8 % (11.5-15.5); WBC 3.6 k/uL (3.8-10.6)
[2020-05-22 10:03] LABS: Platelet Count 64 k/uL (150-450)
--- NOTE | 2020-05-22 11:42 | DS ---
DISCHARGE SUMMARY CHIEF COMPLAINT: Shortness of breath, weakness and malaise. HISTORY OF PRESENT ILLNESS AND PHYSICAL EXAM: Details of this lady's history and physical can be found in the initial workup. LABORATORY STUDIES: While she was in the hospital she had laboratory studies, details of which can be found in the laboratory section of her chart. COURSE IN THE HOSPITAL: After admission, she was placed on bedrest, started on intravenous fluids and seen by Cardiology for her atrial fibrillation and high ventricular response rate. This was gradually brought down. However, she continued to remain very weak and unable to ambulate. She lives alone. It was clear that she was going to require rehab and this was arranged. She will be going to [facility]. FINAL DIAGNOSES: 1. Atrial fibrillation with rapid ventricular response. 2. Chronic atrial fibrillation. 3. Poorly controlled insulin dependent diabetes mellitus. 4. General debility and weakness. 5. Waldenstrom's macroglobulinemia. OPERATIONS: None. CONSULTATION: Cardiology. She is improved. MMODL / IJN: [id number] /
[2020-05-22 12:15] LABS: Glucose,Whole Blood 105 mg/dL (75-99)
--- NOTE | 2020-05-22 12:55 | P.PN ---
Subjective Progress Note Date: 05/22/20 CHIEF COMPLAINT: Abdominal pain HISTORY OF PRESENT ILLNESS: Patient seen and examined with Dr. Tran. Patient is being followed by surgical service due to drainage from her umbilicus incision. Patient is no longer having drainage from her incision site. She is followed by cardiology is currently on diuretics for fluid overload. Patient reports that she is feeling better. She denies any abdominal pain. Afebrile. WBC 3.6 platelets pending. Patient seen by hematology regarding her thrombocyt openia. Patient had been complaining of difficulty swallowing she is being seen by speech therapy. PHYSICAL EXAM: VITAL SIGNS: Reviewed. GENERAL: Well-developed in no acute distress. HEENT: No sclera icterus. Extraocular movements grossly intact. Moist buccal mucosa. Head is atraumatic, normocephalic. ABDOMEN: Soft. Nondistended. Nontender. NEUROLOGIC: Alert and oriented. Cranial nerves II through XII grossly intact. ASSESSMENT: 1. Abdominal pain improved 2. Clear drainage from umbilicus incision site likely due to fluid overload. Now resolved. No evidence of infection 3. Recent laparoscopic cholecystectomy on 05/07/2020 PLAN: -Continue supportive care -No surgical intervention planned -patient can be discharge from surgical standpoint when cleared by medicine service Physician Computer Service Technician note has been reviewed by physician. Signing provider agrees with the documented findings, assessment, and plan of care. Objective - Vital Signs Vital signs: Vital Signs Temp 97.2 F L 05/22/20 09:20 Pulse 98 05/22/20 09:20 Resp 18 05/22/20 09:20 BP 121/76 05/22/20 09:20 Pulse Ox 99 05/22/20 09:20 Intake & Output 05/21/20 05/22/20 05/22/20 18:59 06:59 18:59 Intake Total 2580 118 Output Total 0 Balance 2580 118 Weight 113.1 kg 103 kg Intake: Intake, IV Titration 300 Amount Magnesium Sulfate-D5w Pmx 300 1 gm In Dextrose/Water 1 100ml.bag @ 100 mls/hr IVPB Q1H [facility] Rx#: [id number] Oral 2280 118 Output: Stool 0 Other: Voiding Method Bedside Commode Bedside Commode Bedside Commode Diaper Diaper Diaper External Catheter External Catheter # Voids 1 # Bowel Movements 1 - Labs CBC & Chem 7: 05/22/20 08:51 05/20/20 06:52 Labs: Abnormal Lab Results - Last 24 Hours (Table) 05/21/20 05/21/20 05/22/20 Range/Units 16:50 20:34 06:13 WBC (3.8-10.6) k/uL Hct (34.0-46.0) % MCV (80.0-100.0) fL RDW (11.5-15.5) % POC Glucose (mg/dL) 171 H 222 H 101 H (75-99) mg/dL 05/22/20 05/22/20 Range/Units 08:51 12:11 WBC 3.6 L (3.8-10.6) k/uL Hct 33.4 L (34.0-46.0) % MCV 77.7 L (80.0-100.0) fL RDW 19.8 H (11.5-15.5) % POC Glucose (mg/dL) 105 H (75-99) mg/dL
--- NOTE | 2020-05-22 13:48 | P.PN ---
Subjective Progress Note Date: 05/22/20 Principal diagnosis: choley, sore throat, WM, thrombocytopenia on anticoagulation In f/u pt doing ok, she is being evaluated by speech therapy for dysphagia, denies any bleeding Objective - Vital Signs Vital signs: Vital Signs Temp 97.2 F L 05/22/20 09:20 Pulse 98 05/22/20 09:20 Resp 18 05/22/20 09:20 BP 121/76 05/22/20 09:20 Pulse Ox 99 05/22/20 09:20 Intake & Output 05/21/20 05/22/20 05/22/20 18:59 06:59 18:59 Intake Total 2580 118 Output Total 0 Balance 2580 118 Weight 113.1 kg 103 kg Intake: Intake, IV Titration 300 Amount Magnesium Sulfate-D5w Pmx 300 1 gm In Dextrose/Water 1 100ml.bag @ 100 mls/hr IVPB Q1H MIRZA Rx#: [id number] Oral 2280 118 Output: Stool 0 Other: Voiding Method Bedside Commode Bedside Commode Bedside Commode Diaper Diaper Diaper External Catheter External Catheter # Voids 1 # Bowel Movements 1 - Constitutional General appearance: Present: average body habitus, cooperative, no acute distres s - EENT Eyes: Present: anicteric sclerae, EOMI ENT: Present: hearing grossly normal - Respiratory Details: resp rima and unlabored - Peripheral edema leg Peripheral Edema: bilateral: None - Musculoskeletal Musculoskeletal: Present: generalized weakness - Psychiatric Psychiatric: Present: A&O x's 3, appropriate affect, intact judgment & insight - Labs CBC & Chem 7: 05/22/20 08:51 05/20/20 06:52 Labs: Abnormal Lab Results - Last 24 Hours (Table) 05/21/20 05/21/20 05/22/20 Range/Units 16:50 20:34 06:13 WBC (3.8-10.6) k/uL Hct (34.0-46.0) % MCV (80.0-100.0) fL RDW (11.5-15.5) % POC Glucose (mg/dL) 171 H 222 H 101 H (75-99) mg/dL 05/22/20 05/22/20 Range/Units 08:51 12:11 WBC 3.6 L (3.8-10.6) k/uL Hct 33.4 L (34.0-46.0) % MCV 77.7 L (80.0-100.0) fL RDW 19.8 H (11.5-15.5) % POC Glucose (mg/dL) 105 H (75-99) mg/dL Assessment and Plan (1) Waldenstrom's macroglobulinemia with kappa light chains Narrative/Plan: Pt follows with Dr. Cordon as scheduled. Cont on f/u as sched Current Visit: No Status: Chronic Priority: Medium Code(s): C88.0 - WA LDENSTROM MACROGLOBULINEMIA SNOMED Code(s): 174717509 (2) Atrial fibrillation with RVR Narrative/Plan: Acute on chronic 2/2 surgery, infection. On eliqius. Dr. Cordon discussed with Cardiology. Ok for anticoagulation if plt>50,000. Pt baseline is >50,000. Cont to have platelet monitored Current Visit: Yes Status: Acute Priority: High Code(s): I48.91 - UNSPECIFIED ATRIAL FIBRILLATION SNOMED Code(s): 683483630104484 (3) Chronic ITP (idiopathic thrombocytopenia) Narrative/Plan: Baseline labs from office show plt baseline has been >50,000. Exacerbation would be expected post op, acute illness and pt is on marrow suppressing agents 2/2 autoimmune disease. Her Plt are> 50K, ok for anticoagulation. Pending results from today. Pt is to hold this weeks methotrexate dose-she takes on Tuesday- and to resume next Fiday. This was told to her and documented in pt instructions. Pt instructed to monitor for s/s bleeding and to contact Dr. Cordon's ofc for lab draw if concerned. She verbalized understanding. Current Visit: Yes Status: Chronic Priority: Medium Code(s): D69.3 - IMMUNE THROMBOCYTOPENIC PURPURA SNOMED Code(s): 67236904 (4) History of laparoscopic cholecystectomy Current Visit: Yes Status: Acute Priority: High Code(s): Z90.49 - ACQUIRED ABSENCE OF OTHER SPECIFIED PARTS OF DIGESTIVE TRACT SNOMED Code(s): 869842239
--- NOTE | 2020-05-22 14:05 | P.PN ---
Subjective Progress Note Date: 05/22/20 HISTORY OF PRESENT ILLNESS: This is a pleasant 65-year-old -[place] female past medical history significant for nonischemic cardiomyopathy status post AICD ([employer]), history of ventricular tachycardia, chronic systolic heart failure, persistent atrial fibrillation status post pulmonary vein isolation but no further ablation secondary to low EF, diabetes mellitus, hypertension, dyslipidemia, pulmonary hypertension and rheumatoid arthritis. She follows in the office with Dr. Samayoa. We have been asked to see in consultation for atrial fibrillation with RVR. She is s/p cholecystectomy 05/[address] Gaitan. She presented to the hospital with symptoms of lower abdominal pain and cramping. EKG on arrival was afib with RVR. She was started on IV cardizem infusion. Currently her rates are 80-90s. Blood pressure 92/68. She denies chest pain, shortness of breath, d izziness or palpitations. She states she has been taking her eliquis since the day after surgery. Current daily home medications include Eliquis 5 mg twice a day, aspirin 81 mg daily, Lasix 40 mg in the morning, Toprol 25 mg daily, simvastatin 10 mg daily, Aldactone 25 mg daily and lisinopril 2.5 mg at bedtime. Most recent echocardiogram obtained July 2019 revealed severely impaired LV systolic function with ejection fraction 25-30%, severely dilated left atrium, mild to moderate MR, mild to moderate TR and severe pulmonary hypertension with an RVSP of 70 mmHg. Laboratory data reviewed, WBC 4.3, hemoglobin 11.7, platelets 56, sodium 138, potassium 3.8, creatinine 0.94, magnesium 1.3, cardiac enzymes negative 1 and lactic acid on admission 2.4. 05/16/2020 Pt is seen and examined sitting up in bed eating breakfast. She states her abdominal pain is improving. Surgery is providing supportive care with no plans for any further intervention. She denies chest pain, shortness of breath, dizz iness or palpitations. Blood pressure 91/55 heart rate 97 afebrile and maintaining oxygen saturation on room air. Laboratory data reviewed, sodium 136, potassium 3.2 and magnesium 1.4. 05/17/20 Patient seen and examined. No chest pain or pressure. Believes LE edema is somewhat improved. 05/18/2020 Patient examined this morning at the bedside. She denies chest pain or pressure. She states her shortness of breath is improving. She also reports improvement in lower extremity edema. Platelet count 36. Magnesium 1.4. Blood pressure 111/70. Heart rate in the 80s. 05/19/2020 Patient examined this morning. She is sitting up in the chair. She reports her shortness of breath is improving. She denies chest pain or pressure. 05/20/2020 Patient examined this morning at the bedside. She denies chest pain or pressure. Reports minimal shortness of breath. She remains on oral Lasix and Aldactone. Patient's aspirin and Eliquis was discontinued secondary to patient's platelets been in the 30s. Her platelets are currently 78 this morning. Magnesium 1.2. Platelet count 71. Patient has been evaluated by hematology and has been cleared to resume anticoagulation. 05/21/2020 Patient examined this morning at the bedside. She denies chest pain or pressure. She states her shortness of breath has improved. She remains on oral Lasix and Aldactone. Magnesium 1.5. 05/22/2020 Patient examined this morning is bedside. She denies chest pain or pressure. She denies shortness of breath. She has been resumed on aspirin and Eliquis. Vital signs are stable. PHYSICAL EXAM: VITAL SIGNS: Reviewed. GENERAL: Well-developed in no acute distress. NECK: Supple. No JVD or thyromegaly LUNGS: Respirations even and unlabored. Lungs diminished bilaterally. HEART: Irregular rate and rhythm. S1 and S2 heard. Systolic murmur noted EXTREMITIES: Normal range of motion. No clubbing or cyanosis. Peripheral pulses intact. 1+ bilateral lower extremity edema ASSESSMENT: Chronic persistent atrial fibrillation with rapid ventricular rate on Eliquis status post pulmonary vein isolation Abdominal pain as colitis noted on CT Acute on chronic systolic heart failure Hypomagnesemia Thrombocytopenia Lactic acidosis Nonischemic cardiomyopathy status post AICD History of nonsustained ventricular tachycardia Hypertension Diabetes mellitus Dyslipidemia Rheumatoid arthritis PLAN: Patient has been evaluated by hematology and has been cleared to resume anticoagulation Continue aspirin and Eliquis Continue current dosage of Aldactone and Lasix Continue digoxin. Obtain dig level tomorrow morning. Patient stable for discharge today from a cardiac standpoint. Nurse practitioner note has been reviewed by physician. Signing provider agrees with the documented findings, assessment, and plan of care. Objective - Vital Signs Vital signs: Vital Signs Temp 97.2 F L 05/22/20 09:20 Pulse 98 05/22/20 09:20 Resp 18 05/22/20 09:20 BP 121/76 05/22/20 09:20 Pulse Ox 99 05/22/20 09:20 Intake & Output 05/21/20 05/22/20 05/22/20 18:59 06:59 18:59 Intake Total 2580 118 Output Total 0 Balance 2580 118 Weight 113.1 kg 103 kg Intake: Intake, IV Titration 300 Amount Magnesium Sulfate-D5w Pmx 300 1 gm In Dextrose/Water 1 100ml.bag @ 100 mls/hr IVPB Q1H MIRZA Rx#: [id number] Oral 2280 118 Output: Stool 0 Other: Voiding Method Bedside Commode Bedside Commode Bedside Commode Diaper Diaper Diaper External Catheter External Catheter # Voids 1 # Bowel Movements 1 - Labs CBC & Chem 7: 05/22/20 08:51 05/20/20 06:52 Labs: Abnormal Lab Results - Last 24 Hours (Table) 05/21/20 05/21/20 05/22/20 Range/Units 16:50 20:34 06:13 WBC (3.8-10.6) k/uL Hct (34.0-46.0) % MCV (80.0-100.0) fL RDW (11.5-15.5) % POC Glucose (mg/dL) 171 H 222 H 101 H (75-99) mg/dL 05/22/20 05/22/20 Range/Units 08:51 12:11 WBC 3.6 L (3.8-10.6) k/uL Hct 33.4 L (34.0-46.0) % MCV 77.7 L (80.0-100.0) fL RDW 19.8 H (11.5-15.5) % POC Glucose (mg/dL) 105 H (75-99) mg/dL
[2020-05-22 15:00] LABS: Target Cells Present
[2020-05-22 15:48] VITALS: BP 133/64; PULSE 76; TEMP 97.6
[2020-05-23] MEDS ORDERED: MAGNESIUM OXIDE 400 MG TAB PO SCH (09:00)
== END 2020-05-22 15:58 | DRG 308 ==
LOC: EC 11:29 → 3SCARD 13:57
PROVIDERS: ADMIT Family Medicine; ATTEND Family Medicine
DX: I48.19 Other persistent atrial fibrillation (principal); I50.23 Acute on chronic systolic (congestive) heart failure; E87.2 Acidosis; D69.3 Immune thrombocytopenic purpura; R18.8 Other ascites; I47.2 Ventricular tachycardia; I27.20 Pulmonary hypertension, unspecified; C88.0 Waldenstrom macroglobulinemia; E11.36 Type 2 diabetes mellitus with diabetic cataract; I95.9 Hypotension, unspecified; I42.8 Other cardiomyopathies; E11.40 Type 2 diabetes mellitus with diabetic neuropathy, unspecified; I11.0 Hypertensive heart disease with heart failure; M06.9 Rheumatoid arthritis, unspecified; M35.00 Sjogren syndrome, unspecified; Z79.4 Long term (current) use of insulin; Z20.822 Contact with and (suspected) exposure to COVID-19; K76.0 Fatty (change of) liver, not elsewhere classified; H26.9 Unspecified cataract; R62.7 Adult failure to thrive; I08.3 Combined rheumatic disorders of mitral, aortic and tricuspid valves; K52.9 Noninfective gastroenteritis and colitis, unspecified; E83.42 Hypomagnesemia; E87.6 Hypokalemia; E78.5 Hyperlipidemia, unspecified; E86.0 Dehydration; R49.0 Dysphonia; M10.9 Gout, unspecified; M79.7 Fibromyalgia; R13.10 Dysphagia, unspecified; D64.9 Anemia, unspecified; R47.81 Slurred speech; Z79.01 Long term (current) use of anticoagulants; Z79.82 Long term (current) use of aspirin; Z79.899 Other long term (current) drug therapy; Z87.891 Personal history of nicotine dependence; Z92.21 Personal history of antineoplastic chemotherapy; Z87.19 Personal history of other diseases of the digestive system; Z95.810 Presence of automatic (implantable) cardiac defibrillator; Z90.49 Acquired absence of other specified parts of digestive tract; Z90.710 Acquired absence of both cervix and uterus; Z87.42 Personal history of other diseases of the female genital tract; Z87.39 Personal history of other diseases of the musculoskeletal system and connective tissue; Z98.890 Other specified postprocedural states; Z88.0 Allergy status to penicillin; Z86.79 Personal history of other diseases of the circulatory system; Z80.7 Family history of other malignant neoplasms of lymphoid, hematopoietic and related tissues; Z84.1 Family history of disorders of kidney and ureter; Z85.72 Personal history of non-Hodgkin lymphomas; Z87.01 Personal history of pneumonia (recurrent)
CPT/HCPCS: 36415; 74018; 74177; 80048; 80053; 80069; 81001; 82150; 82550; 83605; 83690; 83735; 84132; 84484; 85025; 85027; 85610; 85730; 87040; 87635; 93005; 96365; 96366; 96368; 96375; 96376; 99285

== ENCOUNTER 2020-07-22 22:40 | Inpatient (IN) | payer MEDICARE ==
[2020-07-22] MEDS ORDERED: SODIUM CHLORIDE 0.9% 1,000 ML IV STA (23:46)
[2020-07-22] MEDS ORDERED: SODIUM CHLORIDE 0.9% 500 ML 500 ML IV STA (23:46)
[2020-07-22] MEDS ORDERED: MORPHINE SULFATE 4 MG/ML SYRINGE IVP STA (23:48)
[2020-07-22] MEDS ORDERED: ONDANSETRON 4 MG/2 ML VIAL IVP STA (23:48)
--- NOTE | 2020-07-22 23:49 | ED ---
Nausea/Vomiting/Diarrhea HPI - General Chief complaint: Abdominal Pain Stated complaint: Abd Pain Time Seen by Provider: 07/22/20 23:06 Source: patient, RN notes reviewed, old records reviewed Mode of arrival: wheelchair Limitations: no limitations - History of Present Illness Initial comments: This is a 65-year-old female DF for persistent nausea vomiting weakness. Patient does not feel well some generalized abdominal pain. No recent travel history sick contacts.. Patient denies possibility of coronavirus, no fevers. Patient Dese is having nausea vomiting diarrhea and abdominal pain MD complaint: nausea, vomiting, diarrhea, abdominal pain -: days(s) Description of Vomiting: food contents Description of Diarrhea: water Associated Abdominal Pain: Yes Location: diffuse, epigastric Radiation: none Severity: moderate Severity scale (1-10): 6 Quality: cramping, aching Consistency: constant Improves with: none Associated Symptoms: loss of appetite, nausea/vomiting, weakness - Related Data Home Medications Medication Instructions Recorded Confirmed Ergocalciferol [Vitamin D2 50,000 unit PO TH 03/05/17 05/14/20 (DRISDOL)] Folic Acid 1 mg PO QAM 03/05/17 05/14/20 Furosemide [Lasix] 40 mg PO QAM 03/05/17 05/14/20 Hydroxychloroquine Sulfate 200 mg PO BID 03/05/17 05/14/20 [Plaquenil] Insulin Aspart Protam & Aspart 10 unit SQ AC-BRKFST 03/05/17 05/14/20 [NovoLOG MIX 70-30 Flexpen] Montelukast [Singulair] 10 mg PO DAILY 03/05/17 05/14/20 Sertraline [Zoloft] 100 mg PO BID 03/05/17 05/14/20 Simvastatin [Zocor] 10 mg PO HS 03/05/17 05/14/20 lisinopriL [Zestril] 2.5 mg PO HS 03/05/17 05/14/20 metHOTREXate sodium [Methotrexate] 20 mg PO FR 03/05/17 05/14/20 Aspirin [Adult Low Dose Aspirin EC] 81 mg PO DAILY 09/13/18 05/14/20 Albuterol Sulfate [Ventolin HFA] 2 puff INHALATION RT-QID PRN 07/27/19 05/14/20 Apixaban [Eliquis] 5 mg PO BID 07/27/19 05/14/20 allopurinoL [Zyloprim] 100 mg PO QAM 07/27/19 05/14/20 Insulin Aspart Protam & Aspart 12 unit SQ AC-SUPPER 01/21/20 05/14/20 [NovoLOG MIX 70-30 Flexpen] Metoprolol Succinate [Toprol XL] 25 mg PO QAM 01/21/20 05/14/20 calcitrioL [Rocaltrol] 0.25 mcg PO TU 01/21/20 05/14/20 Hydrocortisone Cream 1 applic TOPICAL BID PRN 05/05/20 05/14/20 [Hydrocortisone 2.5% Cream] Pregabalin [Lyrica] 300 mg PO BID 05/05/20 05/14/20 Triamcinolone 0.5% Cream [Kenalog 1 applic TOPICAL BID PRN 05/05/20 05/14/20 0.5% Cream] hydrOXYzine HCL 25 mg PO TID PRN 05/05/20 05/14/20 Previous Rx's Medication Instructions Recorded Acetaminophen Tab [Tylenol] 650 mg PO Q6H PRN #30 tablet 05/09/20 Digoxin [Lanoxin] 125 mcg PO DAILY tab 05/22/20 Magnesium Oxide [Mag-Ox] 400 mg PO DAILY #100 tab 05/22/20 Spironolactone [Aldactone] 50 mg PO DAILY tab 05/22/20 Allergies Allergy/AdvReac Type Severity Reaction Status Date / Time Penicillins Allergy Rash/Hives Verified 07/22/20 22:45 Review of Systems ROS Statement: Those systems with pertinent positive or pertinent negative responses have been documented in the HPI. ROS Other: All systems not noted in ROS Statement are negative. Past Medical History Past Medical History: Atrial Fibrillation, Heart Failure, Diabetes Mellitus, Eye Disorder, Fibromyalgia, Hyperlipidemia, Hypertension, Rheumatoid Arthritis (RA), Syncope Additional Past Medical History / Comment(s): Pt recently admitted to [facility] on 05/08/20 with abdominal pain/cholecystectomy. Other hx: Nonischemic cardiomyopathy/Vtach/AICD, murmur, IDDM type II, neuropathy bilateral feet, hypoglycemic episodes with syncope in past, 2006 waldenstrom macroglobulinemia (type of nonhodgkins lymphoma) with chemo and plasma treatment and had to be on hemodialysis for a brief time, sjogrens, lupus, gout, anemia, bilateral cataracts. History of Any Multi-Drug Resistant Organisms: None Reported Past Surgical History: AICD, Cardiac Ablation, Cholecystectomy, Hysterectomy, Orthopedic Surgery Additional Past Surgical History / Comment(s): Recent cholecystectomy, 2008 AICD with gen change in 2013, cardiac ablations, L toe surgery d/t RA, R wrist and R thigh cystectomy, spacer placed on vocal cord. Past Anesthesia/Blood Transfusion Reactions: No Reported Reaction, Motion Sickness Additional Past Anesthesia/Blood Transfusion Reaction / Comment(s): Pt has recieved blood in past without reaction. Type of Cardiac Device: AICD Device Placement Date:: 2007 device with gen change 2013. Past Psychological History: No Psychological Hx Reported Smoking Status: Former smoker Past Alcohol Use History: None Reported Past Drug Use History: None Reported - Past Family History Mother Family Medical History: Cancer Additional Family Medical History / Comment(s): Mother from multiple myeloma Father Family Medical History: Renal Disease Additional Family Medical History / Comment(s): Father of renal failure. General Exam Limitations: no limitations General appearance: alert, in no apparent distress, anxious Head exam: Present: atraumatic, normocephalic, normal inspection Eye exam: Present: normal appearance, PERRL, EOMI. Absent: scleral icterus, conjunctival injection, periorbital swelling ENT exam: Present: normal exam, mucous membranes dry Neck exam: Present: normal inspection. Absent: tenderness, meningismus, lymphadenopathy Respiratory exam: Present: normal lung sounds bilaterally. Absent: respiratory distress, wheezes, rales, rhonchi, stridor Cardiovascular Exam: Present: normal rhythm, tachycardia, normal heart sounds. Absent: systolic murmur, diastolic murmur, rubs, gallop, clicks GI/Abdominal exam: Present: soft, normal bowel sounds. Absent: distended, tenderness, guarding, rebound, rigid Extremities exam: Present: normal inspection, full ROM, normal capillary refill. Absent: tenderness, pedal edema, joint swelling, calf tenderness Back exam: Present: normal inspection Neurological exam: Present: alert, oriented X3, CN II-XII intact Psychiatric exam: Present: normal affect, normal mood Skin exam: Present: warm, dry, intact, normal color. Absent: rash Course Vital Signs 07/22/20 07/23/20 22:41 04:07 Temperature 97.4 F L Pulse Rate 114 H 108 H Respiratory 20 16 Rate Blood Pressure 121/80 112/72 O2 Sat by Pulse 100 98 Oximetry - Reevaluation(s) Reevaluation #1: 07/23/20 04:49 Medical record is reviewed Reevaluation #2: 07/23/20 04:49 Patient feels improved here in the ER Reevaluation #3: 07/23/20 04:49 Spoke with patient regarding findings and questions are answered - Consultations Consultation #1: Spoke with Dr. Abbasi who agrees to admit the patient Medical Decision Making - Medical Decision Making 55 female to be admitted, patient be admitted for nausea vomiting diarrhea and abdominal pain. - Lab Data Result diagrams: 07/23/20 01:00 07/23/20 01:00 Lab Results 07/23/20 07/23/20 07/23/20 Range/Units 01:00 01:00 01:00 WBC 3.5 L (3.8-10.6) k/uL RBC 5.02 (3.80-5.40) m/uL Hgb 12.6 (11.4-16.0) gm/dL Hct 38.9 (34.0-46.0) % MCV 77.3 L (80.0-100.0) fL MCH 25.2 (25.0-35.0) pg MCHC 32.5 (31.0-37.0) g/dL RDW 20.0 H (11.5-15.5) % Plt Count 115 L D (150-450) k/uL MPV 11.6 Neutrophils % 42 % Lymphocytes % 44 % Monocytes % 7 % Eosinophils % 3 % Basophils % 2 % Neutrophils # 1.4 (1.3-7.7) k/uL Lymphocytes # 1.5 (1.0-4.8) k/uL Monocytes # 0.2 (0-1.0) k/uL Eosinophils # 0.1 (0-0.7) k/uL Basophils # 0.1 (0-0.2) k/uL Poikilocytosis Slight Anisocytosis Slight Microcytosis Slight Sodium 138 (137-145) mmol/L Potassium 3.0 L (3.5-5.1) mmol/L Chloride 103 (98-107) mmol/L Carbon Dioxide 24 (22-30) mmol/L Anion Gap 11 mmol/L BUN 4 L (7-17) mg/dL Creatinine 1.13 H (0.52-1.04) mg/dL Est GFR (CKD-EPI)AfAm 59 (>60 ml/min/1.73 sqM) Est GFR (CKD-EPI)NonAf 51 (>60 ml/min/1.73 sqM) Glucose 134 H (74-99) mg/dL Plasma Lactic Acid Sunny 2.2 H* (0.7-2.0) mmol/L Calcium 9.6 (8.4-10.2) mg/dL Total Bilirubin 1.8 H (0.2-1.3) mg/dL AST 27 (14-36) U/L ALT 9 (4-34) U/L Alkaline Phosphatase 127 H (38-126) U/L Lactate Dehydrogenase 906 H (313-618) U/L Troponin I (0.000-0.034) ng/mL C-Reactive Protein 1.8 H (<1.0) mg/dL Total Protein 8.0 (6.3-8.2) g/dL Albumin 4.0 (3.5-5.0) g/dL Amylase 33 (30-110) U/L Lipase 32 (23-300) U/L 07/23/20 Range/Units 01:00 WBC (3.8-10.6) k/uL RBC (3.80-5.40) m/uL Hgb (11.4-16.0) gm/dL Hct (34.0-46.0) % MCV (80.0-100.0) fL MCH (25.0-35.0) pg MCHC (31.0-37.0) g/dL RDW (11.5-15.5) % Plt Count (150-450) k/uL MPV Neutrophils % % Lymphocytes % % Monocytes % % Eosinophils % % Basophils % % Neutrophils # (1.3-7.7) k/uL Lymphocytes # (1.0-4.8) k/uL Monocytes # (0-1.0) k/uL Eosinophils # (0-0.7) k/uL Basophils # (0-0.2) k/uL Poikilocytosis Anisocytosis Microcytosis Sodium (137-145) mmol/L Potassium (3.5-5.1) mmol/L Chloride (98-107) mmol/L Carbon Dioxide (22-30) mmol/L Anion Gap mmol/L BUN (7-17) mg/dL Creatinine (0.52-1.04) mg/dL Est GFR (CKD-EPI)AfAm (>60 ml/min/1.73 sqM) Est GFR (CKD-EPI)NonAf (>60 ml/min/1.73 sqM) Glucose (74-99) mg/dL Plasma Lactic Acid Sunny (0.7-2.0) mmol/L Calcium (8.4-10.2) mg/dL Total Bilirubin (0.2-1.3) mg/dL AST (14-36) U/L ALT (4-34) U/L Alkaline Phosphatase (38-126) U/L Lactate Dehydrogenase (313-618) U/L Troponin I 0.015 (0.000-0.034) ng/mL C-Reactive Protein (<1.0) mg/dL Total Protein (6.3-8.2) g/dL Albumin (3.5-5.0) g/dL Amylase (30-110) U/L Lipase (23-300) U/L - Radiology Data Radiology results: report reviewed (CT abdomen and pelvis negative for acute disease), image reviewed Disposition Clinical Impression: Abdominal pain, Hypomagnesemia, Weakness, Hypokalemia, Pancreatitis Disposition: ADMITTED IP TO THIS [facility] Condition: Fair Is patient prescribed a controlled substance at d/c from ED?: No
[2020-07-23 02:02] LABS: Anisocytosis Slight; Basophils # (A) 0.1 k/uL (0-0.2); Basophils % (A) 2 %; Eosinophils # (A) 0.1 k/uL (0-0.7); Eosinophils % (A) 3 %; HCT 38.9 % (34.0-46.0); HGB 12.6 gm/dL (11.4-16.0); Lymphocytes # (A) 1.5 k/uL (1.0-4.8); Lymphocytes % (A) 44 %; MCH 25.2 pg (25.0-35.0); MCHC 32.5 g/dL (31.0-37.0); MCV 77.3 fL (80.0-100.0); Mean Platelet Volume 11.6; Microcytosis Slight; Monocytes # (A) 0.2 k/uL (0-1.0); Monocytes % (A) 7 %; Neutrophils # (A) 1.4 k/uL (1.3-7.7); Neutrophils % (A) 42 %; Poikilocytosis Slight; RBC 5.02 m/uL (3.80-5.40); WBC 3.5 k/uL (3.8-10.6)
[2020-07-23 02:03] LABS: Platelet Count 115 k/uL (150-450)
[2020-07-23 02:16] LABS: C Reactive Protein 1.8 mg/dL (<1.0); Calcium 9.6 mg/dL (8.4-10.2); Total Bilirubin 1.8 mg/dL (0.2-1.3)
[2020-07-23] MEDS ORDERED: FAMOTIDINE 20 MG/2 ML VIAL IV STA (02:32)
[2020-07-23] MEDS ORDERED: methylPREDNISolone SOD SUCCI 125 MG/2 ML VIAL IV STA (02:32)
[2020-07-23] MEDS ORDERED: diphenhydrAMINE 50 MG/ML 1 ML VIAL IVP STA (02:32)
--- NOTE | 2020-07-23 02:53 | CT ---
EXAM: CT Abdomen and Pelvis With Intravenous Contrast CLINICAL HISTORY: ITS.REASON CT Reason: pain TECHNIQUE: Axial computed tomography images of the abdomen and pelvis with intravenous contrast. CTDI is 29.17 mGy and DLP is 1470 mGy-cm. This CT exam was performed using one or more of the following dose reduction techniques: automated exposure control, adjustment of the mA and/or kV according to patient size, and/or use of iterative reconstruction technique. COMPARISON: CT abdomen and pelvis dated 05/14/2020 FINDINGS: Lung bases: Unremarkable. ABDOMEN: Liver: Hepatic steatosis. Gallbladder and bile ducts: Gallbladder surgically absent. Pancreas: Suspected mild pancreatic and peripancreatic edema which suggests acute pancreatitis. Correlate with serum amylase and lipase. Spleen: Unremarkable. Adrenals: Unremarkable. Kidneys and ureters: Unremarkable. Stomach and bowel: Colonic diverticulosis. PELVIS: Appendix: Appendix is prominent measuring up to 11 mm, which is unchanged. No definite evidence of acute appendicitis. Bladder: Question mild wall thickening of the urinary bladder with adjacent stranding. Reproductive: Unremarkable as visualized. ABDOMEN and PELVIS: Intraperitoneal space: Mild ascites. Bones/joints: No acute fracture. No dislocation. Soft tissues: Anasarca. Vasculature: Vascular calcifications. Lymph nodes: Prominent mesenteric and retroperitoneal lymph nodes which may be reactive. Tubes, lines and devices: Heart is enlarged. Trace pericardial effusion. Cardiac pacemaker/AICD is noted. IMPRESSION: 1. Suspected mild pancreatic and peripancreatic edema which suggests acute pancreatitis. Correlate with serum amylase and lipase. 2. Question mild wall thickening of the urinary bladder with adjacent stranding. Question acute cystitis. Correlate with urinalysis.
[2020-07-23] MEDS ORDERED: SODIUM CHLORIDE 0.9% 1,000 ML IV STA (03:31)
[2020-07-23] MEDS ORDERED: SODIUM CHLORIDE 0.9% 500 ML 500 ML IV STA (03:31)
[2020-07-23] MEDS ORDERED: ONDANSETRON 4 MG/2 ML VIAL IVP PRN (03:36)
[2020-07-23] MEDS ORDERED: NALOXONE 0.4 MG/ML 1 ML VIAL IV PRN (03:36)
[2020-07-23] MEDS ORDERED: POTASSIUM CHLORIDE 20 MEQ in WATER FOR INJECTION 1 100ML.BAG IVPB ONE (03:45)
[2020-07-23] MEDS ORDERED: HYDROmorphone 1 MG/ML 1 ML SYRINGE IVP STA (03:50)
[2020-07-23] MEDS: HYDROmorphone 1 MG/ML 1 ML SYRINGE IVP PRN (06:29)
[2020-07-23 06:47] LABS: Glucose,Whole Blood 122 mg/dL (75-99)
[2020-07-23] MEDS: POTASSIUM CHLORIDE 20 MEQ in WATER FOR INJECTION 1 100ML.BAG IVPB SCH ×4 (08:07→12:54)
[2020-07-23] MEDS: PANTOPRAZOLE 40 MG/10 ML VIAL IV SCH (10:08)
[2020-07-23] MEDS ORDERED: ALBUTEROL HFA INHALER INHALATION PRN (10:32)
[2020-07-23] MEDS ORDERED: HYDROCORTISONE 1% CREAM 30 GM TUBE TOPICAL PRN (10:32)
[2020-07-23] MEDS: SODIUM CHLORIDE 0.9% 1,000 ML IV SCH ×3 (11:11→22:07)
--- NOTE | 2020-07-23 15:01 | HP ---
HISTORY AND PHYSICAL CHIEF COMPLAINT: Nausea, vomiting, diarrhea. HISTORY OF PRESENT ILLNESS: This is another admission for this 65-year-old, female who is chronically ill. She has a collagen vascular disease (Waldenstrom's macroglobulinemia). She also is insulin dependent diabetes. Her ability to maintain herself at home is marginal. She started developing nausea, vomiting, diarrhea, and came to the emergency room. There she was found to be dehydrated. Her potassium and magnesium were low. Blood sugar was normal. She has had no hematemesis, fever, chills, abdominal pain, hematochezia, etc. REVIEW OF SYSTEMS: She has had no other issues lately including neurologic problems, chest pain, fever, chills, urinary complaints, etc. Past medical history, family history, personal and social histories are all otherwise unremarkable and noncontributory and unchanged from her recent admitting and discharge summaries. PHYSICAL EXAMINATION: Blood pressure is 116/65 with a pulse of 74, and irregularly irregular. Respirations were 33 and she is afebrile. In general, she appeared to be weak and dehydrated. Skin was slightly pale and skin was dry. Head, ears, eyes, nose, mouth and throat were normal except for dry mucous membranes. Neck was supple. Chest is clear. There were only occasional rales. Cardiac exam demonstrated what sounded like atrial fibrillation. Abdomen is soft and slightly protuberant. She was not tender. Bowel sounds were heard. There is no visceromegaly. Extremities are normal except for the chronic skin changes on the lower anterior legs. Neurologically she was lethargic, but intact. IMPRESSION: She is admitted to the hospital diagnoses: 1. Intractable nausea and vomiting with diarrhea. 2. Probable viral gastroenteritis. 3. Dehydration. 4. Hypokalemia. 5. Hypomagnesemia. 6. Insulin-dependent diabetes mellitus. 7. Waldenstrom's macroglobulinemia. PLAN: 1. Bedrest. 2. IV fluids. 3. Antiemetics and antidiarrheals. MMODL / IJN: [id number] /
[2020-07-23 16:28] LABS: Glucose,Whole Blood 101 mg/dL (75-99)
[2020-07-23] MEDS: INSULN ASP PRT/INSULIN ASPART 100 UNIT/ML 10 ML VIAL SQ SCH (17:01)
[2020-07-23 20:56] LABS: Glucose,Whole Blood 97 mg/dL (75-99)
[2020-07-23] MEDS: HYDROXYCHLOROQUINE SULFATE 200 MG TAB PO SCH (21:43)
[2020-07-23] MEDS: APIXABAN 5 MG TAB PO SCH (21:43)
[2020-07-24] MEDS: SODIUM CHLORIDE 0.9% 1,000 ML IV SCH ×3 (04:48→10:11)
[2020-07-24 05:56] LABS: Anisocytosis Slight; HCT 35.5 % (34.0-46.0); Hypochromasia Marked; MCH 26.7 pg (25.0-35.0); MCV 86.2 fL (80.0-100.0); Mean Platelet Volume 8.9; Platelet Count 137 k/uL (150-450); Poikilocytosis Slight; RBC 4.12 m/uL (3.80-5.40); RDW 19.8 % (11.5-15.5)
[2020-07-24 06:27] LABS: Neutrophils % (M) 71 %; Nucleated Red Blood Cells 1 /100 WBC (0-0); Total Cells Counted 200
[2020-07-24 06:28] LABS: Anisocytosis (M) Present; Lymphocytes # (M) 1.54 k/uL (1.0-4.8); Monocytes # (M) 0.49 k/uL (0-1.0); Neutrophils # (M) 4.97 k/uL (1.3-7.7); Poikilocytosis (M) Present
[2020-07-24 06:29] LABS: Polychromasia Present; Target Cells Present; Tear Drop Cells Present
[2020-07-24 06:39] LABS: AST 76 U/L (14-36); African American GFR (CKD) 31 (>60 ml/min/1.73 sqM); Albumin 3.3 g/dL (3.5-5.0); Albumin/Globulin Ratio 0.9; Alkaline Phosphatase 119 U/L (38-126); Blood Urea Nitrogen 5 mg/dL (7-17); Calcium 8.4 mg/dL (8.4-10.2); Chloride 111 mmol/L (98-107); Globulin 3.7 g/dL; Glucose 75 mg/dL (74-99); Lipase <10 U/L (23-300); Magnesium 1.1 mg/dL (1.6-2.3); Non-African American GFR(CKD) 27 (>60 ml/min/1.73 sqM); Phosphorus 6.1 mg/dL (2.5-4.5); Potassium 4.9 mmol/L (3.5-5.1); Sodium 140 mmol/L (137-145); Total Bilirubin 3.5 mg/dL (0.2-1.3)
[2020-07-24 06:44] LABS: Anion Gap 20 mmol/L
[2020-07-24] MEDS ORDERED: DEXTROSE 50% SYRINGE 50 ML IVP ONE (07:02)
[2020-07-24 07:06] LABS: Glucose,Whole Blood 68 mg/dL (75-99)
[2020-07-24 07:11] LABS: Glucose,Whole Blood 86 mg/dL (75-99)
[2020-07-24 07:18] LABS: Carbon Dioxide 9 mmol/L (22-30)
[2020-07-24 07:19] LABS: ALT 20 U/L (4-34)
[2020-07-24] MEDS: HYDROmorphone 1 MG/ML 1 ML SYRINGE IVP PRN (07:28)
--- NOTE | 2020-07-24 07:46 | P.EN ---
I responded to a rapid response team called by nursing staff with concerns about hypotension and elevated lactic acid. Upon arrival to the room, patient was awake and alert. She was moaning but was unable to pinpoint any pain. She did not have any specific complaints. She is oriented 3. Nursing staff informed me that her blood pressure is been running in the 80s over 50s and patient did not produce any urine overnight. Her heart rate currently is in the 110s. No documented fever. Her abdomen is soft and nontender. According to nursing staff, patient received a liter and a half a fluid bolus overnight and another 2 L during the day yesterday. I ordered the Harp catheter insertion with minimal urine return. While I was in the room nursing staff current call from lab informing them the carbon dioxide was 9. I reviewed her morning and noted that patient was in acute kidney injury with severe metabolic acidosis. I reviewed her electronic chart and noticed that patient presented to the emergency room with nonspecific abdominal pain associated with nausea and vomiting. CAT scan was done on presentation showing evidence of acute pancreatitis with suspected acute cystitis. Urinalysis was not collected on admission. I would start the patient empirically on meropenem to cover both possible intra-abdominal infection and UTI. Infectious disease consulted by primary team. Also start the patient on a bicarbonate drip and consult nephrology for further evaluation of oliguric acute kidney injury. Patient has a history of Waldenstrom macroglobulinemia. Patient will be transferred to ICU for close monitoring. Nursing staff notified attending physician.
[2020-07-24] MEDS ORDERED: DEXTROSE 5% IN WATER 1,000 ML with SODIUM BICARB (1 MEQ/ML) 100 ML IV SCH (08:00)
[2020-07-24 08:08] LABS: Glucose,Whole Blood 120 mg/dL (75-99)
[2020-07-24] MEDS: MAGNESIUM SULFATE-D5W PMX 1 GM in DEXTROSE/WATER 1 100ML.BAG IVPB SCH ×2 (08:19→09:42)
[2020-07-24 08:33] LABS: VBG PH 7.17 (7.31-7.41)
--- NOTE | 2020-07-24 09:28 | XR ---
EXAMINATION TYPE: XR chest 1V portable DATE OF EXAM: 07/24/2020 HISTORY: Shortness of breath. COMPARISON: 07/29/2019 TECHNIQUE: Single view of the chest is submitted. FINDINGS: Demonstrated are scattered senescent parenchymal change. Left lower lobe infiltrate. Correlate for underlying pneumonia. The heart is stable. Hilar and mediastinal structures are within normal limits. Degenerative changes are seen of the dorsal spine. IMPRESSION: 1. Left lower lobe infiltrate. Correlate for underlying pneumonia.
[2020-07-24] MEDS: INSULN ASP PRT/INSULIN ASPART 100 UNIT/ML 10 ML VIAL SQ SCH ×2 (09:34→18:06)
[2020-07-24] MEDS: DEXTROSE 5% IN WATER 1,000 ML with SODIUM BICARB (1 MEQ/ML) 150 ML IV SCH ×2 (10:00→10:12)
[2020-07-24] MEDS ORDERED: SODIUM CHLORIDE 0.9% 1,000 ML IV ONE (10:00)
[2020-07-24] MEDS: APIXABAN 5 MG TAB PO SCH ×2 (10:03→10:08)
[2020-07-24] MEDS: HYDROXYCHLOROQUINE SULFATE 200 MG TAB PO SCH ×2 (10:08→20:07)
[2020-07-24] MEDS: MAGNESIUM OXIDE 400 MG TAB PO SCH (10:08)
[2020-07-24] MEDS: PANTOPRAZOLE 40 MG/10 ML VIAL IV SCH (10:10)
[2020-07-24] MEDS: MEROPENEM 1 GM in SODIUM CHLORIDE 0.9% 100 ML IVPB SCH ×2 (10:52→21:04)
[2020-07-24] MEDS ORDERED: MAGNESIUM SULFATE-D5W PMX 1 GM in DEXTROSE/WATER 1 100ML.BAG IVPB ONE (11:08)
[2020-07-24] MEDS: INSULIN ASPART (NovoLOG) 100 UNIT/ML VIAL SQ SCH ×3 (12:08→20:22)
[2020-07-24 12:09] LABS: Glucose,Whole Blood 120 mg/dL (75-99)
[2020-07-24 12:22] LABS: AST 129 U/L (14-36); African American GFR (CKD) 27 (>60 ml/min/1.73 sqM); Albumin 3.6 g/dL (3.5-5.0); Alkaline Phosphatase 135 U/L (38-126); Amylase <30 U/L (30-110); Blood Urea Nitrogen 5 mg/dL (7-17); Calcium 8.1 mg/dL (8.4-10.2); Chloride 113 mmol/L (98-107); Glucose 122 mg/dL (74-99); Lipase <10 U/L (23-300); Non-African American GFR(CKD) 24 (>60 ml/min/1.73 sqM); Potassium 4.3 mmol/L (3.5-5.1); Sodium 146 mmol/L (137-145); Total Bilirubin 3.9 mg/dL (0.2-1.3); Total Protein 7.5 g/dL (6.3-8.2)
--- NOTE | 2020-07-24 12:25 | P.CNPUL ---
History of Present Illness Consult date: 07/24/20 Requesting physician: Eleazar Coe Reason for consult: other Chief complaint: Hypotension, confusion History of present illness: This is a 65-year-old white female patient with multiple chronic medical problems including chronic A. fib on Eliquis, chronic CHF, diabetes mellitus type 2, nonischemic cardiomyopathy, status post AICD placement hypertension, hyperlipidemia, rheumatoid arthritis, Sjogren's, lupus, fibromyalgia, history of Waldenstrom macroglobulinemia previously treated with chemotherapy, former smoker, who presented to the emergency department on 07/22/2020 with complaints of nausea vomiting and weakness. Patient was also having some generalized abdominal pain. He denied any fevers. Denies any sick contacts, she tested negative for Coronavirus. CT of the abdomen and pelvis was completed showing suspected mild pancreatic and. Pancreatic edema suggesting acute pancreatitis. Questionable mild wall thickening of the urinary bladder with adjacent stranding worsening acute cystitis. Patient has been afebrile, blood pressures were initially in the low 100s systolic over 80s diastolic, she has been on room air and not requiring any supplemental oxygen. Her admission lab work positive for leukopenia with white blood cell count of 3.5, hemoglobin was 12.6, platelet count was 115, sodium is 138, potassium 3.0, chloride is 103, CO2 24, B1 of 4, creatinine is 1.13, patient had a significantly elevated lactic acid that initially was at 2.2 and was steadily on the rise over the course of 24 hours, and this morning was up to 11.6. The patient was noted to be more hypotensive, quite tachycardic, more confused, and anuric. She has received 3 L of fluid boluses yesterday in the emergency department, this morning she is receiving an additional 1 L IV bolus. She was started on meropenem for suspicion of sepsis with septic shock. Blood cultures urine culture and urinalysis have been sent and pending, chest x-ray has been ordered, patient has been transferred to the density of care unit where we are seeing the patient in consultation. She is awake, but she is confused, she is on room air pulse ox is 99%, her first liter bolus is still infusing, her blood pressure is systolic in the low 100s, she remains tachycardic in atrial fibrillation with a rate of 120 BPM, appears to be in no acute distress, chest x-ray is pending, cultures have been sent, meropenem started, this morning his blood work reviewed and BMP showed CO2 of only 9, worsening renal function with BUN of 5 and creatinine 1.91. Magnesium was 1.1, total bilirubin is 3.5, AST 76, ALT is 20, alkaline phosphatase is 119, lipase was initially at 32 and is currently at less than 10, amylase was within normal limits at 33. Abdomen is soft, nontender. Patient has been started on D5 with 3 A of bicarbonate at 150 ML per hour, venous blood gas was obtained showing bicarbonate concentration of 6, pCO2 of 18, and pH of 7.17. Review of Systems All systems: negative Constitutional: Denies chills, Denies fever Eyes: denies blurred vision, denies pain Ears, nose, mouth and throat: Denies headache, Denies sore throat Cardiovascular: Denies chest pain, Denies shortness of breath Respiratory: Denies cough Gastrointestinal: Reports abdominal pain, Reports diarrhea, Reports nausea, Reports vomiting Genitourinary: Denies dysuria, Denies hematuria Musculoskeletal: Denies myalgias Integumentary: Denies pruritus, Denies rash Neurological: Reports change in mentation, Denies numbness, Denies weakness Psychiatric: Denies anxiety, Denies depression Endocrine: Denies fatigue, Denies weight change Past Medical History Past Medical History: Atrial Fibrillation, Heart Failure, Diabetes Mellitus, Eye Disorder, Fibromyalgia, Hyperlipidemia, Hypertension, Rheumatoid Arthritis (RA), Syncope Additional Past Medical History / Comment(s): Pt recently admitted to [facility] on 05/08/20 with abdominal pain/cholecystectomy. Other hx: Nonischemic cardiomyopathy/Vtach/AICD, murmur, IDDM type II, neuropathy bilateral feet, hypoglycemic episodes with syncope in past, 2006 waldenstrom macroglobulinemia (type of nonhodgkins lymphoma) with chemo and plasma treatment and had to be on hemodialysis for a brief time, sjogrens, lupus, gout, anemia, bilateral cataracts. History of Any Multi-Drug Resistant Organisms: None Reported Past Surgical History: AICD, Cardiac Ablation, Cholecystectomy, Hysterectomy, Orthopedic Surgery Additional Past Surgical History / Comment(s): Recent cholecystectomy, 2007 AICD with gen change in 2013, cardiac ablations, L toe surgery d/t RA, R wrist and R thigh cystectomy, spacer placed on vocal cord. Past Anesthesia/Blood Transfusion Reactions: No Reported Reaction, Motion Sickness Additional Past Anesthesia/Blood Transfusion Reaction / Comment(s): Pt has recieved blood in past without reaction. Type of Cardiac Device: AICD Device Placement Date:: 2007 device with gen change 2013. Past Psychological History: No Psychological Hx Reported Additional Psychological History / Comment(s): Pt resides with her spouse. She recently has been using a walker. She has not driven in 2 years, her family drives. Smoking Status: Former smoker Past Alcohol Use History: None Reported Additional Past Alcohol Use History / Comment(s): Pt smoked from [id number]. Past Drug Use History: None Reported - Past Family History Mother Family Medical History: Cancer Additional Family Medical History / Comment(s): Mother from multiple myeloma Father Family Medical History: Renal Disease Additional Family Medical History / Comment(s): Father of renal failure. Medications and Allergies Home Medications Medication Instructions Recorded Confirmed Type Ergocalciferol [Vitamin D2 50,000 unit PO TH 03/05/17 07/23/20 History (ROCIO)] Folic Acid 1 mg PO QAM 03/05/17 07/23/20 History Furosemide [Lasix] 40 mg PO QAM 03/05/17 07/23/20 History Hydroxychloroquine Sulfate 200 mg PO BID 03/05/17 07/23/20 History [Plaquenil] Insulin Aspart Protam & Aspart 10 unit SQ AC-BRKFST 03/05/17 07/23/20 History [NovoLOG MIX 70-30 Flexpen] Montelukast [Singulair] 10 mg PO DAILY 03/05/17 07/23/20 History Sertraline [Zoloft] 100 mg PO BID 03/05/17 07/23/20 History Simvastatin [Zocor] 10 mg PO HS 03/05/17 07/23/20 History lisinopriL [Zestril] 2.5 mg PO HS 03/05/17 07/23/20 History metHOTREXate sodium [Methotrexate] 20 mg PO FR 03/05/17 07/23/20 History Aspirin [Adult Low Dose Aspirin EC] 81 mg PO DAILY 09/13/18 07/23/20 History Albuterol Sulfate [Ventolin HFA] 2 puff INHALATION RT-QID PRN 07/27/19 07/23/20 History Apixaban [Eliquis] 5 mg PO BID 07/27/19 07/23/20 History allopurinoL [Zyloprim] 100 mg PO QAM 07/27/19 07/23/20 History Insulin Aspart Protam & Aspart 12 unit SQ AC-SUPPER 01/21/20 07/23/20 History [NovoLOG MIX 70-30 Flexpen] Metoprolol Succinate [Toprol XL] 25 mg PO QAM 01/21/20 07/23/20 History calcitrioL [Rocaltrol] 0.25 mcg PO TU 01/21/20 07/23/20 History Hydrocortisone Cream 1 applic TOPICAL BID PRN 05/05/20 07/23/20 History [Hydrocortisone 2.5% Cream] Pregabalin [Lyrica] 300 mg PO BID 05/05/20 07/23/20 History Triamcinolone 0.5% Cream [Kenalog 1 applic TOPICAL BID PRN 05/05/20 07/23/20 History 0.5% Cream] hydrOXYzine HCL 25 mg PO TID PRN 05/05/20 07/23/20 History Acetaminophen Tab [Tylenol] 650 mg PO Q6H PRN #30 tablet 05/09/20 07/23/20 Rx Digoxin [Lanoxin] 125 mcg PO DAILY tab 05/22/20 07/23/20 Rx Magnesium Oxide [Mag-Ox] 400 mg PO DAILY #100 tab 05/22/20 07/23/20 Rx Spironolactone [Aldactone] 50 mg PO DAILY tab 05/22/20 07/23/20 Rx Allergies Allergy/AdvReac Type Severity Reaction Status Date / Time Penicillins Allergy Rash/Hives Verified 07/23/20 07:09 Physical Exam Vitals: Vital Signs Temp Pulse Pulse Resp BP BP Pulse Ox 07/24/20 11:00 113 H 15 117/94 99 07/24/20 10:30 111 H 12 102/86 98 07/24/20 10:00 112 H 16 97/52 98 07/24/20 09:30 116 H 13 89/71 98 07/24/20 09:00 116 H 9 L 104/86 99 07/24/20 08:50 112 H 18 104/86 99 07/24/20 08:40 123 H 16 104/86 99 07/24/20 08:30 122 H 20 96/58 99 07/24/20 08:20 112 H 15 96/58 99 07/24/20 08:10 97.4 F L 110 H 12 76/48 100 07/24/20 08:06 112 H 16 07/24/20 07:00 67 15 95/41 07/24/20 01:43 97.8 F 121 H 19 120/62 96 07/23/20 22:11 97.6 F 125 H 24 105/71 07/23/20 19:20 98.6 F 111 H 15 100/58 91 L Intake and Output 07/23/20 07/24/20 07/24/20 22:59 06:59 14:59 Intake Total 1500 2200 Output Total 30 Balance 1500 2170 Intake: Intake, IV Titration 1500 2200 Amount Magnesium Sulfate-D5w Pmx 200 1 gm In Dextrose/Water 1 100ml.bag @ 100 mls/hr IVPB Q1H MIRZA Rx#: [id number] Sodium Chloride 0.9% 1, 1500 000 ml @ 125 mls/hr IV . Q8H MIRZA Rx#:[id number] Sodium Chloride 0.9% 1, 2000 000 ml @ 999 mls/hr IV . Q1H1M MIRZA Rx#:[id number] Oral 0 Output: Urine 30 Other: # Voids 0 1 GENERAL EXAM: Awake, but confused, on room air with pulse ox of 99%, appears to be in no acute distress, but hypotensive and tachycardic, receiving fluid boluses, comfortable in no apparent distress. HEAD: Normocephalic/atraumatic. EYES: Normal reaction of pupils, equal size. Conjunctiva pink, sclera white. NOSE: Clear with pink turbinates. THROAT: No erythema or exudates. NECK: No masses, no JVD, no thyroid enlargement, no adenopathy. CHEST: No chest wall deformity. Symmetrical expansion. LUNGS: Equal air entry with no crackles, wheeze, rhonchi or dullness. CVS: Regular rate and rhythm, normal S1 and S2, no gallops, no murmurs, no rubs ABDOMEN: Soft, nontender. No hepatosplenomegaly, normal bowel sounds, no guarding or rigidity. EXTREMITIES: No clubbing, no edema, no cyanosis, 2+ pulses and upper and lower extremities. MUSCULOSKELETAL: Muscle strength and tone normal. SPINE: No scoliosis or deformity SKIN: No rashes CENTRAL NERVOUS SYSTEM: Alert, but confused, No focal deficits, tone is normal in all 4 extremities. Results - Laboratory Findings CBC and BMP: 07/24/20 05:16 07/24/20 05:16 PT/INR, D-dimer D-Dimer 1.54 mg/L FEU (<0.60) H 07/24/20 05:31 Abnormal lab findings: Abnormal Labs 07/23/20 07/23/20 07/23/20 01:00 01:00 01:00 WBC 3.5 L Hgb MCV 77.3 L RDW 20.0 H Plt Count 115 L D Nucleated RBCs D-Dimer VBG pH VBG pCO2 VBG HCO3 Potassium 3.0 L Chloride Carbon Dioxide BUN 4 L Creatinine 1.13 H Glucose 134 H POC Glucose (mg/dL) Plasma Lactic Acid Sunny 2.2 H* Phosphorus Magnesium Total Bilirubin 1.8 H AST Alkaline Phosphatase 127 H Lactate Dehydrogenase 906 H C-Reactive Protein 1.8 H Albumin Lipase 07/23/20 07/23/20 07/23/20 05:03 06:45 09:44 WBC Hgb MCV RDW Plt Count Nucleated RBCs D-Dimer VBG pH VBG pCO2 VBG HCO3 Potassium Chloride Carbon Dioxide BUN Creatinine Glucose POC Glucose (mg/dL) 122 H Plasma Lactic Acid Sunny 2.2 H* 2.9 H* Phosphorus Magnesium Total Bilirubin AST Alkaline Phosphatase Lactate Dehydrogenase C-Reactive Protein Albumin Lipase 07/23/20 07/23/20 07/23/20 12:50 16:05 16:25 WBC Hgb MCV RDW Plt Count Nucleated RBCs D-Dimer VBG pH VBG pCO2 VBG HCO3 Potassium Chloride Carbon Dioxide BUN Creatinine Glucose POC Glucose (mg/dL) 101 H Plasma Lactic Acid Sunny 2.8 H* 3.6 H* Phosphorus Magnesium Total Bilirubin AST Alkaline Phosphatase Lactate Dehydrogenase C-Reactive Protein Albumin Lipase 07/23/20 07/23/20 07/24/20 19:07 22:00 01:05 WBC Hgb MCV RDW Plt Count Nucleated RBCs D-Dimer VBG pH VBG pCO2 VBG HCO3 Potassium Chloride Carbon Dioxide BUN Creatinine Glucose POC Glucose (mg/dL) Plasma Lactic Acid Sunny 5.0 H* 6.0 H* 8.0 H* Phosphorus Magnesium Total Bilirubin AST Alkaline Phosphatase Lactate Dehydrogenase C-Reactive Protein Albumin Lipase 07/24/20 07/24/20 07/24/20 05:16 05:16 05:16 WBC Hgb 11.0 L MCV RDW 19.8 H Plt Count 137 L Nucleated RBCs 1 H D-Dimer VBG pH VBG pCO2 VBG HCO3 Potassium Chloride 111 H Carbon Dioxide 9 L* BUN 5 L Creatinine 1.91 H Glucose POC Glucose (mg/dL) Plasma Lactic Acid Sunny 11.1 H* Phosphorus 6.1 H Magnesium 1.1 L Total Bilirubin 3.5 H AST 76 H Alkaline Phosphatase Lactate Dehydrogenase C-Reactive Protein Albumin 3.3 L Lipase <10 L 07/24/20 07/24/20 07/24/20 05:16 05:31 07:01 WBC Hgb MCV RDW Plt Count Nucleated RBCs D-Dimer 1.54 H VBG pH VBG pCO2 VBG HCO3 Potassium Chloride Carbon Dioxide BUN Creatinine Glucose POC Glucose (mg/dL) 68 L Plasma Lactic Acid Sunny Phosphorus Magnesium Total Bilirubin AST Alkaline Phosphatase Lactate Dehydrogenase C-Reactive Protein Albumin Lipase <10 L 07/24/20 07/24/20 07/24/20 08:06 08:18 08:23 WBC Hgb MCV RDW Plt Count Nucleated RBCs D-Dimer VBG pH 7.17 L* VBG pCO2 18 L* VBG HCO3 6 L* Potassium Chloride Carbon Dioxide BUN Creatinine Glucose POC Glucose (mg/dL) 120 H Plasma Lactic Acid Sunny 11.6 H* Phosphorus Magnesium Total Bilirubin AST Alkaline Phosphatase Lactate Dehydrogenase C-Reactive Protein Albumin Lipase - Diagnostic Findings Chest x-ray: report reviewed, image reviewed Additional studies: CT of the abdomen and pelvis reviewed Assessment and Plan Plan: Assessment: #1. Acute septic shock, with possibilities including urinary tract infection, and possibility of pancreatitis although this is less likely based on her low lipase and amylase levels #2. Left lower base atelectasis, doubt possibility of pneumonia, although not completely excluded #3. Severe anion gap metabolic acidosis related to sepsis, currently lactic acid is 11.6, patient has been started on broad-spectrum antibiotics and fluid resuscitated #4. Acute kidney injury related to the above #5. Chronic A. fib on Eliquis #6. Chronic CHF with systolic dysfunction #7. Diabetes mellitus type 2 with diabetic neuropathy #8. Hypertension #9. Hyperlipidemia #10. Rheumatoid arthritis #11. Nonischemic cardiomyopathy, status post AICD placement #12. Hx of Waldenstrom macroglobulinemia #13. Sjogren's Plan: Patient is being given additional 2 L of fluid boluses She was started on broad-spectrum antibiotics Chest x-ray has been reviewed, doubt possibility of pneumonia,~left lower density possibly related to atelectasis rather than infiltrate Blood cultures UA and urine culture sent and pending at this time Lab work is been reviewed We'll continue close hemodynamic monitoring in the ICU GI and DVT prophylaxis Nephrology has been consulted ID service for antibiotic management I performed a history & physical examination of the patient and discussed their management with my nurse practitioner, Shyla Dos Santos. I reviewed the nurse practitioner's note and agree with the documented findings and plan of care. Lung sounds are positive for diminished breath sounds. The findings and the impression was discussed with the patient. I attest to the documentation by the nurse practitioner. Time with Patient: Greater than 30
[2020-07-24 12:27] LABS: Anion Gap 25 mmol/L
[2020-07-24 12:29] LABS: ALT 29 U/L (4-34)
[2020-07-24 12:34] LABS: Carbon Dioxide 8 mmol/L (22-30)
--- NOTE | 2020-07-24 12:47 | P.NPCON ---
History of Present Illness - Reason for Consult acute renal failure, metabolic acidosis - History of Present Illness Reason for consultation: Acute kidney injury and acidosis History of present illness: Patient is a 65-year-old female seen in renal consultation for acute kidney injury and metabolic acidosis. Patient presented to the hospital on July 22 with nausea vomiting and abdominal discomfort. CAT scan of the abdomen and pelvis done with IV contrast revealed no evidence of hydronephrosis and findings concerning for pancreatitis. Last night the patient became hypotensive with blood pressure in the systolic 70s. Her lactic acid was significantly elevated and was 11.6 this morning. Patient has received close to 78 L of normal saline boluses admission. Her bicarb level was 8 this morning and she is currently maintained on bicarb drip at 150 mL an hour. Patient is not on any vasopressors . She is oliguric. Baseline creatinine is near 1 and is elevated at 2.1 today. She was on lisinopril and spironolactone at home which are currently held. She does have a history of diabetes. Patient is not a reliable historian. Vital signs are stable. General: The patient appeared well nourished and normally developed. HEENT: No JVD. LUNGS: Breath sounds decreased. HEART: Tachycardic. ABDOMEN: Soft, no distention noted. EXTREMITITES: No edema. Past Medical History Past Medical History: Atrial Fibrillation, Heart Failure, Diabetes Mellitus, Eye Disorder, Fibromyalgia, Hyperlipidemia, Hypertension, Rheumatoid Arthritis (RA), Syncope Additional Past Medical History / Comment(s): Pt recently admitted to [facility] on 05/08/20 with abdominal pain/cholecystectomy. Other hx: Nonischemic cardiomyopathy/Vtach/AICD, murmur, IDDM type II, neuropathy bilateral feet, hypoglycemic episodes with syncope in past, 2005 waldenstrom macroglobulinemia (type of nonhodgkins lymphoma) with chemo and plasma treatment and had to be on hemodialysis for a brief time, sjogrens, lupus, gout, anemia, bilateral cataracts. History of Any Multi-Drug Resistant Organisms: None Reported Past Surgical History: AICD, Cardiac Ablation, Cholecystectomy, Hysterectomy, Orthopedic Surgery Additional Past Surgical History / Comment(s): Recent cholecystectomy, 2007 AICD with gen change in 2013, cardiac ablations, L toe surgery d/t RA, R wrist and R thigh cystectomy, spacer placed on vocal cord. Past Anesthesia/Blood Transfusion Reactions: No Reported Reaction, Motion Sickness Additional Past Anesthesia/Blood Transfusion Reaction / Comment(s): Pt has recieved blood in past without reaction. Type of Cardiac Device: AICD Device Placement Date:: 2007 device with gen change 2013. Past Psychological History: No Psychological Hx Reported Additional Psychological History / Comment(s): Pt resides with her spouse. She recently has been using a walker. She has not driven in 2 years, her family drives. Smoking Status: Former smoker Past Alcohol Use History: None Reported Additional Past Alcohol Use History / Comment(s): Pt smoked from [id number]. Past Drug Use History: None Reported - Past Family History Mother Family Medical History: Cancer Additional Family Medical History / Comment(s): Mother from multiple myeloma Father Family Medical History: Renal Disease Additional Family Medical History / Comment(s): Father of renal failure. Medications and Allergies Home Medications Medication Instructions Recorded Confirmed Type Ergocalciferol [Vitamin D2 50,000 unit PO TH 03/05/17 07/23/20 History (ROCIO)] Folic Acid 1 mg PO QAM 03/05/17 07/23/20 History Furosemide [Lasix] 40 mg PO QAM 03/05/17 07/23/20 History Hydroxychloroquine Sulfate 200 mg PO BID 03/05/17 07/23/20 History [Plaquenil] Insulin Aspart Protam & Aspart 10 unit SQ AC-BRKFST 03/05/17 07/23/20 History [NovoLOG MIX 70-30 Flexpen] Montelukast [Singulair] 10 mg PO DAILY 03/05/17 07/23/20 History Sertraline [Zoloft] 100 mg PO BID 03/05/17 07/23/20 History Simvastatin [Zocor] 10 mg PO HS 03/05/17 07/23/20 History lisinopriL [Zestril] 2.5 mg PO HS 03/05/17 07/23/20 History metHOTREXate sodium [Methotrexate] 20 mg PO FR 03/05/17 07/23/20 History Aspirin [Adult Low Dose Aspirin EC] 81 mg PO DAILY 09/13/18 07/23/20 History Albuterol Sulfate [Ventolin HFA] 2 puff INHALATION RT-QID PRN 07/27/19 07/23/20 History Apixaban [Eliquis] 5 mg PO BID 07/27/19 07/23/20 History allopurinoL [Zyloprim] 100 mg PO QAM 07/27/19 07/23/20 History Insulin Aspart Protam & Aspart 12 unit SQ AC-SUPPER 01/21/20 07/23/20 History [NovoLOG MIX 70-30 Flexpen] Metoprolol Succinate [Toprol XL] 25 mg PO QAM 01/21/20 07/23/20 History calcitrioL [Rocaltrol] 0.25 mcg PO TU 01/21/20 07/23/20 History Hydrocortisone Cream 1 applic TOPICAL BID PRN 05/05/20 07/23/20 History [Hydrocortisone 2.5% Cream] Pregabalin [Lyrica] 300 mg PO BID 05/05/20 07/23/20 History Triamcinolone 0.5% Cream [Kenalog 1 applic TOPICAL BID PRN 05/05/20 07/23/20 History 0.5% Cream] hydrOXYzine HCL 25 mg PO TID PRN 05/05/20 07/23/20 History Acetaminophen Tab [Tylenol] 650 mg PO Q6H PRN #30 tablet 05/09/20 07/23/20 Rx Digoxin [Lanoxin] 125 mcg PO DAILY tab 05/22/20 07/23/20 Rx Magnesium Oxide [Mag-Ox] 400 mg PO DAILY #100 tab 05/22/20 07/23/20 Rx Spironolactone [Aldactone] 50 mg PO DAILY tab 05/22/20 07/23/20 Rx Allergies Allergy/AdvReac Type Severity Reaction Status Date / Time Penicillins Allergy Rash/Hives Verified 07/23/20 07:09 Physical Exam Vitals: Vital Signs Temp Pulse Pulse Resp BP BP Pulse Ox 07/24/20 11:00 113 H 15 117/94 99 07/24/20 10:30 111 H 12 102/86 98 07/24/20 10:00 112 H 16 97/52 98 07/24/20 09:30 116 H 13 89/71 98 07/24/20 09:00 116 H 9 L 104/86 99 07/24/20 08:50 112 H 18 104/86 99 07/24/20 08:40 123 H 16 104/86 99 07/24/20 08:30 122 H 20 96/58 99 07/24/20 08:20 112 H 15 96/58 99 07/24/20 08:10 97.4 F L 110 H 12 76/48 100 07/24/20 08:06 112 H 16 07/24/20 07:00 95.6 F L 67 15 95/41 07/24/20 01:43 97.8 F 121 H 19 120/62 96 07/23/20 22:11 97.6 F 125 H 24 105/71 07/23/20 19:20 98.6 F 111 H 15 100/58 91 L Intake and Output 07/23/20 07/24/20 07/24/20 22:59 06:59 14:59 Intake Total 1500 2300 Output Total 30 Balance 1500 2270 Intake: Intake, IV Titration 1500 2300 Amount Magnesium Sulfate-D5w Pmx 100 1 gm In Dextrose/Water 1 100ml.bag @ 100 mls/hr IVPB ONCE ONE Rx#: [id number] Magnesium Sulfate-D5w Pmx 200 1 gm In Dextrose/Water 1 100ml.bag @ 100 mls/hr IVPB Q1H [facility] Rx#: [id number] Sodium Chloride 0.9% 1, 1500 000 ml @ 125 mls/hr IV . Q8H [facility] Rx#:[id number] Sodium Chloride 0.9% 1, 2000 000 ml @ 999 mls/hr IV . Q1H1M [facility] Rx#:[id number] Oral 0 Output: Urine 30 Other: # Voids 0 1 Results - Lab Results Most recent lab results Calcium 8.1 mg/dL (8.4-10.2) L 07/24/20 11:18 Phosphorus 6.1 mg/dL (2.5-4.5) H 07/24/20 05:16 Magnesium 1.1 mg/dL (1.6-2.3) L 07/24/20 05:16 07/24/20 05:16 07/24/20 11:18 Assessment and Plan Plan: Assessment: 1. Acute kidney injury secondary to ATN secondary to hypotension and hypovolemia. Also received IV contrast on July 22. Baseline creatinine near 1 and up to 2.13 this morning. No hydronephrosis noted on CAT scan. 2. Metabolic acidosis secondary to acute kidney injury and lactic acidosis. 3. Lactic acidosis secondary to hypotension. 4. Severe sepsis. Concern for UTI as well as pancreatitis. On antibiotics. Infectious disease consulted. 5. Diabetes mellitus. 6. Chronic systolic CHF with ejection fraction of 25-30% with mild to moderate mitral and tricuspid regurgitation. 7. Severe pulmonary hypertension. 8. Hypomagnesemia from poor intake. Being replaced. Plan: Maintain bicarb drip. Check renal ultrasound. Repeat BMP this evening. Continue to monitor renal function and urine output closely. Continue to assess daily for need for renal replacement therapy. Consider surgery consult. Thank you for the consultation. I will continue to follow the patient with you during his hospital stay.
[2020-07-24 13:05] LABS: Appearance,Urine Cloudy (Clear); Bilirubin,Urine 1+ (Negative); Blood,Urine Large (Negative); Color,Urine Dark Brown; Glucose,Urine (UA) Negative (Negative); Hyaline Casts,Urine 29 /lpf (0-2); Ketones,Urine Negative (Negative); Leukocyte Esterase,Urine Negative (Negative); Mucus,Urine Occasional /hpf; Nitrite,Urine Negative (Negative); PH, Urine 5.5 (5.0-8.0); Protein,Urine 2+ (Negative); RBC,Urine >182 /hpf (0-5); Specific Gravity,Urine 1.031 (1.001-1.035); Squamous Epithelial Cell,Urine 7 /hpf (0-4); WBC,Urine 4 /hpf (0-5)
--- NOTE | 2020-07-24 16:29 | PN ---
PROGRESS NOTE DATE OF SERVICE: 07/24/2020 CHIEF COMPLAINT: Vomiting and diarrhea. HISTORY OF PRESENT ILLNESS: Apparently, during the night this lady became a little bit more obtunded and blood pressure became unstable. She dropped systolically down to around 90 or 95. There was no history of any chest pain, abdominal pain, vomiting, etc. The A-team was called. It was felt that she could be septic. Under the circumstances, she was moved to ICU. Review of systems cannot be obtained. She is fairly well obtunded. Blood pressure is 110 systolically. On exam, her face is significantly edematous. Chest sounds are quite clear with very few rales. Cardiac exam demonstrates what sounds like sinus rhythm. The abdomen seems to be soft and nontender. Extremities are normal. IMPRESSION: 1. Probable septic shock, source unknown. 2. Hypotension. 3. Dehydration. 4. Waldenstrom's macroglobulinemia. 5. Edema. PLAN: 1. Await results of blood cultures. 2. Sepsis protocol. 3. Consult with Intensive Medicine and Infectious Disease. MMODL / IJN: [id number] /
--- NOTE | 2020-07-24 16:32 | US ---
EXAMINATION TYPE: US kidneys/renal and bladder DATE OF EXAM: 07/24/2020 COMPARISON: NONE CLINICAL HISTORY: mateo. MATEO limiteddue to patient unable to roll and bowel gas. EXAM MEASUREMENTS: Right Kidney: 11.2 x 5.3 x 3.9 cm Left Kidney: 9.6 x 5.4 x 4.9 cm Right Kidney: Limited visulization Left Kidney: Limited visualization Bladder: Patient has cather in Bilateral Jets seen: no IMPRESSION: No evidence of renal mass or obstruction. Limited visualization of the kidneys.
[2020-07-24] MEDS ORDERED: SODIUM CHLORIDE 0.9% 2,000 ML IV ONE (17:31)
[2020-07-24 17:41] LABS: Glucose,Whole Blood 181 mg/dL (75-99)
[2020-07-24 18:58] LABS: Calcium 7.9 mg/dL (8.4-10.2)
[2020-07-24] MEDS: ENOXAPARIN 40 MG/0.4 ML SYRINGE SQ SCH (20:15)
[2020-07-24 20:21] LABS: Glucose,Whole Blood 179 mg/dL (75-99)
--- NOTE | 2020-07-24 21:32 | P.GSCN ---
History of Present Illness Consult date: 07/24/20 Reason for Consult: elevated lactic acid History of present illness: 65-year-old female came to the hospital with her spouse. I was able to obtain much of the history from the patient's Gurpreet. Patient has had multiple medical issues over the last several years. In April she underwent cholecystectomy and then went to rehab for 2 months or so. She's been home for several weeks. She has not been doing well although initially seemed to be getting slightly stronger. Over the last 5 days the patient has had problems with persistent nausea vomiting and inability to keep anything down per the . She was having some crampy abdominal pain and diarrhea over the last 1-2 days. He had been trying to get her to come to the hospital and she was resisting until 2 days ago. Denies rectal bleeding. Denies localized disco mforts. When asking the patient currently if she is having pain she says no. We were consulted today given her recent surgical history and also because of a persistent lactic acidosis to rule out ischemic bowel. CAT scan was performed yesterday and reviewed. CAT scan was performed with IV contrast. There is fairly good opacification of the celiac and SMA vasculature. The bowel was relatively collapsed however there may be some subtle thickening of the colonic wall diffusely. No significant colonic distention noted to suggest toxic megacolon. No free air or pneumatosis described. Patient was on the floor but transferred to the ICU. She has been confused. Patient has made no urine. Patient with history of previous renal failure is unsure whether she was on dialysis temporarily or not. Patient with history of waldenstroms macroglobulinemia. Patient's pH is 7.1. Lactic acid over 11. White blood cell count is normal. No bands described on the differential. CO2 is low. CAT scan did show some possible thickening of the pancreas. There may be some slight decreased opacification of the head of the pancreas. Her amylase and lipase however are normal. Covid is negative. Review of Systems ROS unobtainable: due to mental status Past Medical History Past Medical History: Atrial Fibrillation, Heart Failure, Diabetes Mellitus, Eye Disorder, Fibromyalgia, Hyperlipidemia, Hypertension, Rheumatoid Arthritis (RA), Syncope Additional Past Medical History / Comment(s): Pt recently admitted to [facility] on 05/08/20 with abdominal pain/cholecystectomy. Other hx: Nonischemic cardiomyopathy/Vtach/AICD, murmur, IDDM type II, neuropathy bilateral feet, hypoglycemic episodes with syncope in past, 2006 waldenstrom macroglobulinemia (type of nonhodgkins lymphoma) with chemo and plasma treatment and had to be on hemodialysis for a brief time, sjogrens, lupus, gout, anemia, bilateral cataracts. History of Any Multi-Drug Resistant Organisms: None Reported Past Surgical History: AICD, Cardiac Ablation, Cholecystectomy, Hysterectomy, Orthopedic Surgery Additional Past Surgical History / Comment(s): Recent cholecystectomy, 2007 AICD with gen change in 2013, cardiac ablations, L toe surgery d/t RA, R wrist and R thigh cystectomy, spacer placed on vocal cord. Past Anesthesia/Blood Transfusion Reactions: No Reported Reaction, Motion Sickness Additional Past Anesthesia/Blood Transfusion Reaction / Comm: Pt has recieved blood in past without reaction. Type of Cardiac Device: AICD Device Placement Date:: 2007 device with gen change 2013. Past Psychological History: No Psychological Hx Reported Additional Psychological History / Comment(s): Pt resides with her spouse. She recently has been using a walker. She has not driven in 2 years, her family drives. Smoking Status: Former smoker Past Alcohol Use History: None Reported Additional Past Alcohol Use History / Comment(s): Pt smoked from [id number]. Past Drug Use History: None Reported - Past Family History Mother Family Medical History: Cancer Additional Family Medical History / Comment(s): Mother from multiple myeloma Father Family Medical History: Renal Disease Additional Family Medical History / Comment(s): Father of renal failure. Medications and Allergies Home Medications Medication Instructions Recorded Confirmed Type Ergocalciferol [Vitamin D2 50,000 unit PO TH 03/05/17 07/23/20 History (DRISDOL)] Folic Acid 1 mg PO QAM 03/05/17 07/23/20 History Furosemide [Lasix] 40 mg PO QAM 03/05/17 07/23/20 History Hydroxychloroquine Sulfate 200 mg PO BID 03/05/17 07/23/20 History [Plaquenil] Insulin Aspart Protam & Aspart 10 unit SQ AC-BRKFST 03/05/17 07/23/20 History [NovoLOG MIX 70-30 Flexpen] Montelukast [Singulair] 10 mg PO DAILY 03/05/17 07/23/20 History Sertraline [Zoloft] 100 mg PO BID 03/05/17 07/23/20 History Simvastatin [Zocor] 10 mg PO HS 03/05/17 07/23/20 History lisinopriL [Zestril] 2.5 mg PO HS 03/05/17 07/23/20 History metHOTREXate sodium [Methotrexate] 20 mg PO FR 03/05/17 07/23/20 History Aspirin [Adult Low Dose Aspirin EC] 81 mg PO DAILY 09/13/18 07/23/20 History Albuterol Sulfate [Ventolin HFA] 2 puff INHALATION RT-QID PRN 07/27/19 07/23/20 History Apixaban [Eliquis] 5 mg PO BID 07/27/19 07/23/20 History allopurinoL [Zyloprim] 100 mg PO QAM 07/27/19 07/23/20 History Insulin Aspart Protam & Aspart 12 unit SQ AC-SUPPER 01/21/20 07/23/20 History [NovoLOG MIX 70-30 Flexpen] Metoprolol Succinate [Toprol XL] 25 mg PO QAM 01/21/20 07/23/20 History calcitrioL [Rocaltrol] 0.25 mcg PO TU 01/21/20 07/23/20 History Hydrocortisone Cream 1 applic TOPICAL BID PRN 05/05/20 07/23/20 History [Hydrocortisone 2.5% Cream] Pregabalin [Lyrica] 300 mg PO BID 05/05/20 07/23/20 History Triamcinolone 0.5% Cream [Kenalog 1 applic TOPICAL BID PRN 05/05/20 07/23/20 History 0.5% Cream] hydrOXYzine HCL 25 mg PO TID PRN 05/05/20 07/23/20 History Acetaminophen Tab [Tylenol] 650 mg PO Q6H PRN #30 tablet 05/09/20 07/23/20 Rx Digoxin [Lanoxin] 125 mcg PO DAILY tab 05/22/20 07/23/20 Rx Magnesium Oxide [Mag-Ox] 400 mg PO DAILY #100 tab 05/22/20 07/23/20 Rx Spironolactone [Aldactone] 50 mg PO DAILY tab 05/22/20 07/23/20 Rx Allergies Allergy/AdvReac Type Severity Reaction Status Date / Time Penicillins Allergy Rash/Hives Verified 07/23/20 07:09 Surgical - Exam Vital Signs Temp Pulse Resp BP Pulse Ox 97.4 F L 114 H 20 121/80 100 07/22/20 22:41 07/22/20 22:41 07/22/20 22:41 07/22/20 22:41 07/22/20 22:41 Physical exam: General: Well-developed, well-nourished, in no distress HEENT: Normocephalic, mild icterus Abdomen: Mildly distended, no appreciable tenderness Extremities: Diffuse Neuro: Lethargic, confused Results - Labs 07/24/20 05:16 07/24/20 18:16 Abnormal Lab Results - Last 24 Hours (Table) 07/23/20 07/24/20 07/24/20 Range/Units 22:00 01:05 05:16 Hgb 11.0 L (11.4-16.0) gm/dL RDW 19.8 H (11.5-15.5) % Plt Count 137 L (150-450) k/uL Nucleated RBCs 1 H (0-0) /100 WBC D-Dimer (<0.60) mg/L FEU VBG pH (7.31-7.41) VBG pCO2 (37-51) mmHg VBG HCO3 (24-28) mmol/L Sodium (137-145) mmol/L Chloride (98-107) mmol/L Carbon Dioxide (22-30) mmol/L BUN (7-17) mg/dL Creatinine (0.52-1.04) mg/dL Glucose (74-99) mg/dL POC Glucose (mg/dL) (75-99) mg/dL Plasma Lactic Acid Sunny 6.0 H* 8.0 H* (0.7-2.0) mmol/L Calcium (8.4-10.2) mg/dL Phosphorus (2.5-4.5) mg/dL Magnesium (1.6-2.3) mg/dL Total Bilirubin (0.2-1.3) mg/dL AST (14-36) U/L Alkaline Phosphatase (38-126) U/L Albumin (3.5-5.0) g/dL Amylase (30-110) U/L Lipase (23-300) U/L Urine Appearance (Clear) Urine Protein (Negative) Urine Blood (Negative) Urine Bilirubin (Negative) Urine RBC (0-5) /hpf Ur Squamous Epith Cells (0-4) /hpf Hyaline Casts (0-2) /lpf Urine Mucus (None) /hpf 07/24/20 07/24/20 07/24/20 Range/Units 05:16 05:16 05:16 Hgb (11.4-16.0) gm/dL RDW (11.5-15.5) % Plt Count (150-450) k/uL Nucleated RBCs (0-0) /100 WBC D-Dimer (<0.60) mg/L FEU VBG pH (7.31-7.41) VBG pCO2 (37-51) mmHg VBG HCO3 (24-28) mmol/L Sodium (137-145) mmol/L Chloride 111 H (98-107) mmol/L Carbon Dioxide 9 L* (22-30) mmol/L BUN 5 L (7-17) mg/dL Creatinine 1.91 H (0.52-1.04) mg/dL Glucose (74-99) mg/dL POC Glucose (mg/dL) (75-99) mg/dL Plasma Lactic Acid Sunny 11.1 H* (0.7-2.0) mmol/L Calcium (8.4-10.2) mg/dL Phosphorus 6.1 H (2.5-4.5) mg/dL Magnesium 1.1 L (1.6-2.3) mg/dL Total Bilirubin 3.5 H (0.2-1.3) mg/dL AST 76 H (14-36) U/L Alkaline Phosphatase (38-126) U/L Albumin 3.3 L (3.5-5.0) g/dL Amylase (30-110) U/L Lipase <10 L <10 L (23-300) U/L Urine Appearance (Clear) Urine Protein (Negative) Urine Blood (Negative) Urine Bilirubin (Negative) Urine RBC (0-5) /hpf Ur Squamous Epith Cells (0-4) /hpf Hyaline Casts (0-2) /lpf Urine Mucus (None) /hpf 07/24/20 07/24/20 07/24/20 Range/Units 05:31 07:01 08:06 Hgb (11.4-16.0) gm/dL RDW (11.5-15.5) % Plt Count (150-450) k/uL Nucleated RBCs (0-0) /100 WBC D-Dimer 1.54 H (<0.60) mg/L FEU VBG pH (7.31-7.41) VBG pCO2 (37-51) mmHg VBG HCO3 (24-28) mmol/L Sodium (137-145) mmol/L Chloride (98-107) mmol/L Carbon Dioxide (22-30) mmol/L BUN (7-17) mg/dL Creatinine (0.52-1.04) mg/dL Glucose (74-99) mg/dL POC Glucose (mg/dL) 68 L 120 H (75-99) mg/dL Plasma Lactic Acid Sunny (0.7-2.0) mmol/L Calcium (8.4-10.2) mg/dL Phosphorus (2.5-4.5) mg/dL Magnesium (1.6-2.3) mg/dL Total Bilirubin (0.2-1.3) mg/dL AST (14-36) U/L Alkaline Phosphatase (38-126) U/L Albumin (3.5-5.0) g/dL Amylase (30-110) U/L Lipase (23-300) U/L Urine Appearance (Clear) Urine Protein (Negative) Urine Blood (Negative) Urine Bilirubin (Negative) Urine RBC (0-5) /hpf Ur Squamous Epith Cells (0-4) /hpf Hyaline Casts (0-2) /lpf Urine Mucus (None) /hpf 07/24/20 07/24/20 07/24/20 Range/Units 08:18 08:23 11:18 Hgb (11.4-16.0) gm/dL RDW (11.5-15.5) % Plt Count (150-450) k/uL Nucleated RBCs (0-0) /100 WBC D-Dimer (<0.60) mg/L FEU VBG pH 7.17 L* (7.31-7.41) VBG pCO2 18 L* (37-51) mmHg VBG HCO3 6 L* (24-28) mmol/L Sodium 146 H (137-145) mmol/L Chloride 113 H (98-107) mmol/L Carbon Dioxide 8 L* (22-30) mmol/L BUN 5 L (7-17) mg/dL Creatinine 2.13 H (0.52-1.04) mg/dL Glucose 122 H (74-99) mg/dL POC Glucose (mg/dL) (75-99) mg/dL Plasma Lactic Acid Sunny 11.6 H* (0.7-2.0) mmol/L Calcium 8.1 L (8.4-10.2) mg/dL Phosphorus (2.5-4.5) mg/dL Magnesium (1.6-2.3) mg/dL Total Bilirubin 3.9 H (0.2-1.3) mg/dL AST 129 H (14-36) U/L Alkaline Phosphatase 135 H (38-126) U/L Albumin (3.5-5.0) g/dL Amylase <30 L (30-110) U/L Lipase <10 L (23-300) U/L Urine Appearance (Clear) Urine Protein (Negative) Urine Blood (Negative) Urine Bilirubin (Negative) Urine RBC (0-5) /hpf Ur Squamous Epith Cells (0-4) /hpf Hyaline Casts (0-2) /lpf Urine Mucus (None) /hpf 07/24/20 07/24/20 07/24/20 Range/Units 12:07 12:31 12:45 Hgb (11.4-16.0) gm/dL RDW (11.5-15.5) % Plt Count (150-450) k/uL Nucleated RBCs (0-0) /100 WBC D-Dimer (<0.60) mg/L FEU VBG pH (7.31-7.41) VBG pCO2 (37-51) mmHg VBG HCO3 (24-28) mmol/L Sodium (137-145) mmol/L Chloride (98-107) mmol/L Carbon Dioxide (22-30) mmol/L BUN (7-17) mg/dL Creatinine (0.52-1.04) mg/dL Glucose (74-99) mg/dL POC Glucose (mg/dL) 120 H (75-99) mg/dL Plasma Lactic Acid Sunny 11.7 H* (0.7-2.0) mmol/L Calcium (8.4-10.2) mg/dL Phosphorus (2.5-4.5) mg/dL Magnesium (1.6-2.3) mg/dL Total Bilirubin (0.2-1.3) mg/dL AST (14-36) U/L Alkaline Phosphatase (38-126) U/L Albumin (3.5-5.0) g/dL Amylase (30-110) U/L Lipase (23-300) U/L Urine Appearance Cloudy H (Clear) Urine Protein 2+ H (Negative) Urine Blood Large H (Negative) Urine Bilirubin 1+ H (Negative) Urine RBC >182 H (0-5) /hpf Ur Squamous Epith Cells 7 H (0-4) /hpf Hyaline Casts 29 H (0-2) /lpf Urine Mucus Occasional H (None) /hpf 07/24/20 07/24/20 07/24/20 Range/Units 15:37 17:40 18:16 Hgb (11.4-16.0) gm/dL RDW (11.5-15.5) % Plt Count (150-450) k/uL Nucleated RBCs (0-0) /100 WBC D-Dimer (<0.60) mg/L FEU VBG pH (7.31-7.41) VBG pCO2 (37-51) mmHg VBG HCO3 (24-28) mmol/L Sodium (137-145) mmol/L Chloride 112 H (98-107) mmol/L Carbon Dioxide 9 L* (22-30) mmol/L BUN 6 L (7-17) mg/dL Creatinine 2.50 H (0.52-1.04) mg/dL Glucose 195 H (74-99) mg/dL POC Glucose (mg/dL) 181 H (75-99) mg/dL Plasma Lactic Acid Sunny 12.3 H* (0.7-2.0) mmol/L Calcium 7.9 L (8.4-10.2) mg/dL Phosphorus (2.5-4.5) mg/dL Magnesium (1.6-2.3) mg/dL Total Bilirubin (0.2-1.3) mg/dL AST (14-36) U/L Alkaline Phosphatase (38-126) U/L Albumin (3.5-5.0) g/dL Amylase (30-110) U/L Lipase (23-300) U/L Urine Appearance (Clear) Urine Protein (Negative) Urine Blood (Negative) Urine Bilirubin (Negative) Urine RBC (0-5) /hpf Ur Squamous Epith Cells (0-4) /hpf Hyaline Casts (0-2) /lpf Urine Mucus (None) /hpf 07/24/20 Range/Units 18:30 Hgb (11.4-16.0) gm/dL RDW (11.5-15.5) % Plt Count (150-450) k/uL Nucleated RBCs (0-0) /100 WBC D-Dimer (<0.60) mg/L FEU VBG pH (7.31-7.41) VBG pCO2 (37-51) mmHg VBG HCO3 (24-28) mmol/L Sodium (137-145) mmol/L Chloride (98-107) mmol/L Carbon Dioxide (22-30) mmol/L BUN (7-17) mg/dL Creatinine (0.52-1.04) mg/dL Glucose (74-99) mg/dL POC Glucose (mg/dL) (75-99) mg/dL Plasma Lactic Acid Sunny 11.3 H* (0.7-2.0) mmol/L Calcium (8.4-10.2) mg/dL Phosphorus (2.5-4.5) mg/dL Magnesium (1.6-2.3) mg/dL Total Bilirubin (0.2-1.3) mg/dL AST (14-36) U/L Alkaline Phosphatase (38-126) U/L Albumin (3.5-5.0) g/dL Amylase (30-110) U/L Lipase (23-300) U/L Urine Appearance (Clear) Urine Protein (Negative) Urine Blood (Negative) Urine Bilirubin (Negative) Urine RBC (0-5) /hpf Ur Squamous Epith Cells (0-4) /hpf Hyaline Casts (0-2) /lpf Urine Mucus (None) /hpf Diabetes panel 07/24/20 07/24/20 07/24/20 Range/Units 05:16 11:18 18:16 Sodium 140 146 H 144 (137-145) mmol/L Potassium 4.9 4.3 5.0 (3.5-5.1) mmol/L Chloride 111 H 113 H 112 H (98-107) mmol/L Carbon Dioxide 9 L* 8 L* 9 L* (22-30) mmol/L BUN 5 L 5 L 6 L (7-17) mg/dL Creatinine 1.91 H 2.13 H 2.50 H (0.52-1.04) mg/dL Glucose 75 122 H 195 H (74-99) mg/dL Calcium 8.4 8.1 L 7.9 L (8.4-10.2) mg/dL AST 76 H 129 H (14-36) U/L ALT 20 29 (4-34) U/L Alkaline Phosphatase 119 135 H (38-126) U/L Total Protein 7.0 7.5 (6.3-8.2) g/dL Albumin 3.3 L 3.6 (3.5-5.0) g/dL Calcium panel 07/24/20 07/24/20 07/24/20 Range/Units 05:16 11:18 18:16 Calcium 8.4 8.1 L 7.9 L (8.4-10.2) mg/dL Phosphorus 6.1 H (2.5-4.5) mg/dL Albumin 3.3 L 3.6 (3.5-5.0) g/dL Pituitary panel 07/24/20 07/24/20 07/24/20 Range/Units 05:16 11:18 18:16 Sodium 140 146 H 144 (137-145) mmol/L Potassium 4.9 4.3 5.0 (3.5-5.1) mmol/L Chloride 111 H 113 H 112 H (98-107) mmol/L Carbon Dioxide 9 L* 8 L* 9 L* (22-30) mmol/L BUN 5 L 5 L 6 L (7-17) mg/dL Creatinine 1.91 H 2.13 H 2.50 H (0.52-1.04) mg/dL Glucose 75 122 H 195 H (74-99) mg/dL Calcium 8.4 8.1 L 7.9 L (8.4-10.2) mg/dL Adrenal panel 07/24/20 07/24/20 07/24/20 Range/Units 05:16 11:18 18:16 Sodium 140 146 H 144 (137-145) mmol/L Potassium 4.9 4.3 5.0 (3.5-5.1) mmol/L Chloride 111 H 113 H 112 H (98-107) mmol/L Carbon Dioxide 9 L* 8 L* 9 L* (22-30) mmol/L BUN 5 L 5 L 6 L (7-17) mg/dL Creatinine 1.91 H 2.13 H 2.50 H (0.52-1.04) mg/dL Glucose 75 122 H 195 H (74-99) mg/dL Calcium 8.4 8.1 L 7.9 L (8.4-10.2) mg/dL Total Bilirubin 3.5 H 3.9 H (0.2-1.3) mg/dL AST 76 H 129 H (14-36) U/L ALT 20 29 (4-34) U/L Alkaline Phosphatase 119 135 H (38-126) U/L Total Protein 7.0 7.5 (6.3-8.2) g/dL Albumin 3.3 L 3.6 (3.5-5.0) g/dL Assessment and Plan (1) Abdominal pain Narrative/Plan: 65-year-old female admitted with intractable nausea and vomiting along with diarrhea and some crampy abdominal pain. We were consulted to evaluate for ischemic bowel. CAT scan with contrast does not show any definite thrombotic or embolic event at this time. Low-flow ischemia or small peripheral embolism from the patient's underlying atrial fibrillation does remain within the differential however the history would not suggest that with her denying pain currently and having more crampy discomfort on arrival. Continue supportive care. The case was discussed with the patient's and he was informed as to the critical nature of her current condition. We'll follow closely with you. Current Visit: Yes Status: Acute Code(s): R10.9 - UNSPECIFIED ABDOMINAL PAIN SNOMED Code(s): 55670356
--- NOTE | 2020-07-25 05:54 | CONS ---
CONSULTATION DATE OF SERVICE: 07/24/2020 REASON FOR CONSULTATION: Pancreatitis and cystitis. HISTORY OF PRESENT ILLNESS: The patient is a 65-year-old female with a past medical history significant for cholecystectomy, subsequent rehab placement in this patient who has been brought into the ER at [facility] four days ago for evaluation of generalized weakness. The patient also having persistent nausea, vomiting and unable to keep anything down. Now with crampy abdominal pain. Her symptoms have been going on for the last few days before presentation to the hospital. There is no history of any bleeding per rectum or any hematemesis. With these symptoms, the patient has been evaluated by the ER physician. On arrival to the ER, patient did have a normal temperature and no fever has been recorded subsequently. Slight tachycardia. The patient did have a mild leukopenia. Repeat white count is normal. D-dimer is 1.54. Creatinine was elevated 2.50 and admission creatinine was 1.13 though. Did have elevated lactic acid started 2.2, however, has been up to 11.6 this morning. Urine has been mostly hematuria. Sagastume PCR has been negative. The patient did have a CT of the abdomen and pelvis with concern for pancreatitis, pericardial edema and mild thickening of the bladder wall, concern for cystitis. The patient was noticed to be lethargic this morning. Subsequently has been transferred down to the ICU. She was started on meropenem. Infectious Disease was consulted for further management of antibiotic therapy. Most of the information has been obtained from review of the chart, nursing staff as the patient herself could not provide a single answer. REVIEW OF SYMPTOMS: Review of systems could not be reliably obtained because of her mental status. PAST MEDICAL HISTORY: Atrial fibrillation, heart failure, diabetes mellitus, hypertension, hyperlipidemia and rheumatoid arthritis. PAST SURGICAL HISTORY: AICD placement, cardiac ablation, cholecystectomy, hysterectomy. SOCIAL HISTORY: No history of smoking, drinking or drug use. FAMILY HISTORY: Mother from multiple myeloma. Father with history of renal failure. ALLERGIES: PENICILLIN. MEDICATIONS: The patient is currently on Ventolin, Lovenox, Dilaudid, Plaquenil, NovoLog, Mag oxide, meropenem 1 q.12, Narcan, Zofran, Protonix. PHYSICAL EXAMINATION: Her blood pressure is 105/60 with a pulse of 122, temperature 97.6. She is 96% on room air. General description: The patient is an elderly female lying in bed in no distress. HEENT: Examination shows slight pallor, no scleral icterus. Oral mucous membranes dry. NECK: Trachea central. No thyromegaly. LUNGS unlabored breathing. Clear to auscultation anteriorly. HEART: S1, S2. Regular rate and rhythm. ABDOMEN: Soft, no guarding, no rigidity. No organomegaly. EXTREMITIES: No edema of the feet. SKIN: No rash or mass palpable. NEUROLOGIC: The patient is lethargic. Orientation could not be determined. LABS: Hemoglobin is 11, white count 7.0. BUN of 7, creatinine 2.50. Lactic acid 11.3. Liver enzymes mildly elevated. 1.8, lipase was less than 10, amylase less than 30. DIAGNOSTIC IMPRESSION AND PLAN: 1. Patient presented to the hospital with acute nausea, vomiting, diarrhea and abdominal pain in this patient whose symptoms have been going on for the last 4-5 days with recent history of cholecystectomy, did have a mildly elevated liver enzymes and abnormal CT of abdomen and pelvis suspicious for pancreatitis and some cystitis with urine was not significantly positive. This patient also has significantly elevated lactic acid with concern for possible ischemic colitis but no evidence of any colitis on the CT. 2. Patient did have a history of PENICILLIN allergy that will limit the number of antibiotics safe to use. PLAN: 1. We will keep the patient on meropenem 1 q.12 hours while monitoring the kidney function. 2. IV fluids. 3. We will follow her clinical condition and culture to further adjust medication if needed. Thank you for this consultation. We will follow this patient along with you. MMODL / IJN: [id number] /
[2020-07-25 06:51] LABS: Anisocytosis Moderate; Basophils % (A) 0 %; Eosinophils % (A) 0 %; HGB 11.1 gm/dL (11.4-16.0); Hypochromasia Slight; Lymphocytes # (A) 1.1 k/uL (1.0-4.8); Lymphocytes % (A) 11 %; MCH 25.3 pg (25.0-35.0); MCHC 31.7 g/dL (31.0-37.0); Mean Platelet Volume 11.1; Microcytosis Slight; Monocytes # (A) 0.8 k/uL (0-1.0); Monocytes % (A) 8 %; Neutrophils # (A) 7.6 k/uL (1.3-7.7); Neutrophils % (A) 78 %; Platelet Count 156 k/uL (150-450); Poikilocytosis Moderate; RBC 4.38 m/uL (3.80-5.40); RDW 20.2 % (11.5-15.5); WBC 9.7 k/uL (3.8-10.6)
[2020-07-25 07:04] LABS: Calcium 7.4 mg/dL (8.4-10.2); Potassium 3.8 mmol/L (3.5-5.1)
[2020-07-25 07:08] LABS: MCV 79.8 fL (80.0-100.0)
[2020-07-25] MEDS: DEXTROSE 5% IN WATER 1,000 ML with SODIUM BICARB (1 MEQ/ML) 150 ML IV SCH ×3 (08:13→19:46)
[2020-07-25 08:21] LABS: Glucose,Whole Blood 183 mg/dL (75-99)
[2020-07-25] MEDS: INSULN ASP PRT/INSULIN ASPART 100 UNIT/ML 10 ML VIAL SQ SCH (08:23)
[2020-07-25] MEDS: INSULIN ASPART (NovoLOG) 100 UNIT/ML VIAL SQ SCH ×3 (08:57→17:50)
[2020-07-25] MEDS: ENOXAPARIN 40 MG/0.4 ML SYRINGE SQ SCH (09:01)
[2020-07-25] MEDS: PANTOPRAZOLE 40 MG/10 ML VIAL IV SCH (09:01)
[2020-07-25] MEDS: MAGNESIUM OXIDE 400 MG TAB PO SCH (09:02)
[2020-07-25] MEDS: HYDROXYCHLOROQUINE SULFATE 200 MG TAB PO SCH (09:02)
[2020-07-25] MEDS ORDERED: HALOPERIDOL LACTATE 5 MG/ML 1 ML VIAL IVP ONE (09:58)
[2020-07-25] MEDS ORDERED: DEXMEDETOMIDINE/0.9% NACL(PMX) 400 MCG in EMPTY BAG 1 BAG IV SCH (10:00)
[2020-07-25] MEDS ORDERED: SODIUM CHLORIDE 0.9% 1,000 ML with MVI, ADULT NO.4 WITH VIT K 10 ML, THIAMINE 100 MG, F... IV ONE ×4 (10:30)
[2020-07-25] MEDS: MEROPENEM 1 GM in SODIUM CHLORIDE 0.9% 100 ML IVPB SCH (10:37)
--- NOTE | 2020-07-25 10:44 | XR ---
EXAMINATION TYPE: XR chest 1V portable DATE OF EXAM: 07/25/2020 COMPARISON: Chest x-ray 07/24/2020 HISTORY: Congestive heart failure TECHNIQUE: Single frontal view of the chest is obtained. FINDINGS: There is a generator in left pectoral region, leads are present in the right ventricle. Th ere are overlying cardiac leads. No evident pneumothorax. Interstitium is increased. There is retroca rdiac density with obscured left hemidiaphragm, probable air bronchograms, blunting the left costophr enic angle. Heart is enlarged. Aorta is dense. Some minimal patchy basilar density present on the rig ht. There may be a spinal curvature. IMPRESSION: Correlate for congestive heart failure, there may be left pleural effusion, cannot exclu de pneumonia.
[2020-07-25] MEDS ORDERED: FUROSEMIDE 10 MG/ML 10 ML VIAL IV STA (11:00)
[2020-07-25] MEDS: DOBUTamine DRIP 500 MG in DEXTROSE/WATER 1 250ML.BAG IV SCH (11:00)
--- NOTE | 2020-07-25 11:05 | P.PN ---
Subjective Patient is seen in follow-up for acute kidney injury and metabolic acidosis. Her mentation is worsened today. Creatinine 2.81. Oliguric. She is maintained on bicarb drip. Bicarb level up to 15. Lactic acid still high at 8.9 this morning. Cultures negative so far. She is on broad-spectrum antibiotics. Blood pressure is stable. Not on any vasopressors. Vital signs are stable. General: The patient appeared well nourished and normally developed. HEENT: Head exam is unremarkable. LUNGS: Breath sounds decreased. HEART: Tachycardic. ABDOMEN: Soft, no distention. EXTREMITITES: No edema. Objective - Vital Signs Vital signs: Vital Signs Temp 97.5 F L 07/25/20 08:00 Pulse 118 H 07/25/20 09:00 Resp 17 07/25/20 09:00 BP 111/75 07/25/20 09:00 Pulse Ox 96 07/25/20 08:00 Intake & Output 07/24/20 07/25/20 07/25/20 18:59 06:59 18:59 Intake Total 3200 3050 204.052 Output Total 35 125 20 Balance 3165 2925 184.052 Weight 101.3 kg Intake: Intake, IV Titration 3200 3050 204.052 Amount Dexmedetomidine/0.9% NaCl 4.052 (Pmx) 400 mcg In Empty Bag 1 bag @ Titrate IV . Q0M [facility] Rx#:[id number] Dextrose 5% in Water 1, 900 1700 200 000 ml @ 100 mls/hr IV . [id number] [facility] with Sodium Bicarb (1 Meq/ml) 150 ml Rx#:[id number] Magnesium Sulfate-D5w Pmx 100 1 gm In Dextrose/Water 1 100ml.bag @ 100 mls/hr IVPB ONCE ONE Rx#: [id number] Magnesium Sulfate-D5w Pmx 200 1 gm In Dextrose/Water 1 100ml.bag @ 100 mls/hr IVPB Q1H [facility] Rx#: [id number] Meropenem 1 gm In Sodium 100 Chloride 0.9% 100 ml @ 33 .3 mls/hr IVPB Q12HR [facility] Rx#:[id number] Sodium Chloride 0.9% 1, 250 000 ml @ 125 mls/hr IV . Q8H [facility] Rx#:[id number] Sodium Chloride 0.9% 1, 2000 000 ml @ 999 mls/hr IV . Q1H1M [facility] Rx#:[id number] Sodium Chloride 0.9% 2, 1000 000 ml @ 999 mls/hr IV . Q2H1M ONE Rx#:[id number] Oral 0 0 Output: Urine 35 25 20 Stool 100 Other: Voiding Method Indwelling Catheter Indwelling Catheter # Bowel Movements 2 - Labs CBC & Chem 7: 07/25/20 05:21 07/25/20 05:21 Labs: Abnormal Lab Results - Last 24 Hours (Table) 07/24/20 07/24/20 07/24/20 Range/Units 05:16 11:18 12:07 Hgb (11.4-16.0) gm/dL MCV (80.0-100.0) fL RDW (11.5-15.5) % Sodium 146 H (137-145) mmol/L Chloride 113 H (98-107) mmol/L Carbon Dioxide 8 L* (22-30) mmol/L BUN 5 L (7-17) mg/dL Creatinine 2.13 H (0.52-1.04) mg/dL Glucose 122 H (74-99) mg/dL POC Glucose (mg/dL) 120 H (75-99) mg/dL Plasma Lactic Acid Sunny (0.7-2.0) mmol/L Calcium 8.1 L (8.4-10.2) mg/dL Total Bilirubin 3.9 H (0.2-1.3) mg/dL AST 129 H (14-36) U/L Alkaline Phosphatase 135 H (38-126) U/L Amylase <30 L (30-110) U/L Lipase <10 L <10 L (23-300) U/L Urine Appearance (Clear) Urine Protein (Negative) Urine Blood (Negative) Urine Bilirubin (Negative) Urine RBC (0-5) /hpf Ur Squamous Epith Cells (0-4) /hpf Hyaline Casts (0-2) /lpf Urine Mucus (None) /hpf 07/24/20 07/24/20 07/24/20 Range/Units 12:31 12:45 15:37 Hgb (11.4-16.0) gm/dL MCV (80.0-100.0) fL RDW (11.5-15.5) % Sodium (137-145) mmol/L Chloride (98-107) mmol/L Carbon Dioxide (22-30) mmol/L BUN (7-17) mg/dL Creatinine (0.52-1.04) mg/dL Glucose (74-99) mg/dL POC Glucose (mg/dL) (75-99) mg/dL Plasma Lactic Acid Sunny 11.7 H* 12.3 H* (0.7-2.0) mmol/L Calcium (8.4-10.2) mg/dL Total Bilirubin (0.2-1.3) mg/dL AST (14-36) U/L Alkaline Phosphatase (38-126) U/L Amylase (30-110) U/L Lipase (23-300) U/L Urine Appearance Cloudy H (Clear) Urine Protein 2+ H (Negative) Urine Blood Large H (Negative) Urine Bilirubin 1+ H (Negative) Urine RBC >182 H (0-5) /hpf Ur Squamous Epith Cells 7 H (0-4) /hpf Hyaline Casts 29 H (0-2) /lpf Urine Mucus Occasional H (None) /hpf 07/24/20 07/24/20 07/24/20 Range/Units 17:40 18:16 18:30 Hgb (11.4-16.0) gm/dL MCV (80.0-100.0) fL RDW (11.5-15.5) % Sodium (137-145) mmol/L Chloride 112 H (98-107) mmol/L Carbon Dioxide 9 L* (22-30) mmol/L BUN 6 L (7-17) mg/dL Creatinine 2.50 H (0.52-1.04) mg/dL Glucose 195 H (74-99) mg/dL POC Glucose (mg/dL) 181 H (75-99) mg/dL Plasma Lactic Acid Sunny 11.3 H* (0.7-2.0) mmol/L Calcium 7.9 L (8.4-10.2) mg/dL Total Bilirubin (0.2-1.3) mg/dL AST (14-36) U/L Alkaline Phosphatase (38-126) U/L Amylase (30-110) U/L Lipase (23-300) U/L Urine Appearance (Clear) Urine Protein (Negative) Urine Blood (Negative) Urine Bilirubin (Negative) Urine RBC (0-5) /hpf Ur Squamous Epith Cells (0-4) /hpf Hyaline Casts (0-2) /lpf Urine Mucus (None) /hpf 07/24/20 07/24/20 07/25/20 Range/Units 20:19 21:32 00:53 Hgb (11.4-16.0) gm/dL MCV (80.0-100.0) fL RDW (11.5-15.5) % Sodium (137-145) mmol/L Chloride (98-107) mmol/L Carbon Dioxide (22-30) mmol/L BUN (7-17) mg/dL Creatinine (0.52-1.04) mg/dL Glucose (74-99) mg/dL POC Glucose (mg/dL) 179 H (75-99) mg/dL Plasma Lactic Acid Sunny 10.3 H* 9.3 H* (0.7-2.0) mmol/L Calcium (8.4-10.2) mg/dL Total Bilirubin (0.2-1.3) mg/dL AST (14-36) U/L Alkaline Phosphatase (38-126) U/L Amylase (30-110) U/L Lipase (23-300) U/L Urine Appearance (Clear) Urine Protein (Negative) Urine Blood (Negative) Urine Bilirubin (Negative) Urine RBC (0-5) /hpf Ur Squamous Epith Cells (0-4) /hpf Hyaline Casts (0-2) /lpf Urine Mucus (None) /hpf 07/25/20 07/25/20 07/25/20 Range/Units : 05: 05:21 Hgb 11.1 L (11.4-16.0) gm/dL MCV 79.8 L D (80.0-100.0) fL RDW 20.2 H (11.5-15.5) % Sodium (137-145) mmol/L Chloride 111 H (98-107) mmol/L Carbon Dioxide 15 L (22-30) mmol/L BUN (7-17) mg/dL Creatinine 2.81 H (0.52-1.04) mg/dL Glucose 171 H (74-99) mg/dL POC Glucose (mg/dL) (75-99) mg/dL Plasma Lactic Acid Sunny 8.9 H* (0.7-2.0) mmol/L Calcium 7.4 L (8.4-10.2) mg/dL Total Bilirubin (0.2-1.3) mg/dL AST (14-36) U/L Alkaline Phosphatase (38-126) U/L Amylase (30-110) U/L Lipase (23-300) U/L Urine Appearance (Clear) Urine Protein (Negative) Urine Blood (Negative) Urine Bilirubin (Negative) Urine RBC (0-5) /hpf Ur Squamous Epith Cells (0-4) /hpf Hyaline Casts (0-2) /lpf Urine Mucus (None) /hpf 07/25/20 Range/Units 08:19 Hgb (11.4-16.0) gm/dL MCV (80.0-100.0) fL RDW (11.5-15.5) % Sodium (137-145) mmol/L Chloride (98-107) mmol/L Carbon Dioxide (22-30) mmol/L BUN (7-17) mg/dL Creatinine (0.52-1.04) mg/dL Glucose (74-99) mg/dL POC Glucose (mg/dL) 183 H (75-99) mg/dL Plasma Lactic Acid Sunny (0.7-2.0) mmol/L Calcium (8.4-10.2) mg/dL Total Bilirubin (0.2-1.3) mg/dL AST (14-36) U/L Alkaline Phosphatase (38-126) U/L Amylase (30-110) U/L Lipase (23-300) U/L Urine Appearance (Clear) Urine Protein (Negative) Urine Blood (Negative) Urine Bilirubin (Negative) Urine RBC (0-5) /hpf Ur Squamous Epith Cells (0-4) /hpf Hyaline Casts (0-2) /lpf Urine Mucus (None) /hpf Microbiology - Last 24 Hours (Table) 07/24/20 05:16 Blood Culture - Preliminary Blood No Growth after 24 hours 07/24/20 12:45 Urine Culture - Preliminary Urine,Catheterized Assessment and Plan Plan: Assessment: 1. Acute kidney injury secondary to ATN secondary to hypotension. ?cardiorenal. Also received IV contrast on July 22. Baseline creatinine near 1 and up to 2.81 this morning. No hydronephrosis noted on CAT scan. 2. Metabolic acidosis secondary to acute kidney injury and lactic acidosis. Improving with bicarbonate drip. 3. Lactic acidosis secondary to hypotension/hypoperfusion. She has been evaluated by surgery for concern for ischemic bowel. 4. Severe sepsis. Concern for UTI as well as pancreatitis. On antibiotics. Infectious disease following. 5. Diabetes mellitus. 6. Chronic systolic CHF with ejection fraction of 25-30% with mild to moderate mitral and tricuspid regurgitation. 7. Severe pulmonary hypertension. 8. Hypomagnesemia from poor intake. Status post replacement. 9. Fluid overload suggested on chest x-ray. Plan: Maintain bicarb drip - decrease rate to 50 cc/hr. Lasix 80 mg IV once. Follow-up echocardiogram. Repeat BMP this evening. Continue to monitor renal function and urine output closely. Due to worsening renal function, oliguria, acidosis and worsened mentation, initiate renal replacement therapy. Plan for first treatment of hemodialysis today and second treatment tomorrow. Doubt uremia as BUN is not elevated. Monitor for renal recovery.
[2020-07-25 11:43] LABS: Glucose,Whole Blood 165 mg/dL (75-99)
[2020-07-25 12:17] LABS: Prothrombin Time 92.9 sec (9.0-12.0)
[2020-07-25 12:26] LABS: INR 9.4 (<1.2)
[2020-07-25 12:28] LABS: Lactic Acid, Venous 8.3 mmol/L (0.7-2.0)
[2020-07-25 12:28] LABS: Glucose,Whole Blood 196 mg/dL (75-99)
[2020-07-25 12:37] LABS: Albumin 3.3 g/dL (3.5-5.0); Calcium 7.4 mg/dL (8.4-10.2); Magnesium 1.6 mg/dL (1.6-2.3); Potassium 3.7 mmol/L (3.5-5.1); Total Bilirubin 3.4 mg/dL (0.2-1.3); Total Protein 6.9 g/dL (6.3-8.2)
--- NOTE | 2020-07-25 12:58 | ECHOF ---
Referral Reason:dyspnea MEASUREMENTS -------- HEIGHT: 185.4 cm WEIGHT: 101.2 kg BP: 111/75 RVIDd: 3.1 cm (< 3.3) IVSd: 1.4 cm (0.6 - 1.1) LVIDd: 5.0 cm (3.9 - 5.3) LVPWd: 1.6 cm (0.6 - 1.1) IVSs: 1.7 cm LVIDs: 4.5 cm LVPWs: 1.5 cm LA Diam: 4.2 cm (2.7 - 3.8) LAESV Index (A-L): 37.63 ml/m Ao Diam: 3.3 cm (2.0 - 3.7) MV EXCURSION: 23.601 mm (> 18.000) MV EF SLOPE: 348 mm/s (70 - 150) EPSS: 1.7 cm RAP: 15.00 mmHg RVSP: 45.26 mmHg FINDINGS -------- Atrial fibrillation. This was a technically adequate study. The left ventricular size is normal. There is moderate concentric left ventricular hypertrophy. O verall left ventricular systolic function is severely impaired with, an EF between 20 - 25 %. The right ventricle is normal in size. LA is moderately dilated 34-39 ml/m2 The right atrium is normal in size. Interatrial and interventricular septum intact. The aortic valve is trileaflet, and appears structurally normal. No aortic stenosis or regurgitation. Mild tricuspid regurgitation present. There is mild to moderate pulmonary hypertension. The right ventricular systolic pressure, as measured by Doppler, is 45.26mmHg. Trace/mild (physiologic) pulmonic regurgitation. The aortic root size is normal. The inferior vena cava is dilated with no significant inspiratory collapse which is consistent estima ángel right atrial pressure of >15 mmHg. There is a small, generalized pericardial effusion present. CONCLUSIONS -------- 1. The left ventricular size is normal. 2. There is moderate concentric left ventricular hypertrophy. 3. Overall left ventricular systolic function is severely impaired with, an EF between 20 - 25 %. 4. LA is moderately dilated 34-39 ml/m2 5. Mild tricuspid regurgitation present. 6. There is mild to moderate pulmonary hypertension. 7. The right ventricular systolic pressure, as measured by Doppler, is 45.26mmHg. 8. Trace/mild (physiologic) pulmonic regurgitation. 9. The inferior vena cava is dilated with no significant inspiratory collapse which is consistent est imated right atrial pressure of >15 mmHg. 10. There is a small, generalized pericardial effusion present. POLYSOMNOGRAPHER: Stefani Adams RDCS
--- NOTE | 2020-07-25 13:18 | P.PN ---
Subjective Progress Note Date: 07/25/20 Principal diagnosis: Sepsis, lactic acidosis This is a 65-year-old white female patient with multiple chronic medical problems including chronic A. fib on Eliquis, chronic CHF, diabetes mellitus type 2, nonischemic cardiomyopathy, status post AICD placement hypertension, hyperlipidemia, rheumatoid arthritis, Sjogren's, lupus, fibromyalgia, history of Waldenstrom macroglobulinemia previously treated with chemotherapy, former smoker, who presented to the emergency department on 07/22/2020 with complaints of nausea vomiting and weakness. Patient was also having some generalized abdominal pain. He denied any fevers. Denies any sick contacts, she tested negative for Coronavirus. CT of the abdomen and pelvis was completed showing suspected mild pancreatic and. Pancreatic edema suggesting acute pancreatitis. Questionable mild wall thickening of the urinary bladder with adjacent stranding worsening acute cystitis. Patient has been afebrile, blood pressures were ini tially in the low 100s systolic over 80s diastolic, she has been on room air and not requiring any supplemental oxygen. Her admission lab work positive for leukopenia with white blood cell count of 3.5, hemoglobin was 12.6, platelet count was 115, sodium is 138, potassium 3.0, chloride is 103, CO2 24, B1 of 4, creatinine is 1.13, patient had a significantly elevated lactic acid that initially was at 2.2 and was steadily on the rise over the course of 24 hours, and this morning was up to 11.6. The patient was noted to be more hypotensive, quite tachycardic, more confused, and anuric. She has received 3 L of fluid boluses yesterday in the emergency department, this morning she is receiving an additional 1 L IV bolus. She was started on meropenem for suspicion of sepsis with septic shock. Blood cultures urine culture and urinalysis have been sent and pending, chest x-ray has been ordered, patient has been transferred to the density of care unit where we are seeing the patient in consultation. She is awake, but she is confused, she is on room air pulse ox is 99%, her first liter bolus is still infusing, her blood pressure is systolic in the low 100s, she remains tachycardic in atrial fibrillation with a rate of 120 BPM, appears to be in no acute distress, chest x-ray is pending, cultures have been sent, meropenem started, this morning his blood work reviewed and BMP showed CO2 of only 9, worsening renal function with BUN of 5 and creatinine 1.91. Magnesium was 1.1, total bilirubin is 3.5, AST 76, ALT is 20, alkaline phosphatase is 119, lipase was initially at 32 and is currently at less than 10, amylase was within normal limits at 33. Abdomen is soft, nontender. Patient has been started on D5 with 3 A of bicarbonate at 150 ML per hour, venous blood gas was obtained showing bicarbonate concentration of 6, pCO2 of 18, and pH of 7.17. On 07/25/2020 patient seen in follow-up in the intensive care unit. She has received significant amount of fluids, a total of 6 L of fluid boluses yesterday, however her urine output is still quite poor, and she is only making 5-10 ML per hour. She is considerably more confused today, and her lactic acid remains quite elevated at 8.3. Renal function has worsened overnight, creatinine is up to 3.01, B1 is 9, CO2 is 14, chloride is 110, potassium is 3.7, and sodium is 144, there has been further worsening of patient's LFTs, AST is up to 529, ALT is 91, LDL is still within normal limits at 125, stat ammonia level was obtained and is currently at 21, INR level IX.4, white blood cell count remains within normal limits at 9.7, hemoglobin is 11.1, platelet count is 156. Patient is confused, and her extremities are cool to touch, echocardiogram was obtained showing impaired left ventricular systolic function and an EF of 20- 25%, mild tricuspid regurg, mild to moderate pulmonary hypertension with right- sided pressures of 45.2 mmHg, IVC is dilated with no significant inspiratory collapse and an estimated right atrial pressure of greater than 15 mmHg, and there is a small generalized pericardial effusion. Patient is restless, confused, there is a product safety specialist at the bedside to prevent the patient from removing her indwelling catheters, she was placed on supplemental oxygen at 2 L with a pulse ox Of 99%, she is currently in A. fib with RVR with a rate of 116- 131 BPM, we were going to start a dobutamine infusion however patient was tachycardic, and consultation was placed to cardiology. She is not requiring a ny vasopressor support right now, her maintenance IV fluids are D5 W with 3 A of bicarbonate going at 50 ML per hour. In addition patient and to use on empiric antibiotics in the form of meropenem, blood cultures, urine cultures and urinalysis have been sent and remain negative thus far, her abdomen is soft, and nontender, she hasn't had any more vomiting or diarrhea. Chest x-ray shows increased interstitial and retrocardiac density with obscured left hemidiaphragm and blunting of the left costophrenic angle. Some minimal patchy basilar density on the right. Nephrology is consulted, and is planning on obtaining hemodialysis catheter access today and initiating the patient on hemodialysis, surgical services are following, and it was felt that the CT scan of the abdomen with contrast did not show any definite thrombotic or embolic event, low-flow ischemia or small peripheral embolism from the patient's underlying A. fib was in the differential. However it was felt to be less likely, and no surgical intervention was recommended at this time. Objective - Vital Signs Vital signs: Vital Signs Temp 97.5 F L 07/25/20 08:00 Pulse 116 H 07/25/20 11:15 Resp 22 07/25/20 11:15 BP 97/73 07/25/20 11:15 Pulse Ox 99 07/25/20 11:15 Intake & Output 07/24/20 07/25/20 07/25/20 18:59 06:59 18:59 Intake Total 3200 3050 516.715 Output Total 35 125 25 Balance 3165 2925 491.715 Weight 101.3 kg Intake: Intake, IV Titration 3200 3050 516.715 Amount Dexmedetomidine/0.9% NaCl 16.715 (Pmx) 400 mcg In Empty Bag 1 bag @ Titrate IV . Q0M MIRZA Rx#:[id number] Dextrose 5% in Water 1, 900 1700 400 000 ml @ 50 mls/hr IV . Q23H [facility]ZA with Sodium Bicarb (1 Meq/ml) 150 ml Rx#:[id number] Magnesium Sulfate-D5w Pmx 100 1 gm In Dextrose/Water 1 100ml.bag @ 100 mls/hr IVPB ONCE ONE Rx#: [id number] Magnesium Sulfate-D5w Pmx 200 1 gm In Dextrose/Water 1 100ml.bag @ 100 mls/hr IVPB Q1H MIRZA Rx#: [id number] Meropenem 1 gm In Sodium 100 100 Chloride 0.9% 100 ml @ 33 .3 mls/hr IVPB Q12HR M[facility]ZA Rx#:[id number] Sodium Chloride 0.9% 1, 250 000 ml @ 125 mls/hr IV . Q8H [facility] Rx#:[id number] Sodium Chloride 0.9% 1, 2000 000 ml @ 999 mls/hr IV . Q1H1M MIRZA Rx#:[id number] Sodium Chloride 0.9% 2, 1000 000 ml @ 999 mls/hr IV . Q2H1M ONE Rx#:[id number] Oral 0 0 Output: Urine 35 25 25 Stool 100 Other: Voiding Method Indwelling Catheter Indwelling Catheter Indwelling Catheter # Bowel Movements 2 - Exam GENERAL EXAM: Somnolent, restless, more confused, on room air with pulse ox of 99%, appears to be in no acute distress, remains tachycardic, in atrial fibrillation with a rate of 116 to 130 BPM, and the blood pressures remained marginal with systolic in the 80s to 90s receiving fluid boluses, restless, with cool extremities to touch HEAD: Normocephalic/atraumatic. EYES: Normal reaction of pupils, equal size. Conjunctiva pink, sclera white. NOSE: Clear with pink turbinates. THROAT: No erythema or exudates. NECK: No masses, no JVD, no thyroid enlargement, no adenopathy. CHEST: No chest wall deformity. Symmetrical expansion. LUNGS: Equal air entry with no crackles, wheeze, rhonchi or dullness. CVS: Regular rate and rhythm, normal S1 and S2, no gallops, no murmurs, no rubs ABDOMEN: Soft, nontender. No hepatosplenomegaly, normal bowel sounds, no guarding or rigidity. EXTREMITIES: No clubbing, no edema, no cyanosis, 2+ pulses and upper and lower extremities. MUSCULOSKELETAL: Muscle strength and tone normal. SPINE: No scoliosis or deformity SKIN: No rashes CENTRAL NERVOUS SYSTEM: Alert, but confused, No focal deficits, tone is normal in all 4 extremities. - Labs CBC & Chem 7: 07/25/20 05:21 07/25/20 12:01 Labs: Abnormal Lab Results - Last 24 Hours (Table) 07/24/20 07/24/20 07/24/20 Range/Units 12:31 12:45 15:37 Hgb (11.4-16.0) gm/dL MCV (80.0-100.0) fL RDW (11.5-15.5) % PT (9.0-12.0) sec INR (<1.2) Chloride (98-107) mmol/L Carbon Dioxide (22-30) mmol/L BUN (7-17) mg/dL Creatinine (0.52-1.04) mg/dL Glucose (74-99) mg/dL POC Glucose (mg/dL) (75-99) mg/dL Plasma Lactic Acid Sunny 11.7 H* 12.3 H* (0.7-2.0) mmol/L Calcium (8.4-10.2) mg/dL Total Bilirubin (0.2-1.3) mg/dL AST (14-36) U/L ALT (4-34) U/L Albumin (3.5-5.0) g/dL Urine Appearance Cloudy H (Clear) Urine Protein 2+ H (Negative) Urine Blood Large H (Negative) Urine Bilirubin 1+ H (Negative) Urine RBC >182 H (0-5) /hpf Ur Squamous Epith Cells 7 H (0-4) /hpf Hyaline Casts 29 H (0-2) /lpf Urine Mucus Occasional H (None) /hpf 07/24/20 07/24/20 07/24/20 Range/Units 17:40 18:16 18:30 Hgb (11.4-16.0) gm/dL MCV (80.0-100.0) fL RDW (11.5-15.5) % PT (9.0-12.0) sec INR (<1.2) Chloride 112 H (98-107) mmol/L Carbon Dioxide 9 L* (22-30) mmol/L BUN 6 L (7-17) mg/dL Creatinine 2.50 H (0.52-1.04) mg/dL Glucose 195 H (74-99) mg/dL POC Glucose (mg/dL) 181 H (75-99) mg/dL Plasma Lactic Acid Sunny 11.3 H* (0.7-2.0) mmol/L Calcium 7.9 L (8.4-10.2) mg/dL Total Bilirubin (0.2-1.3) mg/dL AST (14-36) U/L ALT (4-34) U/L Albumin (3.5-5.0) g/dL Urine Appearance (Clear) Urine Protein (Negative) Urine Blood (Negative) Urine Bilirubin (Negative) Urine RBC (0-5) /hpf Ur Squamous Epith Cells (0-4) /hpf Hyaline Casts (0-2) /lpf Urine Mucus (None) /hpf 07/24/20 07/24/20 07/25/20 Range/Units 20:19 21:32 00:53 Hgb (11.4-16.0) gm/dL MCV (80.0-100.0) fL RDW (11.5-15.5) % PT (9.0-12.0) sec INR (<1.2) Chloride (98-107) mmol/L Carbon Dioxide (22-30) mmol/L BUN (7-17) mg/dL Creatinine (0.52-1.04) mg/dL Glucose (74-99) mg/dL POC Glucose (mg/dL) 179 H (75-99) mg/dL Plasma Lactic Acid Sunny 10.3 H* 9.3 H* (0.7-2.0) mmol/L Calcium (8.4-10.2) mg/dL Total Bilirubin (0.2-1.3) mg/dL AST (14-36) U/L ALT (4-34) U/L Albumin (3.5-5.0) g/dL Urine Appearance (Clear) Urine Protein (Negative) Urine Blood (Negative) Urine Bilirubin (Negative) Urine RBC (0-5) /hpf Ur Squamous Epith Cells (0-4) /hpf Hyaline Casts (0-2) /lpf Urine Mucus (None) /hpf 07/25/20 07/25/20 07/25/20 Range/Units 05: 05: 05:21 Hgb 11.1 L (11.4-16.0) gm/dL MCV 79.8 L D (80.0-100.0) fL RDW 20.2 H (11.5-15.5) % PT (9.0-12.0) sec INR (<1.2) Chloride 111 H (98-107) mmol/L Carbon Dioxide 15 L (22-30) mmol/L BUN (7-17) mg/dL Creatinine 2.81 H (0.52-1.04) mg/dL Glucose 171 H (74-99) mg/dL POC Glucose (mg/dL) (75-99) mg/dL Plasma Lactic Acid Sunny 8.9 H* (0.7-2.0) mmol/L Calcium 7.4 L (8.4-10.2) mg/dL Total Bilirubin (0.2-1.3) mg/dL AST (14-36) U/L ALT (4-34) U/L Albumin (3.5-5.0) g/dL Urine Appearance (Clear) Urine Protein (Negative) Urine Blood (Negative) Urine Bilirubin (Negative) Urine RBC (0-5) /hpf Ur Squamous Epith Cells (0-4) /hpf Hyaline Casts (0-2) /lpf Urine Mucus (None) /hpf 07/25/20 07/25/20 07/25/20 Range/Units 08:19 11:41 12:01 Hgb (11.4-16.0) gm/dL MCV (80.0-100.0) fL RDW (11.5-15.5) % PT (9.0-12.0) sec INR (<1.2) Chloride (98-107) mmol/L Carbon Dioxide (22-30) mmol/L BUN (7-17) mg/dL Creatinine (0.52-1.04) mg/dL Glucose (74-99) mg/dL POC Glucose (mg/dL) 183 H 165 H (75-99) mg/dL Plasma Lactic Acid Sunny 8.3 H* (0.7-2.0) mmol/L Calcium (8.4-10.2) mg/dL Total Bilirubin (0.2-1.3) mg/dL AST (14-36) U/L ALT (4-34) U/L Albumin (3.5-5.0) g/dL Urine Appearance (Clear) Urine Protein (Negative) Urine Blood (Negative) Urine Bilirubin (Negative) Urine RBC (0-5) /hpf Ur Squamous Epith Cells (0-4) /hpf Hyaline Casts (0-2) /lpf Urine Mucus (None) /hpf 07/25/20 07/25/20 07/25/20 Range/Units 12:01 12:01 12:16 Hgb (11.4-16.0) gm/dL MCV (80.0-100.0) fL RDW (11.5-15.5) % PT 92.9 H (9.0-12.0) sec INR 9.4 H* (<1.2) Chloride 110 H (98-107) mmol/L Carbon Dioxide 14 L (22-30) mmol/L BUN (7-17) mg/dL Creatinine 3.01 H (0.52-1.04) mg/dL Glucose 150 H (74-99) mg/dL POC Glucose (mg/dL) 196 H (75-99) mg/dL Plasma Lactic Acid Sunny (0.7-2.0) mmol/L Calcium 7.4 L (8.4-10.2) mg/dL Total Bilirubin 3.4 H (0.2-1.3) mg/dL AST 529 H (14-36) U/L ALT 91 H (4-34) U/L Albumin 3.3 L (3.5-5.0) g/dL Urine Appearance (Clear) Urine Protein (Negative) Urine Blood (Negative) Urine Bilirubin (Negative) Urine RBC (0-5) /hpf Ur Squamous Epith Cells (0-4) /hpf Hyaline Casts (0-2) /lpf Urine Mucus (None) /hpf Microbiology - Last 24 Hours (Table) 07/24/20 05:16 Blood Culture - Preliminary Blood No Growth after 24 hours 07/24/20 12:45 Urine Culture - Preliminary Urine,Catheterized Assessment and Plan Plan: Assessment: #1. Acute septic shock, with possibilities including urinary tract infection, and possibility of pancreatitis although this is less likely based on her low lipase and amylase levels #2. Severe lactic acidosis, with the possibility of low flow ischemic bowel related to underlying history of A. fib, no surgical intervention is planned at this time. Abdomen is soft, surgical services are following #3. Possibility of cardiogenic shock in addition to septic shock, distended and history of severely impaired LV function and echocardiogram on 07/25/2020 shows EF of 20-25% #4. Left lower base atelectasis, doubt possibility of pneumonia, although not completely excluded #5. Severe anion gap metabolic acidosis related to sepsis, currently lactic acid is 11.6, patient has been started on broad-spectrum antibiotics and fluid resuscitated #6. Acute kidney injury related to the above, patient remains in uric on 07/25/2020, and hemodialysis is going to be initiated today #7. Chronic A. fib on Eliquis #8. Chronic CHF with systolic dysfunction #9. Diabetes mellitus type 2 with diabetic neuropathy #10. Hypertension #11. Hyperlipidemia #12. Rheumatoid arthritis #13. Nonischemic cardiomyopathy, status post AICD placement #14. Hx of Waldenstrom macroglobulinemia #15. Sjogren's Plan: All labs, chest x-ray and echocardiogram reviewed We'll obtain a blood gas this morning Blood pressures are marginal, remains tachycardic All cultures are negative thus far, patient remains on meropenem No fever or chills Remains on bicarbonate infusion Patient has been anuric, despite significant amount of fluids Lactic acid remains elevated, but abdomen is soft, no surgical intervention at this time We'll keep her nothing by mouth, maintaining safety precautions Continue current dose Lovenox We attempted to start dobutamine to improve cardiac output however patient is quite tachycardic Consult cardiology for recommendations for A. fib RVR control Nephrology is following, patient had further worsening of her renal function over the last 24 hours, poor urine output, and hemodialysis will be initiated today We'll continue close hemodynamic monitoring in the ICU We'll update the patient's spouse Prognosis is guarded I performed a history & physical examination of the patient and discussed their management with my nurse practitioner, Shyla Dos Santos. I reviewed the nurse practitioner's note and agree with the documented findings and plan of care. Lung sounds are positive for diminished breath sounds. The findings and the impression was discussed with the patient. I attest to the documentation by the nurse practitioner. Time with Patient: Greater than 30
[2020-07-25] MEDS ORDERED: Potassium Replacement Protocol 1 EACH MISC MISCELLANE PRN (13:21)
[2020-07-25 13:24] LABS: Prothrombin Time 70.8 sec (9.0-12.0)
[2020-07-25] MEDS: POTASSIUM CHLORIDE 10 MEQ in WATER FOR INJECTION 1 100ML.BAG IVPB SCH ×2 (13:35→19:44)
[2020-07-25 13:36] LABS: INR 7.3 (<1.2)
[2020-07-25 14:09] LABS: ABG Base Excess -5.9 mmol/L; ABG HCO3 20 mmol/L (21-25); ABG Oxygen Saturation 94.3 % (94-97); ABG PCO2 37 mmHg (35-45); ABG PH 7.34 (7.35-7.45); ABG PO2 79 mmHg (83-108); ABG TCO2 21 mmol/L (19-24); Allen Test Performed? Yes
--- NOTE | 2020-07-25 14:20 | P.PN ---
Subjective Progress Note Date: 07/25/20 CHIEF COMPLAINT: Abdominal pain HISTORY OF PRESENT ILLNESS: Surgical service is following regards to patient's abdominal pain. Initial consult was placed for ischemic bowel. Patient evaluated by Dr. Hearn yesterday who reviewed CAT scan. Low-flow ischemia or small peripheral embolism from the patient's underlying atrial fibrillation does remain within the differential however the history would not suggest that since she denies abdominal pain currently and with her having more crampy discomfort on arrival. Today, patient is more confused and has a bedside sitter. No evidence of abdominal pain. Her lactic is 8.9 WBC 9.7 and hemoglobin 11.1. She's currently nothing by mouth. And afebrile. She has been tachycardic and hypotensive. She is on antibiotics bicarb drip. Not on any vasopressors. Patient evaluated by nephrology and they are planning to initiate dialysis due to patient's worsening renal function, oliguric and worsening mentation. Creatinine is 2.81. Magnesium 1.1 and was replaced yesterday Chest x-ray reports correlate for congestive heart failure. There may be left pleural effusion, cannot exclude pneumonia. Patient has been given IV Lasix. Patient seen and examined with Dr. martinez PHYSICAL EXAM: VITAL SIGNS: Reviewed. GENERAL: Well-developed in no acute distress. HEENT: No sclera icterus. Extraocular movements grossly intact. Moist buccal mucosa. Head is atraumatic, normocephalic. ABDOMEN: Soft. Nondistended. Nontender. NEUROLOGIC: Confused ASSESSMENT: 1. Abdominal pain with elevated lactic acid. Abdominal pain resolved. Possible low-flow ischemia or small peripheral embolism from the patient's underlying atrial fibrillation does remain within the differential but is less likely. Patient's pain has resolved and her pain was more crampy on admission PLAN: -No surgical intervention planned -Continue ICU management -Continue supportive care Physician Flight Surgeon note has been reviewed by physician. Signing provider agrees with the documented findings, assessment, and plan of care. Objective - Vital Signs Vital signs: Vital Signs Temp 97.5 F L 07/25/20 08:00 Pulse 116 H 07/25/20 11:15 Resp 22 07/25/20 11:15 BP 97/73 07/25/20 11:15 Pulse Ox 99 07/25/20 11:15 Intake & Output 07/24/20 07/25/20 07/25/20 18:59 06:59 18:59 Intake Total 3200 3050 516.715 Output Total 35 125 25 Balance 3165 2925 491.715 Weight 101.3 kg Intake: Intake, IV Titration 3200 3050 516.715 Amount Dexmedetomidine/0.9% NaCl 16.715 (Pmx) 400 mcg In Empty Bag 1 bag @ Titrate IV . Q0M [facility] Rx#:[id number] Dextrose 5% in Water 1, 900 1700 400 000 ml @ 50 mls/hr IV . Q23H [facility] with Sodium Bicarb (1 Meq/ml) 150 ml Rx#:[id number] Magnesium Sulfate-D5w Pmx 100 1 gm In Dextrose/Water 1 100ml.bag @ 100 mls/hr IVPB ONCE ONE Rx#: [id number] Magnesium Sulfate-D5w Pmx 200 1 gm In Dextrose/Water 1 100ml.bag @ 100 mls/hr IVPB Q1H [facility] Rx#: [id number] Meropenem 1 gm In Sodium 100 100 Chloride 0.9% 100 ml @ 33 .3 mls/hr IVPB Q12HR [facility] Rx#:[id number] Sodium Chloride 0.9% 1, 250 000 ml @ 125 mls/hr IV . Q8H [facility] Rx#:[id number] Sodium Chloride 0.9% 1, 2000 000 ml @ 999 mls/hr IV . Q1H1M [facility] Rx#:[id number] Sodium Chloride 0.9% 2, 1000 000 ml @ 999 mls/hr IV . Q2H1M ONE Rx#:[id number] Oral 0 0 Output: Urine 35 25 25 Stool 100 Other: Voiding Method Indwelling Catheter Indwelling Catheter Indwelling Catheter # Bowel Movements 2 - Labs CBC & Chem 7: 07/25/20 05:21 07/25/20 12:01 Labs: Abnormal Lab Results - Last 24 Hours (Table) 07/24/20 07/24/20 07/24/20 Range/Units 11:18 12:07 12:31 Hgb (11.4-16.0) gm/dL MCV (80.0-100.0) fL RDW (11.5-15.5) % Sodium 146 H (137-145) mmol/L Chloride 113 H (98-107) mmol/L Carbon Dioxide 8 L* (22-30) mmol/L BUN 5 L (7-17) mg/dL Creatinine 2.13 H (0.52-1.04) mg/dL Glucose 122 H (74-99) mg/dL POC Glucose (mg/dL) 120 H (75-99) mg/dL Plasma Lactic Acid Sunny 11.7 H* (0.7-2.0) mmol/L Calcium 8.1 L (8.4-10.2) mg/dL Total Bilirubin 3.9 H (0.2-1.3) mg/dL AST 129 H (14-36) U/L Alkaline Phosphatase 135 H (38-126) U/L Amylase <30 L (30-110) U/L Lipase <10 L (23-300) U/L Urine Appearance (Clear) Urine Protein (Negative) Urine Blood (Negative) Urine Bilirubin (Negative) Urine RBC (0-5) /hpf Ur Squamous Epith Cells (0-4) /hpf Hyaline Casts (0-2) /lpf Urine Mucus (None) /hpf 07/24/20 07/24/20 07/24/20 Range/Units 12:45 15:37 17:40 Hgb (11.4-16.0) gm/dL MCV (80.0-100.0) fL RDW (11.5-15.5) % Sodium (137-145) mmol/L Chloride (98-107) mmol/L Carbon Dioxide (22-30) mmol/L BUN (7-17) mg/dL Creatinine (0.52-1.04) mg/dL Glucose (74-99) mg/dL POC Glucose (mg/dL) 181 H (75-99) mg/dL Plasma Lactic Acid Sunny 12.3 H* (0.7-2.0) mmol/L Calcium (8.4-10.2) mg/dL Total Bilirubin (0.2-1.3) mg/dL AST (14-36) U/L Alkaline Phosphatase (38-126) U/L Amylase (30-110) U/L Lipase (23-300) U/L Urine Appearance Cloudy H (Clear) Urine Protein 2+ H (Negative) Urine Blood Large H (Negative) Urine Bilirubin 1+ H (Negative) Urine RBC >182 H (0-5) /hpf Ur Squamous Epith Cells 7 H (0-4) /hpf Hyaline Casts 29 H (0-2) /lpf Urine Mucus Occasional H (None) /hpf 07/24/20 07/24/20 07/24/20 Range/Units 18:16 18:30 20:19 Hgb (11.4-16.0) gm/dL MCV (80.0-100.0) fL RDW (11.5-15.5) % Sodium (137-145) mmol/L Chloride 112 H (98-107) mmol/L Carbon Dioxide 9 L* (22-30) mmol/L BUN 6 L (7-17) mg/dL Creatinine 2.50 H (0.52-1.04) mg/dL Glucose 195 H (74-99) mg/dL POC Glucose (mg/dL) 179 H (75-99) mg/dL Plasma Lactic Acid Sunny 11.3 H* (0.7-2.0) mmol/L Calcium 7.9 L (8.4-10.2) mg/dL Total Bilirubin (0.2-1.3) mg/dL AST (14-36) U/L Alkaline Phosphatase (38-126) U/L Amylase (30-110) U/L Lipase (23-300) U/L Urine Appearance (Clear) Urine Protein (Negative) Urine Blood (Negative) Urine Bilirubin (Negative) Urine RBC (0-5) /hpf Ur Squamous Epith Cells (0-4) /hpf Hyaline Casts (0-2) /lpf Urine Mucus (None) /hpf 07/24/20 07/25/20 07/25/20 Range/Units 21:32 00:53 05:21 Hgb (11.4-16.0) gm/dL MCV (80.0-100.0) fL RDW (11.5-15.5) % Sodium (137-145) mmol/L Chloride (98-107) mmol/L Carbon Dioxide (22-30) mmol/L BUN (7-17) mg/dL Creatinine (0.52-1.04) mg/dL Glucose (74-99) mg/dL POC Glucose (mg/dL) (75-99) mg/dL Plasma Lactic Acid Sunny 10.3 H* 9.3 H* 8.9 H* (0.7-2.0) mmol/L Calcium (8.4-10.2) mg/dL Total Bilirubin (0.2-1.3) mg/dL AST (14-36) U/L Alkaline Phosphatase (38-126) U/L Amylase (30-110) U/L Lipase (23-300) U/L Urine Appearance (Clear) Urine Protein (Negative) Urine Blood (Negative) Urine Bilirubin (Negative) Urine RBC (0-5) /hpf Ur Squamous Epith Cells (0-4) /hpf Hyaline Casts (0-2) /lpf Urine Mucus (None) /hpf 07/25/20 07/25/20 07/25/20 Range/Units : 05: 08:19 Hgb 11.1 L (11.4-16.0) gm/dL MCV 79.8 L D (80.0-100.0) fL RDW 20.2 H (11.5-15.5) % Sodium (137-145) mmol/L Chloride 111 H (98-107) mmol/L Carbon Dioxide 15 L (22-30) mmol/L BUN (7-17) mg/dL Creatinine 2.81 H (0.52-1.04) mg/dL Glucose 171 H (74-99) mg/dL POC Glucose (mg/dL) 183 H (75-99) mg/dL Plasma Lactic Acid Sunny (0.7-2.0) mmol/L Calcium 7.4 L (8.4-10.2) mg/dL Total Bilirubin (0.2-1.3) mg/dL AST (14-36) U/L Alkaline Phosphatase (38-126) U/L Amylase (30-110) U/L Lipase (23-300) U/L Urine Appearance (Clear) Urine Protein (Negative) Urine Blood (Negative) Urine Bilirubin (Negative) Urine RBC (0-5) /hpf Ur Squamous Epith Cells (0-4) /hpf Hyaline Casts (0-2) /lpf Urine Mucus (None) /hpf 07/25/20 Range/Units 11:41 Hgb (11.4-16.0) gm/dL MCV (80.0-100.0) fL RDW (11.5-15.5) % Sodium (137-145) mmol/L Chloride (98-107) mmol/L Carbon Dioxide (22-30) mmol/L BUN (7-17) mg/dL Creatinine (0.52-1.04) mg/dL Glucose (74-99) mg/dL POC Glucose (mg/dL) 165 H (75-99) mg/dL Plasma Lactic Acid Sunny (0.7-2.0) mmol/L Calcium (8.4-10.2) mg/dL Total Bilirubin (0.2-1.3) mg/dL AST (14-36) U/L Alkaline Phosphatase (38-126) U/L Amylase (30-110) U/L Lipase (23-300) U/L Urine Appearance (Clear) Urine Protein (Negative) Urine Blood (Negative) Urine Bilirubin (Negative) Urine RBC (0-5) /hpf Ur Squamous Epith Cells (0-4) /hpf Hyaline Casts (0-2) /lpf Urine Mucus (None) /hpf Microbiology - Last 24 Hours (Table) 07/24/20 05:16 Blood Culture - Preliminary Blood No Growth after 24 hours 07/24/20 12:45 Urine Culture - Preliminary Urine,Catheterized
[2020-07-25] MEDS ORDERED: PHYTONADIONE 10 MG in SODIUM CHLORIDE 0.9% 50 ML IVPB ONE (15:00)
--- NOTE | 2020-07-25 15:29 | CT ---
EXAMINATION TYPE: CT brain wo con DATE OF EXAM: 07/25/2020 COMPARISON: CT brain 03/05/2017 HISTORY: Altered mental status. R/O stroke. CT DLP: 1115.4 mGycm Automated exposure control for dose reduction was used. Helical imaging through the brain. FINDINGS: There is no interval change. No hemorrhage or hydrocephalus. Calvarium is intact. Mucosal thickening is present within the maxillary sinuses, ethmoid air cells. IMPRESSION: NO ACUTE ABNORMALITY. STABLE BRAIN MRI.
[2020-07-25] MEDS ORDERED: Magnesium Replacement Protocol 1 EACH MISC MISCELLANE PRN (16:11)
--- NOTE | 2020-07-25 17:05 | PN ---
PROGRESS NOTE DATE OF SERVICE: 07/25/2020 REASON FOR FOLLOWUP: Pancreatitis and a question of UTI. INTERVAL HISTORY: The patient is currently afebrile. The patient is hemodynamically stable, not on any pressor support. The patient did have significant worsening of her mental status and was thrashing, requiring sedation. Patient currently remains lethargic and is unable to provide any history. No vomiting or diarrhea has been reported. PHYSICAL EXAMINATION: Blood pressure is 94/70 with a pulse of 92. Temperature is 97.5. She is 96% on 2 L nasal cannula. General description is an elderly female lying in bed in no distress. RESPIRATORY SYSTEM: Unlabored breathing. Clear to auscultation anteriorly. HEART: S1, S2. Regular rate and rhythm. ABDOMEN: Soft. No tenderness. No guarding or rigidity. LABS: Creatinine is 3.01. Lactic acid is down to 4.4. Liver enzymes remain elevated. Blood and urine cultures have been negative so far. DIAGNOSTIC IMPRESSION AND PLAN: Patient admitted to hospital with mental status changes, nausea and vomiting with recent cholecystectomy in this patient who did have abnormal CT suspicious for pancreatitis with elevated liver enzymes. The patient is currently covered with meropenem. In view of significant worsening of her mental status, Neurology should be consulted. We will monitor clinical course closely. Continue supportive care. MMODL / IJN: [id number] /
[2020-07-25] MEDS: MAGNESIUM SULFATE-D5W PMX 1 GM in DEXTROSE/WATER 1 100ML.BAG IVPB SCH ×2 (17:45→19:54)
[2020-07-25 17:51] LABS: Glucose,Whole Blood 133 mg/dL (75-99)
[2020-07-25] MEDS ORDERED: NOREPINEPHRIN 4 MG-0.9% NS PMX 4 MG/250 ML ML IV ONE (18:34)
--- NOTE | 2020-07-25 19:31 | XR ---
EXAMINATION TYPE: XR chest 1V DATE OF EXAM: 07/25/2020 COMPARISON: Today HISTORY: Check tube placement TECHNIQUE: FINDINGS: Endotracheal tube is 2 cm from the cat. There is nasogastric tube in the stomach. There is axillary left side pacemaker. There is pulmonary interstitial and airspace edema. Heart is enlarge d. There is some blunting of the costophrenic angles. IMPRESSION: There is pulmonary edema that is slightly worse than exam this morning and consistent wit h increased congestive heart failure.
[2020-07-25 19:51] LABS: ABG Base Excess -5.5 mmol/L; ABG HCO3 19 mmol/L (21-25); ABG Oxygen Saturation 99.9 % (94-97); ABG PCO2 29 mmHg (35-45); ABG PH 7.42 (7.35-7.45); ABG PO2 259 mmHg (83-108); ABG TCO2 20 mmol/L (19-24); Allen Test Performed? Yes
[2020-07-25] MEDS: CHLORHEXIDINE GLUCONATE 15 ML CUP MUCOUS MEM SCH (19:56)
[2020-07-25 20:39] LABS: INR 2.6 (<1.2); Prothrombin Time 24.8 sec (9.0-12.0)
--- NOTE | 2020-07-25 23:28 | PCN ---
PROCEDURE NOTE PREOPERATIVE DIAGNOSIS: Acute on chronic renal failure procedure. POSTOPERATIVE DIAGNOSIS: Acute on chronic renal failure procedure. PROCEDURE PERFORMED: Ultrasound-guided dialysis catheter placed in right femoral approach. DESCRIPTION OF PROCEDURE: Right groin was prepped and drapes applied in usual sterile manner. 1% lidocaine plain infiltrated in the groin area. Then, micropuncture introduced right femoral vein. Micropuncture guidewire was passed and 4-Khmer dilator advanced on top of the guidewire. Then we passed a regular guidewire without any resistance. Dilator was advanced and then we placed a dialysis catheter on top of the guidewire. Flushed with heparin saline and hep-locked, secured with 3-0 nylon. Dressing applied. Patient tolerated the procedure well. MMODL / IJN: [id number] /
--- NOTE | 2020-07-25 23:28 | CONS ---
CONSULTATION This is a 65-year-old -[place] female. Patient has been admitted to the intensive care unit and she has been intubated today. I was consulted for placement of urgent dialysis catheter. The patient has a history of acute and chronic kidney injury with metabolic acidosis. The patient's INR is 7.3 and PT is .8. Patient has received fresh frozen plasma of 4 units and we will repeat the INR for placement of dialysis catheter. MEDICAL HISTORY: History of Patient was seen in her room. She has been intubated. Chest has crackles bilaterally. Abdomen has some mild tenderness. Patient's femorals are 1+. DIAGNOSIS: 1. Possible acute septic shock. 2. Severe lactic acidosis. PLAN: Placement of dialysis catheter. Risks and complications discussed. MMVALERIL / IJN: [id number] /
[2020-07-26] MEDS: MEROPENEM 1 GM in SODIUM CHLORIDE 0.9% 100 ML IVPB SCH ×4 (00:25→20:21)
[2020-07-26 00:29] LABS: Glucose,Whole Blood 145 mg/dL (75-99)
[2020-07-26] MEDS: INSULIN ASPART (NovoLOG) 100 UNIT/ML VIAL SQ SCH ×4 (00:33→18:25)
[2020-07-26 04:59] LABS: ABG Base Excess 1.2 mmol/L; ABG HCO3 24 mmol/L (21-25); ABG Oxygen Saturation 95.6 % (94-97); ABG PCO2 28 mmHg (35-45); ABG PH 7.54 (7.35-7.45); ABG PO2 73 mmHg (83-108); ABG TCO2 25 mmol/L (19-24); Allen Test Performed? Yes
[2020-07-26 05:51] LABS: Glucose,Whole Blood 148 mg/dL (75-99)
[2020-07-26 06:35] LABS: Anisocytosis Moderate; Basophils % (A) 1 %; Eosinophils # (A) 0.1 k/uL (0-0.7); Eosinophils % (A) 2 %; HCT 28.2 % (34.0-46.0); Lymphocytes # (A) 1.2 k/uL (1.0-4.8); Lymphocytes % (A) 24 %; MCH 25.5 pg (25.0-35.0); MCHC 33.9 g/dL (31.0-37.0); MCV 75.1 fL (80.0-100.0); Mean Platelet Volume 11.2; Microcytosis Moderate; Monocytes # (A) 0.4 k/uL (0-1.0); Monocytes % (A) 7 %; Neutrophils # (A) 3.3 k/uL (1.3-7.7); Neutrophils % (A) 65 %; Platelet Count 136 k/uL (150-450); Poikilocytosis Moderate; RBC 3.75 m/uL (3.80-5.40); RDW 20.2 % (11.5-15.5); WBC 5.1 k/uL (3.8-10.6)
[2020-07-26 06:38] LABS: HGB 9.6 gm/dL (11.4-16.0)
[2020-07-26 06:56] LABS: Potassium 2.9 mmol/L (3.5-5.1)
--- NOTE | 2020-07-26 07:16 | XR ---
EXAMINATION TYPE: XR chest 1V portable DATE OF EXAM: 07/26/2020 COMPARISON: 07/25/2020 HISTORY: Shortness of breath FINDINGS: There are bilateral pleural effusions with cardiomegaly and bibasilar infiltrate. There is a diffuse interstitial pattern. ET tube, NG tube and cardiac device noted. Atherosclerotic change aorta. IMPRESSION: 1. Stable x-ray correlate for CHF versus diffuse pneumonia
--- NOTE | 2020-07-26 07:30 | US ---
EXAMINATION TYPE: US guide vascular access DATE OF EXAM: 07/25/2020 COMPARISON: NONE HISTORY: Ultrasound time. Ultrasound was provided to the referring clinician.
--- NOTE | 2020-07-26 07:43 | US ---
EXAMINATION TYPE: US chest DATE OF EXAM: 07/26/2020 COMPARISON: CXR CLINICAL HISTORY: Markings for thoracentesis by pulmonary staff. Effusion TECHNIQUE: Targeted ultrasound of the posterior lower bilateral hemithoraces EXAM MEASUREMENTS: Right Pleural Effusion pocket size: No sizeable fluid pocket visualized Left Pleural Effusion pocket size: 1.6 cm Right side NOT marked for possible thoracentesis outside the dept. Left side NOT marked for possible thoracentesis outside the dept. Pulmonologists are able to review the images in the patient?s EMR. IMPRESSIONS: 1. See above.
[2020-07-26] MEDS ORDERED: Potassium Replacement Protocol 1 EACH MISC MISCELLANE PRN (08:09)
[2020-07-26] MEDS: DOBUTamine DRIP 500 MG in DEXTROSE/WATER 1 250ML.BAG IV SCH (09:08)
[2020-07-26] MEDS: POTASSIUM CHLORIDE 20 MEQ in WATER FOR INJECTION 1 100ML.BAG IVPB SCH ×4 (09:10→23:17)
[2020-07-26 09:44] LABS: INR 2.4 (<1.2); Prothrombin Time 23.2 sec (9.0-12.0)
[2020-07-26] MEDS ORDERED: DESMOPRESSIN ACETATE 32 MCG in SODIUM CHLORIDE 0.9% 50 ML IVPB ONE (10:00)
--- NOTE | 2020-07-26 10:21 | P.PN ---
Subjective Progress Note Date: 07/26/20 Principal diagnosis: Lactic acidosis Patient was placed on the ventilator yesterday. Patient's acidosis improving after initiation of dialysis. She is going to be dialyzed again today. Lactic acid down to 4.4. White blood cell count normal. No appreciable tenderness. Scant dosing of Levophed noted Objective - Vital Signs Vital signs: Vital Signs Temp 97.7 F 07/26/20 08:00 Pulse 104 H 07/26/20 10:00 Resp 20 07/26/20 10:00 BP 102/59 07/26/20 07:00 Pulse Ox 100 07/26/20 10:00 Intake & Output 07/25/20 07/26/20 07/26/20 18:59 06:59 18:59 Intake Total 2025.104 1938.164 194.709 Output Total 65 510 90 Balance 3262.749 5837.164 104.709 Weight 104.4 kg Intake: IV 450 650 100 Dextrose 5% in Water 1, 250 650 100 000 ml @ 50 mls/hr IV . Q23H [facility] with Sodium Bicarb (1 Meq/ml) 150 ml Rx#:[id number] Sodium Chloride 0.9% 2, 200 000 ml @ 999 mls/hr IV . Q2H1M ONE Rx#:[id number] Intake, IV Titration 1263.104 755.164 94.709 Amount Dexmedetomidine/0.9% NaCl 63.104 36.896 (Pmx) 400 mcg In Empty Bag 1 bag @ Titrate IV . Q0M [facility] Rx#:[id number] Dextrose 5% in Water 1, 700 100 000 ml @ 50 mls/hr IV . Q23H [facility] with Sodium Bicarb (1 Meq/ml) 150 ml Rx#:[id number] Magnesium Sulfate-D5w Pmx 100 1 gm In Dextrose/Water 1 100ml.bag @ 100 mls/hr IVPB Q1H [facility] Rx#: [id number] Meropenem 1 gm In Sodium 100 100 Chloride 0.9% 100 ml @ 33 .3 mls/hr IVPB Q12HR [facility] Rx#:[id number] Potassium Chloride 10 meq 100 200 In Water For Injection 1 100ml.bag @ 100 mls/hr IVPB Q1H [facility] Rx#: [id number] Sodium Chloride 0.9% 1, 300 100 000 ml @ 100 mls/hr IV . Q10H7M ONE with Mvi, Adult No.4 with Vit K 10 ml with Thiamine 100 mg with Folic Acid 1 mg Rx#: [id number] Sodium Chloride 0.9% 500 20 ml 500 ml @ 20 mls/hr IV .Q24H [facility] Rx#:[id number] propofoL 1,000 mg In 118.268 74.709 Empty Bag 1 bag @ Titrate IV .Q0M [facility] Rx#: [id number] Blood Product 312 533 Ffp 24 Cpd Unit 312 [id number] Ffp 24 Cpd Unit 0 327 [id number] Ffp 24 Pher Acda Unit 206 [id number] Output: Urine 65 10 90 Hemodialysis 500 Other: Voiding Method Indwelling Catheter Indwelling Catheter Indwelling Catheter ABP, PAP, CO, CI - Last Documented Arterial Blood Pressure 108/68 - Exam Abdomen: Soft, nondistended, nontender - Labs CBC & Chem 7: 07/26/20 05:20 07/26/20 05:30 Labs: Abnormal Lab Results - Last 24 Hours (Table) 07/25/20 07/25/20 07/25/20 Range/Units 11:41 12:01 12:01 RBC (3.80-5.40) m/uL Hgb (11.4-16.0) gm/dL Hct (34.0-46.0) % MCV (80.0-100.0) fL RDW (11.5-15.5) % Plt Count (150-450) k/uL PT (9.0-12.0) sec INR (<1.2) ABG pH (7.35-7.45) ABG pCO2 (35-45) mmHg ABG pO2 (83-108) mmHg ABG HCO3 (21-25) mmol/L ABG Total CO2 (19-24) mmol/L ABG O2 Saturation (94-97) % ABG Lactic Acid (0.5-1.6) mmol/L Potassium (3.5-5.1) mmol/L Chloride 110 H (98-107) mmol/L Carbon Dioxide 14 L (22-30) mmol/L Creatinine 3.01 H (0.52-1.04) mg/dL Glucose 150 H (74-99) mg/dL POC Glucose (mg/dL) 165 H (75-99) mg/dL Plasma Lactic Acid Sunny 8.3 H* (0.7-2.0) mmol/L Calcium 7.4 L (8.4-10.2) mg/dL Total Bilirubin 3.4 H (0.2-1.3) mg/dL AST 529 H (14-36) U/L ALT 91 H (4-34) U/L Albumin 3.3 L (3.5-5.0) g/dL 07/25/20 07/25/20 07/25/20 Range/Units 12:01 12:16 12:32 RBC (3.80-5.40) m/uL Hgb (11.4-16.0) gm/dL Hct (34.0-46.0) % MCV (80.0-100.0) fL RDW (11.5-15.5) % Plt Count (150-450) k/uL PT 92.9 H 70.8 H (9.0-12.0) sec INR 9.4 H* 7.3 H* (<1.2) ABG pH (7.35-7.45) ABG pCO2 (35-45) mmHg ABG pO2 (83-108) mmHg ABG HCO3 (21-25) mmol/L ABG Total CO2 (19-24) mmol/L ABG O2 Saturation (94-97) % ABG Lactic Acid (0.5-1.6) mmol/L Potassium (3.5-5.1) mmol/L Chloride (98-107) mmol/L Carbon Dioxide (22-30) mmol/L Creatinine (0.52-1.04) mg/dL Glucose (74-99) mg/dL POC Glucose (mg/dL) 196 H (75-99) mg/dL Plasma Lactic Acid Sunny (0.7-2.0) mmol/L Calcium (8.4-10.2) mg/dL Total Bilirubin (0.2-1.3) mg/dL AST (14-36) U/L ALT (4-34) U/L Albumin (3.5-5.0) g/dL 07/25/20 07/25/20 07/25/20 Range/Units 14:06 14:36 17:49 RBC (3.80-5.40) m/uL Hgb (11.4-16.0) gm/dL Hct (34.0-46.0) % MCV (80.0-100.0) fL RDW (11.5-15.5) % Plt Count (150-450) k/uL PT (9.0-12.0) sec INR (<1.2) ABG pH 7.34 L (7.35-7.45) ABG pCO2 (35-45) mmHg ABG pO2 79 L (83-108) mmHg ABG HCO3 20 L (21-25) mmol/L ABG Total CO2 (19-24) mmol/L ABG O2 Saturation (94-97) % ABG Lactic Acid (0.5-1.6) mmol/L Potassium (3.5-5.1) mmol/L Chloride (98-107) mmol/L Carbon Dioxide (22-30) mmol/L Creatinine (0.52-1.04) mg/dL Glucose (74-99) mg/dL POC Glucose (mg/dL) 133 H (75-99) mg/dL Plasma Lactic Acid Sunny 4.4 H* (0.7-2.0) mmol/L Calcium (8.4-10.2) mg/dL Total Bilirubin (0.2-1.3) mg/dL AST (14-36) U/L ALT (4-34) U/L Albumin (3.5-5.0) g/dL 07/25/20 07/25/20 07/26/20 Range/Units 19:48 20:20 00:28 RBC (3.80-5.40) m/uL Hgb (11.4-16.0) gm/dL Hct (34.0-46.0) % MCV (80.0-100.0) fL RDW (11.5-15.5) % Plt Count (150-450) k/uL PT 24.8 H (9.0-12.0) sec INR 2.6 H (<1.2) ABG pH (7.35-7.45) ABG pCO2 29 L (35-45) mmHg ABG pO2 259 H (83-108) mmHg ABG HCO3 19 L (21-25) mmol/L ABG Total CO2 (19-24) mmol/L ABG O2 Saturation 99.9 H (94-97) % ABG Lactic Acid (0.5-1.6) mmol/L Potassium (3.5-5.1) mmol/L Chloride (98-107) mmol/L Carbon Dioxide (22-30) mmol/L Creatinine (0.52-1.04) mg/dL Glucose (74-99) mg/dL POC Glucose (mg/dL) 145 H (75-99) mg/dL Plasma Lactic Acid Sunny (0.7-2.0) mmol/L Calcium (8.4-10.2) mg/dL Total Bilirubin (0.2-1.3) mg/dL AST (14-36) U/L ALT (4-34) U/L Albumin (3.5-5.0) g/dL 07/26/20 07/26/20 07/26/20 Range/Units 03:29 05:20 05:30 RBC 3.75 L (3.80-5.40) m/uL Hgb 9.6 L D (11.4-16.0) gm/dL Hct 28.2 L (34.0-46.0) % MCV 75.1 L (80.0-100.0) fL RDW 20.2 H (11.5-15.5) % Plt Count 136 L (150-450) k/uL PT (9.0-12.0) sec INR (<1.2) ABG pH 7.54 H (7.35-7.45) ABG pCO2 28 L (35-45) mmHg ABG pO2 73 L (83-108) mmHg ABG HCO3 (21-25) mmol/L ABG Total CO2 25 H (19-24) mmol/L ABG O2 Saturation (94-97) % ABG Lactic Acid (0.5-1.6) mmol/L Potassium 2.9 L (3.5-5.1) mmol/L Chloride (98-107) mmol/L Carbon Dioxide (22-30) mmol/L Creatinine 2.92 H (0.52-1.04) mg/dL Glucose 139 H (74-99) mg/dL POC Glucose (mg/dL) (75-99) mg/dL Plasma Lactic Acid Sunny (0.7-2.0) mmol/L Calcium 7.0 L (8.4-10.2) mg/dL Total Bilirubin (0.2-1.3) mg/dL AST (14-36) U/L ALT (4-34) U/L Albumin (3.5-5.0) g/dL 07/26/20 07/26/20 07/26/20 Range/Units 05:30 05:50 09:20 RBC (3.80-5.40) m/uL Hgb (11.4-16.0) gm/dL Hct (34.0-46.0) % MCV (80.0-100.0) fL RDW (11.5-15.5) % Plt Count (150-450) k/uL PT 23.2 H (9.0-12.0) sec INR 2.4 H (<1.2) ABG pH (7.35-7.45) ABG pCO2 (35-45) mmHg ABG pO2 (83-108) mmHg ABG HCO3 (21-25) mmol/L ABG Total CO2 (19-24) mmol/L ABG O2 Saturation (94-97) % ABG Lactic Acid 1.9 H (0.5-1.6) mmol/L Potassium (3.5-5.1) mmol/L Chloride (98-107) mmol/L Carbon Dioxide (22-30) mmol/L Creatinine (0.52-1.04) mg/dL Glucose (74-99) mg/dL POC Glucose (mg/dL) 148 H (75-99) mg/dL Plasma Lactic Acid Sunny (0.7-2.0) mmol/L Calcium (8.4-10.2) mg/dL Total Bilirubin (0.2-1.3) mg/dL AST (14-36) U/L ALT (4-34) U/L Albumin (3.5-5.0) g/dL Microbiology - Last 24 Hours (Table) 07/25/20 22:55 Sputum Culture - Preliminary Sputum 07/24/20 05:16 Blood Culture - Preliminary Blood No Growth after 48 hours 07/24/20 12:45 Urine Culture - Final Urine,Catheterized Assessment and Plan (1) Abdominal pain Narrative/Plan: Patient now on the ventilator. Her numbers do appear to be improving. Continue dialysis. Recommend low-dose tube feeds. Will follow. Current Visit: Yes Status: Acute Code(s): R10.9 - UNSPECIFIED ABDOMINAL PAIN SNOMED Code(s): 98436987
[2020-07-26] MEDS: SODIUM CHLORIDE 0.9% 500 ML 500 ML IV SCH (10:22)
[2020-07-26] MEDS: CHLORHEXIDINE GLUCONATE 15 ML CUP MUCOUS MEM SCH ×2 (10:23→19:54)
[2020-07-26] MEDS ORDERED: PHYTONADIONE 5 MG in SODIUM CHLORIDE 0.9% 50 ML IVPB STA (10:35)
[2020-07-26] MEDS: ENOXAPARIN 40 MG/0.4 ML SYRINGE SQ SCH (10:57)
[2020-07-26] MEDS: PANTOPRAZOLE 40 MG/10 ML VIAL IV SCH (10:57)
[2020-07-26] MEDS: NOREPINEPHRINE 4 MG in SODIUM CHLORIDE 0.9% 250 ML IV SCH (11:02)
--- NOTE | 2020-07-26 12:13 | P.PN ---
Subjective Progress Note Date: 07/26/20 This is a 65-year-old white female patient with multiple chronic medical problems including chronic A. fib on Eliquis, chronic CHF, diabetes mellitus type 2, nonischemic cardiomyopathy, status post AICD placement hypertension, hyperlipidemia, rheumatoid arthritis, Sjogren's, lupus, fibromyalgia, history of Waldenstrom macroglobulinemia previously treated with chemotherapy, former smoker, who presented to the emergency department on 07/22/2020 with complaints of nausea vomiting and weakness. Patient was also having some generalized abdominal pain. He denied any fevers. Denies any sick contacts, she tested negative for Coronavirus. CT of the abdomen and pelvis was completed showing suspected mild pancreatic and. Pancreatic edema suggesting acute pancreatitis. Questionable mild wall thickening of the urinary bladder with adjacent stranding worsening acute cystitis. Patient has been afebrile, blood pressures were initially in the low 100s systolic over 80s diastolic, she has been on room air and not requiring any supplemental oxygen. Her admission lab work positive for leukopenia with white blood cell count of 3.5, hemoglobin was 12.6, platelet count was 115, sodium is 138, potassium 3.0, chloride is 103, CO2 24, B1 of 4, creatinine is 1.13, patient had a significantly elevated lactic acid that initially was at 2.2 and was steadily on the rise over the course of 24 hours, and this morning was up to 11.6. The patient was noted to be more hypotensive, quite tachycardic, more confused, and anuric. She has received 3 L of fluid boluses yesterday in the emergency department, this morning she is receiving an additional 1 L IV bolus. She was started on meropenem for suspicion of sepsis with septic shock. Blood cultures urine culture and urinalysis have been sent and pending, chest x-ray has been ordered, patient has been transferred to the [facility] of care unit where we are seeing the patient in consultation. She is awake, but she is confused, she is on room air pulse ox is 99%, her first liter bolus is still infusing, her blood pressure is systolic in the low 100s, she remains tachycardic in atrial fibrillation with a rate of 120 BPM, appears to be in no acute distress, chest x-ray is pending, cultures have been sent, meropenem started, this morning his blood work reviewed and BMP showed CO2 of only 9, worsening renal function with BUN of 5 and creatinine 1.91. Magnesium was 1.1, total bilirubin is 3.5, AST 76, ALT is 20, alkaline phosphatase is 119, lipase was initially at 32 and is currently at less than 10, amylase was within normal limits at 33. Abdomen is soft, nontender. Patient has been started on D5 with 3 A of bicarbonate at 150 ML per hour, venous blood gas was obtained showing bicarbonate concentration of 6, pCO2 of 18, and pH of 7.17. On 07/25/2020 patient seen in follow-up in the intensive care unit. She has received significant amount of fluids, a total of 6 L of fluid boluses yesterday, however her urine output is still quite poor, and she is only making 5-10 ML per hour. She is considerably more confused today, and her lactic acid remains quite elevated at 8.3. Renal function has worsened overnight, creatinine is up to 3.01, B1 is 9, CO2 is 14, chloride is 110, potassium is 3.7, and sodium is 144, there has been further worsening of patient's LFTs, AST is up to 529, ALT is 91, LDL is still within normal limits at 125, stat ammonia level was obtained and is currently at 21, INR level IX.4, white blood cell count remains within normal limits at 9.7, hemoglobin is 11.1, platelet count is 156. Patient is confused, and her extremities are cool to touch, echocardiogram was obtained showing impaired left ventricular systolic function and an EF of 20- 25%, mild tricuspid regurg, mild to moderate pulmonary hypertension with right- sided pressures of 45.2 mmHg, IVC is dilated with no significant inspiratory collapse and an estimated right atrial pressure of greater than 15 mmHg, and there is a small generalized pericardial effusion. Patient is restless, confused, there is a safety deposit clerk at the bedside to prevent the patient from removing her indwelling catheters, she was placed on supplemental oxygen at 2 L with a pulse ox Of 99%, she is currently in A. fib with RVR with a rate of 116- 131 BPM, we were going to start a dobutamine infusion however patient was tachycardic, and consultation was placed to cardiology. She is not requiring any vasopressor support right now, her maintenance IV fluids are D5 W with 3 A of bicarbonate going at 50 ML per hour. In addition patient and to use on empiric antibiotics in the form of meropenem, blood cultures, urine cultures and urinalysis have been sent and remain negative thus far, her abdomen is soft, and nontender, she hasn't had any more vomiting or diarrhea. Chest x-ray shows increased interstitial and retrocardiac density with obscured left hemidiaphragm and blunting of the left costophrenic angle. Some minimal patchy basilar density on the right. Nephrology is consulted, and is planning on obtaining hemodialysis catheter access today and initiating the patient on hemodialysis, surgical services are following, and it was felt that the CT scan of the abdomen with contrast did not show any definite thrombotic or embolic event, low-flow ischemia or small peripheral embolism from the patient's underlying A. fib was in the differential. However it was felt to be less likely, and no surgical intervention was recommended at this time. The patient is seen today 07/26/2020 in follow-up in the intensive care unit. She continued to be restless and unable to protect her airway. She was subsequently intubated and placed on the mechanical ventilator last evening. Current vent settings are assist control at a rate of 20, tidal volume 450, FiO2 40% and a PEEP of 5. Morning blood gases reveal a P O2 of 73, pCO2 28, pH 7.54. Chest x-ray continues to show evidence of fluid volume overload. Her ejection fraction is 20-25%. She did undergo hemodialysis catheter placement in the right femoral artery. There is some oozing noted today. She received hemodialysis yesterday with 500 MLS removed. The plan is for hemodialysis again today. Her white count is 5.1. Hemoglobin 9.6. Platelets 136. INR 2.4. Sodium 139. Potassium 2.9. Bicarb 24. Creatinine 2.92. Glucose 139. She is currently sedated on propofol at 35 mcg/kg/m. Requiring norepinephrine at 0.01 mcg/kg/m. She is in a of bicarb drip at 50 MLS per hour. 0.9 normal saline and 20 ML's per hour. Antibiotics in the form of meropenem. Currently in atrial fibrillation. She is on Lovenox for DVT prophylaxis. Objective - Vital Signs Vital signs: Vital Signs Temp 97.7 F 07/26/20 08:00 Pulse 115 H 07/26/20 11:00 Resp 20 07/26/20 11:00 BP 102/59 07/26/20 07:00 Pulse Ox 100 07/26/20 11:00 Intake & Output 07/25/20 07/26/20 07/26/20 18:59 06:59 18:59 Intake Total 2025.104 1938.164 264.709 Output Total 65 510 115 Balance 1728.406 2595.164 149.709 Weight 104.4 kg Intake: IV 450 650 100 Dextrose 5% in Water 1, 250 650 100 000 ml @ 50 mls/hr IV . Q23H MIRZA with Sodium Bicarb (1 Meq/ml) 150 ml Rx#:[id number] Sodium Chloride 0.9% 2, 200 000 ml @ 999 mls/hr IV . Q2H1M ONE Rx#:[id number] Intake, IV Titration 1263.104 755.164 164.709 Amount Dexmedetomidine/0.9% NaCl 63.104 36.896 (Pmx) 400 mcg In Empty Bag 1 bag @ Titrate IV . Q0M MIRZA Rx#:[id number] Dextrose 5% in Water 1, 700 100 000 ml @ 50 mls/hr IV . Q23H MIRZA with Sodium Bicarb (1 Meq/ml) 150 ml Rx#:[id number] Magnesium Sulfate-D5w Pmx 100 1 gm In Dextrose/Water 1 100ml.bag @ 100 mls/hr IVPB Q1H MIRZA Rx#: [id number] Meropenem 1 gm In Sodium 100 100 Chloride 0.9% 100 ml @ 33 .3 mls/hr IVPB Q12HR MIRZA Rx#:[id number] Phytonadione 5 mg In 50 Sodium Chloride 0.9% 50 ml @ 100 mls/hr IVPB ONCE STA Rx#:[id number] Potassium Chloride 10 meq 100 200 In Water For Injection 1 100ml.bag @ 100 mls/hr IVPB Q1H MIRZA Rx#: [id number] Sodium Chloride 0.9% 1, 300 100 000 ml @ 100 mls/hr IV . Q10H7M ONE with Mvi, Adult No.4 with Vit K 10 ml with Thiamine 100 mg with Folic Acid 1 mg Rx#: [id number] Sodium Chloride 0.9% 500 40 ml 500 ml @ 20 mls/hr IV .Q24H MIRZA Rx#:[id number] propofoL 1,000 mg In 118.268 74.709 Empty Bag 1 bag @ Titrate IV .Q0M [facility] Rx#: [id number] Blood Product 312 533 Ffp 24 Cpd Unit 312 [id number] Ffp 24 Cpd Unit 0 327 [id number] Ffp 24 Pher Acda Unit 206 [id number] Output: Urine 65 10 115 Hemodialysis 500 Other: Voiding Method Indwelling Catheter Indwelling Catheter Indwelling Catheter ABP, PAP, CO, CI - Last Documented Arterial Blood Pressure 128/82 - Exam GENERAL EXAM: Intubated, sedated 65-year-old female patient, comfortable in no apparent distress. HEAD: Normocephalic. EYES: Normal reaction of pupils, equal size. NOSE: Clear with pink turbinates. THROAT: No erythema or exudates. NECK: No masses, no JVD. CHEST: No chest wall deformity. LUNGS: Equal air entry with crackles in the bilateral posterior bases CVS: S1 and S2 normal with no audible murmur, regular rhythm. ABDOMEN: No hepatosplenomegaly, normal bowel sounds, no guarding or rigidity. SPINE: No scoliosis or deformity SKIN: No rashes CENTRAL NERVOUS SYSTEM: No focal deficits, tone is normal in all 4 extremities. EXTREMITIES: Right femoral hemodialysis catheter placed with some oozing around the site. There is no peripheral edema. No clubbing, no cyanosis. Peripheral pulses are intact. - Labs CBC & Chem 7: 07/26/20 05:20 07/26/20 05:30 Labs: Abnormal Lab Results - Last 24 Hours (Table) 07/25/20 07/25/20 07/25/20 Range/Units 12:01 12:01 12:01 RBC (3.80-5.40) m/uL Hgb (11.4-16.0) gm/dL Hct (34.0-46.0) % MCV (80.0-100.0) fL RDW (11.5-15.5) % Plt Count (150-450) k/uL PT 92.9 H (9.0-12.0) sec INR 9.4 H* (<1.2) ABG pH (7.35-7.45) ABG pCO2 (35-45) mmHg ABG pO2 (83-108) mmHg ABG HCO3 (21-25) mmol/L ABG Total CO2 (19-24) mmol/L ABG O2 Saturation (94-97) % ABG Lactic Acid (0.5-1.6) mmol/L Potassium (3.5-5.1) mmol/L Chloride 110 H (98-107) mmol/L Carbon Dioxide 14 L (22-30) mmol/L Creatinine 3.01 H (0.52-1.04) mg/dL Glucose 150 H (74-99) mg/dL POC Glucose (mg/dL) (75-99) mg/dL Plasma Lactic Acid Sunny 8.3 H* (0.7-2.0) mmol/L Calcium 7.4 L (8.4-10.2) mg/dL Total Bilirubin 3.4 H (0.2-1.3) mg/dL AST 529 H (14-36) U/L ALT 91 H (4-34) U/L Albumin 3.3 L (3.5-5.0) g/dL 07/25/20 07/25/20 07/25/20 Range/Units 12:16 12:32 14:06 RBC (3.80-5.40) m/uL Hgb (11.4-16.0) gm/dL Hct (34.0-46.0) % MCV (80.0-100.0) fL RDW (11.5-15.5) % Plt Count (150-450) k/uL PT 70.8 H (9.0-12.0) sec INR 7.3 H* (<1.2) ABG pH 7.34 L (7.35-7.45) ABG pCO2 (35-45) mmHg ABG pO2 79 L (83-108) mmHg ABG HCO3 20 L (21-25) mmol/L ABG Total CO2 (19-24) mmol/L ABG O2 Saturation (94-97) % ABG Lactic Acid (0.5-1.6) mmol/L Potassium (3.5-5.1) mmol/L Chloride (98-107) mmol/L Carbon Dioxide (22-30) mmol/L Creatinine (0.52-1.04) mg/dL Glucose (74-99) mg/dL POC Glucose (mg/dL) 196 H (75-99) mg/dL Plasma Lactic Acid Sunny (0.7-2.0) mmol/L Calcium (8.4-10.2) mg/dL Total Bilirubin (0.2-1.3) mg/dL AST (14-36) U/L ALT (4-34) U/L Albumin (3.5-5.0) g/dL 07/25/20 07/25/20 07/25/20 Range/Units 14:36 17:49 19:48 RBC (3.80-5.40) m/uL Hgb (11.4-16.0) gm/dL Hct (34.0-46.0) % MCV (80.0-100.0) fL RDW (11.5-15.5) % Plt Count (150-450) k/uL PT (9.0-12.0) sec INR (<1.2) ABG pH (7.35-7.45) ABG pCO2 29 L (35-45) mmHg ABG pO2 259 H (83-108) mmHg ABG HCO3 19 L (21-25) mmol/L ABG Total CO2 (19-24) mmol/L ABG O2 Saturation 99.9 H (94-97) % ABG Lactic Acid (0.5-1.6) mmol/L Potassium (3.5-5.1) mmol/L Chloride (98-107) mmol/L Carbon Dioxide (22-30) mmol/L Creatinine (0.52-1.04) mg/dL Glucose (74-99) mg/dL POC Glucose (mg/dL) 133 H (75-99) mg/dL Plasma Lactic Acid Sunny 4.4 H* (0.7-2.0) mmol/L Calcium (8.4-10.2) mg/dL Total Bilirubin (0.2-1.3) mg/dL AST (14-36) U/L ALT (4-34) U/L Albumin (3.5-5.0) g/dL 07/25/20 07/26/20 07/26/20 Range/Units 20:20 00:28 03:29 RBC (3.80-5.40) m/uL Hgb (11.4-16.0) gm/dL Hct (34.0-46.0) % MCV (80.0-100.0) fL RDW (11.5-15.5) % Plt Count (150-450) k/uL PT 24.8 H (9.0-12.0) sec INR 2.6 H (<1.2) ABG pH 7.54 H (7.35-7.45) ABG pCO2 28 L (35-45) mmHg ABG pO2 73 L (83-108) mmHg ABG HCO3 (21-25) mmol/L ABG Total CO2 25 H (19-24) mmol/L ABG O2 Saturation (94-97) % ABG Lactic Acid (0.5-1.6) mmol/L Potassium (3.5-5.1) mmol/L Chloride (98-107) mmol/L Carbon Dioxide (22-30) mmol/L Creatinine (0.52-1.04) mg/dL Glucose (74-99) mg/dL POC Glucose (mg/dL) 145 H (75-99) mg/dL Plasma Lactic Acid Sunny (0.7-2.0) mmol/L Calcium (8.4-10.2) mg/dL Total Bilirubin (0.2-1.3) mg/dL AST (14-36) U/L ALT (4-34) U/L Albumin (3.5-5.0) g/dL 07/26/20 07/26/20 07/26/20 Range/Units 05:20 05:30 05:30 RBC 3.75 L (3.80-5.40) m/uL Hgb 9.6 L D (11.4-16.0) gm/dL Hct 28.2 L (34.0-46.0) % MCV 75.1 L (80.0-100.0) fL RDW 20.2 H (11.5-15.5) % Plt Count 136 L (150-450) k/uL PT (9.0-12.0) sec INR (<1.2) ABG pH (7.35-7.45) ABG pCO2 (35-45) mmHg ABG pO2 (83-108) mmHg ABG HCO3 (21-25) mmol/L ABG Total CO2 (19-24) mmol/L ABG O2 Saturation (94-97) % ABG Lactic Acid 1.9 H (0.5-1.6) mmol/L Potassium 2.9 L (3.5-5.1) mmol/L Chloride (98-107) mmol/L Carbon Dioxide (22-30) mmol/L Creatinine 2.92 H (0.52-1.04) mg/dL Glucose 139 H (74-99) mg/dL POC Glucose (mg/dL) (75-99) mg/dL Plasma Lactic Acid Sunny (0.7-2.0) mmol/L Calcium 7.0 L (8.4-10.2) mg/dL Total Bilirubin (0.2-1.3) mg/dL AST (14-36) U/L ALT (4-34) U/L Albumin (3.5-5.0) g/dL 07/26/20 07/26/20 Range/Units 05:50 09:20 RBC (3.80-5.40) m/uL Hgb (11.4-16.0) gm/dL Hct (34.0-46.0) % MCV (80.0-100.0) fL RDW (11.5-15.5) % Plt Count (150-450) k/uL PT 23.2 H (9.0-12.0) sec INR 2.4 H (<1.2) ABG pH (7.35-7.45) ABG pCO2 (35-45) mmHg ABG pO2 (83-108) mmHg ABG HCO3 (21-25) mmol/L ABG Total CO2 (19-24) mmol/L ABG O2 Saturation (94-97) % ABG Lactic Acid (0.5-1.6) mmol/L Potassium (3.5-5.1) mmol/L Chloride (98-107) mmol/L Carbon Dioxide (22-30) mmol/L Creatinine (0.52-1.04) mg/dL Glucose (74-99) mg/dL POC Glucose (mg/dL) 148 H (75-99) mg/dL Plasma Lactic Acid Sunny (0.7-2.0) mmol/L Calcium (8.4-10.2) mg/dL Total Bilirubin (0.2-1.3) mg/dL AST (14-36) U/L ALT (4-34) U/L Albumin (3.5-5.0) g/dL Microbiology - Last 24 Hours (Table) 07/25/20 22:55 Sputum Culture - Preliminary Sputum 07/24/20 05:16 Blood Culture - Preliminary Blood No Growth after 48 hours 07/24/20 12:45 Urine Culture - Final Urine,Catheterized Assessment and Plan Assessment: 1 Acute septic shock, with possibilities including urinary tract infection, and possibility of pancreatitis although this is less likely based on her low lipase and amylase levels 2 Acute hypoxic respiratory failure secondary to above requiring intubation mechanical ventilatory support on 07/25/2020 3 Severe lactic acidosis, with the possibility of low flow ischemic bowel related to underlying history of A. fib, no surgical intervention is planned at this time. Abdomen is soft, surgical services are following 4 Possibility of cardiogenic shock in addition to septic shock, distended and history of severely impaired LV function and echocardiogram on 07/25/2020 shows EF of 20-25% 5 Severe anion gap metabolic acidosis related to sepsis, lactic acid was 11.6, trending down, patient has been started on broad-spectrum antibiotics and fluid resuscitated 6 Acute kidney injury related to the above, patient remains in uric on 07/25/2020, and hemodialysis is going to be initiated today 7 Chronic A. fib on Eliquis 8 Chronic CHF with systolic dysfunction 9 Diabetes mellitus type 2 with diabetic neuropathy 10 Hypertension 11 Hyperlipidemia 12 Rheumatoid arthritis 13 Nonischemic cardiomyopathy, status post AICD placement 14 Hx of Waldenstrom macroglobulinemia 15 Sjogren's 16 Coagulopathy with INR 2.4 and oozing from right femoral hemodialysis catheter Plan: The patient was seen and evaluated by Dr. Zarco Chest x-ray, ABGs and labs reviewed Ultrasound of the chest did not reveal any significant pleural fluid We will continue with the current treatment plan for now Receiving hemodialysis again today Give 2 units of fresh frozen plasma Vitamin K 5 milligrams IVP 1 Probably initiate tube feedings tomorrow Repeat chest x-ray, ABGs, labs in a.m. Prognosis remains quite guarded We will continue to follow and make further recommendations based on her clinical status Critical care time 38 minutes I, the cosigning physician, performed a history & physical examination of the patient. Lungs sounds are clear bilateral posterior bases. Maintaining good O2 saturations in the 90s on 40% FiO2 via the mechanical ventilator. I discussed the assessment and plan of care with my nurse practitioner, Pippa Julian. I attest to the above note as dictated by her.
[2020-07-26 12:37] LABS: Glucose,Whole Blood 105 mg/dL (75-99)
[2020-07-26 13:24] LABS: Magnesium 1.8 mg/dL (1.6-2.3)
[2020-07-26] MEDS ORDERED: POTASSIUM CHLORIDE 20 MEQ in WATER FOR INJECTION 1 100ML.BAG IVPB STA (13:53)
[2020-07-26] MEDS ORDERED: MAGNESIUM SULFATE-D5W PMX 1 GM in DEXTROSE/WATER 1 100ML.BAG IVPB ONE (13:53)
--- NOTE | 2020-07-26 14:25 | PN ---
PROGRESS NOTE Patient is seen for followup for acute kidney injury, mostly acute tubular necrosis, currently nonoliguric. Urine output has been about 20-40 mL an hour. She remains on the vent. Blood pressure is borderline. Currently maintained on minimal dose of Levophed. PHYSICAL EXAMINATION: On examination today, patient is sedated. She is on the vent. Blood pressure 108/68, heart rate 104 per minute, she is afebrile. Examination of the heart S1, S2. Examination of the lungs, bilateral breath sounds are heard. Abdomen is soft, nontender. Examination of lower extremities shows no significant edema. WIRE STOCKKEEPER exam cannot be performed. LAB: Show sodium of 139, potassium 2.9, chloride 106, BUN 12, serum creatinine 2.92, hemoglobin 9.6 g/dL. ASSESSMENT: 1. Acute kidney injury, acute tubular necrosis. Urine output borderline. Started on dialysis mostly for worsening mentation and encephalopathy. The patient will be dialyzed today. 2. Hypokalemia. We will replace with dialysis. She is also receiving 20 mEq IV supplementation. 3. Lactic acidosis secondary to hypotension hypoperfusion. 4. Sepsis, possible urinary tract infection. 5. Chronic systolic congestive heart failure, ejection fraction 25-30%. 6. Volume overload with significant positive fluid balance. 7. History of IgM monoclonal gammopathy, status post Cytoxan about 10 years ago with complete recovery of renal function. 8. Severe pulmonary hypertension. PLAN: Hemodialysis today. We will increase UF as tolerated. Repeat labs in a.m. Minimize IV fluids. DC sodium bicarb. MMODL / IJN: [id number] /
--- NOTE | 2020-07-26 16:44 | PN ---
PROGRESS NOTE DATE OF SERVICE: 07/25/2020 CHIEF COMPLAINT: Sepsis and delirium. HISTORY OF PRESENT ILLNESS: This lady is encountering more difficulty. She is very delirious. She is clearly septic. Lactic acid has stayed quite high despite sepsis treatment. She remains in atrial fibrillation. Systolic blood pressure is around 100. PHYSICAL EXAM: She remains edematous and she is extremely agitated and delirious. Breath sounds are heard bilaterally, but they are diminished. Cardiac exam demonstrates her atrial fibrillation. The abdomen seems soft and nontender and there do not seem to be any masses. IMPRESSIONS: 1. Sepsis. 2. Lactic acidosis. 3. Delirium. PLAN: Continue to follow with pulmonology, Nephrology, Intensive Medicine, Infectious Disease and Cardiology. MMODL / IJN: [id number] /
--- NOTE | 2020-07-26 16:48 | PN ---
PROGRESS NOTE CHIEF COMPLAINT: Septicemia with delirium and renal failure. HISTORY OF PRESENT ILLNESS: This lady continues to deteriorate. She has gone into acute renal failure. She is now on a ventilator. Lactic acid remains high. PHYSICAL EXAMINATION: Breath sounds are heard bilaterally on the ventilator. Cardiac exam still demonstrates her atrial fibrillation. The abdomen seems soft without masses. Extremities are unchanged. IMPRESSION: 1. Bacterial septicemia with septic shock. 2. Acute tubular necrosis with acute renal failure. 3. Possible pericardial effusion. 4. Pleural effusion. PLAN: No change in her management from my perspective at this time and follow with Intensive Medicine, Cardiology and Nephrology as well as Infectious Disease. Prognosis is poor. MMODL / IJN: [id number] /
[2020-07-26 16:53] LABS: INR 1.8 (<1.2); Prothrombin Time 18.2 sec (9.0-12.0)
--- NOTE | 2020-07-26 17:38 | PN ---
PROGRESS NOTE DATE OF SERVICE: 07/26/2020 REASON FOR FOLLOWUP: Pancreatitis and question of abscess. INTERVAL HISTORY: Patient did end up getting intubated last night because of worsening respiratory status. Patient is currently on 100% FiO2. No significant purulent secretions in the ET has been documented by the nursing staff. The patient on very low-dose pressor support pressors. No vomiting or diarrhea has been reported. PHYSICAL EXAMINATION: Blood pressure 107/72 with a pulse of 110, temperature 97.5. He is 100% on 40% FiO2. General description is an elderly female intubated on the vent. Respiratory system: Unlabored breathing, decreased intensity of breath sounds. No wheeze. HEART: S1, S2. Regular rate. ABDOMEN: Soft, no tenderness. LABS: Creatinine is 2.92. INR is 2.4. Culture so far pending. DIAGNOSTIC IMPRESSION AND PLAN: Patient admitted to the hospital with mental status changes. Did have an episode of unresponsiveness. Abnormal CT concern for possibly and pancreatitis. Subsequently, respiratory failure on the vent. Cultures currently pending. Patient is covered with meropenem to continue while monitoring clinical course closely. Continue supportive care. MMODL / IJN: [id number] /
[2020-07-26 18:14] LABS: Glucose,Whole Blood 87 mg/dL (75-99)
[2020-07-26 19:40] LABS: Hepatitis B Surface AB- Quant 3.5 mIU/mL; Hepatitis B Surface Antibody Non-Reactive (Non-Reactive); Hepatitis B Surface Antigen Non-Reactive (Non-Reactive)
[2020-07-26 20:24] LABS: Anisocytosis Slight; Basophils % (A) 0 %; Eosinophils # (A) 0.2 k/uL (0-0.7); Eosinophils % (A) 4 %; HGB 9.7 gm/dL (11.4-16.0); Hyperchromasia Slight; Lymphocytes # (A) 0.7 k/uL (1.0-4.8); Lymphocytes % (A) 16 %; MCH 26.8 pg (25.0-35.0); MCV 74.5 fL (80.0-100.0); Mean Platelet Volume 10.5; Microcytosis Moderate; Monocytes # (A) 0.3 k/uL (0-1.0); Monocytes % (A) 6 %; Neutrophils # (A) 3.2 k/uL (1.3-7.7); Neutrophils % (A) 71 %; Platelet Count 118 k/uL (150-450); Poikilocytosis Moderate; RBC 3.62 m/uL (3.80-5.40); RDW 19.7 % (11.5-15.5); WBC 4.4 k/uL (3.8-10.6)
[2020-07-26 20:29] LABS: Magnesium 2.1 mg/dL (1.6-2.3); Potassium 3.2 mmol/L (3.5-5.1)
--- NOTE | 2020-07-26 21:47 | P.CRDCN ---
History of Present Illness History of present illness: HISTORY OF PRESENTING ILLNESS This is a pleasant 65-year-old -[place] female past medical history significant for nonischemic cardiomyopathy status post AICD ([employer]), history of ventricular tachycardia, chronic systolic heart failure, persistent atrial fibrillation status post pulmonary vein isolation but no further ablation secondary to low EF, diabetes mellitus, hypertension, dyslipidemia, pulmonary hypertension and rheumatoid arthritis. She follows in the office with Dr. Samayoa. She was initially seen s/p cholecystectomy 05/[address] Gaitan. During previous admission in May she had been diuresed and monitored for her chronic kidney disease. Patient was admitted 07/23/2020 with nausea, vomiting, diarrhea and was felt to be dehydrated and given IV fluids. She is noted to have acute kidney injury and acidosis and therefore Bernabe was placed for hemodialysis. She has been maintained on a low dose of levophed. She is being treated for sepsis, and possible pancreatitis. She was intubated secondary to respiratory failure from her sepsis. She has undergone intermittent hemodialysis, hemodialysis this morning with 1 L taken off. Repeat echocardiogr am performed 07/25/2020 showed ejection fraction 2025%, RVSP 45, mild tricuspid regurgitation, small generalized pericardial effusion without tamponade. Blood work today shows white blood cell count 4.4, hemoglobin 9.7, platelets 118, INR 1.8, sodium 139, potassium 2.9, creatinine 2.9, glucose 139, troponin on admission 0.03. Cardiology was consult that secondary to A. fib and cardiomyopathy. She has a known history of cardiomyopathy with ejection fraction 20-25%. Her heart rates have been previously somewhat better controlled however or the past 24 hours in the 100 to 1:15 range. REVIEW OF SYSTEMS At the time of my exam: Unable to obtain secondary to patient being on vent sedated PHYSICAL EXAMINATION Vital signs reviewed. CONSTITUTIONAL: No apparent distress, obese, ill appearing, sedated on vent HEENT: Head is normocephalic. Pupils are equal, round. Sclerae anicteric. Mucous membranes of the mouth are moist. +ET tube in place. CHEST EXAMINATION: Lungs are clear to auscultation. No chest wall tenderness is noted on palpation or with deep breathing. HEART EXAMINATION: Irregular rate and rhythm. S1, S2 heard. No murmurs, gallops or rub. ABDOMEN: Soft, nontender. Positive bowel sounds. EXTREMITIES: 2+ peripheral pulses, no lower extremity edema and no calf tenderness. NEUROLOGIC EXAMINATION: Patient is sedated ASSESSMENT 1. Persistent atrial fibrillation, mildly RVR 2. History of cardiomyopathy, currently mildly volume overloaded related to kidney failure 3. Acute renal failure 4. Septic shock 5. Acute respiratory failure 6. Acidosis related to renal failure, sepsis 7. Possible pancreatitis 8. Small pericardial effusion without tamponade 9. History of Sjogren's, Radha Clovis's PLAN Patient presented with nausea, vomiting, abdominal pain and with severe acidosis, shock requiring small amount of vasopressors and multiorgan failure. Continue supportive care with vasopressors, hemodialysis as needed, ventilator management. Patient with slow decline in hemoglobin and platelets. Continue with Lovenox for now. Likely transition over to anticoagulation pending patient's clinical course. Volume overload likely mainly related to renal failure and continue volume management with hemodialysis. Patient's heart rates likely will not be entirely controlled and allowed permissive mild tachycardia with heart rates in the low 100s. If heart rates increase may consider esmolol drip, low-dose metoprolol. We'll continue to follow along with you. Further recommendations pending. Past Medical History Past Medical History: Atrial Fibrillation, Heart Failure, Diabetes Mellitus, Eye Disorder, Fibromyalgia, Hyperlipidemia, Hypertension, Rheumatoid Arthritis (RA), Syncope Additional Past Medical History / Comment(s): Pt recently admitted to [facility] on 05/08/20 with abdominal pain/cholecystectomy. Other hx: Nonischemic cardiomyopathy/Vtach/AICD, murmur, IDDM type II, neuropathy bilateral feet, hypoglycemic episodes with syncope in past, 2006 waldenstrom macroglobulinemia (type of nonhodgkins lymphoma) with chemo and plasma treatment and had to be on hemodialysis for a brief time, sjogrens, lupus, gout, anemia, bilateral cataracts. History of Any Multi-Drug Resistant Organisms: None Reported Past Surgical History: AICD, Cardiac Ablation, Cholecystectomy, Hysterectomy, Orthopedic Surgery Additional Past Surgical History / Comment(s): Recent cholecystectomy, 2007 AICD with gen change in 2013, cardiac ablations, L toe surgery d/t RA, R wrist and R thigh cystectomy, spacer placed on vocal cord. Past Anesthesia/Blood Transfusion Reactions: No Reported Reaction, Motion Sickne ss Additional Past Anesthesia/Blood Transfusion Reaction / Comment(s): Pt has recieved blood in past without reaction. Type of Cardiac Device: AICD Device Placement Date:: 2007 device with gen change 2013. Past Psychological History: No Psychological Hx Reported Additional Psychological History / Comment(s): Pt resides with her spouse. She recently has been using a walker. She has not driven in 2 years, her family drives. Smoking Status: Former smoker Past Alcohol Use History: None Reported Additional Past Alcohol Use History / Comment(s): Pt smoked from [id number]. Past Drug Use History: None Reported - Past Family History Mother Family Medical History: Cancer Additional Family Medical History / Comment(s): Mother from multiple myeloma Father Family Medical History: Renal Disease Additional Family Medical History / Comment(s): Father of renal failure. Medications and Allergies Home Medications Medication Instructions Recorded Confirmed Type Ergocalciferol [Vitamin D2 50,000 unit PO TH 03/05/17 07/23/20 History (DRISDOL)] Folic Acid 1 mg PO QAM 03/05/17 07/23/20 History Furosemide [Lasix] 40 mg PO QAM 03/05/17 07/23/20 History Hydroxychloroquine Sulfate 200 mg PO BID 03/05/17 07/23/20 History [Plaquenil] Insulin Aspart Protam & Aspart 10 unit SQ AC-BRKFST 03/05/17 07/23/20 History [NovoLOG MIX 70-30 Flexpen] Montelukast [Singulair] 10 mg PO DAILY 03/05/17 07/23/20 History Sertraline [Zoloft] 100 mg PO BID 03/05/17 07/23/20 History Simvastatin [Zocor] 10 mg PO HS 03/05/17 07/23/20 History lisinopriL [Zestril] 2.5 mg PO HS 03/05/17 07/23/20 History metHOTREXate sodium [Methotrexate] 20 mg PO FR 03/05/17 07/23/20 History Aspirin [Adult Low Dose Aspirin EC] 81 mg PO DAILY 09/13/18 07/23/20 History Albuterol Sulfate [Ventolin HFA] 2 puff INHALATION RT-QID PRN 07/27/19 07/23/20 History Apixaban [Eliquis] 5 mg PO BID 07/27/19 07/23/20 History allopurinoL [Zyloprim] 100 mg PO QAM 07/27/19 07/23/20 History Insulin Aspart Protam & Aspart 12 unit SQ AC-SUPPER 01/21/20 07/23/20 History [NovoLOG MIX 70-30 Flexpen] Metoprolol Succinate [Toprol XL] 25 mg PO QAM 01/21/20 07/23/20 History calcitrioL [Rocaltrol] 0.25 mcg PO TU 01/21/20 07/23/20 History Hydrocortisone Cream 1 applic TOPICAL BID PRN 05/05/20 07/23/20 History [Hydrocortisone 2.5% Cream] Pregabalin [Lyrica] 300 mg PO BID 05/05/20 07/23/20 History Triamcinolone 0.5% Cream [Kenalog 1 applic TOPICAL BID PRN 05/05/20 07/23/20 His tory 0.5% Cream] hydrOXYzine HCL 25 mg PO TID PRN 05/05/20 07/23/20 History Acetaminophen Tab [Tylenol] 650 mg PO Q6H PRN #30 tablet 05/09/20 07/23/20 Rx Digoxin [Lanoxin] 125 mcg PO DAILY tab 05/22/20 07/23/20 Rx Magnesium Oxide [Mag-Ox] 400 mg PO DAILY #100 tab 05/22/20 07/23/20 Rx Spironolactone [Aldactone] 50 mg PO DAILY tab 05/22/20 07/23/20 Rx Allergies Allergy/AdvReac Type Severity Reaction Status Date / Time Penicillins Allergy Rash/Hives Verified 07/23/20 07:09 Physical Exam Vitals: Vital Signs Temp Pulse Pulse Pulse Pulse Resp BP 07/26/20 20:00 97.5 F L 96 102 H 102/59 07/26/20 19:00 111 H 07/26/20 18:00 99 07/26/20 17:00 105 H 07/26/20 16:00 97.5 F L 107 H 07/26/20 15:00 105 H 07/26/20 14:44 97.5 F L 110 H 07/26/20 14:00 108 H 07/26/20 13:40 97.6 F 105 H 20 108/70 07/26/20 13:26 97.6 F 106 H 20 108/73 07/26/20 13:11 97.5 F L 118 H 20 114/71 07/26/20 13:00 116 H 20 07/26/20 12:31 97.5 F L 118 H 20 121/80 07/26/20 12:28 97.5 F L 112 H 20 117/75 07/26/20 12:00 97.5 F L 116 H 20 07/26/20 11:00 115 H 20 07/26/20 10:00 104 H 20 07/26/20 09:00 108 H 20 07/26/20 08:00 97.7 F 101 H 07/26/20 07:00 102 H 20 102/59 07/26/20 06:00 88 20 102/59 07/26/20 05:00 91 07/26/20 04:00 96.7 F L 102 H 20 07/26/20 03:00 92 07/26/20 02:00 88 07/26/20 01:00 100 07/26/20 00:00 97.2 F L 88 07/25/20 23:30 81 07/25/20 23:24 97.5 F L 100 07/25/20 23:00 87 07/25/20 22:00 105 H 20 BP Pulse Ox 07/26/20 20:00 99 07/26/20 19:00 100 07/26/20 18:00 100 07/26/20 17:00 98 07/26/20 16:00 99 07/26/20 15:00 100 07/26/20 14:44 107/72 07/26/20 14:00 100 07/26/20 13:40 100 07/26/20 13:26 100 07/26/20 13:11 100 07/26/20 13:00 100 07/26/20 12:31 100 07/26/20 12:28 100 07/26/20 12:00 100 07/26/20 11:00 100 07/26/20 10:00 100 07/26/20 09:00 100 07/26/20 08:00 100 07/26/20 07:00 100 07/26/20 06:00 96 07/26/20 05:00 96 07/26/20 04:00 99 07/26/20 03:00 99 07/26/20 02:00 100 07/26/20 01:00 98 07/26/20 00:00 94 L 07/25/20 23:30 94 L 07/25/20 23:24 102/66 07/25/20 23:00 98 07/25/20 22:00 99 Intake and Output 07/26/20 07/26/20 07/26/20 06:59 14:59 22:59 Intake Total 680.067 7648.689 433.004 Output Total 510 1510 185 Balance 408.268 -464.311 248.004 Intake: IV 450 121 38 0.9 NS flush 21 18 Dextrose 5% in Water 1, 450 100 000 ml @ 50 mls/hr IV . Q23H [facility] with Sodium Bicarb (1 Meq/ml) 150 ml Rx#:[id number] Sodium Chloride 0.9% 500 20 ml 500 ml @ 20 mls/hr IV .Q24H [facility] Rx#:[id number] Intake, IV Titration 468.268 301.689 395.004 Amount Dextrose 5% in Water 1, 50 000 ml @ 50 mls/hr IV . Q23H [facility] with Sodium Bicarb (1 Meq/ml) 150 ml Rx#:[id number] Magnesium Sulfate-D5w Pmx 100 1 gm In Dextrose/Water 1 100ml.bag @ 100 mls/hr IVPB ONCE ONE Rx#: [id number] Meropenem 1 gm In Sodium 100 Chloride 0.9% 100 ml @ 33 .3 mls/hr IVPB Q12HR [facility] Rx#:[id number] Norepinephrine 4 mg In 16.706 Sodium Chloride 0.9% 250 ml @ 0.05 MCG/KG/MIN 19. 888 mls/hr IV .[id number] [facility] Rx#:[id number] Phytonadione 5 mg In 50 Sodium Chloride 0.9% 50 ml @ 100 mls/hr IVPB ONCE STA Rx#:[id number] Potassium Chloride 10 meq 100 In Water For Injection 1 100ml.bag @ 100 mls/hr IVPB Q1H [facility] Rx#: [id number] Potassium Chloride 20 meq 100 In Water For Injection 1 100ml.bag @ 50 mls/hr IVPB ONCE STA Rx#: [id number] Sodium Chloride 0.9% 1, 100 000 ml @ 100 mls/hr IV . Q10H7M ONE with Mvi, Adult No.4 with Vit K 10 ml with Thiamine 100 mg with Folic Acid 1 mg Rx#: [id number] Sodium Chloride 0.9% 500 100 100 ml 500 ml @ 20 mls/hr IV .Q24H [facility] Rx#:[id number] propofoL 1,000 mg In 118.268 134.983 95.004 Empty Bag 1 bag @ Titrate IV .Q0M [facility] Rx#: [id number] Blood Product 623 Ffp 24 Cpd Unit 287 [id number] Ffp 24 Cpd Unit 336 [id number] Output: Gastric Drainage 100 Urine 10 210 85 Hemodialysis 500 1300 Other: Voiding Method Indwelling Catheter Indwelling Catheter Indwelling Catheter Weight 104.4 kg ABP, PAP, CO, CI - Last 8 Hours Arterial Blood Pressure 104/73 Arterial Blood Pressure 106/75 Arterial Blood Pressure 98/69 Arterial Blood Pressure 97/67 Arterial Blood Pressure 95/66 Arterial Blood Pressure 103/67 Arterial Blood Pressure 107/70 Results 07/26/20 20:15 07/26/20 19:50 Coagulation 07/26/20 07/26/20 Range/Units 09:20 16:40 PT 23.2 H 18.2 H (9.0-12.0) sec CBC 07/26/20 07/26/20 Range/Units 05:20 20:15 WBC 5.1 4.4 (3.8-10.6) k/uL RBC 3.75 L 3.62 L (3.80-5.40) m/uL Hgb 9.6 L D 9.7 L (11.4-16.0) gm/dL Hct 28.2 L 27.0 L (34.0-46.0) % Plt Count 136 L 118 L (150-450) k/uL Comprehensive Metabolic Panel 07/26/20 07/26/20 07/26/20 Range/Units 05:30 12:59 19:50 Sodium 139 (137-145) mmol/L Potassium 2.9 L 3.0 L 3.2 L (3.5-5.1) mmol/L Chloride 106 (98-107) mmol/L Carbon Dioxide 24 (22-30) mmol/L BUN 12 (7-17) mg/dL Creatinine 2.92 H (0.52-1.04) mg/dL Glucose 139 H (74-99) mg/dL Calcium 7.0 L (8.4-10.2) mg/dL Current Medications Generic Name Dose Route Start Last Admin Trade Name Freq PRN Reason Stop Dose Admin Albuterol Sulfate 2 puff 07/23/20 10:32 Albuterol Hfa Inhaler INHALATION RT-QID PRN Shortness Of Breath Chlorhexidine Gluconate 15 ml 07/25/20 21:00 07/26/20 19:54 Chlorhexidine Gluconate 15 Ml Cup MUCOUS MEM 15 ml BID [facility] Administration Enoxaparin Sodium 40 mg 07/26/20 09:00 07/26/20 10:57 Enoxaparin 40 Mg/0.4 Ml Syringe SQ 40 mg DAILY [facility] Administration Hydrocortisone 1 applic 07/23/20 10:32 Hydrocortisone 1% Cream 30 Gm Tube TOPICAL BID PRN Skin Irritation Hydromorphone HCl 1 mg 07/23/20 03:50 07/24/20 07:28 Hydromorphone 1 Mg/Ml 1 Ml Syringe IVP 1 mg Q4HR PRN Administration Pain Meropenem 1 gm/ Sodium 100 mls @ 33.3 mls/hr 07/24/20 09:00 07/26/20 20:21 Chloride IVPB 33.3 mls/hr Q12HR [facility] Administration Protocol Dobutamine HCl/Dextrose 500 mg 250 mls @ 7.598 mls/hr 07/25/20 10:15 07/26/20 09:08 / IV Solution IV Not Given .Q24H [facility] 2.5 MCG/KG/MIN Propofol 1,000 mg/ IV Solution 100 mls @ 0 mls/hr 07/25/20 18:00 07/26/20 17:26 IV 35 mcg/kg/min .Q0M [facility] 21.924 mls/hr Administration Protocol Titrate Sodium Chloride 500 mls @ 20 mls/hr 07/26/20 09:45 07/26/20 10:22 Saline 0.9% IV Not Given .Q24H [facility] Norepinephrine Bitartrate 4 mg 254 mls @ 19.888 mls/hr 07/26/20 11:00 07/26/20 13:08 / Sodium Chloride IV 0.01 mcg/kg/min .[id number] [facility] 3.978 mls/hr Titration Protocol 0.05 MCG/KG/MIN Insulin Aspart 0 unit 07/26/20 00:00 07/26/20 18:25 Insulin Aspart (Novolog) 100 Unit/Ml Vial SQ Not Given Q6H [facility] Protocol Miscellaneous Information 1 each 07/25/20 13:21 Potassium Replacement Protocol 1 Each Misc MISCELLANE DAILY PRN Per Protocol Protocol Miscellaneous Information 1 each 07/25/20 16:11 Magnesium Replacement Protocol 1 Each Misc MISCELLANE DAILY PRN Per Protocol Protocol Miscellaneous Information 1 each 07/26/20 08:09 Potassium Replacement Protocol 1 Each Misc MISCELLANE DAILY PRN Per Protocol Protocol Naloxone HCl 0.2 mg 07/23/20 03:36 Naloxone 0.4 Mg/Ml 1 Ml Vial IV Q2M PRN Opioid Reversal Pantoprazole Sodium 40 mg 07/23/20 09:00 07/26/20 10:57 Pantoprazole 40 Mg/10 Ml Vial IV 40 mg DAILY [facility] Administration Intake and Output 07/26/20 07/26/20 07/26/20 06:59 14:59 22:59 Intake Total 803.319 6437.689 433.004 Output Total 510 1510 185 Balance 408.268 -464.311 248.004 Intake: IV 450 121 38 0.9 NS flush 21 18 Dextrose 5% in Water 1, 450 100 000 ml @ 50 mls/hr IV . Q23H [facility] with Sodium Bicarb (1 Meq/ml) 150 ml Rx#:[id number] Sodium Chloride 0.9% 500 20 ml 500 ml @ 20 mls/hr IV .Q24H [facility] Rx#:[id number] Intake, IV Titration 468.268 301.689 395.004 Amount Dextrose 5% in Water 1, 50 000 ml @ 50 mls/hr IV . Q23H [facility] with Sodium Bicarb (1 Meq/ml) 150 ml Rx#:[id number] Magnesium Sulfate-D5w Pmx 100 1 gm In Dextrose/Water 1 100ml.bag @ 100 mls/hr IVPB ONCE ONE Rx#: [id number] Meropenem 1 gm In Sodium 100 Chloride 0.9% 100 ml @ 33 .3 mls/hr IVPB Q12HR [facility] Rx#:[id number] Norepinephrine 4 mg In 16.706 Sodium Chloride 0.9% 250 ml @ 0.05 MCG/KG/MIN 19. 888 mls/hr IV .[id number] [facility] Rx#:[id number] Phytonadione 5 mg In 50 Sodium Chloride 0.9% 50 ml @ 100 mls/hr IVPB ONCE STA Rx#:[id number] Potassium Chloride 10 meq 100 In Water For Injection 1 100ml.bag @ 100 mls/hr IVPB Q1H [facility] Rx#: [id number] Potassium Chloride 20 meq 100 In Water For Injection 1 100ml.bag @ 50 mls/hr IVPB ONCE STA Rx#: [id number] Sodium Chloride 0.9% 1, 100 000 ml @ 100 mls/hr IV . Q10H7M ONE with Mvi, Adult No.4 with Vit K 10 ml with Thiamine 100 mg with Folic Acid 1 mg Rx#: [id number] Sodium Chloride 0.9% 500 100 100 ml 500 ml @ 20 mls/hr IV .Q24H [facility] Rx#:[id number] propofoL 1,000 mg In 118.268 134.983 95.004 Empty Bag 1 bag @ Titrate IV .Q0M [facility] Rx#: [id number] Blood Product 623 Ffp 24 Cpd Unit 287 [id number] Ffp 24 Cpd Unit 336 [id number] Output: Gastric Drainage 100 Urine 10 210 85 Hemodialysis 500 1300 Other: Voiding Method Indwelling Catheter Indwelling Catheter Indwelling Catheter Weight 104.4 kg 07/26/20 20:15 07/26/20 19:50
[2020-07-26 23:16] LABS: Glucose,Whole Blood 108 mg/dL (75-99)
[2020-07-27 00:16] LABS: Glucose,Whole Blood 99 mg/dL (75-99)
[2020-07-27] MEDS: POTASSIUM CHLORIDE 20 MEQ in WATER FOR INJECTION 1 100ML.BAG IVPB SCH (01:00)
[2020-07-27] MEDS: INSULIN ASPART (NovoLOG) 100 UNIT/ML VIAL SQ SCH ×4 (03:49→17:44)
[2020-07-27 04:13] LABS: Albumin 2.9 g/dL (3.5-5.0); Calcium 7.5 mg/dL (8.4-10.2); Potassium 3.8 mmol/L (3.5-5.1); Total Bilirubin 3.5 mg/dL (0.2-1.3); Total Protein 6.2 g/dL (6.3-8.2)
[2020-07-27 06:10] LABS: ABG Base Excess 2.5 mmol/L; ABG HCO3 26 mmol/L (21-25); ABG Oxygen Saturation 99.7 % (94-97); ABG PCO2 32 mmHg (35-45); ABG PH 7.51 (7.35-7.45); ABG PO2 171 mmHg (83-108); ABG TCO2 27 mmol/L (19-24); Allen Test Performed? Yes
[2020-07-27 06:49] LABS: Glucose,Whole Blood 98 mg/dL (75-99)
--- NOTE | 2020-07-27 07:12 | XR ---
EXAMINATION TYPE: XR chest 1V portable DATE OF EXAM: 07/27/2020 COMPARISON: By 152 HISTORY: Shortness of breath TECHNIQUE: Single frontal view of the chest is obtained. FINDINGS: There are bilateral pleural effusions with cardiomegaly and bibasilar infiltrate. There is a diffuse interstitial pattern. ET tube, NG tube and cardiac device noted. Atherosclerotic change ao rta. IMPRESSION: Stable x-ray correlate for CHF versus diffuse pneumonia
[2020-07-27 07:46] LABS: Anisocytosis Slight; Basophils % (A) 1 %; Eosinophils # (A) 0.2 k/uL (0-0.7); Eosinophils % (A) 3 %; HCT 26.3 % (34.0-46.0); HGB 9.4 gm/dL (11.4-16.0); Hyperchromasia Slight; Lymphocytes # (A) 0.8 k/uL (1.0-4.8); Lymphocytes % (A) 15 %; MCH 26.9 pg (25.0-35.0); MCHC 35.8 g/dL (31.0-37.0); MCV 75.2 fL (80.0-100.0); Mean Platelet Volume 11.4; Microcytosis Moderate; Monocytes # (A) 0.5 k/uL (0-1.0); Monocytes % (A) 9 %; Neutrophils # (A) 3.7 k/uL (1.3-7.7); Neutrophils % (A) 71 %; Platelet Count 112 k/uL (150-450); Poikilocytosis Moderate; RBC 3.49 m/uL (3.80-5.40); RDW 19.9 % (11.5-15.5); WBC 5.2 k/uL (3.8-10.6)
[2020-07-27 08:17] LABS: INR 1.6 (<1.2); Prothrombin Time 15.7 sec (9.0-12.0)
[2020-07-27] MEDS: NOREPINEPHRINE 4 MG in SODIUM CHLORIDE 0.9% 250 ML IV SCH ×3 (09:36→23:14)
[2020-07-27] MEDS: ENOXAPARIN 40 MG/0.4 ML SYRINGE SQ SCH (09:52)
[2020-07-27] MEDS: HYDROmorphone 1 MG/ML 1 ML SYRINGE IVP PRN (09:52)
[2020-07-27] MEDS: PANTOPRAZOLE 40 MG/10 ML VIAL IV SCH (09:52)
[2020-07-27] MEDS: CHLORHEXIDINE GLUCONATE 15 ML CUP MUCOUS MEM SCH ×2 (09:52→19:45)
[2020-07-27] MEDS: SODIUM CHLORIDE 0.9% 500 ML 500 ML IV SCH (09:53)
[2020-07-27] MEDS: DOBUTamine DRIP 500 MG in DEXTROSE/WATER 1 250ML.BAG IV SCH (09:54)
--- NOTE | 2020-07-27 10:31 | P.PN ---
Subjective Progress Note Date: 07/27/20 Principal diagnosis: Lactic acidosis Patient remains on the ventilator. White blood cell count is normal. Hemoglobin 9.4. Lactic acid is down to 1.9 yesterday. Objective - Vital Signs Vital signs: Vital Signs Temp 98.2 F 07/27/20 08:00 Pulse 121 H 07/27/20 10:00 Resp 20 07/27/20 10:00 BP 104/50 07/27/20 07:00 Pulse Ox 100 07/27/20 10:00 Intake & Output 07/26/20 07/27/20 07/27/20 18:59 06:59 18:59 Intake Total 1432.693 421.101 265.726 Output Total 1570 460 130 Balance -137.307 -38.899 135.726 Weight 108 kg Intake: IV 133 256 92 0.9 NS flush 33 36 12 Dextrose 5% in Water 1, 100 000 ml @ 50 mls/hr IV . Q23H [facility] with Sodium Bicarb (1 Meq/ml) 150 ml Rx#:[id number] Sodium Chloride 0.9% 500 220 80 ml 500 ml @ 20 mls/hr IV .Q24H [facility] Rx#:[id number] Intake, IV Titration 676.693 165.101 173.726 Amount Magnesium Sulfate-D5w Pmx 100 1 gm In Dextrose/Water 1 100ml.bag @ 100 mls/hr IVPB ONCE ONE Rx#: [id number] Norepinephrine 4 mg In 16.706 73.726 Sodium Chloride 0.9% 250 ml @ 0.05 MCG/KG/MIN 19. 888 mls/hr IV .[id number] [facility] Rx#:[id number] Phytonadione 5 mg In 50 Sodium Chloride 0.9% 50 ml @ 100 mls/hr IVPB ONCE STA Rx#:[id number] Potassium Chloride 20 meq 100 In Water For Injection 1 100ml.bag @ 50 mls/hr IVPB ONCE STA Rx#: [id number] Sodium Chloride 0.9% 500 180 20 ml 500 ml @ 20 mls/hr IV .Q24H [facility] Rx#:[id number] propofoL 1,000 mg In 229.987 145.101 100 Empty Bag 1 bag @ Titrate IV .Q0M [facility] Rx#: [id number] Blood Product 623 Ffp 24 Cpd Unit 287 [id number] Ffp 24 Cpd Unit 336 [id number] Output: Gastric Drainage 100 Urine 270 360 130 Hemodialysis 1300 Other: Voiding Method Indwelling Catheter Indwelling Catheter Indwelling Catheter ABP, PAP, CO, CI - Last Documented Arterial Blood Pressure 101/63 - Exam Abdomen: Soft, nondistended, nontender - Labs CBC & Chem 7: 07/27/20 03:25 07/27/20 03:25 Labs: Abnormal Lab Results - Last 24 Hours (Table) 07/26/20 07/26/20 07/26/20 Range/Units 12:35 12:59 16:40 RBC (3.80-5.40) m/uL Hgb (11.4-16.0) gm/dL Hct (34.0-46.0) % MCV (80.0-100.0) fL RDW (11.5-15.5) % Plt Count (150-450) k/uL Lymphocytes # (1.0-4.8) k/uL PT 18.2 H (9.0-12.0) sec INR 1.8 H (<1.2) ABG pH (7.35-7.45) ABG pCO2 (35-45) mmHg ABG pO2 (83-108) mmHg ABG HCO3 (21-25) mmol/L ABG Total CO2 (19-24) mmol/L ABG O2 Saturation (94-97) % Potassium 3.0 L (3.5-5.1) mmol/L Creatinine (0.52-1.04) mg/dL Glucose (74-99) mg/dL POC Glucose (mg/dL) 105 H (75-99) mg/dL Calcium (8.4-10.2) mg/dL Total Bilirubin (0.2-1.3) mg/dL AST (14-36) U/L ALT (4-34) U/L Alkaline Phosphatase (38-126) U/L Total Protein (6.3-8.2) g/dL Albumin (3.5-5.0) g/dL 07/26/20 07/26/20 07/26/20 Range/Units 19:50 20:15 23:14 RBC 3.62 L (3.80-5.40) m/uL Hgb 9.7 L (11.4-16.0) gm/dL Hct 27.0 L (34.0-46.0) % MCV 74.5 L (80.0-100.0) fL RDW 19.7 H (11.5-15.5) % Plt Count 118 L (150-450) k/uL Lymphocytes # 0.7 L (1.0-4.8) k/uL PT (9.0-12.0) sec INR (<1.2) ABG pH (7.35-7.45) ABG pCO2 (35-45) mmHg ABG pO2 (83-108) mmHg ABG HCO3 (21-25) mmol/L ABG Total CO2 (19-24) mmol/L ABG O2 Saturation (94-97) % Potassium 3.2 L (3.5-5.1) mmol/L Creatinine (0.52-1.04) mg/dL Glucose (74-99) mg/dL POC Glucose (mg/dL) 108 H (75-99) mg/dL Calcium (8.4-10.2) mg/dL Total Bilirubin (0.2-1.3) mg/dL AST (14-36) U/L ALT (4-34) U/L Alkaline Phosphatase (38-126) U/L Total Protein (6.3-8.2) g/dL Albumin (3.5-5.0) g/dL 07/27/20 07/27/20 07/27/20 Range/Units 03:25 03:25 06:04 RBC 3.49 L (3.80-5.40) m/uL Hgb 9.4 L (11.4-16.0) gm/dL Hct 26.3 L (34.0-46.0) % MCV 75.2 L (80.0-100.0) fL RDW 19.9 H (11.5-15.5) % Plt Count 112 L (150-450) k/uL Lymphocytes # 0.8 L (1.0-4.8) k/uL PT (9.0-12.0) sec INR (<1.2) ABG pH 7.51 H (7.35-7.45) ABG pCO2 32 L (35-45) mmHg ABG pO2 171 H (83-108) mmHg ABG HCO3 26 H (21-25) mmol/L ABG Total CO2 27 H (19-24) mmol/L ABG O2 Saturation 99.7 H (94-97) % Potassium (3.5-5.1) mmol/L Creatinine 2.30 H (0.52-1.04) mg/dL Glucose 103 H (74-99) mg/dL POC Glucose (mg/dL) (75-99) mg/dL Calcium 7.5 L (8.4-10.2) mg/dL Total Bilirubin 3.5 H (0.2-1.3) mg/dL AST 778 H (14-36) U/L ALT 187 H (4-34) U/L Alkaline Phosphatase 144 H (38-126) U/L Total Protein 6.2 L (6.3-8.2) g/dL Albumin 2.9 L (3.5-5.0) g/dL 07/27/20 Range/Units 08:00 RBC (3.80-5.40) m/uL Hgb (11.4-16.0) gm/dL Hct (34.0-46.0) % MCV (80.0-100.0) fL RDW (11.5-15.5) % Plt Count (150-450) k/uL Lymphocytes # (1.0-4.8) k/uL PT 15.7 H (9.0-12.0) sec INR 1.6 H (<1.2) ABG pH (7.35-7.45) ABG pCO2 (35-45) mmHg ABG pO2 (83-108) mmHg ABG HCO3 (21-25) mmol/L ABG Total CO2 (19-24) mmol/L ABG O2 Saturation (94-97) % Potassium (3.5-5.1) mmol/L Creatinine (0.52-1.04) mg/dL Glucose (74-99) mg/dL POC Glucose (mg/dL) (75-99) mg/dL Calcium (8.4-10.2) mg/dL Total Bilirubin (0.2-1.3) mg/dL AST (14-36) U/L ALT (4-34) U/L Alkaline Phosphatase (38-126) U/L Total Protein (6.3-8.2) g/dL Albumin (3.5-5.0) g/dL Microbiology - Last 24 Hours (Table) 07/24/20 05:16 Blood Culture - Preliminary Blood No Growth after 72 hours 07/25/20 22:55 Gram Stain - Preliminary Sputum Sputum Culture - Preliminary Assessment and Plan (1) Abdominal pain Narrative/Plan: Patient stable on ventilator. Await morning lactic acid level. Continue empiric antibiotics. Continue hemodialysis. Begin low-dose tube feeds. Current Visit: Yes Status: Acute Code(s): R10.9 - UNSPECIFIED ABDOMINAL PAIN SNOMED Code(s): 31382411
--- NOTE | 2020-07-27 10:36 | XR ---
EXAMINATION TYPE: XR chest 1V portable DATE OF EXAM: 07/27/2020 COMPARISON: 07/27/2020 HISTORY: Shortness of breath FINDINGS: There are bilateral pleural effusions with cardiomegaly and bibasilar infiltrate. There is a diffuse interstitial pattern. ET and NG tube stable. Cardiac device stable. Atherosclerotic change aorta. Ce ntral line seen with the tip overlying the right atrium. No sizable pneumothorax. IMPRESSION: 1. Central line seen with the tip near the right atrium. No pneumothorax. 2. Correlate for pulmonary edema.
[2020-07-27] MEDS: MEROPENEM 1 GM in SODIUM CHLORIDE 0.9% 100 ML IVPB SCH ×2 (10:45→19:45)
[2020-07-27] MEDS ORDERED: DEXTROSE 5% IN WATER 100 ML with AMIODARONE 150 MG IV ONE (10:50)
[2020-07-27] MEDS ORDERED: AMIODARONE 360 MG in DEXTROSE 5% IN WATER 200 ML IV ONE ×2 (11:00)
--- NOTE | 2020-07-27 11:10 | P.PN ---
Subjective HISTORY OF PRESENTING ILLNESS This is a pleasant 65-year-old -[place] female past medical history significant for nonischemic cardiomyopathy status post AICD ([employer]), history of ventricular tachycardia, chronic systolic heart failure, persistent atrial fibrillation status post pulmonary vein isolation but no further ablation secondary to low EF, diabetes mellitus, hypertension, dyslipidemia, pulmonary hypertension and rheumatoid arthritis. She follows in the office with Dr. Samayoa. She was initially seen s/p cholecystectomy 05/[address] Gaitan. During previous admission in May she had been diuresed and monitored for her chronic kidney disease. Patient was admitted 07/23/2020 with nausea, vomiting, diarrhea and was felt to be dehydrated and given IV fluids. She is noted to have acute kidney injury and acidosis and therefore Bernabe was placed for hemodialysis. She has been maintained on a low dose of levophed. She is being treated for sepsis, and possible pancreatitis. She was intubated secondary to respiratory failure from her sepsis. She has undergone intermittent hemodialysis, hemodialysis this morning with 1 L taken off. Repeat echocardiogram performed 07/25/2020 showed ejection fraction 2025%, RVSP 45, mild tricuspid regurgitation, small generalized pericardial effusion without tamponade. Blood work today shows white blood cell count 4.4, hemoglobin 9.7, platelets 118, INR 1.8, sodium 139, potassium 2.9, creatinine 2.9, glucose 139, troponin on admission 0.03. Cardiology was consult that secondary to A. fib and cardiomyopathy. She has a known history of cardiomyopathy with ejection fraction 20-25%. Her heart rates have been previously somewhat better controlled however or the past 24 hours in the 100 to 1:15 range. 07/27 Patient seen and examined. Patient still remains in A. fib, heart rates mildly increased up to 120s up to 1:30 currently. Patient was placed on amiodarone bolus and drip by ICU team. Central line was placed and nurse is going to check CVP. Not receiving any tube feeds however these are scheduled to start today. She remains on low-dose of vasopressors. FiO2 30% with 5 of PEEP. REVIEW OF SYSTEMS At the time of my exam: Unable to obtain secondary to patient being on vent sedated PHYSICAL EXAMINATION Vital signs reviewed. CONSTITUTIONAL: No apparent distress, obese, ill appearing, sedated on vent HEENT: Head is normocephalic. Pupils are equal, round. Sclerae anicteric. Mucous membranes of the mouth are moist. +ET tube in place. CHEST EXAMINATION: Lungs are clear to auscultation. No chest wall tenderness is noted on palpation or with deep breathing. HEART EXAMINATION: Irregular rate and rhythm. S1, S2 heard. No murmurs, gallops or rub. ABDOMEN: Soft, nontender. Positive bowel sounds. EXTREMITIES: 2+ peripheral pulses, no lower extremity edema and no calf tenderness. NEUROLOGIC EXAMINATION: Patient is sedated ASSESSMENT 1. Persistent atrial fibrillation, mildly RVR 2. History of cardiomyopathy, currently appears near euvolemic. Check CVP 3. Acute renal failure 4. Septic shock 5. Acute respiratory failure 6. Acidosis related to renal failure, sepsis 7. Possible pancreatitis 8. Small pericardial effusion without tamponade 9. History of Sjogren's, Preston Clovis's PLAN Patient presented with nausea, vomiting, abdominal pain and with severe acidosis, shock requiring small amount of vasopressors and multiorgan failure. Continue supportive care with vasopressors, hemodialysis as needed, ventilator management. Patient with slow decline in hemoglobin and platelets. Continue with Lovenox for now. Likely transition over to anticoagulation pending patient's clinical course. Patient was placed on amiodarone drip by ICU. Monitor response. Check CVP as patient does not appear overtly volume overloaded and may consider gentle IV fluids that she has not been receiving any oral intake. Objective - Vital Signs Vital signs: Vital Signs Temp 98.2 F 07/27/20 08:00 Pulse 116 H 07/27/20 11:00 Resp 20 07/27/20 11:00 BP 104/50 07/27/20 07:00 Pulse Ox 100 07/27/20 11:00 Intake & Output 07/26/20 07/27/20 07/27/20 18:59 06:59 18:59 Intake Total 1432.693 421.101 288.726 Output Total 1570 460 160 Balance -137.307 -38.899 128.726 Weight 108 kg Intake: IV 133 256 115 0.9 NS flush 33 36 15 Dextrose 5% in Water 1, 100 000 ml @ 50 mls/hr IV . Q23H MIRZA with Sodium Bicarb (1 Meq/ml) 150 ml Rx#:[id number] Sodium Chloride 0.9% 500 220 100 ml 500 ml @ 20 mls/hr IV .Q24H [facility] Rx#:[id number] Intake, IV Titration 676.693 165.101 173.726 Amount Magnesium Sulfate-D5w Pmx 100 1 gm In Dextrose/Water 1 100ml.bag @ 100 mls/hr IVPB ONCE ONE Rx#: [id number] Norepinephrine 4 mg In 16.706 73.726 Sodium Chloride 0.9% 250 ml @ 0.05 MCG/KG/MIN 19. 888 mls/hr IV .[id number] [facility] Rx#:[id number] Phytonadione 5 mg In 50 Sodium Chloride 0.9% 50 ml @ 100 mls/hr IVPB ONCE STA Rx#:[id number] Potassium Chloride 20 meq 100 In Water For Injection 1 100ml.bag @ 50 mls/hr IVPB ONCE STA Rx#: [id number] Sodium Chloride 0.9% 500 180 20 ml 500 ml @ 20 mls/hr IV .Q24H MIRZA Rx#:[id number] propofoL 1,000 mg In 229.987 145.101 100 Empty Bag 1 bag @ Titrate IV .Q0M [facility] Rx#: [id number] Blood Product 623 Ffp 24 Cpd Unit 287 [id number] Ffp 24 Cpd Unit 336 [id number] Output: Gastric Drainage 100 Urine 270 360 160 Hemodialysis 1300 Other: Voiding Method Indwelling Catheter Indwelling Catheter Indwelling Catheter ABP, PAP, CO, CI - Last Documented Arterial Blood Pressure 118/75 - Labs CBC & Chem 7: 07/27/20 03:25 07/27/20 03:25 Labs: Abnormal Lab Results - Last 24 Hours (Table) 07/26/20 07/26/20 07/26/20 Range/Units 12:35 12:59 16:40 RBC (3.80-5.40) m/uL Hgb (11.4-16.0) gm/dL Hct (34.0-46.0) % MCV (80.0-100.0) fL RDW (11.5-15.5) % Plt Count (150-450) k/uL Lymphocytes # (1.0-4.8) k/uL PT 18.2 H (9.0-12.0) sec INR 1.8 H (<1.2) ABG pH (7.35-7.45) ABG pCO2 (35-45) mmHg ABG pO2 (83-108) mmHg ABG HCO3 (21-25) mmol/L ABG Total CO2 (19-24) mmol/L ABG O2 Saturation (94-97) % Potassium 3.0 L (3.5-5.1) mmol/L Creatinine (0.52-1.04) mg/dL Glucose (74-99) mg/dL POC Glucose (mg/dL) 105 H (75-99) mg/dL Calcium (8.4-10.2) mg/dL Total Bilirubin (0.2-1.3) mg/dL AST (14-36) U/L ALT (4-34) U/L Alkaline Phosphatase (38-126) U/L Total Protein (6.3-8.2) g/dL Albumin (3.5-5.0) g/dL 07/26/20 07/26/20 07/26/20 Range/Units 19:50 20:15 23:14 RBC 3.62 L (3.80-5.40) m/uL Hgb 9.7 L (11.4-16.0) gm/dL Hct 27.0 L (34.0-46.0) % MCV 74.5 L (80.0-100.0) fL RDW 19.7 H (11.5-15.5) % Plt Count 118 L (150-450) k/uL Lymphocytes # 0.7 L (1.0-4.8) k/uL PT (9.0-12.0) sec INR (<1.2) ABG pH (7.35-7.45) ABG pCO2 (35-45) mmHg ABG pO2 (83-108) mmHg ABG HCO3 (21-25) mmol/L ABG Total CO2 (19-24) mmol/L ABG O2 Saturation (94-97) % Potassium 3.2 L (3.5-5.1) mmol/L Creatinine (0.52-1.04) mg/dL Glucose (74-99) mg/dL POC Glucose (mg/dL) 108 H (75-99) mg/dL Calcium (8.4-10.2) mg/dL Total Bilirubin (0.2-1.3) mg/dL AST (14-36) U/L ALT (4-34) U/L Alkaline Phosphatase (38-126) U/L Total Protein (6.3-8.2) g/dL Albumin (3.5-5.0) g/dL 07/27/20 07/27/20 07/27/20 Range/Units 03:25 03:25 06:04 RBC 3.49 L (3.80-5.40) m/uL Hgb 9.4 L (11.4-16.0) gm/dL Hct 26.3 L (34.0-46.0) % MCV 75.2 L (80.0-100.0) fL RDW 19.9 H (11.5-15.5) % Plt Count 112 L (150-450) k/uL Lymphocytes # 0.8 L (1.0-4.8) k/uL PT (9.0-12.0) sec INR (<1.2) ABG pH 7.51 H (7.35-7.45) ABG pCO2 32 L (35-45) mmHg ABG pO2 171 H (83-108) mmHg ABG HCO3 26 H (21-25) mmol/L ABG Total CO2 27 H (19-24) mmol/L ABG O2 Saturation 99.7 H (94-97) % Potassium (3.5-5.1) mmol/L Creatinine 2.30 H (0.52-1.04) mg/dL Glucose 103 H (74-99) mg/dL POC Glucose (mg/dL) (75-99) mg/dL Calcium 7.5 L (8.4-10.2) mg/dL Total Bilirubin 3.5 H (0.2-1.3) mg/dL AST 778 H (14-36) U/L ALT 187 H (4-34) U/L Alkaline Phosphatase 144 H (38-126) U/L Total Protein 6.2 L (6.3-8.2) g/dL Albumin 2.9 L (3.5-5.0) g/dL 07/27/20 Range/Units 08:00 RBC (3.80-5.40) m/uL Hgb (11.4-16.0) gm/dL Hct (34.0-46.0) % MCV (80.0-100.0) fL RDW (11.5-15.5) % Plt Count (150-450) k/uL Lymphocytes # (1.0-4.8) k/uL PT 15.7 H (9.0-12.0) sec INR 1.6 H (<1.2) ABG pH (7.35-7.45) ABG pCO2 (35-45) mmHg ABG pO2 (83-108) mmHg ABG HCO3 (21-25) mmol/L ABG Total CO2 (19-24) mmol/L ABG O2 Saturation (94-97) % Potassium (3.5-5.1) mmol/L Creatinine (0.52-1.04) mg/dL Glucose (74-99) mg/dL POC Glucose (mg/dL) (75-99) mg/dL Calcium (8.4-10.2) mg/dL Total Bilirubin (0.2-1.3) mg/dL AST (14-36) U/L ALT (4-34) U/L Alkaline Phosphatase (38-126) U/L Total Protein (6.3-8.2) g/dL Albumin (3.5-5.0) g/dL Microbiology - Last 24 Hours (Table) 07/24/20 05:16 Blood Culture - Preliminary Blood No Growth after 72 hours 07/25/20 22:55 Gram Stain - Preliminary Sputum Sputum Culture - Preliminary
--- NOTE | 2020-07-27 11:13 | PN ---
PROGRESS NOTE The patient is seen for followup for acute kidney injury, ATN, oliguric. However, urine output seems to have picked up now staying at about 30-35 mL an hour. Patient was started on dialysis. She had her second treatment of hemodialysis yesterday with about 1.3 L of fluid removed. Now, the urine output is staying at about 30-35 mL an hour. Serum creatinine is not significantly elevated. I will hold off on dialysis currently. Patient is not on Levophed. She did not tolerate the dobutamine as she had cardiac arrhythmia and therefore it was not started. PHYSICAL EXAMINATION: On examination today, blood pressure 102/64, heart rate 117 per minute, she is afebrile. She remains on the vent. FiO2 is at 30%. Examination of the heart S1, S2. Examination of the lungs, bilateral breath sounds are heard. Abdomen is soft, nontender. Examination of lower extremities shows edema 1+ bilaterally. KETTLE HAND exam cannot be performed. LAB: Show sodium of 138, potassium 3.8, BUN 14, creatinine 2.3, hemoglobin of 9.4 g/dL. ASSESSMENT: 1. Acute kidney injury, acute tubular necrosis, nonoliguric, initially oliguric, status post two treatments of hemodialysis. I will hold off on dialysis for now as patient's urine output has picked up and her creatinine and BUN are not significantly elevated. I will add Lasix as well. 2. Congestive heart failure, acute on top of chronic systolic. 3. Cardiomyopathy, ejection fraction about 25-30%. 4. Lactic acidosis secondary to hypotension hypoperfusion. 5. Hypokalemia, status post replacement. 6. History of IgM monoclonal gammopathy, status post Cytoxan with complete recovery of renal function. We will repeat a urine immunofixation. 7. Severe pulmonary hypertension. 8. Mild volume overload. PLAN: Add Lasix. Hold dialysis. Repeat labs in a.m. Replace potassium. Check serum and urine immunofixation. MMODL / IJN: [id number] /
[2020-07-27 11:43] LABS: Glucose,Whole Blood 97 mg/dL (75-99)
[2020-07-27 11:59] LABS: Glucose,Whole Blood 119 mg/dL (75-99)
--- NOTE | 2020-07-27 13:25 | PCN ---
PROCEDURE NOTE OPERATIVE REPORT: Placement of the right internal jugular triple-lumen catheter. PREOP DIAGNOSIS: Acute hypoxic respiratory failure and severe metabolic lactic acidosis. POSTOP DIAGNOSIS: Acute hypoxic respiratory failure and severe metabolic lactic acidosis. ANESTHESIA USED: 2 mL of 1% lidocaine. PROCEDURE DETAILS: The patient was placed in a Trendelenburg position, the right neck region was prepared in a sterile fashion and drapes were applied. The area behind the belly of the posterior belly of the sternocleidomastoid was locally anesthetized. Then using the posterior approach, the right internal jugular vein was easily cannulated and a guidewire was placed. The area around the guidewire was dilated. Then a triple-lumen catheter was inserted over the guidewire, and the guidewire was removed. Good blood flow, noted in the 3 different ports of the triple-lumen catheter noted, and the line was secured using 3.0 silk sutures, no evidence of any complications. Chest x-ray showed no complications. MMODL / IJN: [id number] /
--- NOTE | 2020-07-27 15:16 | P.PN ---
Subjective Progress Note Date: 07/27/20 Principal diagnosis: Acute hypoxic respiratory failure, secondary to extreme severe lactic acidosis suspect transient ischemic bowel, possible cardiogenic shock, possible septic sh ock. This is a 65-year-old white female patient with multiple chronic medical problems including chronic A. fib on Eliquis, chronic CHF, diabetes mellitus type 2, nonischemic cardiomyopathy, status post AICD placement hypertension, hyperlipidemia, rheumatoid arthritis, Sjogren's, lupus, fibromyalgia, history of Waldenstrom macroglobulinemia previously treated with chemotherapy, former smoker, who presented to the emergency department on 07/22/2020 with complaints of nausea vomiting and weakness. Patient was also having some generalized abdominal pain. He denied any fevers. Denies any sick contacts, she tested negative for Coronavirus. CT of the abdomen and pelvis was completed showing suspected mild pancreatic and. Pancreatic edema suggesting acute pancreatitis. Questionable mild wall thickening of the urinary bladder with adjacent stranding worsening acute cystitis. Patient has been afebrile, blood pressures were initially in the low 100s systolic over 80s diastolic, she has been on room air and not requiring any supplemental oxygen. Her admission lab work positive for leukopenia with white blood cell count of 3.5, hemoglobin was 12.6, platelet count was 115, sodium is 138, potassium 3.0, chloride is 103, CO2 24, B1 of 4, creatinine is 1.13, patient had a significantly elevated lactic acid that initially was at 2.2 and was steadily on the rise over the course of 24 hours, and this morning was up to 11.6. The patient was noted to be more hypotensive, quite tachycardic, more confused, and anuric. She has received 3 L of fluid boluses yesterday in the emergency department, this morning she is receiving an additional 1 L IV bolus. She was started on meropenem for suspicion of sepsis with septic shock. Blood cultures urine culture and urinalysis have been sent and pending, chest x-ray has been ordered, patient has been transferred to the density of care unit where we are seeing the patient in consultation. She is awake, but she is confused, she is on room air pulse ox is 99%, her first liter bolus is still infusing, her blood pressure is systolic in the low 100s, she remains tachycardic in atrial fibrillation with a rate of 120 BPM, appears to be in no acute distress, chest x-ray is pending, cultures have been sent, meropenem started, this morning his blood work reviewed and BMP showed CO2 of only 9, worsening renal function with BUN of 5 and creatinine 1.91. Magnesium was 1.1, total bilirubin is 3.5, AST 76, ALT is 20, alkaline phosphatase is 119, lipase was initially at 32 and is currently at less than 10, amylase was within normal limits at 33. Abdomen is soft, nontender. Patient has been started on D5 with 3 A of bicarbonate at 150 ML per hour, venous blood gas was obtained showing bicarbonate concentration of 6, pCO2 of 18, and pH of 7.17. On 07/25/2020 patient seen in follow-up in the intensive care unit. She has received significant amount of fluids, a total of 6 L of fluid boluses yesterday, however her urine output is still quite poor, and she is only making 5-10 ML per hour. She is considerably more confused today, and her lactic acid remains quite elevated at 8.3. Renal function has worsened overnight, creatinine is up to 3.01, B1 is 9, CO2 is 14, chloride is 110, potassium is 3.7, and sodium is 144, there has been further worsening of patient's LFTs, AST is up to 529, ALT is 91, LDL is still within normal limits at 125, stat ammonia level was obtained and is currently at 21, INR level IX.4, white blood cell count remains within normal limits at 9.7, hemoglobin is 11.1, platelet count is 156. Patient is confused, and her extremities are cool to touch, echocardiogram was obtained showing impaired left ventricular systolic function and an EF of 20- 25%, mild tricuspid regurg, mild to moderate pulmonary hypertension with right- sided pressures of 45.2 mmHg, IVC is dilated with no significant inspiratory collapse and an estimated right atrial pressure of greater than 15 mmHg, and there is a small generalized pericardial effusion. Patient is restless, confused, there is a health/safety job titles at the bedside to prevent the patient from removing her indwelling catheters, she was placed on supplemental oxygen at 2 L with a pulse ox Of 99%, she is currently in A. fib with RVR with a rate of 116- 131 BPM, we were going to start a dobutamine infusion however patient was tachycardic, and consultation was placed to cardiology. She is not requiring any vasopressor support right now, her maintenance IV fluids are D5 W with 3 A of bicarbonate going at 50 ML per hour. In addition patient and to use on empiric antibiotics in the form of meropenem, blood cultures, urine cultures and urinalysis have been sent and remain negative thus far, her abdomen is soft, and nontender, she hasn't had any more vomiting or diarrhea. Chest x-ray shows increased interstitial and retrocardiac density with obscured left hemidiaphragm and blunting of the left costophrenic angle. Some minimal patchy basilar density on the right. Nephrology is consulted, and is planning on obtaining hemodialysis catheter access today and initiating the patient on hemodialysis, surgical services are following, and it was felt that the CT scan of the abdomen with contrast did not show any definite thrombotic or embolic event, low-flow ischemia or small peripheral embolism from the patient's underlying A. fib was in the differential. However it was felt to be less likely, and no surgical intervention was recommended at this time. The patient is seen today 07/26/2020 in follow-up in the intensive care unit. She continued to be restless and unable to protect her airway. She was subsequently intubated and placed on the mechanical ventilator last evening. Current vent settings are assist control at a rate of 20, tidal volume 450, FiO2 40% and a PEEP of 5. Morning blood gases reveal a P O2 of 73, pCO2 28, pH 7.54. Chest x-ray continues to show evidence of fluid volume overload. Her ejection fraction is 20-25%. She did undergo hemodialysis catheter placement in the right femoral artery. There is some oozing noted today. She received hemodialysis yesterday with 500 MLS removed. The plan is for hemodialysis again today. Her white count is 5.1. Hemoglobin 9.6. Platelets 136. INR 2.4. Sodium 139. Potassium 2.9. Bicarb 24. Creatinine 2.92. Glucose 139. She is currently sedated on propofol at 35 mcg/kg/m. Requiring norepinephrine at 0.01 mcg/kg/m. She is in a of bicarb drip at 50 MLS per hour. 0.9 normal saline and 20 ML's per hour. Antibiotics in the form of meropenem. Currently in atrial fibrillation. She is on Lovenox for DVT prophylaxis. Patient was reevaluated today on 07/27/2020, patient remains in the ICU, intubated and mechanically ventilated. She is on assist control rate of 2012 volume 450 FiO2 30% PEEP of 5, ABG showed a pO2 of 171 pCO2 of 32 pH of 7.51, and this was on 40% FiO2. Cut down her FiO2 to 30%. Patient is still undergoing hemodialysis, however she continues to have some oozing from the right femoral hemodialysis site. And that is to be addressed by vascular s urgery on the case placed a dialysis catheter. Patient remains on norepinephrine at 0.01 mcg/kg/m, she is on amiodarone now for atrial fibrillation with RVR, she is also on propofol at 35 mcg/kg/m. Patient is fully sedated, she is not requiring any paralytics. Remains empirically on Merrem she is also on Lovenox, and she is on trickle feeds. Liver enzymes remain elevated. INR is 1.6 today. Considering we added amiodarone, and the patient does not have central access, I went ahead and placed a right IJ triple-lumen catheter in this patient today. Chest x-ray is showing pulmonary edema, strongly doubt underlying infiltrates. Patient is known to have severe LV dysfunction and I believe the findings are mostly findings of acute systolic congestive heart failure. CBC is relatively normal hemoglobin is 9.4. No leukocytosis. Electrolytes are normal bicarb has corrected nicely it's up to 24 today. Lactic acid today is pending. Her last lactic acid was 4.4 from 2 days ago. Urinaly sis is showing evidence of hematuria, but no clear-cut evidence of infection, and no evidence of pyuria or bacteriuria. Objective - Vital Signs Vital signs: Vital Signs Temp 97.7 F 07/27/20 12:00 Pulse 109 H 07/27/20 13:00 Resp 20 07/27/20 13:00 BP 104/50 07/27/20 07:00 Pulse Ox 100 07/27/20 13:00 Intake & Output 07/26/20 07/27/20 07/27/20 18:59 06:59 18:59 Intake Total 1432.693 421.101 360.726 Output Total 1570 460 235 Balance -137.307 -38.899 125.726 Weight 108 kg Intake: IV 133 256 167 0.9 NS flush 33 36 27 Dextrose 5% in Water 1, 100 000 ml @ 50 mls/hr IV . Q23H MIRZA with Sodium Bicarb (1 Meq/ml) 150 ml Rx#:[id number] Sodium Chloride 0.9% 500 220 140 ml 500 ml @ 20 mls/hr IV .Q24H MIRZA Rx#:[id number] Intake, IV Titration 676.693 165.101 173.726 Amount Magnesium Sulfate-D5w Pmx 100 1 gm In Dextrose/Water 1 100ml.bag @ 100 mls/hr IVPB ONCE ONE Rx#: [id number] Norepinephrine 4 mg In 16.706 73.726 Sodium Chloride 0.9% 250 ml @ 0.05 MCG/KG/MIN 19. 888 mls/hr IV .[id number] MIRZA Rx#:[id number] Phytonadione 5 mg In 50 Sodium Chloride 0.9% 50 ml @ 100 mls/hr IVPB ONCE STA Rx#:[id number] Potassium Chloride 20 meq 100 In Water For Injection 1 100ml.bag @ 50 mls/hr IVPB ONCE STA Rx#: [id number] Sodium Chloride 0.9% 500 180 20 ml 500 ml @ 20 mls/hr IV .Q24H [facility] Rx#:[id number] propofoL 1,000 mg In 229.987 145.101 100 Empty Bag 1 bag @ Titrate IV .Q0M [facility] Rx#: [id number] Tube Feeding 20 Blood Product 623 Ffp 24 Cpd Unit 287 [id number] Ffp 24 Cpd Unit 336 [id number] Output: Gastric Drainage 100 Urine 270 360 235 Hemodialysis 1300 Other: Voiding Method Indwelling Catheter Indwelling Catheter Indwelling Catheter ABP, PAP, CO, CI - Last Documented Arterial Blood Pressure 97/60 - Exam GENERAL EXAM: Revealed a 65-year-old -[place] female, intubated, mechanically ventilated, sedated, on propofol. HEAD: Normocephalic. Atraumatic. EYES: Normal reaction of pupils, equal size. NOSE: Clear with pink turbinates. THROAT: No erythema or exudates. NECK: No masses, no JVD. CHEST: No chest wall deformity. LUNGS: Minimal crackles at the bases, no rhonchi and no wheezes. CVS: Distant S1 and S2, 2/6 systolic murmur thought the precordium. ABDOMEN: Remains soft, nontender, no megaly, no rebound, no guarding. SKIN: No rashes CENTRAL NERVOUS SYSTEM: Sedated, on propofol, could not assess. EXTREMITIES: Right femoral hemodialysis catheter placed with some oozing around the site. There is no peripheral edema. No clubbing, no cyanosis. Peripheral pulses are intact. Psychiatric: Could not assess. Patient is sedated. - Labs CBC & Chem 7: 07/27/20 03:25 07/27/20 03:25 Labs: Abnormal Lab Results - Last 24 Hours (Table) 07/26/20 07/26/20 07/26/20 Range/Units 16:40 19:50 20:15 RBC 3.62 L (3.80-5.40) m/uL Hgb 9.7 L (11.4-16.0) gm/dL Hct 27.0 L (34.0-46.0) % MCV 74.5 L (80.0-100.0) fL RDW 19.7 H (11.5-15.5) % Plt Count 118 L (150-450) k/uL Lymphocytes # 0.7 L (1.0-4.8) k/uL PT 18.2 H (9.0-12.0) sec INR 1.8 H (<1.2) ABG pH (7.35-7.45) ABG pCO2 (35-45) mmHg ABG pO2 (83-108) mmHg ABG HCO3 (21-25) mmol/L ABG Total CO2 (19-24) mmol/L ABG O2 Saturation (94-97) % Potassium 3.2 L (3.5-5.1) mmol/L Creatinine (0.52-1.04) mg/dL Glucose (74-99) mg/dL POC Glucose (mg/dL) (75-99) mg/dL Calcium (8.4-10.2) mg/dL Total Bilirubin (0.2-1.3) mg/dL AST (14-36) U/L ALT (4-34) U/L Alkaline Phosphatase (38-126) U/L Total Protein (6.3-8.2) g/dL Albumin (3.5-5.0) g/dL 07/26/20 07/27/20 07/27/20 Range/Units 23:14 03:25 03:25 RBC 3.49 L (3.80-5.40) m/uL Hgb 9.4 L (11.4-16.0) gm/dL Hct 26.3 L (34.0-46.0) % MCV 75.2 L (80.0-100.0) fL RDW 19.9 H (11.5-15.5) % Plt Count 112 L (150-450) k/uL Lymphocytes # 0.8 L (1.0-4.8) k/uL PT (9.0-12.0) sec INR (<1.2) ABG pH (7.35-7.45) ABG pCO2 (35-45) mmHg ABG pO2 (83-108) mmHg ABG HCO3 (21-25) mmol/L ABG Total CO2 (19-24) mmol/L ABG O2 Saturation (94-97) % Potassium (3.5-5.1) mmol/L Creatinine 2.30 H (0.52-1.04) mg/dL Glucose 103 H (74-99) mg/dL POC Glucose (mg/dL) 108 H (75-99) mg/dL Calcium 7.5 L (8.4-10.2) mg/dL Total Bilirubin 3.5 H (0.2-1.3) mg/dL AST 778 H (14-36) U/L ALT 187 H (4-34) U/L Alkaline Phosphatase 144 H (38-126) U/L Total Protein 6.2 L (6.3-8.2) g/dL Albumin 2.9 L (3.5-5.0) g/dL 07/27/20 07/27/20 07/27/20 Range/Units 06:04 08:00 11:58 RBC (3.80-5.40) m/uL Hgb (11.4-16.0) gm/dL Hct (34.0-46.0) % MCV (80.0-100.0) fL RDW (11.5-15.5) % Plt Count (150-450) k/uL Lymphocytes # (1.0-4.8) k/uL PT 15.7 H (9.0-12.0) sec INR 1.6 H (<1.2) ABG pH 7.51 H (7.35-7.45) ABG pCO2 32 L (35-45) mmHg ABG pO2 171 H (83-108) mmHg ABG HCO3 26 H (21-25) mmol/L ABG Total CO2 27 H (19-24) mmol/L ABG O2 Saturation 99.7 H (94-97) % Potassium (3.5-5.1) mmol/L Creatinine (0.52-1.04) mg/dL Glucose (74-99) mg/dL POC Glucose (mg/dL) 119 H (75-99) mg/dL Calcium (8.4-10.2) mg/dL Total Bilirubin (0.2-1.3) mg/dL AST (14-36) U/L ALT (4-34) U/L Alkaline Phosphatase (38-126) U/L Total Protein (6.3-8.2) g/dL Albumin (3.5-5.0) g/dL Microbiology - Last 24 Hours (Table) 07/25/20 22:55 Gram Stain - Preliminary Sputum Sputum Culture - Preliminary Celina albicans 07/24/20 05:16 Blood Culture - Preliminary Blood No Growth after 72 hours Assessment and Plan Assessment: Impression: Acute hypoxic respiratory failure requiring intubation and mechanical ventilation on 07/25/2020. Exact etiology of her hypoxic respiratory failure is not clear, likely related to acute on chronic systolic congestive heart failure and secondary to severe acute lactic acidosis which could be secondary to acute renal failure or transient bowel ischemia or possible sepsis although cultures have all been negative so far. Severe lactic acidosis suspected ischemic bowel although clinically her abdomen was soft, patient did have clinical symptoms of abdominal pain prior to presentation. Hence bowel ischemia is strongly suspected and not entirely ruled out. Possible cardiogenic shock or septic shock, patient does have severe LV dysfunction and ejection fraction of 20-25% at best. Severe anion gap metabolic acidosis on her initial presentation, with severe lactic acidosis. Chronic atrial fibrillation, normally on Eliquis. Acute on chronic congestive heart failure, patient has ejection fraction of 20%. Type 2 diabetes with diabetic neuropathy, patient has not been on metformin prior to presentation. Benign essential hypertension History of rheumatoid arthritis History of AICD placement History of Waldenstrm's macroglobulinemia History of Sjogren's syndrome. Acute shock liver with elevated INR and coagulopathy requiring multiple units of fresh frozen plasma. In order to safely place a dialysis catheter in the right groin by vascular surgery. Recommendation: Continue present ventilatory support. Continue hemodynamic support, patient is on norepinephrine at 0.01 mcg/kg/m. Continue amiodarone. for atrial fibrillation. Continue norepinephrine Continue Lovenox for now, patient was on Eliquis, discontinue Lovenox if the patient continues to have wheezing in the right femoral catheter site. Continue Lasix. Consider adding inotropes. Continue Merrem empirically, cultures have been negative so far. Continue Protonix. Start nutritional support/trickle feedings Continue hemodynamic monitoring Patient remains critically ill, not quite ready for weaning or extubation at this point. Critical care time is over 30 minutes not including the time spent on line placement. Time with Patient: Greater than 30
[2020-07-27] MEDS ORDERED: FUROSEMIDE 10 MG/ML 4 ML VIAL IV ONE (16:00)
[2020-07-27] MEDS: AMIODARONE 450 MG in DEXTROSE 5% IN WATER 250 ML IV SCH ×2 (17:16)
[2020-07-27 17:21] LABS: Glucose,Whole Blood 129 mg/dL (75-99)
[2020-07-27] MEDS: ESMOLOL IN SODIUM CHLORIDE PMX 2.5 GM in SALINE 1 250ML.BAG IV SCH (18:59)
--- NOTE | 2020-07-27 19:35 | PN ---
PROGRESS NOTE DATE OF SERVICE: 07/27/2020 REASON FOR FOLLOW UP: Pancreatitis, question of pneumonia. INTERVAL HISTORY: Patient is currently afebrile. The patient is a currently stable. Still requiring low- dose pressor support to maintain her pressure. FiO2 is currently at 30%. No significant purulent secretions through the ET or diarrhea has been reported. 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 PHYSICAL EXAMINATION: VITAL SIGNS: Blood pressure 132/73 with a pulse of 122, temperature 97.7, she is 100% on 30% FIO2. GENERAL DESCRIPTION: Patient is an elderly female intubated on the vent. LUNGS: Unlabored breathing, decreased intensity of breath sounds, no wheeze. HEART: S1-S2, regular rate and rhythm. ABDOMEN: Soft, no tenderness. LABS: INR is 1.6, white count 5.2, creatinine is 2.30. Liver enzymes remain to be elevated. DIAGNOSTIC IMPRESSION AND PLAN: Patient admitted to the hospital with nausea, vomiting, diarrhea, subsequently episode of unresponsiveness requiring intubation. There was evidence of pancreatitis on CT and colitis. The UA was negative. The patient is currently covered with meropenem in view of overall clinical condition, to continue along with respiratory support. Monitor clinical course closely. MMODL / IJN: [id number] /
[2020-07-27] MEDS ORDERED: FUROSEMIDE 10 MG/ML 4 ML VIAL IV SCH (21:00)
[2020-07-27] MEDS ORDERED: POTASSIUM CHLORIDE ER 20 MEQ TAB.ER PO SCH (22:00)
[2020-07-27 23:58] LABS: Glucose,Whole Blood 130 mg/dL (75-99)
[2020-07-28] MEDS: ESMOLOL IN SODIUM CHLORIDE PMX 2.5 GM in SALINE 1 250ML.BAG IV SCH ×7 (00:11→23:08)
[2020-07-28] MEDS: INSULIN ASPART (NovoLOG) 100 UNIT/ML VIAL SQ SCH ×5 (02:14→23:41)
[2020-07-28] MEDS: NOREPINEPHRINE 4 MG in SODIUM CHLORIDE 0.9% 250 ML IV SCH (02:16)
[2020-07-28] MEDS: NOREPINEPHRINE 8 MG in SODIUM CHLORIDE 0.9% 250 ML IV SCH ×5 (03:29→23:27)
[2020-07-28 03:33] LABS: Appearance,Urine Clear (Clear); Bacteria,Urine Rare /hpf; Bilirubin,Urine Negative (Negative); Blood,Urine Moderate (Negative); Color,Urine Yellow; Glucose,Urine (UA) Negative (Negative); Ketones,Urine Negative (Negative); Leukocyte Esterase,Urine Negative (Negative); Nitrite,Urine Negative (Negative); PH, Urine 5.5 (5.0-8.0); Protein,Urine Negative (Negative); RBC,Urine 3 /hpf (0-5); Specific Gravity,Urine 1.008 (1.001-1.035); Urobilinogen,Urine <2.0 mg/dL (<2.0); WBC,Urine 1 /hpf (0-5)
[2020-07-28 04:01] LABS: Albumin 3.2 g/dL (3.5-5.0); Calcium 7.5 mg/dL (8.4-10.2); Potassium 4.2 mmol/L (3.5-5.1); Total Bilirubin 3.7 mg/dL (0.2-1.3); Total Protein 6.8 g/dL (6.3-8.2)
[2020-07-28 04:30] LABS: Anisocytosis Moderate; Basophils # (A) 0.1 k/uL (0-0.2); Basophils % (A) 1 %; Eosinophils # (A) 0.2 k/uL (0-0.7); Eosinophils % (A) 2 %; HCT 29.2 % (34.0-46.0); HGB 9.4 gm/dL (11.4-16.0); Hypochromasia Slight; Lymphocytes # (A) 2.1 k/uL (1.0-4.8); Lymphocytes % (A) 23 %; MCHC 32.3 g/dL (31.0-37.0); MCV 77.3 fL (80.0-100.0); Mean Platelet Volume 11.7; Microcytosis Moderate; Monocytes % (A) 11 %; Neutrophils # (A) 5.8 k/uL (1.3-7.7); Neutrophils % (A) 62 %; Platelet Count 145 k/uL (150-450); Poikilocytosis Moderate; RBC 3.77 m/uL (3.80-5.40); RDW 20.3 % (11.5-15.5); WBC 9.5 k/uL (3.8-10.6)
[2020-07-28 05:59] LABS: ABG Base Excess -9.8 mmol/L; ABG HCO3 16 mmol/L (21-25); ABG Oxygen Saturation 96.9 % (94-97); ABG PCO2 29 mmHg (35-45); ABG PH 7.35 (7.35-7.45); ABG PO2 102 mmHg (83-108); ABG TCO2 17 mmol/L (19-24); Allen Test Performed? Yes
[2020-07-28 06:19] LABS: Glucose,Whole Blood 110 mg/dL (75-99)
[2020-07-28] MEDS: AMIODARONE 450 MG in DEXTROSE 5% IN WATER 250 ML IV SCH ×2 (06:38)
--- NOTE | 2020-07-28 06:39 | XR ---
EXAMINATION TYPE: XR chest 1V portable DATE OF EXAM: 07/28/2020 CLINICAL HISTORY: Difficulty breathing progress study. TECHNIQUE: Single AP portable semiupright view of the chest is obtained. COMPARISON: Chest x-ray from one day earlier and older studies. FINDINGS: Stable endotracheal and orogastric tubes. Stable right internal jugular central venous cat heter. Persistent cardiomegaly with dual lead pacemaker/defibrillator appears to have 2 right ventricular le ads unchanged from prior. Persistent central vascular congestion and bibasilar opacities. Osseous str uctures are intact. IMPRESSION: Correlate for persistent CHF exacerbation as there is cardiomegaly with central vascular congestion and small bilateral pleural effusions. No significant change from most recent x-ray.
[2020-07-28] MEDS: SODIUM CHLORIDE 0.9% 500 ML 500 ML IV SCH (07:45)
[2020-07-28] MEDS ORDERED: ATROPINE SULFATE 0.1 MG/ML 10ML SYRINGE ONE (09:24)
[2020-07-28] MEDS: MEROPENEM 1 GM in SODIUM CHLORIDE 0.9% 100 ML IVPB SCH ×2 (09:46→21:26)
[2020-07-28] MEDS: PANTOPRAZOLE 40 MG/10 ML VIAL IV SCH (09:46)
[2020-07-28] MEDS: ENOXAPARIN 40 MG/0.4 ML SYRINGE SQ SCH (09:46)
[2020-07-28] MEDS: CHLORHEXIDINE GLUCONATE 15 ML CUP MUCOUS MEM SCH ×2 (09:47→21:26)
--- NOTE | 2020-07-28 10:25 | PN ---
PROGRESS NOTE The patient is seen for followup for acute kidney injury, ATN, currently nonoliguric. Patient had a couple of treatments of dialysis however currently she has had good urine output with improvement in serum creatinine and therefore dialysis is on hold. Patient has also been quite hypokalemic and has had significant replacement. Yesterday patient became more hypotensive and the Levophed was increased to about 40 mcg. She was in atrial fibrillation with RVR and is maintained on esmolol drip AE. The patient did not tolerate dobutamine. She remains on the vent. FiO2 is at 30%. EXAMINATION: On examination today, blood pressure 81/60, heart rate 115 per minute. Patient is sedated. She is on the vent. EXAMINATION OF THE HEART: S1, S2. EXAMINATION OF LUNGS: Bilateral breath sounds are heard. Abdomen is soft, nontender. Examination of lower extremities shows no significant edema. DISABILITIES CAREGIVER exam cannot be performed. LABS: Labs show sodium 137, potassium 4.2, chloride 104, BUN 18, serum creatinine 2.21. ASSESSMENT: 1. Acute kidney injury, acute tubular necrosis, nonoliguric associated with hypotension. UA is fairly benign. 2. Atrial fibrillation with rapid ventricular response. 3. Severe cardiomyopathy, ejection fraction 10%. 4. Acute hypoxic respiratory failure. 5. History of IgM monoclonal gammopathy. 6. Lactic acidosis and severe metabolic acidosis secondary to hypotension, now resolved. 7. Severe pulmonary hypertension. 8. Volume overload, currently improved. PLAN: Decrease Lasix to once a day. Monitor electrolytes. Hold off on dialysis. MMODL / IJN: [id number] /
--- NOTE | 2020-07-28 10:41 | P.PN ---
Subjective Progress Note Date: 07/28/20 Principal diagnosis: Sepsis, lactic acidosis This is a 65-year-old white female patient with multiple chronic medical problems including chronic A. fib on Eliquis, chronic CHF, diabetes mellitus type 2, nonischemic cardiomyopathy, status post AICD placement hypertension, hyperlipidemia, rheumatoid arthritis, Sjogren's, lupus, fibromyalgia, history of Waldenstrom macroglobulinemia previously treated with chemotherapy, former smoker, who presented to the emergency department on 07/22/2020 with complaints of nausea vomiting and weakness. Patient was also having some generalized abdominal pain. He denied any fevers. Denies any sick contacts, she tested negative for Coronavirus. CT of the abdomen and pelvis was completed showing suspected mild pancreatic and. Pancreatic edema suggesting acute pancreatitis. Questionable mild wall thickening of the urinary bladder with adjacent stranding worsening acute cystitis. Patient has been afebrile, blood pressures were ini tially in the low 100s systolic over 80s diastolic, she has been on room air and not requiring any supplemental oxygen. Her admission lab work positive for leukopenia with white blood cell count of 3.5, hemoglobin was 12.6, platelet count was 115, sodium is 138, potassium 3.0, chloride is 103, CO2 24, B1 of 4, creatinine is 1.13, patient had a significantly elevated lactic acid that initially was at 2.2 and was steadily on the rise over the course of 24 hours, and this morning was up to 11.6. The patient was noted to be more hypotensive, quite tachycardic, more confused, and anuric. She has received 3 L of fluid boluses yesterday in the emergency department, this morning she is receiving an additional 1 L IV bolus. She was started on meropenem for suspicion of sepsis with septic shock. Blood cultures urine culture and urinalysis have been sent and pending, chest x-ray has been ordered, patient has been transferred to the density of care unit where we are seeing the patient in consultation. She is awake, but she is confused, she is on room air pulse ox is 99%, her first liter bolus is still infusing, her blood pressure is systolic in the low 100s, she remains tachycardic in atrial fibrillation with a rate of 120 BPM, appears to be in no acute distress, chest x-ray is pending, cultures have been sent, meropenem started, this morning his blood work reviewed and BMP showed CO2 of only 9, worsening renal function with BUN of 5 and creatinine 1.91. Magnesium was 1.1, total bilirubin is 3.5, AST 76, ALT is 20, alkaline phosphatase is 119, lipase was initially at 32 and is currently at less than 10, amylase was within normal limits at 33. Abdomen is soft, nontender. Patient has been started on D5 with 3 A of bicarbonate at 150 ML per hour, venous blood gas was obtained showing bicarbonate concentration of 6, pCO2 of 18, and pH of 7.17. On 07/25/2020 patient seen in follow-up in the intensive care unit. She has received significant amount of fluids, a total of 6 L of fluid boluses yesterday, however her urine output is still quite poor, and she is only making 5-10 ML per hour. She is considerably more confused today, and her lactic acid remains quite elevated at 8.3. Renal function has worsened overnight, creatinine is up to 3.01, B1 is 9, CO2 is 14, chloride is 110, potassium is 3.7, and sodium is 144, there has been further worsening of patient's LFTs, AST is up to 529, ALT is 91, LDL is still within normal limits at 125, stat ammonia level was obtained and is currently at 21, INR level IX.4, white blood cell count remains within normal limits at 9.7, hemoglobin is 11.1, platelet count is 156. Patient is confused, and her extremities are cool to touch, echocardiogram was obtained showing impaired left ventricular systolic function and an EF of 20- 25%, mild tricuspid regurg, mild to moderate pulmonary hypertension with right- sided pressures of 45.2 mmHg, IVC is dilated with no significant inspiratory collapse and an estimated right atrial pressure of greater than 15 mmHg, and there is a small generalized pericardial effusion. Patient is restless, confused, there is a drug safety physician at the bedside to prevent the patient from removing her indwelling catheters, she was placed on supplemental oxygen at 2 L with a pulse ox Of 99%, she is currently in A. fib with RVR with a rate of 116- 131 BPM, we were going to start a dobutamine infusion however patient was tachycardic, and consultation was placed to cardiology. She is not requiring a ny vasopressor support right now, her maintenance IV fluids are D5 W with 3 A of bicarbonate going at 50 ML per hour. In addition patient and to use on empiric antibiotics in the form of meropenem, blood cultures, urine cultures and urinalysis have been sent and remain negative thus far, her abdomen is soft, and nontender, she hasn't had any more vomiting or diarrhea. Chest x-ray shows increased interstitial and retrocardiac density with obscured left hemidiaphragm and blunting of the left costophrenic angle. Some minimal patchy basilar density on the right. Nephrology is consulted, and is planning on obtaining hemodialysis catheter access today and initiating the patient on hemodialysis, surgical services are following, and it was felt that the CT scan of the abdomen with contrast did not show any definite thrombotic or embolic event, low-flow ischemia or small peripheral embolism from the patient's underlying A. fib was in the differential. However it was felt to be less likely, and no surgical intervention was recommended at this time. On 07/28/2000 patient seen in follow-up in the intensive care unit, she remains intubated, sedated on mechanical ventilator, current on assist control with a rate of 20, tidal arm is 450, FiO2 30% and PEEP of 5, this might blood gases reviewed showing pO2 of 102, pCO2 29, and pH of 7.35, today's chest x-ray showing persistent CHF exacerbation, cardiomegaly with central vascular congestion and small bilateral pleural effusions. Patient had hemodialysis on 07/26/2020 with removal of 1.3 L of fluid, and 07/25/2020 would removal of 500 mL of fluid. Currently he remains oliguric, and producing urine and the order of 10-30 ML per hour. Patient is on multiple IV infusions including 0.0 normal same at 20 per hour, Diprivan is a 35 mics per kilo per minute, amiodarone 0.5 mg/m, levothyroid is at 19 mics per minute, esmolol is at 30 mics per kilo per minute. Patient is currently in sinus mechanism. Today's labs have been reviewed, with a total, is 9.5, hemoglobin is 9.4, platelet count is 145, sodium is 137, potassium is 4.2, chloride is 104, CO2 17, B1 is 18 and creatinine is 2.21, total bilirubin is 3.7, liver enzymes are improved, with AST down to 570, ALT is 152, and alk phos is relatively stable at 158. It is a level came back within normal limits at 57, and ACTH was 19. Patient remains on a once daily dose of Lasix of 40 mg daily, she is also on meropenem for possibility of sepsis, blood urine and sputum cultures have been sent, and sputum culture showed Celina albicans, blood and urine were negative. This morning patient's lactic acid remains elevated at 7.5. Repeat urinalysis shows no clear evidence of infection. Abdomen is soft, nontender, patient has been afebrile. Echocardiogram showed severely impaired left ventricular systolic function with an EF of 20-25%, no aortic stenosis or regurgitation, mild tricuspid regurg, mild to moderate pulmonary hypertension, with right-sided pressures of 45.26 mmHg. Patient is receiving tube feedings for nutritional support with vital high-protein at a rate of 10 ML per hour. Objective - Vital Signs Vital signs: Vital Signs Temp 98.5 F 07/28/20 08:00 Pulse 63 07/28/20 10:00 Resp 20 07/28/20 10:00 BP 71/37 07/28/20 10:00 Pulse Ox 94 L 07/28/20 10:00 Intake & Output 07/27/20 07/28/20 07/28/20 18:59 06:59 18:59 Intake Total 222.647 3755.364 389.497 Output Total 685 510 97 Balance 734.327 7980.364 292.497 Weight 109.1 kg Intake: IV 297 272 104 0.9 NS flush 57 72 24 Sodium Chloride 0.9% 500 240 200 80 ml 500 ml @ 20 mls/hr IV .Q24H [facility] Rx#:[id number] Intake, IV Titration 036.258 1114.364 255.497 Amount Amiodarone 450 mg In 222.782 Dextrose 5% in Water 250 ml @ 0.5 MG/MIN 16.667 mls/hr IV .Q15H [facility] Rx#: [id number] Esmolol in Sodium 469.422 55.08 Chloride Pmx 2.5 gm In Saline 1 250ml.bag @ 150 MCG/KG/MIN 97.2 mls/hr IV .Q2H35M [facility] Rx#: [id number] Norepinephrine 4 mg In 151.951 568.274 Sodium Chloride 0.9% 250 ml @ 0.05 MCG/KG/MIN 19. 888 mls/hr IV .[id number] [facility] Rx#:[id number] Norepinephrine 8 mg In 171.886 100.046 Sodium Chloride 0.9% 250 ml @ 0.05 MCG/KG/MIN 10. 449 mls/hr IV .Q24H [facility] Rx#:[id number] propofoL 1,000 mg In 278.246 200 100.371 Empty Bag 1 bag @ Titrate IV .Q0M [facility] Rx#: [id number] Tube Feeding 70 120 30 Other 30 90 Output: Urine 685 510 97 Other: Voiding Method Indwelling Catheter Indwelling Catheter ABP, PAP, CO, CI - Last Documented Arterial Blood Pressure 78/48 - Exam GENERAL EXAM: 65-year-old -[place] female, intubated, sedated, on assist-control mode of ventilation with FiO2 of 30% and PEEP of 5 HEAD: Normocephalic/atraumatic. EYES: Normal reaction of pupils, equal size. Conjunctiva pink, sclera white. NOSE: Clear with pink turbinates. THROAT: No erythema or exudates. NECK: No masses, no JVD, no thyroid enlargement, no adenopathy. CHEST: No chest wall deformity. Symmetrical expansion. LUNGS: Equal air entry with no crackles, wheeze, rhonchi or dullness. CVS: Regular rate and rhythm, normal S1 and S2, no gallops, no murmurs, no rubs ABDOMEN: Soft, nontender. No hepatosplenomegaly, normal bowel sounds, no g uarding or rigidity. EXTREMITIES: No clubbing, no edema, no cyanosis, 2+ pulses and upper and lower extremities. MUSCULOSKELETAL: Muscle strength and tone normal. SPINE: No scoliosis or deformity SKIN: No rashes CENTRAL NERVOUS SYSTEM: Intubated, sedated No focal deficits, tone is normal in all 4 extremities. - Labs CBC & Chem 7: 07/28/20 03:27 07/28/20 03:26 Labs: Abnormal Lab Results - Last 24 Hours (Table) 07/27/20 07/27/20 07/27/20 Range/Units 11:58 17:20 23:57 RBC (3.80-5.40) m/uL Hgb (11.4-16.0) gm/dL Hct (34.0-46.0) % MCV (80.0-100.0) fL RDW (11.5-15.5) % Plt Count (150-450) k/uL ABG pCO2 (35-45) mmHg ABG HCO3 (21-25) mmol/L ABG Total CO2 (19-24) mmol/L Carbon Dioxide (22-30) mmol/L BUN (7-17) mg/dL Creatinine (0.52-1.04) mg/dL Glucose (74-99) mg/dL POC Glucose (mg/dL) 119 H 129 H 130 H (75-99) mg/dL Calcium (8.4-10.2) mg/dL Total Bilirubin (0.2-1.3) mg/dL AST (14-36) U/L ALT (4-34) U/L Alkaline Phosphatase (38-126) U/L Albumin (3.5-5.0) g/dL Urine Blood (Negative) Urine Bacteria (None) /hpf 07/28/20 07/28/20 07/28/20 Range/Units 03:21 03:26 03:27 RBC 3.77 L (3.80-5.40) m/uL Hgb 9.4 L (11.4-16.0) gm/dL Hct 29.2 L (34.0-46.0) % MCV 77.3 L (80.0-100.0) fL RDW 20.3 H (11.5-15.5) % Plt Count 145 L (150-450) k/uL ABG pCO2 (35-45) mmHg ABG HCO3 (21-25) mmol/L ABG Total CO2 (19-24) mmol/L Carbon Dioxide 17 L (22-30) mmol/L BUN 18 H (7-17) mg/dL Creatinine 2.21 H (0.52-1.04) mg/dL Glucose 130 H (74-99) mg/dL POC Glucose (mg/dL) (75-99) mg/dL Calcium 7.5 L (8.4-10.2) mg/dL Total Bilirubin 3.7 H (0.2-1.3) mg/dL AST 570 H (14-36) U/L ALT 152 H (4-34) U/L Alkaline Phosphatase 158 H (38-126) U/L Albumin 3.2 L (3.5-5.0) g/dL Urine Blood Moderate H (Negative) Urine Bacteria Rare H (None) /hpf 07/28/20 07/28/20 Range/Units 05:55 06:17 RBC (3.80-5.40) m/uL Hgb (11.4-16.0) gm/dL Hct (34.0-46.0) % MCV (80.0-100.0) fL RDW (11.5-15.5) % Plt Count (150-450) k/uL ABG pCO2 29 L (35-45) mmHg ABG HCO3 16 L (21-25) mmol/L ABG Total CO2 17 L (19-24) mmol/L Carbon Dioxide (22-30) mmol/L BUN (7-17) mg/dL Creatinine (0.52-1.04) mg/dL Glucose (74-99) mg/dL POC Glucose (mg/dL) 110 H (75-99) mg/dL Calcium (8.4-10.2) mg/dL Total Bilirubin (0.2-1.3) mg/dL AST (14-36) U/L ALT (4-34) U/L Alkaline Phosphatase (38-126) U/L Albumin (3.5-5.0) g/dL Urine Blood (Negative) Urine Bacteria (None) /hpf Microbiology - Last 24 Hours (Table) 07/25/20 22:55 Gram Stain - Final Sputum Sputum Culture - Final Celina albicans 07/24/20 05:16 Blood Culture - Preliminary Blood No Growth after 96 hours Assessment and Plan Plan: Assessment: #1. Acute hypoxic respiratory failure requiring intubation and mechanical ventilation on 07/25/2020. Exact etiology of hypoxic rest or failure is not clear, likely related to acute on chronic systolic CHF and secondary to severe acute lactic acidosis that could be related to acute renal failure or transient bowel ischemia and possible sepsis although cultures have all been negative thus far. #2. Possible septic shock with possibilities including ischemic bowel, related to low flow state secondary to cardiogenic shock, urinary tract infection, and possibility of pancreatitis although this is less likely based on her low lipase and amylase levels. So far all cultures are negative #3. Severe lactic acidosis, with the possibility of low flow ischemic bowel related to underlying history of A. fib, no surgical intervention is planned at this time. Abdomen is soft, surgical services are following #4. Possibility of cardiogenic shock in addition to septic shock, distended and history of severely impaired LV function and echocardiogram on 07/25/2020 shows EF of 20-25% #5. Left lower base atelectasis, doubt possibility of pneumonia, although not completely excluded #6. Severe anion gap metabolic acidosis related to sepsis, currently lactic acid is 11.6, patient has been started on broad-spectrum antibiotics and fluid resuscitated #7. Acute kidney injury related to the above, patient remains in uric on 07/25/2020, hemodialysis was initiated on 07/25/2020 with removal of 500 mL of fluid, and again on 07/26/2020 with removal of 1.3 L of fluid #8. Chronic A. fib on Eliquis #9. Chronic CHF with systolic dysfunction #10. Diabetes mellitus type 2 with diabetic neuropathy #11. Hypertension #12. Hyperlipidemia #13. Rheumatoid arthritis #14. Nonischemic cardiomyopathy, status post AICD placement #15. Hx of Waldenstrom macroglobulinemia #16. Sjogren's Plan: Continue with current vent settings Continue with current dose Lasix, hemodialysis per nephrology Urine output remains low, patient is oliguric, renal profile is relatively stable Lactic acid remains elevated with no clear source of infection, possibly related to low-flow state transient ischemic bowel Cardiology to comment on hemodynamic state, and multiorgan failure related to possibility of severe cardiomyopathy and cardiogenic shock Overall prognosis is very guarded Would like to hear cardiology's input on patient's prognosis before we update the patient's spouse We'll continue supportive treatment at this time Antibiotics per ID service recommendations Continue nutritional support We'll continue to follow I performed a history & physical examination of the patient and discussed their management with my nurse practitioner, Shyla Dos Santos. I reviewed the nurse practitioner's note and agree with the documented findings and plan of care. Lung sounds are positive for diminished breath sounds. The findings and the impression was discussed with the patient. I attest to the documentation by the nurse practitioner. Time with Patient: Greater than 30
[2020-07-28] MEDS: AMIODARONE 200 MG TAB PO SCH ×2 (11:17→21:27)
[2020-07-28 11:30] LABS: Glucose,Whole Blood 113 mg/dL (75-99)
--- NOTE | 2020-07-28 12:25 | PN ---
PROGRESS NOTE DATE OF SERVICE: 07/28/2020 REASON FOR FOLLOWUP: and pancreatitis. INTERVAL HISTORY: The patient is currently afebrile. The patient remains to be on 20 mcg of Levophed. The patient's FiO2 is currently at 30%. No significant purulent secretions through the ET or diarrhea per the nursing staff. The patient is sedated on the vent. PHYSICAL EXAMINATION: Blood pressure 113/69 with a pulse of 126, temperature 98.5. She is 98% on 30% FiO2. General description is an elderly female intubated on the vent. RESPIRATORY SYSTEM: Unlabored breathing with decreased intensity of breath sounds. No wheeze. HEART: S1, S2. Regular rate and rhythm. ABDOMEN: Soft, no tenderness. LABS: Hemoglobin is 9.4, white count 9.5, BUN of 18, creatinine is 2.21. DIAGNOSTIC IMPRESSION AND PLAN: Patient with acute respiratory failure which is multifactorial in this patient with a component of pancreatitis, elevated liver enzymes and possible aspiration pneumonitis, covered with meropenem. Culture so far negative. Clinical course remains to be critical. Continue with current antibiotics and monitor clinical course closely. MMODL / IJN: [id number] /
--- NOTE | 2020-07-28 13:04 | P.PN ---
Subjective Progress Note Date: 07/28/20 HISTORY OF PRESENT ILLNESS: This is a pleasant 65-year-old -[place] female past medical history significant for nonischemic cardiomyopathy status post AICD ([employer]), history of ventricular tachycardia, chronic systolic heart failure, persistent atrial fibrillation status post pulmonary vein isolation but no further ablation secondary to low EF, diabetes mellitus, hypertension, dyslipidemia, pulmonary hypertension and rheumatoid arthritis. She follows in the office with Dr. Samayoa. She was initially seen s/p cholecystectomy 05/[address] Gaitan. During previous admission in May she had been diuresed and monitored for her chronic kidney disease. Patient was admitted 07/23/2020 with nausea, vomiting, diarrhea and was felt to be dehydrated and given IV fluids. She is noted to have acute kidney injury and acidosis and therefore Bernabe was placed for h emodialysis. She has been maintained on a low dose of levophed. She is being treated for sepsis, and possible pancreatitis. She was intubated secondary to respiratory failure from her sepsis. She has undergone intermittent hemodialysis, hemodialysis this morning with 1 L taken off. Repeat echoc ardiogram performed 07/25/2020 showed ejection fraction 2025%, RVSP 45, mild tricuspid regurgitation, small generalized pericardial effusion without tamponade. Blood work today shows white blood cell count 4.4, hemoglobin 9.7, platelets 118, INR 1.8, sodium 139, potassium 2.9, creatinine 2.9, glucose 139, troponin on admission 0.03. Cardiology was consult that secondary to A. fib and cardiomyopathy. She has a known history of cardiomyopathy with ejection fraction 20-25%. Her heart rates have been previously somewhat better controlled however or the past 24 hours in the 100 to 1:15 range. 07/27 Patient seen and examined. Patient still remains in A. fib, heart rates mildly increased up to 120s up to 1:30 currently. Patient was placed on amiodarone bolus and drip by ICU team. Central line was placed and nurse is going to check CVP. Not receiving any tube feeds however these are scheduled to start today. She remains on low-dose of vasopressors. FiO2 30% with 5 of PEEP. 07/28/2020 Patient examined this morning at the bedside with Dr. Toth. Patient remains intubated. Telemetry earlier this morning revealed sinus mechanism. However, upon reassessment patient appears to be in afib. Per nursing, patient has been dropping into the 50s at times and then goes back up above 100. She remains on IV amio, IV levo, and IV esmolol. PHYSICAL EXAM: VITAL SIGNS: Reviewed. GENERAL: Well-developed in no acute distress. NECK: Supple. No JVD or thyromegaly LUNGS: Respirations even and unlabored-on mechanical ventilation. Lungs essentially clear to auscultation bilaterally. HEART: Tachycardic. Irregular rate and rhythm. S1 and S2 heard. EXTREMITIES: Normal range of motion. No clubbing or cyanosis. Peripheral pulses intact. No lower extremity edema ASSESSMENT: 1. Paroxysmal atrial fibrillation, mildly RVR 2. History of nonischemic cardiomyopathy with previous AICD 3. Acute renal failure 4. Septic shock with severe lactic acidosis 5. Acute respiratory failure 6. Acidosis related to renal failure, sepsis 7. Possible pancreatitis 8. Small pericardial effusion without tamponade 9. History of Sjogren's, Radha Clovis's PLAN: Continue IV lasix per nephrology Discontinue IV amio Begin oral amio 400mg BID Continue telemetry monitoring Continue esmolol drip. Will transition to oral beta mohan when able to tolerate. Wean levo as tolerated Continue to monitor hemoglobin and platelet count. Continue lovenox for now. When labs stable, will require anticoagulation Further recommendations pending patient course Nurse practitioner note has been reviewed by physician. Signing provider agrees with the documented findings, assessment, and plan of care. Objective - Vital Signs Vital signs: Vital Signs Temp 98.5 F 07/28/20 08:00 Pulse 115 H 07/28/20 11:00 Resp 20 07/28/20 11:00 BP 71/37 07/28/20 10:00 Pulse Ox 97 07/28/20 11:00 Intake & Output 07/27/20 07/28/20 07/28/20 18:59 06:59 18:59 Intake Total 461.158 0285.364 435.497 Output Total 685 510 127 Balance 544.661 2010.364 308.497 Weight 109.1 kg Intake: IV 297 272 130 0.9 NS flush 57 72 30 Sodium Chloride 0.9% 500 240 200 100 ml 500 ml @ 20 mls/hr IV .Q24H [facility] Rx#:[id number] Intake, IV Titration 988.919 6500.364 255.497 Amount Amiodarone 450 mg In 222.782 Dextrose 5% in Water 250 ml @ 0.5 MG/MIN 16.667 mls/hr IV .Q15H [facility] Rx#: [id number] Esmolol in Sodium 469.422 55.08 Chloride Pmx 2.5 gm In Saline 1 250ml.bag @ 150 MCG/KG/MIN 97.2 mls/hr IV .Q2H35M [facility] Rx#: [id number] Norepinephrine 4 mg In 151.951 568.274 Sodium Chloride 0.9% 250 ml @ 0.05 MCG/KG/MIN 19. 888 mls/hr IV .[id number] [facility] Rx#:[id number] Norepinephrine 8 mg In 171.886 100.046 Sodium Chloride 0.9% 250 ml @ 0.05 MCG/KG/MIN 10. 449 mls/hr IV .Q24H [facility] Rx#:[id number] propofoL 1,000 mg In 278.246 200 100.371 Empty Bag 1 bag @ Titrate IV .Q0M [facility] Rx#: [id number] Tube Feeding 70 120 50 Other 30 90 Output: Urine 685 510 127 Other: Voiding Method Indwelling Catheter Indwelling Catheter Indwelling Catheter # Voids 1 ABP, PAP, CO, CI - Last Documented Arterial Blood Pressure 77/47 - Labs CBC & Chem 7: 07/28/20 03:27 07/28/20 03:26 Labs: Abnormal Lab Results - Last 24 Hours (Table) 07/27/20 07/27/20 07/28/20 Range/Units 17:20 23:57 03:21 RBC (3.80-5.40) m/uL Hgb (11.4-16.0) gm/dL Hct (34.0-46.0) % MCV (80.0-100.0) fL RDW (11.5-15.5) % Plt Count (150-450) k/uL ABG pCO2 (35-45) mmHg ABG HCO3 (21-25) mmol/L ABG Total CO2 (19-24) mmol/L Carbon Dioxide (22-30) mmol/L BUN (7-17) mg/dL Creatinine (0.52-1.04) mg/dL Glucose (74-99) mg/dL POC Glucose (mg/dL) 129 H 130 H (75-99) mg/dL Calcium (8.4-10.2) mg/dL Total Bilirubin (0.2-1.3) mg/dL AST (14-36) U/L ALT (4-34) U/L Alkaline Phosphatase (38-126) U/L Albumin (3.5-5.0) g/dL Urine Blood Moderate H (Negative) Urine Bacteria Rare H (None) /hpf 07/28/20 07/28/20 07/28/20 Range/Units 03:26 03:27 05:55 RBC 3.77 L (3.80-5.40) m/uL Hgb 9.4 L (11.4-16.0) gm/dL Hct 29.2 L (34.0-46.0) % MCV 77.3 L (80.0-100.0) fL RDW 20.3 H (11.5-15.5) % Plt Count 145 L (150-450) k/uL ABG pCO2 29 L (35-45) mmHg ABG HCO3 16 L (21-25) mmol/L ABG Total CO2 17 L (19-24) mmol/L Carbon Dioxide 17 L (22-30) mmol/L BUN 18 H (7-17) mg/dL Creatinine 2.21 H (0.52-1.04) mg/dL Glucose 130 H (74-99) mg/dL POC Glucose (mg/dL) (75-99) mg/dL Calcium 7.5 L (8.4-10.2) mg/dL Total Bilirubin 3.7 H (0.2-1.3) mg/dL AST 570 H (14-36) U/L ALT 152 H (4-34) U/L Alkaline Phosphatase 158 H (38-126) U/L Albumin 3.2 L (3.5-5.0) g/dL Urine Blood (Negative) Urine Bacteria (None) /hpf 07/28/20 07/28/20 Range/Units 06:17 11:28 RBC (3.80-5.40) m/uL Hgb (11.4-16.0) gm/dL Hct (34.0-46.0) % MCV (80.0-100.0) fL RDW (11.5-15.5) % Plt Count (150-450) k/uL ABG pCO2 (35-45) mmHg ABG HCO3 (21-25) mmol/L ABG Total CO2 (19-24) mmol/L Carbon Dioxide (22-30) mmol/L BUN (7-17) mg/dL Creatinine (0.52-1.04) mg/dL Glucose (74-99) mg/dL POC Glucose (mg/dL) 110 H 113 H (75-99) mg/dL Calcium (8.4-10.2) mg/dL Total Bilirubin (0.2-1.3) mg/dL AST (14-36) U/L ALT (4-34) U/L Alkaline Phosphatase (38-126) U/L Albumin (3.5-5.0) g/dL Urine Blood (Negative) Urine Bacteria (None) /hpf Microbiology - Last 24 Hours (Table) 07/25/20 22:55 Gram Stain - Final Sputum Sputum Culture - Final Celina albicans 07/24/20 05:16 Blood Culture - Preliminary Blood No Growth after 96 hours
--- NOTE | 2020-07-28 13:27 | P.PN ---
Subjective Progress Note Date: 07/28/20 CHIEF COMPLAINT: Abdominal pain HISTORY OF PRESENT ILLNESS: Surgical service is following regards to patient's abdominal pain. Surgical service is following regards to possible ischemic bowel. Patient remains in the ICU and intubated and sedated. Patient was started on hemodialysis during this admission. Patient remains on amiodarone for the A. fib. She is on Levophed 20 mics. She is also on antibiotics. She is receiving tube feedings for nutrition support. Patient's respiratory status might be related to CHF exacerbation. Afebrile but has been tachycardic. WBC 9.5 hemoglobin 9.4 platelets 145 sodium is 137 creatinine is 2.21 Patient seen and examined with Dr. martinez PHYSICAL EXAM: VITAL SIGNS: Reviewed. GENERAL: Well-developed in no acute distress. HEENT: No sclera icterus. Extraocular movements grossly intact. Moist buccal mucosa. Head is atraumatic, normocephalic. ABDOMEN: Soft. Nondistended. NEUROLOGIC: Intubated and sedated ASSESSMENT: 1. Abdominal pain with elevated lactic acid. Abdominal pain had resolved. Possible low-flow ischemia or small peripheral embolism from the patient's underlying atrial fibrillation does remain within the differential but is less likely. PLAN: -No surgical intervention planned -Continue ICU management -Continue supportive care Physician Rack Washer note has been reviewed by physician. Signing provider agrees with the documented findings, assessment, and plan of care. Objective - Vital Signs Vital signs: Vital Signs Temp 98 F 07/28/20 12:00 Pulse 115 H 07/28/20 13:00 Resp 20 07/28/20 13:00 BP 71/37 07/28/20 10:00 Pulse Ox 93 L 07/28/20 13:00 Intake & Output 07/27/20 07/28/20 07/28/20 18:59 06:59 18:59 Intake Total 038.464 4798.364 580.676 Output Total 685 510 207 Balance 909.553 4208.364 373.676 Weight 109.1 kg Intake: IV 297 272 156 0.9 NS flush 57 72 36 Sodium Chloride 0.9% 500 240 200 120 ml 500 ml @ 20 mls/hr IV .Q24H [facility] Rx#:[id number] Intake, IV Titration 134.974 9596.364 344.676 Amount Amiodarone 450 mg In 222.782 Dextrose 5% in Water 250 ml @ 0.5 MG/MIN 16.667 mls/hr IV .Q15H [facility] Rx#: [id number] Esmolol in Sodium 469.422 55.08 Chloride Pmx 2.5 gm In Saline 1 250ml.bag @ 150 MCG/KG/MIN 97.2 mls/hr IV .Q2H35M [facility] Rx#: [id number] Norepinephrine 4 mg In 151.951 568.274 Sodium Chloride 0.9% 250 ml @ 0.05 MCG/KG/MIN 19. 888 mls/hr IV .[id number] [facility] Rx#:[id number] Norepinephrine 8 mg In 171.886 100.046 Sodium Chloride 0.9% 250 ml @ 0.05 MCG/KG/MIN 10. 449 mls/hr IV .Q24H [facility] Rx#:[id number] propofoL 1,000 mg In 278.246 200 189.550 Empty Bag 1 bag @ Titrate IV .Q0M [facility] Rx#: [id number] Tube Feeding 70 120 50 Other 30 90 30 Output: Urine 685 510 157 Oral Regurgitation 50 Other: Voiding Method Indwelling Catheter Indwelling Catheter Indwelling Catheter # Voids 1 ABP, PAP, CO, CI - Last Documented Arterial Blood Pressure 82/59 - Labs CBC & Chem 7: 07/28/20 03:27 07/28/20 03:26 Labs: Abnormal Lab Results - Last 24 Hours (Table) 07/27/20 07/27/20 07/28/20 Range/Units 17:20 23:57 03:21 RBC (3.80-5.40) m/uL Hgb (11.4-16.0) gm/dL Hct (34.0-46.0) % MCV (80.0-100.0) fL RDW (11.5-15.5) % Plt Count (150-450) k/uL ABG pCO2 (35-45) mmHg ABG HCO3 (21-25) mmol/L ABG Total CO2 (19-24) mmol/L Carbon Dioxide (22-30) mmol/L BUN (7-17) mg/dL Creatinine (0.52-1.04) mg/dL Glucose (74-99) mg/dL POC Glucose (mg/dL) 129 H 130 H (75-99) mg/dL Calcium (8.4-10.2) mg/dL Total Bilirubin (0.2-1.3) mg/dL AST (14-36) U/L ALT (4-34) U/L Alkaline Phosphatase (38-126) U/L Albumin (3.5-5.0) g/dL Urine Blood Moderate H (Negative) Urine Bacteria Rare H (None) /hpf 07/28/20 07/28/20 07/28/20 Range/Units 03:26 03:27 05:55 RBC 3.77 L (3.80-5.40) m/uL Hgb 9.4 L (11.4-16.0) gm/dL Hct 29.2 L (34.0-46.0) % MCV 77.3 L (80.0-100.0) fL RDW 20.3 H (11.5-15.5) % Plt Count 145 L (150-450) k/uL ABG pCO2 29 L (35-45) mmHg ABG HCO3 16 L (21-25) mmol/L ABG Total CO2 17 L (19-24) mmol/L Carbon Dioxide 17 L (22-30) mmol/L BUN 18 H (7-17) mg/dL Creatinine 2.21 H (0.52-1.04) mg/dL Glucose 130 H (74-99) mg/dL POC Glucose (mg/dL) (75-99) mg/dL Calcium 7.5 L (8.4-10.2) mg/dL Total Bilirubin 3.7 H (0.2-1.3) mg/dL AST 570 H (14-36) U/L ALT 152 H (4-34) U/L Alkaline Phosphatase 158 H (38-126) U/L Albumin 3.2 L (3.5-5.0) g/dL Urine Blood (Negative) Urine Bacteria (None) /hpf 07/28/20 07/28/20 Range/Units 06:17 11:28 RBC (3.80-5.40) m/uL Hgb (11.4-16.0) gm/dL Hct (34.0-46.0) % MCV (80.0-100.0) fL RDW (11.5-15.5) % Plt Count (150-450) k/uL ABG pCO2 (35-45) mmHg ABG HCO3 (21-25) mmol/L ABG Total CO2 (19-24) mmol/L Carbon Dioxide (22-30) mmol/L BUN (7-17) mg/dL Creatinine (0.52-1.04) mg/dL Glucose (74-99) mg/dL POC Glucose (mg/dL) 110 H 113 H (75-99) mg/dL Calcium (8.4-10.2) mg/dL Total Bilirubin (0.2-1.3) mg/dL AST (14-36) U/L ALT (4-34) U/L Alkaline Phosphatase (38-126) U/L Albumin (3.5-5.0) g/dL Urine Blood (Negative) Urine Bacteria (None) /hpf Microbiology - Last 24 Hours (Table) 07/25/20 22:55 Gram Stain - Final Sputum Sputum Culture - Final Celina albicans 07/24/20 05:16 Blood Culture - Preliminary Blood No Growth after 96 hours
[2020-07-28 14:06] VITALS: BMI 31.7
[2020-07-28 17:55] LABS: Glucose,Whole Blood 98 mg/dL (75-99)
--- NOTE | 2020-07-28 19:34 | PN ---
PROGRESS NOTE DATE OF SERVICE: 07/27/2020 CHIEF COMPLAINT: Septic shock with lactic acidosis. HISTORY OF PRESENT ILLNESS: This lady continues on the ventilator. Lactic acid is slowly coming down. She is being followed by Nephrology and being dialyzed. Etiology for all of her difficulties is not completely clear. She does continue to make urine. PHYSICAL EXAMINATION: Systolic blood pressure is under 100 with a pulse of 108. Breath sounds are heard bilaterally, but they are somewhat diminished. Cardiac exam demonstrates atrial fibrillation. The abdomen is soft and nontender without masses. Extremities are normal. IMPRESSION: 1. Septic shock. 2. Lactic acidosis. 3. Renal failure. 4. Waldenstrom's macroglobulinemia. PLAN: No change in program from my perspective. Continue to follow with Cardiology, Intensive Medicine and Nephrology. MMODL / IJN: [id number] /
--- NOTE | 2020-07-28 19:34 | PN ---
PROGRESS NOTE DATE OF SERVICE: 07/28/2020. CHIEF COMPLAINT: Septic shock and lactic acidosis. HISTORY OF PRESENT ILLNESS: This lady continues to have difficulty. At the present time she is hypotensive. She is on a ventilator and she is receiving a minimal amount of pressor. She is being followed by Nephrology and has been dialyzed for her renal failure. PHYSICAL EXAMINATION: Blood pressure is 81/60 with a pulse of 115 and she is now in sinus rhythm. Breath sounds are heard bilaterally and the cardiac exam demonstrates her tachycardia. She is making urine. IMPRESSION: 1. Septic shock. 2. Lactic acidosis. 3. Acute tubular necrosis and renal failure with persistent urinary output. 4. Waldenstrom's macroglobulinemia. PLAN: Continue to follow with Cardiology and Nephrology as well as Intensive Medicine. Prognosis is poor. MMODL / IJN: [id number] /
--- NOTE | 2020-07-28 19:43 | PN ---
PROGRESS NOTE DATE OF SERVICE: 07/27/2020 CHIEF COMPLAINT: Septic shock. HISTORY OF PRESENT ILLNESS: This lady continues on the ventilator and is not responsive. She continues to make urine despite her elevated BUN and creatinine. She has not been febrile. Blood pressure has been fluctuating, as has her pulse. PHYSICAL EXAMINATION: Blood pressure is 104/50 with a pulse of 131 and irregularly irregular with atrial fibrillation. Her chest is clear on the ventilator. Cardiac exam is normal other than her arrhythmia. Her abdomen is soft and nontender. Extremities are normal. IMPRESSION: Septic shock with acute renal failure, diabetes and congestive heart failure. PLAN: Continue with ventilator and antibiotic support as well as dialysis. MMODL / IJN: [id number] /
[2020-07-28 23:34] LABS: Glucose,Whole Blood 66 mg/dL (75-99)
[2020-07-28] MEDS ORDERED: DEXTROSE 50% SYRINGE 50 ML IVP STA (23:34)
[2020-07-29 00:28] LABS: Glucose,Whole Blood 86 mg/dL (75-99)
[2020-07-29] MEDS: NOREPINEPHRINE 8 MG in SODIUM CHLORIDE 0.9% 250 ML IV SCH (01:33)
[2020-07-29] MEDS ORDERED: NOREPINEPHRINE 32 MG in SODIUM CHLORIDE 0.9% 218 ML IV SCH ×2 (01:45→12:00)
[2020-07-29] MEDS: ESMOLOL IN SODIUM CHLORIDE PMX 2.5 GM in SALINE 1 250ML.BAG IV SCH ×2 (03:02→10:35)
[2020-07-29 04:22] VITALS: TEMP 98.2
[2020-07-29 04:39] LABS: Anisocytosis Moderate; Basophils # (A) 0.1 k/uL (0-0.2); Basophils % (A) 0 %; Eosinophils # (A) 0.1 k/uL (0-0.7); Eosinophils % (A) 0 %; HCT 27.7 % (34.0-46.0); HGB 9.1 gm/dL (11.4-16.0); Hypochromasia Moderate; Lymphocytes # (A) 0.9 k/uL (1.0-4.8); Lymphocytes % (A) 7 %; MCH 25.9 pg (25.0-35.0); MCHC 32.9 g/dL (31.0-37.0); MCV 78.5 fL (80.0-100.0); Mean Platelet Volume 10.6; Microcytosis Slight; Monocytes # (A) 1.4 k/uL (0-1.0); Monocytes % (A) 10 %; Neutrophils % (A) 80 %; Platelet Count 183 k/uL (150-450); Poikilocytosis Moderate; RBC 3.52 m/uL (3.80-5.40); RDW 20.1 % (11.5-15.5); WBC 13.8 k/uL (3.8-10.6)
[2020-07-29 05:12] LABS: Calcium 7.5 mg/dL (8.4-10.2); Potassium 4.6 mmol/L (3.5-5.1); Total Bilirubin 3.9 mg/dL (0.2-1.3); Total Protein 6.5 g/dL (6.3-8.2)
[2020-07-29 05:39] LABS: ABG Base Excess -18.8 mmol/L; ABG Oxygen Saturation 98.1 % (94-97); ABG PCO2 21 mmHg (35-45); ABG PH 7.22 (7.35-7.45); ABG PO2 127 mmHg (83-108); ABG TCO2 10 mmol/L (19-24); Allen Test Performed? Yes
[2020-07-29 05:41] LABS: ABG HCO3 9 mmol/L (21-25)
[2020-07-29 05:47] LABS: Glucose,Whole Blood 94 mg/dL (75-99)
[2020-07-29] MEDS: INSULIN ASPART (NovoLOG) 100 UNIT/ML VIAL SQ SCH ×2 (06:08→12:25)
--- NOTE | 2020-07-29 06:11 | XR ---
EXAMINATION TYPE: XR chest 1V portable DATE OF EXAM: 07/29/2020 CLINICAL HISTORY: Difficulty breathing progress study. TECHNIQUE: Single AP portable semiupright view of the chest is obtained. COMPARISON: Chest x-ray from one day earlier and older studies. FINDINGS: Stable endotracheal and orogastric tubes. Stable right internal jugular central venous cat heter. Persistent cardiomegaly with dual lead pacemaker/defibrillator appears to have 2 right ventricular le ads unchanged from prior. Persistent central vascular congestion and bibasilar opacities. Osseous str uctures are intact. IMPRESSION: Correlate for persistent CHF exacerbation as there is cardiomegaly with central vascular congestion and small bilateral pleural effusions suspected. No significant change from one day pita rainey
[2020-07-29] MEDS ORDERED: DEXTROSE 5% IN WATER 1,000 ML with SODIUM BICARB (1 MEQ/ML) 150 ML IV SCH (08:45)
[2020-07-29] MEDS ORDERED: METOCLOPRAMIDE 5 MG/ML 2 ML VIAL IVP SCH (08:45)
[2020-07-29] MEDS ORDERED: FUROSEMIDE 10 MG/ML 4 ML VIAL IV SCH (09:00)
[2020-07-29] MEDS ORDERED: ENOXAPARIN 30 MG/0.3 ML SYRINGE SQ SCH (09:00)
[2020-07-29] MEDS ORDERED: HEPARIN SODIUM 1,000 UN/ML (10ML VL) IV PRN (09:45)
[2020-07-29] MEDS ORDERED: HEPARIN SOD,PORK IN 0.45% NACL 25,000 UNIT in 0.45% NACL 1 250ML.BAG IV SCH (09:45)
[2020-07-29] MEDS ORDERED: SODIUM BICARB 8.4% 50 ML SYR (1 MEQ/ML) ONE (09:52)
--- NOTE | 2020-07-29 09:52 | P.PN ---
Subjective Progress Note Date: 07/29/20 Principal diagnosis: Sepsis, lactic acidosis This is a 65-year-old white female patient with multiple chronic medical problems including chronic A. fib on Eliquis, chronic CHF, diabetes mellitus type 2, nonischemic cardiomyopathy, status post AICD placement hypertension, hyperlipidemia, rheumatoid arthritis, Sjogren's, lupus, fibromyalgia, history of Waldenstrom macroglobulinemia previously treated with chemotherapy, former smoker, who presented to the emergency department on 07/22/2020 with complaints of nausea vomiting and weakness. Patient was also having some generalized abdominal pain. He denied any fevers. Denies any sick contacts, she tested negative for Coronavirus. CT of the abdomen and pelvis was completed showing suspected mild pancreatic and. Pancreatic edema suggesting acute pancreatitis. Questionable mild wall thickening of the urinary bladder with adjacent stranding worsening acute cystitis. Patient has been afebrile, blood pressures were ini tially in the low 100s systolic over 80s diastolic, she has been on room air and not requiring any supplemental oxygen. Her admission lab work positive for leukopenia with white blood cell count of 3.5, hemoglobin was 12.6, platelet count was 115, sodium is 138, potassium 3.0, chloride is 103, CO2 24, B1 of 4, creatinine is 1.13, patient had a significantly elevated lactic acid that initially was at 2.2 and was steadily on the rise over the course of 24 hours, and this morning was up to 11.6. The patient was noted to be more hypotensive, quite tachycardic, more confused, and anuric. She has received 3 L of fluid boluses yesterday in the emergency department, this morning she is receiving an additional 1 L IV bolus. She was started on meropenem for suspicion of sepsis with septic shock. Blood cultures urine culture and urinalysis have been sent and pending, chest x-ray has been ordered, patient has been transferred to the density of care unit where we are seeing the patient in consultation. She is awake, but she is confused, she is on room air pulse ox is 99%, her first liter bolus is still infusing, her blood pressure is systolic in the low 100s, she remains tachycardic in atrial fibrillation with a rate of 120 BPM, appears to be in no acute distress, chest x-ray is pending, cultures have been sent, meropenem started, this morning his blood work reviewed and BMP showed CO2 of only 9, worsening renal function with BUN of 5 and creatinine 1.91. Magnesium was 1.1, total bilirubin is 3.5, AST 76, ALT is 20, alkaline phosphatase is 119, lipase was initially at 32 and is currently at less than 10, amylase was within normal limits at 33. Abdomen is soft, nontender. Patient has been started on D5 with 3 A of bicarbonate at 150 ML per hour, venous blood gas was obtained showing bicarbonate concentration of 6, pCO2 of 18, and pH of 7.17. On 07/25/2020 patient seen in follow-up in the intensive care unit. She has received significant amount of fluids, a total of 6 L of fluid boluses yesterday, however her urine output is still quite poor, and she is only making 5-10 ML per hour. She is considerably more confused today, and her lactic acid remains quite elevated at 8.3. Renal function has worsened overnight, creatinine is up to 3.01, B1 is 9, CO2 is 14, chloride is 110, potassium is 3.7, and sodium is 144, there has been further worsening of patient's LFTs, AST is up to 529, ALT is 91, LDL is still within normal limits at 125, stat ammonia level was obtained and is currently at 21, INR level IX.4, white blood cell count remains within normal limits at 9.7, hemoglobin is 11.1, platelet count is 156. Patient is confused, and her extremities are cool to touch, echocardiogram was obtained showing impaired left ventricular systolic function and an EF of 20- 25%, mild tricuspid regurg, mild to moderate pulmonary hypertension with right- sided pressures of 45.2 mmHg, IVC is dilated with no significant inspiratory collapse and an estimated right atrial pressure of greater than 15 mmHg, and there is a small generalized pericardial effusion. Patient is restless, confused, there is a safety security officer at the bedside to prevent the patient from removing her indwelling catheters, she was placed on supplemental oxygen at 2 L with a pulse ox Of 99%, she is currently in A. fib with RVR with a rate of 116- 131 BPM, we were going to start a dobutamine infusion however patient was tachycardic, and consultation was placed to cardiology. She is not requiring a ny vasopressor support right now, her maintenance IV fluids are D5 W with 3 A of bicarbonate going at 50 ML per hour. In addition patient and to use on empiric antibiotics in the form of meropenem, blood cultures, urine cultures and urinalysis have been sent and remain negative thus far, her abdomen is soft, and nontender, she hasn't had any more vomiting or diarrhea. Chest x-ray shows increased interstitial and retrocardiac density with obscured left hemidiaphragm and blunting of the left costophrenic angle. Some minimal patchy basilar density on the right. Nephrology is consulted, and is planning on obtaining hemodialysis catheter access today and initiating the patient on hemodialysis, surgical services are following, and it was felt that the CT scan of the abdomen with contrast did not show any definite thrombotic or embolic event, low-flow ischemia or small peripheral embolism from the patient's underlying A. fib was in the differential. However it was felt to be less likely, and no surgical intervention was recommended at this time. On 07/28/2000 patient seen in follow-up in the intensive care unit, she remains intubated, sedated on mechanical ventilator, current on assist control with a rate of 20, tidal arm is 450, FiO2 30% and PEEP of 5, this might blood gases reviewed showing pO2 of 102, pCO2 29, and pH of 7.35, today's chest x-ray showing persistent CHF exacerbation, cardiomegaly with central vascular congestion and small bilateral pleural effusions. Patient had hemodialysis on 07/26/2020 with removal of 1.3 L of fluid, and 07/25/2020 would removal of 500 mL of fluid. Currently he remains oliguric, and producing urine and the order of 10-30 ML per hour. Patient is on multiple IV infusions including 0.0 normal same at 20 per hour, Diprivan is a 35 mics per kilo per minute, amiodarone 0.5 mg/m, levothyroid is at 19 mics per minute, esmolol is at 30 mics per kilo per minute. Patient is currently in sinus mechanism. Today's labs have been reviewed, with a total, is 9.5, hemoglobin is 9.4, platelet count is 145, sodium is 137, potassium is 4.2, chloride is 104, CO2 17, B1 is 18 and creatinine is 2.21, total bilirubin is 3.7, liver enzymes are improved, with AST down to 570, ALT is 152, and alk phos is relatively stable at 158. It is a level came back within normal limits at 57, and ACTH was 19. Patient remains on a once daily dose of Lasix of 40 mg daily, she is also on meropenem for possibility of sepsis, blood urine and sputum cultures have been sent, and sputum culture showed Celina albicans, blood and urine were negative. This morning patient's lactic acid remains elevated at 7.5. Repeat urinalysis shows no clear evidence of infection. Abdomen is soft, nontender, patient has been afebrile. Echocardiogram showed severely impaired left ventricular systolic function with an EF of 20-25%, no aortic stenosis or regurgitation, mild tricuspid regurg, mild to moderate pulmonary hypertension, with right-sided pressures of 45.26 mmHg. Patient is receiving tube feedings for nutritional support with vital high-protein at a rate of 10 ML per hour. On 07/29/2020 patient seen in follow-up in intensive care unit, she remains sed ated, intubated on mechanical ventilator, currently on assist control with a rate of 20, tidal volume of 450, FiO2 of 30%, and PEEP of 5. This morning's blood gas shows pO2 of 127, pCO2 of 21, and pH of 7.22. Today's chest x-ray shows persistent cardiomegaly, with persistent central vascular congestion and bibasilar opacities. Patient is currently on 0.9 normal saline at 20 ML per hour, Diprivan and is at 35 mics per kilo per minute, norepinephrine is at 60 mics per minute, esmolol is at 50 mics per kilo per minute. Today's labs have been reviewed showing white blood cell count of 13.8, hemoglobin of 9.1, platelet count of 183, serum bicarbonate consultation is a 6 today's BMP, BUN of 20 and creatinine of 2.59. LFTs are relatively stable. Repeat urinalysis showed no clear evidence of urinary tract infection. Blood and urine cultures have shown no growth, sputum culture showed Celina albicans. Patient's urine output has been quite poor overnight, and she is currently only producing 3-5 ML of urine. Nephrology is following, patient remains on Lasix currently at 40 mg once daily. tube feedings have been on hold since yesterday for episode of vomiting around the OG tube. Amiodarone drip has been discontinued yesterday, patient has been transitioned to oral amiodarone at 400 mg twice daily for rate control. Nevertheless patient has been tachycardic, remains in atrial fi brillation. Has been on Lovenox at 40 mg daily. Yesterday we spoke to the patient's spouse and updated on patient's condition and poor prognosis. After conversation the made the decision to change to change the code status to DO NOT RESUSCITATE, and to proceed with comfort care measures if patient fails to make any improvement by the end of the week Objective - Vital Signs Vital signs: Vital Signs Temp 98.2 F 07/29/20 04:00 Pulse 78 07/29/20 07:00 Resp 17 07/29/20 07:00 BP 92/44 07/29/20 04:15 Pulse Ox 90 L 07/29/20 07:00 Intake & Output 07/28/20 07/29/20 07/29/20 18:59 06:59 18:59 Intake Total 5845.877 0988.277 Output Total 613 50 Balance 032.957 1280.277 Weight 109.1 kg 105.1 kg Intake: IV 312 338 0.9 NS flush 72 78 Sodium Chloride 0.9% 500 240 260 ml 500 ml @ 20 mls/hr IV .Q24H [facility] Rx#:[id number] Intake, IV Titration 121.801 3095.277 Amount Esmolol in Sodium 213.624 327.49 Chloride Pmx 2.5 gm In Saline 1 250ml.bag @ 150 MCG/KG/MIN 97.2 mls/hr IV .Q2H35M [facility] Rx#: [id number] Norepinephrine 32 mg In 54.023 Sodium Chloride 0.9% 218 ml @ 0.05 MCG/KG/MIN 2. 557 mls/hr IV .Q24H [facility] Rx#:[id number] Norepinephrine 8 mg In 376.993 567.974 Sodium Chloride 0.9% 250 ml @ 0.05 MCG/KG/MIN 10. 449 mls/hr IV .Q24H [facility] Rx#:[id number] propofoL 1,000 mg In 289.550 260.790 Empty Bag 1 bag @ Titrate IV .Q0M [facility] Rx#: [id number] Tube Feeding 50 Other 30 Output: Gastric Drainage 300 Urine 263 50 Oral Regurgitation 50 Other: Voiding Method Indwelling Catheter Indwelling Catheter # Voids 1 ABP, PAP, CO, CI - Last Documented Arterial Blood Pressure 83/53 - Exam GENERAL EXAM: 65-year-old -[place] female, intubated, sedated, on assist-control mode of ventilation with FiO2 of 30% and PEEP of 5 HEAD: Normocephalic/atraumatic. EYES: Normal reaction of pupils, equal size. Conjunctiva pink, sclera white. NOSE: Clear with pink turbinates. THROAT: No erythema or exudates. NECK: No masses, no JVD, no thyroid enlargement, no adenopathy. CHEST: No chest wall deformity. Symmetrical expansion. LUNGS: Equal air entry with no crackles, wheeze, rhonchi or dullness. CVS: Regular rate and rhythm, normal S1 and S2, no gallops, no murmurs, no rubs ABDOMEN: Soft, nontender. No hepatosplenomegaly, normal bowel sounds, no guarding or rigidity. EXTREMITIES: No clubbing, no edema, no cyanosis, 2+ pulses and upper and lower extremities. MUSCULOSKELETAL: Muscle strength and tone normal. SPINE: No scoliosis or deformity SKIN: No rashes CENTRAL NERVOUS SYSTEM: Intubated, sedated No focal deficits, tone is normal in all 4 extremities. - Labs CBC & Chem 7: 07/29/20 04:08 07/29/20 04:08 Labs: Abnormal Lab Results - Last 24 Hours (Table) 07/28/20 07/28/20 07/29/20 Range/Units 11:28 23:32 04:08 WBC 13.8 H (3.8-10.6) k/uL RBC 3.52 L (3.80-5.40) m/uL Hgb 9.1 L (11.4-16.0) gm/dL Hct 27.7 L (34.0-46.0) % MCV 78.5 L (80.0-100.0) fL RDW 20.1 H (11.5-15.5) % Neutrophils # 11.0 H (1.3-7.7) k/uL Lymphocytes # 0.9 L (1.0-4.8) k/uL Monocytes # 1.4 H (0-1.0) k/uL ABG pH (7.35-7.45) ABG pCO2 (35-45) mmHg ABG pO2 (83-108) mmHg ABG HCO3 (21-25) mmol/L ABG Total CO2 (19-24) mmol/L ABG O2 Saturation (94-97) % Carbon Dioxide (22-30) mmol/L BUN (7-17) mg/dL Creatinine (0.52-1.04) mg/dL Glucose (74-99) mg/dL POC Glucose (mg/dL) 113 H 66 L (75-99) mg/dL Calcium (8.4-10.2) mg/dL Total Bilirubin (0.2-1.3) mg/dL AST (14-36) U/L ALT (4-34) U/L Alkaline Phosphatase (38-126) U/L Albumin (3.5-5.0) g/dL 07/29/20 07/29/20 Range/Units 04:08 05:35 WBC (3.8-10.6) k/uL RBC (3.80-5.40) m/uL Hgb (11.4-16.0) gm/dL Hct (34.0-46.0) % MCV (80.0-100.0) fL RDW (11.5-15.5) % Neutrophils # (1.3-7.7) k/uL Lymphocytes # (1.0-4.8) k/uL Monocytes # (0-1.0) k/uL ABG pH 7.22 L (7.35-7.45) ABG pCO2 21 L (35-45) mmHg ABG pO2 127 H (83-108) mmHg ABG HCO3 9 L* (21-25) mmol/L ABG Total CO2 10 L (19-24) mmol/L ABG O2 Saturation 98.1 H (94-97) % Carbon Dioxide 6 L* (22-30) mmol/L BUN 20 H (7-17) mg/dL Creatinine 2.59 H (0.52-1.04) mg/dL Glucose 111 H (74-99) mg/dL POC Glucose (mg/dL) (75-99) mg/dL Calcium 7.5 L (8.4-10.2) mg/dL Total Bilirubin 3.9 H (0.2-1.3) mg/dL AST 524 H (14-36) U/L ALT 151 H (4-34) U/L Alkaline Phosphatase 152 H (38-126) U/L Albumin 3.0 L (3.5-5.0) g/dL Microbiology - Last 24 Hours (Table) 07/24/20 05:16 Blood Culture - Preliminary Blood No Growth after 120 hours 07/25/20 22:55 Gram Stain - Final Sputum Sputum Culture - Final Celina albicans Assessment and Plan Plan: Assessment: #1. Acute hypoxic respiratory failure requiring intubation and mechanical ventilation on 07/25/2020. Exact etiology of hypoxic rest or failure is not clear, likely related to acute on chronic systolic CHF and secondary to severe acute lactic acidosis that could be related to acute renal failure or transient bowel ischemia and possible sepsis although cultures have all been negative thus far. #2. Possible septic shock with possibilities including ischemic bowel, related to low flow state secondary to cardiogenic shock, urinary tract infection, and possibility of pancreatitis although this is less likely based on her low lipase and amylase levels. So far all cultures are negative #3. Severe lactic acidosis, with the possibility of low flow ischemic bowel related to underlying history of A. fib and cardiogenic shock, no surgical intervention is planned at this time. Abdomen is soft, surgical services are following #4. Possibility of cardiogenic shock in addition to septic shock, distended and history of severely impaired LV function and echocardiogram on 07/25/2020 shows EF of 20-25% #5. Left lower base atelectasis, doubt possibility of pneumonia, although not completely excluded #6. Severe anion gap metabolic acidosis related to sepsis, currently lactic acid is 11.6, patient has been started on broad-spectrum antibiotics and fluid resuscitated #7. Acute kidney injury related to the above, patient remains in uric on 07/25/2020, hemodialysis was initiated on 07/25/2020 with removal of 500 mL of fluid, and again on 07/26/2020 with removal of 1.3 L of fluid #8. Chronic A. fib on Eliquis #9. Chronic CHF with systolic dysfunction #10. Diabetes mellitus type 2 with diabetic neuropathy #11. Hypertension #12. Hyperlipidemia #13. Rheumatoid arthritis #14. Nonischemic cardiomyopathy, status post AICD placement #15. Hx of Waldenstrom macroglobulinemia #16. Sjogren's Plan: Continue with current vent settings Drop FiO2 down to 25% Urine output is very low, bicarbonate concentration on today's labs is 6 We will add D5W with 3 A of bicarbonate at 75 ML per hour Patient remains on Lasix, the decision on hemodialysis per nephrology Tube feedings are on hold for episode of vomiting last night We will add Reglan 10 mg every 6 hours Heart rate control medications per cardiology Discontinue Lovenox we'll start heparin infusion for anticoagulation Monitor for any signs of bleeding We updated the patient's spouse yesterday on patient's poor clinical status, multiorgan system failure related to what appears to be cardiogenic shock, septic shock was felt to be less likely CODE STATUS is DO NOT RESUSCITATE The was to proceed with comfort care possibly by the end of the week if there is no clinical improvement and no response to medical treatment Overall prognosis is quite poor We'll continue to follow I performed a history & physical examination of the patient and discussed their management with my nurse practitioner, Shyla Dos Santos. I reviewed the nurse practitioner's note and agree with the documented findings and plan of care. Lung sounds are positive for diminished breath sounds. The findings and the impression was discussed with the patient. I attest to the documentation by the nurse practitioner. Time with Patient: Greater than 30
[2020-07-29] MEDS ORDERED: SODIUM BICARB 8.4% 50 ML SYR (1 MEQ/ML) IV STA (09:53)
[2020-07-29] MEDS: PANTOPRAZOLE 40 MG/10 ML VIAL IV SCH (09:57)
[2020-07-29] MEDS: AMIODARONE 200 MG TAB PO SCH (10:12)
[2020-07-29] MEDS: CHLORHEXIDINE GLUCONATE 15 ML CUP MUCOUS MEM SCH (10:16)
[2020-07-29] MEDS: MEROPENEM 1 GM in SODIUM CHLORIDE 0.9% 100 ML IVPB SCH (10:18)
--- NOTE | 2020-07-29 11:22 | PN ---
PROGRESS NOTE Patient is seen for followup for acute kidney injury. She remains on the vent. The patient's blood pressure has decreased significantly. She is requiring large doses of Levophed currently at 100 mcg. She remains hypotensive, systolic blood pressure currently at 60s. Family has been informed. The patient also developed significant acidosis with CO2 of 9. She has been started on a bicarb drip. PHYSICAL EXAMINATION: On examination today, blood pressure 81/56, heart rate 101 per minute. She is sedated and on the vent. Heart sounds are heard. Breath sounds are heard as well. Abdomen is soft. Examination of lower extremities shows no significant edema. HVAC INSTALLER exam cannot be performed. LABS: Labs show sodium 137, potassium 4.6, chloride 104, CO2 is 6, BUN 20, creatinine 2.59, hemoglobin 9.1 g/dL. ASSESSMENT: 1. Acute kidney injury, acute tubular necrosis, initially nonoliguric currently oliguric with decreasing urine output secondary to severe hypotension requiring large doses of pressors. 2. Shock, most likely septic with source possibly abdomen. No significant urinary tract infection noted on urine culture. The patient had severe lactic acidosis as well initially, which had improved. 3. Atrial fibrillation. 4. Acute hypoxic respiratory failure. 5. Severe metabolic acidosis initially, lactic acidosis, currently acidosis is worse secondary to severe hypotension and hypoperfusion. 6. History of Waldenstrom macroglobulinemia. 7. Volume overload, seems to have improved. 8. Ischemic cardiomyopathy, ejection fraction 20% to 25%. PLAN: Prognosis is poor. Patient is not a dialysis candidate given the profound hypotension. Agree with bicarb drip for now. MMODL / IJN: [id number] /
--- NOTE | 2020-07-29 11:55 | P.PN ---
Subjective Progress Note Date: 07/29/20 HISTORY OF PRESENT ILLNESS: This is a pleasant 65-year-old -Citizen Of The [place] female past medical history significant for nonischemic cardiomyopathy status post AICD ([employer]), history of ventricular tachycardia, chronic systolic heart failure, persistent atrial fibrillation status post pulmonary vein isolation but no further ablation secondary to low EF, diabetes mellitus, hypertension, dyslipidemia, pulmonary hypertension and rheumatoid arthritis. She follows in the office with Dr. Samayoa. She was initially seen s/p cholecystectomy 05/[address] Gaitan. During previous admission in May she had been diuresed and monitored for her chronic kidney disease. Patient was admitted 07/23/2020 with nausea, vomiting, diarrhea and was felt to be dehydrated and given IV fluids. She is noted to have acute kidney injury and acidosis and therefore Bernabe was placed for h emodialysis. She has been maintained on a low dose of levophed. She is being treated for sepsis, and possible pancreatitis. She was intubated secondary to respiratory failure from her sepsis. She has undergone intermittent hemodialysis, hemodialysis this morning with 1 L taken off. Repeat echoc ardiogram performed 07/25/2020 showed ejection fraction 2025%, RVSP 45, mild tricuspid regurgitation, small generalized pericardial effusion without tamponade. Blood work today shows white blood cell count 4.4, hemoglobin 9.7, platelets 118, INR 1.8, sodium 139, potassium 2.9, creatinine 2.9, glucose 139, troponin on admission 0.03. Cardiology was consult that secondary to A. fib and cardiomyopathy. She has a known history of cardiomyopathy with ejection fraction 20-25%. Her heart rates have been previously somewhat better controlled however or the past 24 hours in the 100 to 1:15 range. 07/27 Patient seen and examined. Patient still remains in A. fib, heart rates mildly increased up to 120s up to 1:30 currently. Patient was placed on amiodarone bolus and drip by ICU team. Central line was placed and nurse is going to check CVP. Not receiving any tube feeds however these are scheduled to start today. She remains on low-dose of vasopressors. FiO2 30% with 5 of PEEP. 07/28/2020 Patient examined this morning at the bedside with Dr. Toth. Patient remains intubated. Telemetry earlier this morning revealed sinus mechanism. However, upon reassessment patient appears to be in afib. Per nursing, patient has been dropping into the 50s at times and then goes back up above 100. She remains on IV amio, IV levo, and IV esmolol. 07/29/2020 Patient examined this morning in the ICU with Dr. Toth. Patient remains intubated. Telemetry reveals sinus mechanism with a heart rate in the 80s. She remains on IV esmolol. Patient also remains on IV levophed with increasing dosag e requirements over the last 24 hours. SBP running in the 70-80s. PHYSICAL EXAM: VITAL SIGNS: Reviewed. GENERAL: Well-developed in no acute distress. NECK: Supple. No JVD or thyromegaly LUNGS: Respirations even and unlabored-on mechanical ventilation. Lungs essentially clear to auscultation bilaterally. HEART: Regular rate and rhythm. S1 and S2 heard. EXTREMITIES: Normal range of motion. No clubbing or cyanosis. Peripheral pulses intact. No lower extremity edema ASSESSMENT: 1. Paroxysmal atrial fibrillation, mild RVR 2. History of nonischemic cardiomyopathy with previous AICD 3. Acute renal failure 4. Septic shock with severe lactic acidosis 5. Acute respiratory failure 6. Acidosis related to renal failure, sepsis 7. Possible pancreatitis 8. Small pericardial effusion without tamponade 9. History of Sjogren's, Radha Clovis's PLAN: Continue oral amio 400mg BID Continue telemetry monitoring Continue esmolol drip. Will transition to oral beta mohan when able to tolerate. Wean levo as tolerated Continue to monitor hemoglobin and platelet count. Continue lovenox for now. When labs stable, will require anticoagulation Patient has been made DNR. Prognosis remains poor. Possible plans for comfort care in the future. Further recommendations pending patient course Nurse practitioner note has been reviewed by physician. Signing provider agrees with the documented findings, assessment, and plan of care. Objective - Vital Signs Vital signs: Vital Signs Temp 98.2 F 07/29/20 04:00 Pulse 88 07/29/20 11:00 Resp 17 07/29/20 11:00 BP 113/79 07/29/20 10:15 Pulse Ox 89 L 07/29/20 10:15 Intake & Output 07/28/20 07/29/20 07/29/20 18:59 06:59 18:59 Intake Total 9205.752 1013.277 438.498 Output Total 613 50 5 Balance 768.054 9396.277 433.498 Weight 109.1 kg 105.1 kg Intake: IV 312 338 104 0.9 NS flush 72 78 24 Sodium Chloride 0.9% 500 240 260 80 ml 500 ml @ 20 mls/hr IV .Q24H [facility] Rx#:[id number] Intake, IV Titration 934.439 6940.277 334.498 Amount Esmolol in Sodium 213.624 327.49 126.88 Chloride Pmx 2.5 gm In Saline 1 250ml.bag @ 150 MCG/KG/MIN 97.2 mls/hr IV .Q2H35M [facility] Rx#: [id number] Norepinephrine 32 mg In 54.023 108.077 Sodium Chloride 0.9% 218 ml @ 0.05 MCG/KG/MIN 2. 557 mls/hr IV .Q24H [facility] Rx#:[id number] Norepinephrine 8 mg In 376.993 567.974 Sodium Chloride 0.9% 250 ml @ 0.05 MCG/KG/MIN 10. 449 mls/hr IV .Q24H [facility] Rx#:[id number] propofoL 1,000 mg In 289.550 260.790 99.541 Empty Bag 1 bag @ Titrate IV .Q0M [facility] Rx#: [id number] Tube Feeding 50 Other 30 Output: Gastric Drainage 300 Urine 263 50 5 Oral Regurgitation 50 Other: Voiding Method Indwelling Catheter Indwelling Catheter Indwelling Catheter # Voids 1 ABP, PAP, CO, CI - Last Documented Arterial Blood Pressure 60/43 - Labs CBC & Chem 7: 07/29/20 04:08 07/29/20 04:08 Labs: Abnormal Lab Results - Last 24 Hours (Table) 07/28/20 07/29/20 07/29/20 Range/Units 23:32 04:08 04:08 WBC 13.8 H (3.8-10.6) k/uL RBC 3.52 L (3.80-5.40) m/uL Hgb 9.1 L (11.4-16.0) gm/dL Hct 27.7 L (34.0-46.0) % MCV 78.5 L (80.0-100.0) fL RDW 20.1 H (11.5-15.5) % Neutrophils # 11.0 H (1.3-7.7) k/uL Lymphocytes # 0.9 L (1.0-4.8) k/uL Monocytes # 1.4 H (0-1.0) k/uL ABG pH (7.35-7.45) ABG pCO2 (35-45) mmHg ABG pO2 (83-108) mmHg ABG HCO3 (21-25) mmol/L ABG Total CO2 (19-24) mmol/L ABG O2 Saturation (94-97) % Carbon Dioxide 6 L* (22-30) mmol/L BUN 20 H (7-17) mg/dL Creatinine 2.59 H (0.52-1.04) mg/dL Glucose 111 H (74-99) mg/dL POC Glucose (mg/dL) 66 L (75-99) mg/dL Calcium 7.5 L (8.4-10.2) mg/dL Total Bilirubin 3.9 H (0.2-1.3) mg/dL AST 524 H (14-36) U/L ALT 151 H (4-34) U/L Alkaline Phosphatase 152 H (38-126) U/L Albumin 3.0 L (3.5-5.0) g/dL 07/29/20 Range/Units 05:35 WBC (3.8-10.6) k/uL RBC (3.80-5.40) m/uL Hgb (11.4-16.0) gm/dL Hct (34.0-46.0) % MCV (80.0-100.0) fL RDW (11.5-15.5) % Neutrophils # (1.3-7.7) k/uL Lymphocytes # (1.0-4.8) k/uL Monocytes # (0-1.0) k/uL ABG pH 7.22 L (7.35-7.45) ABG pCO2 21 L (35-45) mmHg ABG pO2 127 H (83-108) mmHg ABG HCO3 9 L* (21-25) mmol/L ABG Total CO2 10 L (19-24) mmol/L ABG O2 Saturation 98.1 H (94-97) % Carbon Dioxide (22-30) mmol/L BUN (7-17) mg/dL Creatinine (0.52-1.04) mg/dL Glucose (74-99) mg/dL POC Glucose (mg/dL) (75-99) mg/dL Calcium (8.4-10.2) mg/dL Total Bilirubin (0.2-1.3) mg/dL AST (14-36) U/L ALT (4-34) U/L Alkaline Phosphatase (38-126) U/L Albumin (3.5-5.0) g/dL Microbiology - Last 24 Hours (Table) 07/24/20 05:16 Blood Culture - Preliminary Blood No Growth after 120 hours 07/25/20 22:55 Gram Stain - Final Sputum Sputum Culture - Final Celina albicans
--- NOTE | 2020-07-29 13:50 | P.PN ---
Subjective Progress Note Date: 07/29/20 CHIEF COMPLAINT: Abdominal pain HISTORY OF PRESENT ILLNESS: Surgical service is following regards to patient's abdominal pain. Surgical service is following regards to possible ischemic bowel. Patient remains in the ICU and intubated and sedated. Patient was started on hemodialysis during this admission. Patient remains on amiodarone for the A. fib. She is on Levophed s. She is also on antibiotics. She is receiving tube feedings for nutrition support. Patient's respiratory status might be related to CHF exacerbation. Afebrile. White count is up to 13.8. Family decided to proceed with comfort care. They're awaiting a family member's arrival. Patient seen and examined with Dr. martinez PHYSICAL EXAM: VITAL SIGNS: Reviewed. GENERAL: Well-developed in no acute distress. HEENT: No sclera icterus. Extraocular movements grossly intact. Moist buccal mucosa. Head is atraumatic, normocephalic. ABDOMEN: Soft. Nondistended. NEUROLOGIC: Intubated and sedated ASSESSMENT: 1. Abdominal pain with elevated lactic acid. Abdominal pain had resolved. Possible low-flow ischemia or small peripheral embolism from the patient's underlying atrial fibrillation does remain within the differential but is less likely. PLAN: -No surgical intervention planned -Continue ICU management -Continue supportive care -Family decided to proceed with comfort care today. CODE STATUS no code Physician Catalyst Unit Operator note has been reviewed by physician. Signing provider agrees with the documented findings, assessment, and plan of care. Objective - Vital Signs Vital signs: Vital Signs Temp 98.2 F 07/29/20 04:00 Pulse 89 07/29/20 12:00 Resp 24 07/29/20 12:00 BP 113/79 07/29/20 12:00 Pulse Ox 89 L 07/29/20 11:52 Intake & Output 07/28/20 07/29/20 07/29/20 18:59 06:59 18:59 Intake Total 6929.910 6263.277 464.498 Output Total 613 50 5 Balance 111.091 1087.277 459.498 Weight 109.1 kg 105.1 kg Intake: IV 312 338 130 0.9 NS flush 72 78 30 Sodium Chloride 0.9% 500 240 260 100 ml 500 ml @ 20 mls/hr IV .Q24H [facility] Rx#:[id number] Intake, IV Titration 151.522 5479.277 334.498 Amount Esmolol in Sodium 213.624 327.49 126.88 Chloride Pmx 2.5 gm In Saline 1 250ml.bag @ 150 MCG/KG/MIN 97.2 mls/hr IV .Q2H35M [facility] Rx#: [id number] Norepinephrine 32 mg In 54.023 108.077 Sodium Chloride 0.9% 218 ml @ 0.05 MCG/KG/MIN 2. 557 mls/hr IV .Q24H [facility] Rx#:[id number] Norepinephrine 8 mg In 376.993 567.974 Sodium Chloride 0.9% 250 ml @ 0.05 MCG/KG/MIN 10. 449 mls/hr IV .Q24H [facility] Rx#:[id number] propofoL 1,000 mg In 289.550 260.790 99.541 Empty Bag 1 bag @ Titrate IV .Q0M [facility] Rx#: [id number] Tube Feeding 50 Other 30 Output: Gastric Drainage 300 Urine 263 50 5 Oral Regurgitation 50 Other: Voiding Method Indwelling Catheter Indwelling Catheter Indwelling Catheter # Voids 1 ABP, PAP, CO, CI - Last Documented Arterial Blood Pressure 52/38 - Labs CBC & Chem 7: 07/29/20 04:08 07/29/20 04:08 Labs: Abnormal Lab Results - Last 24 Hours (Table) 07/28/20 07/29/20 07/29/20 Range/Units 23:32 04:08 04:08 WBC 13.8 H (3.8-10.6) k/uL RBC 3.52 L (3.80-5.40) m/uL Hgb 9.1 L (11.4-16.0) gm/dL Hct 27.7 L (34.0-46.0) % MCV 78.5 L (80.0-100.0) fL RDW 20.1 H (11.5-15.5) % Neutrophils # 11.0 H (1.3-7.7) k/uL Lymphocytes # 0.9 L (1.0-4.8) k/uL Monocytes # 1.4 H (0-1.0) k/uL ABG pH (7.35-7.45) ABG pCO2 (35-45) mmHg ABG pO2 (83-108) mmHg ABG HCO3 (21-25) mmol/L ABG Total CO2 (19-24) mmol/L ABG O2 Saturation (94-97) % Carbon Dioxide 6 L* (22-30) mmol/L BUN 20 H (7-17) mg/dL Creatinine 2.59 H (0.52-1.04) mg/dL Glucose 111 H (74-99) mg/dL POC Glucose (mg/dL) 66 L (75-99) mg/dL Calcium 7.5 L (8.4-10.2) mg/dL Total Bilirubin 3.9 H (0.2-1.3) mg/dL AST 524 H (14-36) U/L ALT 151 H (4-34) U/L Alkaline Phosphatase 152 H (38-126) U/L Albumin 3.0 L (3.5-5.0) g/dL 07/29/20 Range/Units 05:35 WBC (3.8-10.6) k/uL RBC (3.80-5.40) m/uL Hgb (11.4-16.0) gm/dL Hct (34.0-46.0) % MCV (80.0-100.0) fL RDW (11.5-15.5) % Neutrophils # (1.3-7.7) k/uL Lymphocytes # (1.0-4.8) k/uL Monocytes # (0-1.0) k/uL ABG pH 7.22 L (7.35-7.45) ABG pCO2 21 L (35-45) mmHg ABG pO2 127 H (83-108) mmHg ABG HCO3 9 L* (21-25) mmol/L ABG Total CO2 10 L (19-24) mmol/L ABG O2 Saturation 98.1 H (94-97) % Carbon Dioxide (22-30) mmol/L BUN (7-17) mg/dL Creatinine (0.52-1.04) mg/dL Glucose (74-99) mg/dL POC Glucose (mg/dL) (75-99) mg/dL Calcium (8.4-10.2) mg/dL Total Bilirubin (0.2-1.3) mg/dL AST (14-36) U/L ALT (4-34) U/L Alkaline Phosphatase (38-126) U/L Albumin (3.5-5.0) g/dL Microbiology - Last 24 Hours (Table) 07/24/20 05:16 Blood Culture - Preliminary Blood No Growth after 120 hours
[2020-07-29 14:26] VITALS: BP 127/94; PULSE 84; RESP 19
--- NOTE | 2020-07-29 16:22 | DS ---
DISCHARGE SUMMARY CHIEF COMPLAINT: Mental status changes, hypotension, dehydration and delirium. HISTORY OF PRESENT ILLNESS AND PHYSICAL EXAMINATION: Details of this lady's history and physical can be found in the initial workup. LABORATORY STUDIES: While she was in the hospital she had laboratory studies, details of which can be found in the laboratory section of her chart. COURSE IN THE HOSPITAL: After admission she was placed on bedrest and started on critical care. She was delirious. Blood pressure was unstable. Lactic acid was extremely high. It was determined that she was in septic shock. Source could not be identified. Initially it was thought that it might be pancreatitis and then there was further suggestion that she may have an ischemic bowel. However, none of this could be definitely documented. She was treated in ICU and managed by Intensive Medicine, Med/Renal, Cardiology and Infectious Disease. She did not respond. She became more lethargic. Her lactic acid started to slowly come down. She then went into acute tubular necrosis with persistent output. However, her cardiovascular status became more labile. Blood pressure continued to slowly deteriorate and prognosis became much worse. She was maintained on IV antibiotics and any measures that would have helped her recover. This was all to no avail, and she on the afternoon of July 29. FINAL DIAGNOSES: 1. Septic shock. 2. Lactic acidosis. 3. Acute renal failure. 4. Tubular necrosis. 5. Congestive heart failure. 6. Uncontrolled insulin-dependent type 2 diabetes mellitus. 7. Waldenstrom's macroglobulinemia. 8. Encephalopathy. OPERATIONS: None. CONSULTATIONS: 1. Intensive Medicine. 2. Nephrology. 3. Infectious Disease. 4. Cardiology. She did not improve. She . MMODL / IJN: [id number] /
--- NOTE | 2020-08-06 12:08 | CDI ---
Documentation Clarification Form Mortality Review Date: 08/06/2020 12:06:31 PM From: Carmela Lowe RN, CCDS Admit Date: 07/23/2020 08:01:00 AM Patient Name: Lillie Ro Visit Number: [id number] Discharge Date: 07/29/2020 04:09:00 PM ATTENTION: The Clinical Documentation Specialists (CDI) and [facility] Coding Staff appreciate your assistance in clarifying documentation. Please respond to the clarification below the line at the bottom and electronically sign. The CDI & [facility] Coding staff will review the response and follow-up if needed. Please note: Queries are made part of the Legal Health Record. If you have any questions, please contact the author of this message via ITS. Dr. Russell Abbasi Unspecified CKD is documented in the Vascular and Cardiology notes. Additional clarification regarding the stage of CKD is requested. History/Risk Factors: 05/20/2020 Patients Historical BUN/CR/GFR: HX: Afib, CHF, DM, HLD, HTN, RA, NI cardiomyopathy, AICD, Anemia, Sjogrens, lupus, Waldstrom's, Sepsis, acute pancreatitis, MATEO with ATN, Acute hypoxic respiratory failure Clinical Indicators: 07/25 Vascular Consult and Procedure Note: "Acute on chronic renal failure procedure." 07/25-07/29 HPI: "During previous admission in May she had been diuresed and monitored for her chronic kidney disease." 07/23-07/29 Current BUN: 4/6/9/// CR: 1.13/2.5/3.01/2.92/2.3/2.21/2.59 GFR: 59/23/18/19/// Treatment: 07/25 Vascular inserted Right femoral HD cath with Hemodialysis initialed 07/25 Nephrology on consult with no mention of CKD, only MATEO with ATN 07/24-07/25 D5W with 3 amps Bicarb Gtt @ 50 cc/hr. 07/29 D5W with 3 amps Bicarb Gtt @ 75 cc/hr. 07/25 Lasix 80 mg IVP OT 07/27 Lasix 40 mg IVP Q 12 hrs. 07/29 Lasix 40 mg IVP QD Magnesium and KCL IV replacement protocols 07/26 Iv Levophed Gtt titrate for B/P 07/22 0.9% NS IVF Bolus 500 cc 07/24 5L 0.9% NS IVF Bolus Please clarify the stage of the CKD, if known: [ ] CKD Stage 1 (GFR > 90) [ ] CKD Stage 2 (GFR 60-89) [ ] CKD Stage 3 (GFR 30-59) [ ] CKD Stage 3a (GFR 45-59) [ ] CKD Stage 3b (GFR 30-44) [ ] CKD Stage 4 (GFR 15-29) [ ] CKD Stage 5 (GFR <15) [ ] ESRD [ ] Other, please specify [ ] Unable to determine (Template last revised: April 2020) MTDD
--- NOTE | 2020-08-06 15:30 | CDI ---
Documentation Clarification Form Mortality Review Date: 08/06/2020 03:12:45 PM From: Carmela Lowe RN, CCDS Admit Date: 07/23/2020 08:01:00 AM Patient Name: Lillie Ro Visit Number: [id number] Discharge Date: 07/29/2020 04:09:00 PM ATTENTION: The Clinical Documentation Specialists (CDI) and [facility] Coding Staff appreciate your assistance in clarifying documentation. Please respond to the clarification below the line at the bottom and electronically sign. The CDI & [facility] Coding staff will review the response and follow-up if needed. Please note: Queries are made part of the Legal Health Record. If you have any questions, please contact the author of this message via ITS. Dr. Russell Abbasi Encephalopathy is documented in the Summary. Additional clarification regarding the type of encephalopathy is requested. History/Risk Factors: Sepsis with Septic Shock, MATEO with ATN, CKD, Acute Pancreatitis, Acute Hypoxic Respiratory Failure, Cardiogenic Shock, Nonischemic Cardiomyopathy, IDDM 2, Chronic Persistent Atrial Fib, HTN, DM neuropathy of bilateral feet Clinical Indicators: 07/26 Nephrology progress note: "Started on dialysis mostly for worsening mentation and encephalopathy." 07/29 D/C Summary: "Encephalopathy" 07/23-07/29 Labs: Creatinine 1.13/2.5/3.01/2.92/2.3/2.21/2.59, Lactic acid 6/10.3/4.4, LDH 906, U/A: + 07/24 venous PH 7.17, Venous pCo2 18, venous HCO3 6 Treatment: 07/25 Hemodialysis is initiated 07/24-07/25 D5W with 3 amps Bicarb Gtt @ 50 cc/hr. 07/29 D5W with 3 amps Bicarb Gtt @ 75 cc/hr. Magnesium and KCL IV replacement protocols 07/26 Iv Levophed Gtt titrate for B/P 07/22 0.9% NS IVF Bolus 500 cc 07/24 5L 0.9% NS IVF Bolus 07/24-07/29 Meropenem 1gm IVPB Q 12 hrs. Please clarify the type of encephalopathy, if known: [ ] Anoxic Encephalopathy [ ] Metabolic Encephalopathy [ ] Septic Encephalopathy [ ] Toxic Encephalopathy [ ] Other, please specify [ ] Unable to determine (Template Last Revised: May 2020) MTDD
--- NOTE | 2020-08-06 15:43 | CDI ---
Documentation Clarification Form Date: 08/06/2020 03:38:00 PM From: Carmela Lowe RN, CCDS Admit Date: 07/23/2020 08:01:00 AM Patient Name: Lillie Ro Visit Number: [id number] Discharge Date: 07/29/2020 04:09:00 PM ATTENTION: The Clinical Documentation Specialists (CDI) and [facility] Coding Staff appreciate your assistance in clarifying documentation. Please respond to the clarification below the line at the bottom and electronically sign. The CDI & [facility] Coding staff will review the response and follow-up if needed. Please note: Queries are made part of the Legal Health Record. If you have any questions, please contact the author of this message via ITS. Dr. Russell Abbasi Uncontrolled Diabetes Type 2 is documented Summary. Additional specificity regarding the diabetes diagnosis is requested. History/Risk Factors: chronic A. fib on Eliquis, chronic CHF, diabetes mellitus type 2, nonischemic cardiomyopathy, status post AICD placement hypertension, hyperlipidemia, rheumatoid arthritis, Sjogren's, lupus, fibromyalgia, history of Waldenstrom macroglobulinemia previously treated with chemotherapy, former smoker, Diabetes mellitus type 2 with diabetic neuropathy Clinical Indicators: 07/23-07/29 Glucose: 134/195/150/139/103/130/111 Treatment: 07/24-07/25 Novolog SSI AC/HS with blood glucose testing AC/HS Please clarify the type of diabetes, if known: [ ] Diabetes Type 2 with hyperglycemia [ ] Diabetes Type 2 w/o uncontrolled blood glucose [ ] Diabetes Type 2 Controlled [ ] Other, please specify [ ] Unable to Determine (Template Last Revised: May 2020) MTDD
--- NOTE | 2020-08-07 20:31 | MISC ---
MISCELLANOUS REPORT QUERY: Stage IV. MMODL / IJN: [id number] /
--- NOTE | 2020-08-07 20:34 | MISC ---
MISCELLANOUS REPORT QUERY: Metabolic encephalopathy. MMODL / IJN: [id number] /
--- NOTE | 2020-08-07 20:34 | MISC ---
MISCELLANOUS REPORT QUERY: Type 2 with hyperglycemia. MMODL / IJN: [id number] /
== END 2020-07-29 16:09 | disposition expired | DRG 871 ==
LOC: EC 22:40 → 1SOBS 07-23 03:36 → 6NMEDSUR 07-23 06:07 → OBSVTOIN 07-23 08:01 → 6NMEDSUR 07-23 13:43 → 4SSUR 07-23 14:12 → 2SICU 07-24 07:47
PROVIDERS: ADMIT Family Medicine; ATTEND Family Medicine
PROC: 05HA33Z Insertion of Infusion Device into Left Brachial Vein, Percutaneous Approach (ICD-10-PCS; 2020-07-24)
PROC: 0BH17EZ Insertion of Endotracheal Airway into Trachea, Via Natural or Artificial Opening (ICD-10-PCS; principal; 2020-07-25)
PROC: 5A1945Z Respiratory Ventilation, 24-96 Consecutive Hours (ICD-10-PCS; principal; 2020-07-25)
PROC: 30233K1 Transfusion of Nonautologous Frozen Plasma into Peripheral Vein, Percutaneous Approach (ICD-10-PCS; 2020-07-25)
PROC: 0D9670Z Drainage of Stomach with Drainage Device, Via Natural or Artificial Opening (ICD-10-PCS; 2020-07-25)
PROC: 06HF33Z Insertion of Infusion Device into Right External Iliac Vein, Percutaneous Approach (ICD-10-PCS; 2020-07-25)
PROC: 5A1D70Z Performance of Urinary Filtration, Intermittent, Less than 6 Hours Per Day (ICD-10-PCS; 2020-07-25)
PROC: 3E033XZ Introduction of Vasopressor into Peripheral Vein, Percutaneous Approach (ICD-10-PCS; 2020-07-26)
PROC: 02HV33Z Insertion of Infusion Device into Superior Vena Cava, Percutaneous Approach (ICD-10-PCS; 2020-07-27)
DX: A41.9 Sepsis, unspecified organism (principal); K72.00 Acute and subacute hepatic failure without coma; I50.23 Acute on chronic systolic (congestive) heart failure; J96.01 Acute respiratory failure with hypoxia; K85.90 Acute pancreatitis without necrosis or infection, unspecified; N17.0 Acute kidney failure with tubular necrosis; R65.21 Severe sepsis with septic shock; G93.41 Metabolic encephalopathy; D68.9 Coagulation defect, unspecified; E87.2 Acidosis; I13.0 Hypertensive heart and chronic kidney disease with heart failure and stage 1 through stage 4 chronic kidney disease, or unspecified chronic kidney disease; I31.3 Pericardial effusion (noninflammatory); I42.8 Other cardiomyopathies; I48.19 Other persistent atrial fibrillation; J98.11 Atelectasis; K55.9 Vascular disorder of intestine, unspecified; N30.01 Acute cystitis with hematuria; N18.4 Chronic kidney disease, stage 4 (severe); C88.0 Waldenstrom macroglobulinemia; Z79.4 Long term (current) use of insulin; E11.22 Type 2 diabetes mellitus with diabetic chronic kidney disease; Z20.822 Contact with and (suspected) exposure to COVID-19; I27.20 Pulmonary hypertension, unspecified; Z66 Do not resuscitate; Z51.5 Encounter for palliative care; D89.0 Polyclonal hypergammaglobulinemia; R57.0 Cardiogenic shock; E11.40 Type 2 diabetes mellitus with diabetic neuropathy, unspecified; A08.4 Viral intestinal infection, unspecified; E78.5 Hyperlipidemia, unspecified; E11.65 Type 2 diabetes mellitus with hyperglycemia; E83.42 Hypomagnesemia; E86.0 Dehydration; E87.6 Hypokalemia; H26.9 Unspecified cataract; I08.1 Rheumatic disorders of both mitral and tricuspid valves; I25.5 Ischemic cardiomyopathy; M06.9 Rheumatoid arthritis, unspecified; M35.00 Sjogren syndrome, unspecified; M79.7 Fibromyalgia; Z79.01 Long term (current) use of anticoagulants; Z79.82 Long term (current) use of aspirin; M10.9 Gout, unspecified; Z79.899 Other long term (current) drug therapy; Z80.7 Family history of other malignant neoplasms of lymphoid, hematopoietic and related tissues; Z92.21 Personal history of antineoplastic chemotherapy; Z86.79 Personal history of other diseases of the circulatory system; Z87.891 Personal history of nicotine dependence; Z88.0 Allergy status to penicillin; Z90.49 Acquired absence of other specified parts of digestive tract; Z90.710 Acquired absence of both cervix and uterus; Z95.810 Presence of automatic (implantable) cardiac defibrillator
CPT/HCPCS: 36410; 36415; 36600; 70450; 71045; 74177; 76604; 76770; 76937; 80048; 80053; 81001; 82024; 82140; 82150; 82533; 82803; 82805; 83605; 83615; 83690; 83735; 84100; 84132; 84484; 85025; 85379; 85610; 86140; 86334; 86335; 86704; 86706; 86850; 86900; 86901; 87040; 87070; 87086; 87205; 87340; 87635; 90935; 93306; 94002; 94003; 96361; 96374; 96375; 99285